=== PATIENT | male | born 1965 | race Caucasian/White ===

== ENCOUNTER 2016-07-30 22:57 | Inpatient (IN) ==
[2016-07-30] MEDS ORDERED: PIPERACILLIN/TAZOBACTAM 2,250 MG in SODIUM CHLORIDE 0.9% 100 ML IV STA (23:38)
[2016-07-30] MEDS ORDERED: VANCOMYCIN INJ 1,000 MG in SODIUM CHLORIDE 0.9% 250 ML IV STA (23:38)
--- NOTE | 2016-07-30 23:54 | Emergency Department Note ---
Suri Bautista Emily, am scribing for, and in the presence of, Reggie Irving MD 23: 41. Aristides Bautista Charles R, MD, personally performed the services described in this documentation, ascribed by Katelyn Mccord in my presence, and it is both accurate and complete 354 . Arrival - Arrival Chief Complaint: Altered Mental Status Stated Complaint: altered mental status ED Nursing Triage Note: patient to ED as a tx from [facility] ED with c/o AMS. patient AAOx3 at this time but has unsteady gait and it takes patient a second to recall information when asked questions. patient was with fever 103.0 at [facility] that was tx. patient with abnormal labs at [facility] and sent for further evaluation. Mode of Arrival: Stretcher Limitations: Altered Mental Status Source: Patient Time Seen by Provider: 07/30/16 23:23 - History of Present Illness HPI Narrative: Pt is a 51 y/o male who was transferred to ED from [facility] ED for further evaluation AMS and fever of 103 that happened today. Pt had abnormal labs at [facility] (D-Dimer 9000) and sent for further evaluation. Pt had klondipin [employer]. Pt is sweating in ED, and c/o back pain. He also notes he smokes a pack every 3 days. Pt was seen at [facility] last week by Dr. Joshi and was altered then but had elevated BP. Onset (ago): day(s) Consistency: constant Severity: moderate Severity scale (1-10): 5 Quality: other (sweating) Allergies/Adverse Reactions: Allergies Allergy/AdvReac Type Severity Reaction Status Date / Time Sulfa (Sulfonamide AdvReac Unknown/Unable Verified 07/30/16 23:04 Antibiotics) to obtain Review of System - Review of System ROS unobtainable: due to mental status Medical,Surgical,& Family Hx - Medical History Cardio: History of: Hypertension Endocrine: History of: Dyslipidemia Musculoskeletal: History of: Degenerative Disk Disease, Herniated Disk - Social History Smoking Status: Unknown if ever smoked Frequency of Alcohol Use: Unknown Type of Drug Use: Unknown Exam Vital Signs: Vital Signs Temperature 98.0 F 07/30/16 22:57 Pulse Rate 105 H 07/30/16 22:57 Respiratory Rate 23 07/30/16 22:57 Blood Pressure 100/62 07/30/16 22:57 O2 Sat by Pulse Oximetry 92 L 07/30/16 22:57 - General General appearance: alert, in no apparent distress, other (appears toxic) - Head Head exam: Present: atraumatic, normocephalic - Eye Eye exam: Present: PERRL, EOMI - ENT ENT exam: Present: mucous membranes moist. Absent: mucous membranes dry - Neck Neck exam: Present: full ROM. Absent: tenderness - Chest Chest inspection: Present: symmetric chest wall rise. Absent: tenderness - Respiratory Respiratory exam: Present: rhonchi (bilateral). Absent: normal lung sounds bilaterally, respiratory distress - Cardiovascular Cardiovascular exam: Present: tachycardia, normal heart sounds - Abdominal Exam Abdominal exam: Present: soft. Absent: tenderness - Extremities Exam Extremities exam: Present: full ROM. Absent: tenderness, pedal edema - Neurological Exam Neurological exam: Present: alert, CN II-XII intact, other (confused; weak). Absent: oriented X3, motor sensory deficit - Psychiatric Psychiatric exam: Present: other (confused) - Skin Skin exam: Present: warm, intact, normal color, diaphoresis (clammy) Course - Consultations Consultation #1: Hospitalist will admit patient Time: 23:54 Results - Labs Labs: All results from previous facility reviewed Critical Care Time Critical Care Time: Yes Total Critical Care Time: 60 Disposition Clinical Impression: Altered mental status, Sepsis, Fever, Hypotension, Acute renal failure, Dehydration, Hyperglycemia due to type 2 diabetes mellitus, Hyponatremia, Confusion Case discussed with: patient Disposition: Still a Patient Condition: Critical Time of Disposition: 23:56
[2016-07-31] MEDS ORDERED: VANCOMYCIN 1,000 MG VIAL ONE (00:34)
[2016-07-31 00:40] LABS: Basophils % 0.4 % (0.0-0.8); Eosinophils % 0.1 % (0.00-10.9); Hematocrit 36.2 VOL% (42.0-52.0); Hemoglobin 12.7 GM/DL (14.0-18.0); Immature Granulocytes % 0.9 %; Immature Granulocytes Absolute 0.06 #; Lymphocytes # 0.5 10*3/uL (1.4-4.0); Lymphocytes % 7.3 % (21.2-54.2); Mean Corpuscular HGB Conc 35.1 GM/DL (32-36); Mean Corpuscular Hemoglobin 32 PG (27-34); Monocytes # 0.6 10*3/uL (0.11-0.8); Monocytes % 9.5 % (1.7-12.7); Neutrophils # 5.5 10*3/uL (1.4-7.4); Neutrophils % 81.8 % (38.7-73.9); Red Blood Count 3.98 MC/CUMM (3.8-5.5); Red Cell Distribution Width 12.8 % (9.3-17.3); White Blood Count 6.7 T/CUMM (4-12)
[2016-07-31 00:58] LABS: Platelet Count 84 T/CUMM (130-400)
[2016-07-31 01:02] LABS: Albumin 2.5 G/DL (3.4-5.0); Bilirubin,Total 0.7 MG/DL (0.2-1.0); CKMB % 0.9 %; Calcium 6.5 MG/DL (8.5-10.1); Magnesium 0.8 MG/DL (1.8-2.4); Osmolality,Calculated 294.8 MOS/KG (273-304); Potassium 3.2 MMOL/L (3.5-5.1); Total Protein 6.1 G/DL (6.4-8.3); Troponin I Only 0.06 NG/ML (0.00-0.045)
--- NOTE | 2016-07-31 02:48 | Hospitalist History & Physical ---
Assessment and Plan (1) Acute renal failure Status: Acute Current Visit: Yes (2) Altered mental status Status: Acute Current Visit: Yes (3) Confusion Status: Acute Current Visit: Yes (4) Fever Status: Acute Current Visit: Yes (5) Hyperglycemia due to type 2 diabetes mellitus Status: Acute Current Visit: Yes (6) Hypotension Status: Acute Current Visit: Yes (7) Sepsis Status: Acute Assessment and plan: We will admit the patient to ICU. He needs observation with broad coverage antibiotics. Source of sepsis is not known. Blood cultures need to be drawn. Patient complaining about severe back pain. He has chronic pain. We will repeat a d-dimer if it is elevated he he needs a VQ scan. I will consult nephrology to see what they think about his kidney function. We will continue with IV fluids. He can have some Toradol for pain. He needs his potassium repleted. He has a mild bump in troponins we need to trend those out. He has a high C-reactive protein. ESR is elevated. I am going to image his back for as a source for possible sepsis to be complete. He is on broad coverage antibiotics. Current Visit: Yes History of Present Illness Chief complaint: Fever, hypotension, chronic back pain History of present illness: Mr. Ball is a 51 year old male with past medical history significant for chronic back pain arthritis diabetes diabetic retinopathy and elevation of liver enzymes Presents to our hospital as a transfer from outside facility. According to the story the patient gives he fell and hurt his back after taking the Klonopin. He been running a fever of 103 today. He says he was having symptoms of bronchitis. Was at the outside facility he had a drop in blood pressure. We were under the impression that he was going septic and he required a 4 L bolus. This might be a reaction to some morphine that they gave him at the outside facility. I know he has been on lisinopril hydrochlorothiazide for years. He has elevated creatinine and he is unsure whether this is new or old. Apparently he had elevated blood pressure when he was seen last week at [place]. I was consulted to admit the patient. Allergies Allergy/AdvReac Type Severity Reaction Status Date / Time Sulfa (Sulfonamide AdvReac Unknown/Unable Verified 07/30/16 23:04 Antibiotics) to obtain Medical,Surgical,& Family Hx - Medical History Cardio: History of: Hypertension Endocrine: History of: Dyslipidemia Musculoskeletal: History of: Degenerative Disk Disease, Herniated Disk - Surgical History Orthopedic Surgeries: Surgical HX of;: Orthopedic Surgery - Family History Family History: Reports;: Family Hypertension - Social History Smoking Status: Current every day smoker Frequency of Alcohol Use: Unknown Type of Drug Use: Unknown 12 point system: reviewed and no additional remarkable complaints except as stated Exam - Constitutional Vitals: Period Temp Pulse Resp BP Sys/Mcconnell Pulse Ox Last 24 Hr 98 F-98.0 F 105-105 20-23 100-100/62-62 92 - General General appearance: alert, in no apparent distress, other (appears toxic) mildly confused overweight emotional - Head Head exam: Present: atraumatic, normocephalic - Eye Eye exam: Present: PERRL, EOMI - ENT ENT exam: Present: mucous membranes moist. Absent: mucous membranes dry - Neck Neck exam: Present: full ROM. Absent: tenderness - Chest Chest inspection: Present: symmetric chest wall rise. Absent: tenderness - Respiratory Respiratory exam: Present: rhonchi (bilateral). Absent: normal lung sounds bilaterally, respiratory distress - Cardiovascular Cardiovascular exam: Present: tachycardia, normal heart sounds - Abdominal Exam Abdominal exam: Present: soft. Absent: tenderness - Extremities Exam Extremities exam: Present: full ROM. Absent: tenderness, pedal edema - Neurological Exam Neurological exam: Present: alert, CN II-XII intact, other (confused; weak). Absent: oriented X3, motor sensory deficit - Psychiatric Psychiatric exam: Present: other (confused) - Skin Skin exam: Present: warm, intact, normal color, diaphoresis (clammy) Results - Labs CBC & BMP: 07/30/16 00:34 07/30/16 00:34
[2016-07-31] MEDS ORDERED: GLUCAGON 1 MG VIAL IM PRN (02:54)
[2016-07-31] MEDS ORDERED: ONDANSETRON 4 MG/2 ML VIAL IV PRN (02:54)
[2016-07-31 03:02] LABS: Band Neutrophils 3 % (0-10); Lymphocytes 12 % (20-55); Metamyelocytes 1 %; Platelet Estimate Decreased; Segmented Neutrophils 79 % (50-85); Total Cells Counted 100
[2016-07-31] MEDS ORDERED: KETOROLAC 15 MG/1 ML VIAL IV PRN (03:03)
[2016-07-31] MEDS ORDERED: MAGNESIUM SULF RIDER 2 GM in PREMIX 1 EACH IV PRN (03:31)
[2016-07-31] MEDS ORDERED: MAGNESIUM SULF RIDER 4 GM in PREMIX 1 EACH IV PRN (03:31)
[2016-07-31] MEDS ORDERED: POTASSIUM CHLORIDE 20 MEQ TABLET PO ONE (03:47)
[2016-07-31] MEDS: SODIUM CHLORIDE 0.9% 1,000 ML IV SCH ×3 (04:45→21:23)
[2016-07-31] MEDS ORDERED: MAGNESIUM SULF RIDER 100 ML IV ONE (04:48)
[2016-07-31] MEDS: ENOXAPARIN 30 MG/0.3 ML SYRINGE SUBCUT SCH (04:51)
--- NOTE | 2016-07-31 07:13 | CT Report ---
CT head/brain wo con INDICATION: Altered mental status/confusion The total DLP is 1134 mGy*cm. COMPARISON: None available Technique: Serial axial tomographic images of the brain were obtained without the use of intravenous contrast. Dose reduction: This CT exam was performed using one or more of the following dose reduction techniques: Automated exposure control, automated adjustment of the mA and/or KV according to patient size, or use of iterative reconstruction technique. Findings: The cortical sulcal pattern is generally symmetric and within normal limits in appearance bilaterally. There is no evidence of vascular territory infarct or acute intracranial hemorrhage. The gong-white matter differentiation is generally maintained. There is no hydrocephalus. The basilar cisterns are patent. The visualized paranasal sinuses, mastoid air cells and middle ear cavities are predominantly clear. The included orbits and their contents appear within normal limits. The visualized osseous structures and overlying soft tissues of the skull and face demonstrate no acute abnormality. IMPRESSION: No acute intracranial abnormality. PROCEDURE INTERPRETED AT [facility] DEPARTMENT OF RADIOLOGY Final Report Signed by: Albino Hammond
[2016-07-31 08:39] LABS: Lactic Acid 1.1 MMOL/L (0.4-2.0)
[2016-07-31 08:40] LABS: Albumin 2.5 G/DL (3.4-5.0); Bilirubin,Total 1.1 MG/DL (0.2-1.0); Calcium 6.9 MG/DL (8.5-10.1); Osmolality,Calculated 296.8 MOS/KG (273-304); Potassium 4.1 MMOL/L (3.5-5.1); Total Protein 5.9 G/DL (6.4-8.3)
[2016-07-31 08:41] LABS: CKMB % 1.6 %; Troponin I Only 0.043 NG/ML (0.00-0.045)
[2016-07-31 08:44] LABS: Basophils % 0.4 % (0.0-0.8); Eosinophils % 0.2 % (0.00-10.9); Hematocrit 33.4 VOL% (42.0-52.0); Hemoglobin 11.9 GM/DL (14.0-18.0); Immature Granulocytes % 1.5 %; Immature Granulocytes Absolute 0.07 #; Lymphocytes # 0.3 10*3/uL (1.4-4.0); Lymphocytes % 6.8 % (21.2-54.2); Mean Corpuscular HGB Conc 35.6 GM/DL (32-36); Mean Corpuscular Hemoglobin 32 PG (27-34); Mean Corpuscular Volume 89.3 FL (87-102); Mean Platelet Volume 12.3 FL (9.6-12.0); Monocytes # 0.6 10*3/uL (0.11-0.8); Monocytes % 12.1 % (1.7-12.7); Neutrophils # 3.7 10*3/uL (1.4-7.4); Platelet Count 86 T/CUMM (130-400); Red Blood Count 3.74 MC/CUMM (3.8-5.5); Red Cell Distribution Width 13.3 % (9.3-17.3); White Blood Count 4.7 T/CUMM (4-12)
--- NOTE | 2016-07-31 08:52 | XRay Report ---
Portable chest Date: 07/31/2016 Clinical history: Shortness of breath Comparison: 07/30/2016 Technique: Portable AP sitting chest Findings: The heart is minimally enlarged with progressive parenchymal findings at the lung bases. Stable mediastinum with degenerative changes. Impression: Minimal cardiomegaly with progressive atelectasis/infiltration/edema at the lung bases. PROCEDURE INTERPRETED AT [facility] DEPARTMENT OF RADIOLOGY Final Report Signed by: Dr. Haydee Manjarrez
[2016-07-31] MEDS: PANTOPRAZOLE 40 MG TABLET PO SCH (08:56)
[2016-07-31] MEDS: INSULIN REGULAR 100 UNIT/ML SUBCUT SCH ×4 (08:56→21:23)
[2016-07-31] MEDS: PIPERACILLIN/TAZOBACTAM 3,375 MG in SODIUM CHLORIDE 0.9% 100 ML IV SCH ×2 (08:57→16:20)
[2016-07-31 09:04] LABS: Band Neutrophils 6 % (0-10); Eosinophils 1 % (0-10); Hypochromasia 1+; Lymphocytes 7 % (20-55); Metamyelocytes 1 %; Microcytosis 1+; Platelet Estimate Decreased; Segmented Neutrophils 71 % (50-85); Total Cells Counted 100
[2016-07-31] MEDS ORDERED: HYDROmorphone 2 MG/1 ML VIAL ONE (09:07)
[2016-07-31] MEDS: HYDROmorphone 2 MG/1 ML VIAL IV PRN ×3 (09:10→17:21)
--- NOTE | 2016-07-31 09:17 | CT Report ---
CT lumbar spine wo con Indication: Back pain, septic Comparison: None. Technique: Routine CT of the lumbar spine was performed without the administration of intravenous contrast. Axial images as well as coronal and sagittal MPR images of the lumbar spine was submitted for interpretation. The total DLP is 1651 mGy*cm. Dose reduction: This CT exam was performed using one or more of the following dose reduction techniques: Automated exposure control, automated adjustment of the mA and/or KV according to patient size, or use of iterative reconstruction technique. Findings: Lumbar vertebral bodies demonstrate normal alignment. Vertebral body height is well maintained throughout the lumbar spine. Intervertebral disc spaces demonstrate no evidence of advanced degeneration. There is no evidence of significant central stenosis. The prevertebral soft tissues as well as posterior paraspinous musculature and imaged intra-abdominal contents demonstrate no evidence of acute pathology. Very mild L4-5 and L5-S1 facet arthropathy is noted. Small anterior osteophytes are noted at multiple levels. There is minimal vacuum disc phenomena within the L5-S1 disc with mild narrowing. Bilateral L5 pars defects are noted. There is grade 1 anterolisthesis of L5 relative to S1. Impression: 1. No evidence of acute pathology affecting the lumbar spine. 2. Mild multilevel degenerative changes as detailed above. 07/31/2016 9:12 AM PROCEDURE INTERPRETED AT [facility] DEPARTMENT OF RADIOLOGY Final Report Signed by: Albino Hammond
--- NOTE | 2016-07-31 09:29 | CT Report ---
Exam:CT thoracic spine wo con Indication: Back pain and septic patient The total DLP is 1263 mGy*cm. Comparison: None available Technique: Multiple axial tomographic images were obtained of the thoracic spine without the use of IV contrast. Coronal and sagittal reformations were provided. Dose reduction: This CT exam was performed using one or more of the following dose reduction techniques: Automated exposure control, automated adjustment of the mA and/or KV according to patient size, or use of iterative reconstruction technique. Findings: Study somewhat limited given CT technique and lack of intravenous contrast. No obvious paraspinal soft tissue abnormalities or areas suggestive of focal inflammatory changes are identified on the axial images. Multilevel mild degenerative changes including anterior osteophyte formation and mild facet arthropathy is noted throughout the thoracic spine. Vertebral body heights and alignment are maintained. Intervertebral disc spaces appear relatively maintained. There is no acute fracture or dislocation. No suspicious osseous lesions are identified. No significant spinal canal or neuroforaminal narrowing. The visualized surrounding soft tissues have a normal appearance. IMPRESSION: No CT evidence of acute abnormality to the osseous thoracic spine. PROCEDURE INTERPRETED AT [facility] DEPARTMENT OF RADIOLOGY Final Report Signed by: Albino Hammond
--- NOTE | 2016-07-31 09:36 | Ultrasound Report ---
Exam: US renal Bilateral Date: 07/31/2016 4:00 AM Comparison: None Indication: Elevated creatinine Technique:[Multiple transabdominal real-time scans were obtained of the kidneys. Ultrasound images were captured and stored.] Findings: Right kidney measures 117 x 63 x 61 mm. Left kidney measures 100 x 67 x 62 mm. No hydronephrosis or mass. Impression: The kidneys are symmetric in size with no hydronephrosis or definite mass. PROCEDURE INTERPRETED AT [facility] DEPARTMENT OF RADIOLOGY Final Report Signed by: Dr. Haydee Manjarrez
--- NOTE | 2016-07-31 09:51 | CT Report ---
CT cervical spine wo con Indication: neck pain with sepsis Comparison: None. Technique: CT of the cervical spine was performed without administration of intravenous contrast. In addition to axial source images obtained from the skull base through the upper chest, coronal and sagittal MPR series were submitted for interpretation. The total DLP is 723.5 mGy*cm. Dose reduction: This CT exam was performed using one or more of the following dose reduction techniques: Automated exposure control, automated adjustment of the mA and/or KV according to patient size, or use of iterative reconstruction technique. Findings: Lack of intravenous contrast limits evaluation. The base of the skull demonstrates no evidence of significant pathology. Alignment of the cervical spine is within normal limits. Cervical vertebral body heights are well maintained throughout the cervical spine. Intervertebral disc spaces are well maintained throughout the cervical spine. There is no acute fracture or subluxation within the cervical spine. No significant osseous spinal stenosis is suggested. Prevertebral soft tissues demonstrate no significant abnormalities. The thyroid gland demonstrates no evidence of acute pathology. Imaged portion of the upper chest demonstrates no evidence of significant pathology. Impression: 1. No evidence of acute cervical spine pathology. 2. Multilevel mild degenerative changes as detailed above. 07/31/2016 9:29 AM PROCEDURE INTERPRETED AT [facility] DEPARTMENT OF RADIOLOGY Final Report Signed by: Albino Hammond
--- NOTE | 2016-07-31 11:01 | Nuclear Medicine Report ---
Exam: Lung scan ventilation/perfusion Date: 07/31/2016 Comparison: Chest x-ray 07/31/2016 Reason: Shortness of breath Technique: 40 mCi of technetium 99m DTPA aerosolized was inhaled with injection of 5 mCi of technetium 99m MAA . 6 view Ventilation and perfusion images of both lungs were acquired. Findings: Slightly diminished ventilation at the lung bases. No unmatched defects are identified. Impression: Low probability lung scan. PROCEDURE INTERPRETED AT [facility] DEPARTMENT OF RADIOLOGY Final Report Signed by: Dr. Haydee Manjarrez
--- NOTE | 2016-07-31 12:02 | Nephrology Consult Note ---
History of Present Illness Chief complaint: ARF History of present illness: Mr. Ball is a 51 year old male seen at [facility] for back pain. He became hypotensive there was given IV fluid. He was thought to be septic and was transferred here. He was febrile. He was noted to have renal failure. He states that he has been told his renal function was abnormal in the past but does not know his baseline. He recently moved here and has no local records. No history of nephrolithiasis. No dysuria or hematuria. Home Medications Medication Instructions Recorded Confirmed Type Unable To Obtain [Unable to Obtain] 07/31/16 07/31/16 History Allergies Allergy/AdvReac Type Severity Reaction Status Date / Time Sulfa (Sulfonamide AdvReac Unknown/Unable Verified 07/30/16 23:04 Antibiotics) to obtain Medical,Surgical,& Family Hx - Medical History Cardio: History of: Hypertension Endocrine: History of: Diabetes Mellitus (IDDM), Dyslipidemia Renal: History of: Renal Problems Musculoskeletal: History of: Degenerative Disk Disease, Herniated Disk - Surgical History Orthopedic Surgeries: Surgical HX of;: Orthopedic Surgery - Family History Family History: Reports;: Family Hypertension - Social History Smoking Status: Current every day smoker Frequency of Alcohol Use: Frequently Type of Drug Use: Unknown Review of Systems 12 point system: reviewed and no additional remarkable complaints except as stated Exam - Vital Signs Vital signs: Period Temp Pulse Resp BP Sys/Mcconnell Pulse Ox Last 24 Hr 97.1 F-98.2 F 96-113 14-27 90-126/60-83 91-99 Exam: Gen.: Alert and oriented x3. ENT: Pupils equal round reactive to light. EOMs intact. Mucous membranes moist. Neck: Supple. No JVD or bruit. Cardiovascular: Regular rate and rhythm. No murmur rub or gallop Lungs: Clear Abdomen: Soft. Nontender. Positive bowel sounds. No organomegaly Extremities: No edema Results - Labs CBC & BMP: 07/31/16 08:00 07/31/16 08:00 Assessment and Plan (1) Acute renal failure Status: Acute Assessment and plan: 51-year-old man admitted with: * Acute renal failure. He has an unknown degree of chronic renal insufficiency. Renal function worsened with hypotension. It has begun to improve with better blood pressure. He did take NSAIDs prior to admission and received Toradol in the ER. I agree with discontinuing these. He was also on an HUGH inhibitor which is being held. Renal ultrasound shows no anatomic abnormalities * Hypotension. Rule out sepsis. He is also clinically volume depleted. Continue empiric antibiotics * Diabetes mellitus * Chronic back pain * Altered mental status. He appears to be back to his baseline. This was likely due to hypotension and pain medications Current Visit: Yes (2) Altered mental status Status: Acute Current Visit: Yes (3) Fever Status: Acute Current Visit: Yes (4) Hyperglycemia due to type 2 diabetes mellitus Status: Acute Current Visit: Yes (5) Hypotension Status: Acute Current Visit: Yes
[2016-07-31 12:38] LABS: CKMB % 1.7 %
[2016-07-31 12:48] LABS: Troponin I Only 0.05 NG/ML (0.00-0.045)
[2016-08-01] MEDS: PIPERACILLIN/TAZOBACTAM 3,375 MG in SODIUM CHLORIDE 0.9% 100 ML IV SCH ×4 (00:14→23:54)
[2016-08-01] MEDS: LORazepam 2 MG/1 ML VIAL IV PRN (00:46)
[2016-08-01] MEDS: HYDROmorphone 2 MG/1 ML VIAL IV PRN ×3 (03:05→20:54)
[2016-08-01] MEDS: SODIUM CHLORIDE 0.9% 1,000 ML IV SCH ×3 (05:35→20:16)
--- NOTE | 2016-08-01 07:53 | Hospitalist Progress Note ---
Assessment and Plan - Time spent with patient Time spent with patient: Less than 30 minutes (1) Altered mental status Status: Acute Assessment and plan: He appears to be back at baseline mental status. We will continue to follow and monitor. Current Visit: Yes (2) Sepsis Status: Acute Assessment and plan: Cultures have been negative thus far there is no source of infection enough yet to identify. We will continue IV fluids and broad-spectrum antibiotics while awaiting further cultures. Current Visit: Yes (3) Thrombocytopenia Status: Acute Assessment and plan: He does have thrombocytopenia however this is stable and there is no evidence of bleeding at this time. Current Visit: Yes (4) Diabetes mellitus Status: Acute Assessment and plan: Patient has history of diabetes mellitus. Blood sugars are not very well controlled. Will continue Accu-Chek sliding scale and his routine medical regimen and attempt optimize while here. Current Visit: Yes Qualifiers: Diabetes mellitus type: type 2 (5) Acute renal failure Status: Acute Assessment and plan: Laboratory studies are pending for this morning. Nephrology is seen in assisting. Will continue hydration and avoid nephrotoxic insults. Current Visit: Yes Hospitalist: Subjective Interval history: 51-year-old male who was admitted with possible sepsis after being transferred from an outlying hospital. Cultures remain negative thus for. Nephrology is seen for his renal failure which is of unknown duration. Today he continues to complain of some mid back pain. He states he is tolerating his diet and has no nausea, vomiting, diarrhea, constipation, chest pain, shortness of breath. Nurses state that he has pulled his IV out on multiple occasions and is constantly trying to get out of his bed. Exam - Constitutional Vitals: Period Temp Pulse Resp BP Sys/Mcconnell Pulse Ox Last 24 Hr 97.7 F-100.9 F 86-123 13-22 102-155/61-88 91-99 General appearance: no acute distress - Head Head exam: Present: normocephalic, atraumatic - Eye Eye exam: Present: EOMI Pupils: Present: NANY - ENT ENT exam: Present: normal oropharynx - Neck Neck exam: Present: normal inspection - Respiratory Respiratory exam: Present: clear to auscultation bilaterally. Absent: rales, rhonchi, wheezes - Cardiovascular Cardiovascular exam: Present: regular rate and rhythm, tachycardia - GI/Abdominal GI/Abdominal exam: Present: normal bowel sounds, soft. Absent: mass, tenderness , rebound - Extremities Exam Extremities exam: Absent: calf tenderness, edema - Back Exam Back exam: Present: normal inspection - Neurological Exam Neurological exam: Present: alert, oriented X3, CN II-XII intact. Absent: motor sensory deficit - Psychiatric Psychiatric exam: Present: normal affect, normal mood. Absent: agitated, anxious - Skin Skin exam: Present: warm, dry. Absent: rash Results - Labs CBC & BMP: 07/31/16 08:00 07/31/16 08:00 Lab Results: I have reviewed the past 24 hour labs - Diagnostic Findings Procedure: Chest x-ray: report reviewed by me, CT: report reviewed by me (CT head, CT cervical thoracic and lumbar spine reviewed), X-ray: report reviewed by me (VQ scan reveals low probability)
[2016-08-01 08:40] LABS: Basophils % 0.3 % (0.0-0.8); Hematocrit 34.6 VOL% (42.0-52.0); Hemoglobin 11.8 GM/DL (14.0-18.0); Immature Granulocytes % 6.5 %; Immature Granulocytes Absolute 0.38 #; Lymphocytes # 0.5 10*3/uL (1.4-4.0); Lymphocytes % 8.2 % (21.2-54.2); Mean Corpuscular HGB Conc 34.1 GM/DL (32-36); Mean Corpuscular Hemoglobin 31 PG (27-34); Mean Corpuscular Volume 91.5 FL (87-102); Mean Platelet Volume 12.9 FL (9.6-12.0); Monocytes % 16.7 % (1.7-12.7); Neutrophils % 68.3 % (38.7-73.9); Platelet Count 81 T/CUMM (130-400); Red Blood Count 3.78 MC/CUMM (3.8-5.5); Red Cell Distribution Width 13.7 % (9.3-17.3); White Blood Count 5.9 T/CUMM (4-12)
[2016-08-01 09:15] LABS: Osmolality,Calculated 308.7 MOS/KG (273-304); Potassium 4.6 MMOL/L (3.5-5.1)
[2016-08-01] MEDS: ENOXAPARIN 30 MG/0.3 ML SYRINGE SUBCUT SCH (09:26)
[2016-08-01] MEDS: CLORAZEPATE 3.75 MG TABLET PO SCH ×2 (09:27→14:34)
[2016-08-01] MEDS: INSULIN REGULAR 100 UNIT/ML SUBCUT SCH ×4 (09:27→20:44)
[2016-08-01] MEDS: INSULIN ASPART PROTAMINE/ASPART 70/30 100 UNIT/ML SUBCUT SCH ×2 (09:27→16:43)
[2016-08-01] MEDS: PANTOPRAZOLE 40 MG TABLET PO SCH (09:28)
[2016-08-01] MEDS: THIAMINE 200 MG/2 ML VIAL IV SCH (11:18)
[2016-08-01 13:14] LABS: Band Neutrophils 1 % (0-10); Hypochromasia 1+; Lymphocytes 8 % (20-55); Platelet Estimate Decreased; Segmented Neutrophils 72 % (50-85); Total Cells Counted 100
--- NOTE | 2016-08-01 16:37 | Nephrology Progress Note ---
Nephrology - PN: Subj Interval history: Patient complains of back and flank pain. He states he fell going to the bathroom. He is requesting more liberal pain medicines. Review of systems pulmonary he states he is having trouble getting his breath due to the position in the bed. GI he denies nausea or vomiting Physical exam general the patient chronically ill-appearing, he has trace pretibial edema Assessment/plan 1. Acute renal failure-patient's creatinine is improving we will continue his present therapy 2. Anemia-patient's hematocrit around 36% 3. MRSA bacteremia-patient continues on broad-spectrum antibiotics, I am going to give him a dose of vancomycin and ask pharmacy to follow dosing 4. Diabetes mellitus we will continue his present hypoglycemic regimen Exam (PN)-Nephrology - Vital Signs Vital signs: Period Temp Pulse Resp BP Sys/Mcconnell Pulse Ox Last 24 Hr 97.5 F-100.9 F 86-116 15-22 125-155/61-88 92-96 - Lab 08/01/16 08:13 08/01/16 08:13 Most recent lab results Calcium 7.0 MG/DL (8.5-10.1) L 08/01/16 08:13 Magnesium 0.8 MG/DL (1.8-2.4) L 07/30/16 00:34
[2016-08-01] MEDS: CLORAZEPATE 7.5 MG TABLET PO SCH ×2 (18:08→23:54)
[2016-08-01] MEDS: VANCOMYCIN INJ 1,750 MG in SODIUM CHLORIDE 0.9% 500 ML IV SCH (19:01)
[2016-08-02] MEDS: HYDROmorphone 2 MG/1 ML VIAL IV PRN (02:43)
[2016-08-02 06:09] LABS: Basophils % 0.5 % (0.0-0.8); Eosinophils % 0.3 % (0.00-10.9); Hematocrit 33.3 VOL% (42.0-52.0); Hemoglobin 11.7 GM/DL (14.0-18.0); Immature Granulocytes Absolute 0.16 #; Lymphocytes # 0.8 10*3/uL (1.4-4.0); Lymphocytes % 10.4 % (21.2-54.2); Mean Corpuscular HGB Conc 35.1 GM/DL (32-36); Mean Corpuscular Hemoglobin 32 PG (27-34); Mean Corpuscular Volume 90.5 FL (87-102); Mean Platelet Volume 13.4 FL (9.6-12.0); Monocytes # 1.4 10*3/uL (0.11-0.8); Monocytes % 17.1 % (1.7-12.7); Neutrophils # 5.6 10*3/uL (1.4-7.4); Neutrophils % 69.7 % (38.7-73.9); Platelet Count 111 T/CUMM (130-400); Red Blood Count 3.68 MC/CUMM (3.8-5.5); Red Cell Distribution Width 14.2 % (9.3-17.3)
[2016-08-02 06:36] LABS: Calcium 7.7 MG/DL (8.5-10.1); Osmolality,Calculated 300.4 MOS/KG (273-304); Potassium 4.1 MMOL/L (3.5-5.1)
[2016-08-02] MEDS: SODIUM CHLORIDE 0.9% 1,000 ML IV SCH ×2 (06:53→14:45)
[2016-08-02 07:03] LABS: Band Neutrophils 8 % (0-10); Eosinophils 1 % (0-10); Hypochromasia Slight; Lymphocytes 11 % (20-55); Platelet Estimate Decreased; Segmented Neutrophils 67 % (50-85); Total Cells Counted 100
[2016-08-02] MEDS: PANTOPRAZOLE 40 MG TABLET PO SCH (08:30)
[2016-08-02] MEDS: CLORAZEPATE 7.5 MG TABLET PO SCH (08:30)
[2016-08-02] MEDS: LORazepam 2 MG/1 ML VIAL IV PRN ×3 (08:30→20:51)
[2016-08-02] MEDS: THIAMINE 200 MG/2 ML VIAL IV SCH (08:30)
[2016-08-02] MEDS: PIPERACILLIN/TAZOBACTAM 3,375 MG in SODIUM CHLORIDE 0.9% 100 ML IV SCH ×2 (09:22→16:00)
--- NOTE | 2016-08-02 09:42 | Nephrology Progress Note ---
Nephrology - PN: Subj Interval history: Patient complains of a dry mouth. Review of systems pulmonary complains of some shortness of breath, GI he denies nausea or vomiting Physical exam general the patient moderately ill-appearing sitting up at the bedside swaying a little bit [id number], heart is regular rate and rhythm, he has trace pretibial edema, lungs are clear to auscultation anteriorly, abdomen is soft with positive bowel sounds, skin shows mottling of his lower extremities and some in his hands and forearms Assessment/plan 1. Acute renal failure-patient's creatinine is improved at 2.7 mg/dL today we will continue his IV fluids 2. Altered mental status-this patient is having some problems with his mentation he seems to be slowed today and some of his responses do not make any sense. 3. Thrombocytopenia-this patient's platelet count was around 80,000 it has increased around 110,000 a day I am going to check an LDH level, also going to ask hematology to see him, I worry some about a TTP or hemolytic uremic syndrome although most likely this is sepsis related to his MRSA bacteremia 4. MRSA bacteremia continue IV antibiotics I spoke to Dr. Coats, hematology route contractor this weekend about the patient and he is going to take a look at him in consultation. Exam (PN)-Nephrology - Vital Signs Vital signs: Period Temp Pulse Resp BP Sys/Mcconnell Pulse Ox Last 24 Hr 98.4 F-100.6 F 97-112 20-22 125-154/61-75 91-94 - Lab 08/02/16 04:45 08/02/16 04:45 Most recent lab results Calcium 7.7 MG/DL (8.5-10.1) L 08/02/16 04:45 Magnesium 0.8 MG/DL (1.8-2.4) L 07/30/16 00:34
[2016-08-02] MEDS: INSULIN REGULAR 100 UNIT/ML SUBCUT SCH ×4 (10:26→22:12)
[2016-08-02] MEDS: INSULIN ASPART PROTAMINE/ASPART 70/30 100 UNIT/ML SUBCUT SCH ×2 (10:26→18:06)
[2016-08-02] MEDS: ENOXAPARIN 40 MG/0.4 ML SYRINGE SUBCUT SCH (10:27)
--- NOTE | 2016-08-02 10:49 | Hospitalist Progress Note ---
Assessment and Plan - Time spent with patient Time spent with patient: Less than 30 minutes (1) Altered mental status Status: Acute Assessment and plan: He appears to be back at baseline mental status. We will continue to follow and monitor. Current Visit: Yes (2) Sepsis Status: Acute Assessment and plan: Cultures have been negative thus far there is no source of infection enough yet to identify. We will continue IV fluids and broad-spectrum antibiotics while awaiting further cultures. 08/02/16: Patient does have blood cultures returned positive for MRSA for which he is being treated. Continue IV antibiotics and continue to identify the source of this bacteremia. Current Visit: Yes Qualifiers: Sepsis type: methicillin resistant Staphylococcus aureus Qualified Code(s) : A41.02 - Sepsis due to Methicillin resistant Staphylococcus aureus (3) Thrombocytopenia Status: Acute Assessment and plan: He does have thrombocytopenia however this is stable and there is no evidence of bleeding at this time. 08/02/16: Discussed with Dr. Cameron who has consulted hematology to assist with this. There is no evidence of bleeding at this time. His platelet count has improved 110,000 today and this may likely be result of treating his underlying sepsis. Current Visit: Yes (4) Diabetes mellitus Status: Acute Assessment and plan: Patient has history of diabetes mellitus. Blood sugars are not very well controlled. Will continue Accu-Chek sliding scale and his routine medical regimen and attempt optimize while here. 08/02/16: Blood sugars continue to be elevated but improved. We will continue to optimize his medical regimen while here. Current Visit: Yes Qualifiers: Diabetes mellitus type: type 2 (5) Acute renal failure Status: Acute Assessment and plan: Laboratory studies are pending for this morning. Nephrology is seen in assisting. Will continue hydration and avoid nephrotoxic insults. 08/02/16: Renal function slightly improved today. Appreciate Dr. Cameron's assistance. Current Visit: Yes Hospitalist: Subjective Interval history: Mr. Ball is sitting up on the side of the bed receiving a bath this morning. He denies any chest discomfort, shortness of breath, nausea, vomiting, diarrhea, constipation to me this morning. He did have blood cultures returned positive for MRSA for which he is being treated. Have discussed with Dr. Cameron and he will be consulted hematology for further evaluation of his thrombocytopenia. Exam - Constitutional Vitals: Period Temp Pulse Resp BP Sys/Mcconnell Pulse Ox Last 24 Hr 98 F-100.6 F 97-118 20-26 123-154/61-85 91-94 General appearance: no acute distress - Head Head exam: Present: normocephalic, atraumatic - Eye Eye exam: Present: EOMI Pupils: Present: NANY - ENT ENT exam: Present: normal exam - Neck Neck exam: Present: normal inspection - Respiratory Respiratory exam: Present: clear to auscultation bilaterally. Absent: rales, rhonchi, wheezes - Cardiovascular Cardiovascular exam: Present: regular rate and rhythm, tachycardia. Absent: systolic murmur - GI/Abdominal GI/Abdominal exam: Present: normal bowel sounds, soft. Absent: distended, mass , tenderness, rebound - Extremities Exam Extremities exam: Present: normal inspection. Absent: calf tenderness, edema - Back Exam Back exam: Present: normal inspection - Neurological Exam Neurological exam: Present: alert, oriented X3, CN II-XII intact. Absent: motor sensory deficit - Psychiatric Psychiatric exam: Present: normal affect, normal mood. Absent: agitated, anxious - Skin Skin exam: Present: warm, dry, erythema Results - Labs CBC & BMP: 08/02/16 04:45 08/02/16 04:45 Lab Results: I have reviewed the past 24 hour labs Labs: Blood cultures positive for MRSA
[2016-08-02] MEDS ORDERED: ZIPRASIDONE 20 MG/1 ML VIAL IM ONE (11:07)
[2016-08-02] MEDS: chlordiazePOXIDE 25 MG CAPSULE PO SCH ×3 (12:21→20:51)
--- NOTE | 2016-08-02 14:10 | Oncology Consult Note ---
History of Present Illness History of present illness: Mr. Ball is a 51 year old male who was admitted with altered mental status. In the process of evaluating the patient he was found to have 2 blood cultures that were positive for gram-positive cocci on July 31. He has remained confused and is having difficulty ambulating. In my opinion, the patient is not a good historian. Lab work on admission included a white cell count of 5900 with a hemoglobin of 11.8 and a platelet count of 81,000, all done on August 01. Today his white cell count is 8000 with a hemoglobin of 11.7 and his platelet count is up to 111 ,000. He has an elevated mean platelet volume of 13.4. His serum creatinine on July 30 was 4.2. It has gradually dropped to 2.7 as of today. He had a normal lactic acid level of 1.1 on July 31. I do not see an LDH level. His ALT on admission was normal at 47 with an AST that was only slightly high at 43 and he had a total bilirubin of 0.7. A C-reactive protein level was high at 21.0. Past medical history: Allergies: Sulfa Positive for renal failure, dyslipidemia, hypertension and diabetes mellitus. - Surgical History Orthopedic Surgeries: Surgical HX of;: Orthopedic Surgery - Family History Family History: Reports;: Family Hypertension - Social History Smoking Status: Current every day smoker Frequency of Alcohol Use: Frequently Type of Drug Use: Unknown Review of Systems I do not consider his review of systems reliable. He is not completely coherent. Physical examination: General: The patient appears acutely ill. He appears to have difficulty with his balance and also he is not answering my questions in a completely coherent fashion. Eyes: Normal lids and conjunctivae. ENT: His oral mucosa and pharynx are normal. His trachea is midline and he has no neck masses. Lungs: Normal breath sounds with symmetrical unlabored chest motion with respiration. Cardiovascular: His heart rhythm is regular without murmur, gallop or rub. There is no jugular venous distention, clubbing or cyanosis. Abdomen: No masses or tenderness or ascites. Musculoskeletal: No focal muscle atrophy or bone or joint deformity. Skin: Normal examination including normal nailbeds without splinter hemorrhages Neurologic: His balance is unsteady. I did not ask him to walk because he is clearly having trouble keeping his balance while seated. I detect no focal neurologic deficit however. I have ordered [id number] testing to be done. Whether the lab actually does it or not is a different thing. I will check for it again tomorrow. I do not think this patient has TTP. I note that he has had no toxicology checked. I expect that his platelet count will continue to improve but I will at least see him tomorrow to make sure he stable. Thank you for consulting me. I have no further recommendations. Home Medications Medication Instructions Recorded Confirmed Type Insulin Aspart Prot/Asp 70/30 40 unit SUBCUT BID 07/31/16 07/31/16 History [NovoLOG Mix 70/30] Insulin Aspart [NovoLOG] See Protocol SUBCUT ACHS 07/31/16 07/31/16 History Lisinopril/Hydrochlorothiazide 1 each PO DAILY 07/31/16 07/31/16 History [Lisinopril-Hctz 20-25 mg Tab] Allergies Allergy/AdvReac Type Severity Reaction Status Date / Time Sulfa (Sulfonamide AdvReac Unknown/Unable Verified 07/30/16 23:04 Antibiotics) to obtain Medical,Surgical,& Family Hx - Medical History Cardio: History of: Hypertension Endocrine: History of: Diabetes Mellitus (IDDM), Dyslipidemia Renal: History of: Renal Problems Musculoskeletal: History of: Degenerative Disk Disease, Herniated Disk - Surgical History Orthopedic Surgeries: Surgical HX of;: Orthopedic Surgery - Family History Family History: Reports;: Family Hypertension - Social History Smoking Status: Current every day smoker Frequency of Alcohol Use: Frequently Type of Drug Use: Unknown Exam - Constitutional Vitals: Period Temp Pulse Resp BP Sys/Mcconnell Pulse Ox Last 24 Hr 98 F-100.6 F 102-118 20-26 123-154/66-85 91-94 Results - Labs CBC & BMP: 08/02/16 04:45 08/02/16 04:45
[2016-08-02] MEDS: VANCOMYCIN INJ 1,750 MG in SODIUM CHLORIDE 0.9% 500 ML IV SCH (18:33)
[2016-08-02] MEDS: ALBUTEROL 2.5 MG/3 ML NEB RESP TX PRN (20:34)
--- NOTE | 2016-08-02 23:11 | XRay Report ---
History: Chest congestion Date: 08/02/2016 Study: Chest x-ray AP portable Comparison exam: July 31, 2016 There is continued cardiomegaly. The mediastinal contours are unchanged. The pulmonary vasculature is slightly prominent. Shallow inspiration. There is some hazy edema or atelectasis in the lung bases. There is no gross pleural effusion. Osseous structures are unchanged. Impression: Cardiomegaly and suspected CHF PROCEDURE INTERPRETED AT [facility] DEPARTMENT OF RADIOLOGY Final Report Signed by: Dr. Jamila Fraser
[2016-08-03] MEDS: PIPERACILLIN/TAZOBACTAM 3,375 MG in SODIUM CHLORIDE 0.9% 100 ML IV SCH ×3 (01:05→18:13)
[2016-08-03] MEDS: LORazepam 2 MG/1 ML VIAL IV PRN (01:10)
[2016-08-03] MEDS: ALBUTEROL 2.5 MG/3 ML NEB RESP TX PRN (03:25)
[2016-08-03] MEDS ORDERED: FUROSEMIDE 40 MG/4 ML VIAL IV ONE (04:10)
[2016-08-03] MEDS ORDERED: MORPHINE 2 MG/1 ML SYRINGE IV ONE (04:10)
[2016-08-03] MEDS: ALBUTEROL/IPRATROPIUM 3 ML NEB RESP TX SCH ×5 (05:33→19:56)
[2016-08-03 06:37] LABS: Basophils # 0.1 10*3/uL (0.0-0.2); Basophils % 0.5 % (0.0-0.8); Eosinophils # 0.1 10*3/uL (0.0-0.87); Eosinophils % 0.5 % (0.00-10.9); Hematocrit 34.2 VOL% (42.0-52.0); Hemoglobin 11.9 GM/DL (14.0-18.0); Immature Granulocytes % 1.6 %; Immature Granulocytes Absolute 0.21 #; Lymphocytes # 1.1 10*3/uL (1.4-4.0); Lymphocytes % 8.8 % (21.2-54.2); Mean Corpuscular HGB Conc 34.8 GM/DL (32-36); Mean Corpuscular Hemoglobin 32 PG (27-34); Mean Corpuscular Volume 90.5 FL (87-102); Mean Platelet Volume 12.2 FL (9.6-12.0); Monocytes # 1.7 10*3/uL (0.11-0.8); Neutrophils # 9.6 10*3/uL (1.4-7.4); Neutrophils % 75.6 % (38.7-73.9); Platelet Count 160 T/CUMM (130-400); Red Blood Count 3.78 MC/CUMM (3.8-5.5); Red Cell Distribution Width 14.5 % (9.3-17.3); White Blood Count 12.7 T/CUMM (4-12)
[2016-08-03 06:58] LABS: Hypochromasia 1+
[2016-08-03 06:59] LABS: Ovalocytes Slight; Platelet Estimate Normal
[2016-08-03 07:16] LABS: Albumin 2.1 G/DL (3.4-5.0); Bilirubin,Total 1.5 MG/DL (0.2-1.0); Calcium 8.2 MG/DL (8.5-10.1); Potassium 3.6 MMOL/L (3.5-5.1); Total Protein 6.2 G/DL (6.4-8.3)
--- NOTE | 2016-08-03 07:35 | XRay Report ---
Exam: XR lumbar spine complete Date: 08/03/2016 6:38 AM Comparison: CT lumbar spine 07/31/2016 Indication: Back pain after fall Technique:[AP, lateral, cone-down lateral, and bilateral oblique lumbar spine] Findings: 7 mm anterolisthesis of L5 in relationship to S1 with chronic pars defects at L5. No acute fracture identified. Sclerosis with osteophytes. Diffuse arterial calcifications. Gaseous distention of the bowel. Impression: Grade 1 spondylolisthesis at L5-S1 with chronic bilateral L5 pars defects. No acute fracture with stable degenerative changes and diffuse arterial calcifications. Gaseous distention of the bowel which could be related to possible ileus, etc. PROCEDURE INTERPRETED AT [facility] DEPARTMENT OF RADIOLOGY Final Report Signed by: Dr. Haydee Manjarrez
--- NOTE | 2016-08-03 07:52 | Oncology Progress Note ---
Oncology Subjective PN Interval history: Lab work today continues to improve. I will ordered toxicologies although this would frankly be late. I would consider checking them on this patient's admission. Lab work today includes a white cell count of 12,700 with a hemoglobin of 11.9 and a platelet count of 160,000. The serum creatinine is down to 2.4 today. I will sign off. Reconsult as needed. Thank you. Exam - Constitutional Vitals: Period Temp Pulse Resp BP Sys/Mcconnell Pulse Ox Last 24 Hr 97.8 F-101.3 F 98-118 18-32 123-155/70-85 92-96 Results - Labs CBC & BMP: 08/03/16 06:00 08/03/16 06:00
[2016-08-03] MEDS: SODIUM CHLORIDE 0.9% 1,000 ML IV SCH (08:03)
[2016-08-03] MEDS: INSULIN REGULAR 100 UNIT/ML SUBCUT SCH ×4 (09:42→22:52)
[2016-08-03] MEDS: INSULIN ASPART PROTAMINE/ASPART 70/30 100 UNIT/ML SUBCUT SCH ×2 (09:43→18:11)
[2016-08-03] MEDS: chlordiazePOXIDE 25 MG CAPSULE PO SCH ×4 (09:44→23:18)
[2016-08-03] MEDS: PANTOPRAZOLE 40 MG TABLET PO SCH (09:45)
[2016-08-03] MEDS: ENOXAPARIN 40 MG/0.4 ML SYRINGE SUBCUT SCH (09:50)
[2016-08-03] MEDS ORDERED: SODIUM CHLORIDE 0.45% 1,000 ML IV SCH (11:00)
--- NOTE | 2016-08-03 11:13 | Physician Query Form ---
CLICK EDIT DOCUMENT TO SELECT QUERY ANSWER --> OK --> SIGN Marilou Lawrence RN Clinical Train Control Technician W) [phone] (f) [phone] [email or web address] PROVIDERS: Make your selection(s) from the choices in EACH section by typing an "x" and enter comments in the comment section. Please use your independent medical judgment in providing your response. This request does not imply that any particular answer is desired or expected. CLINICAL INDICATORS: (Providers should not edit this section) Pt. admitted with sepsis. Based on documentation of "acute AMS. Nurses state that he has pulled his IV out on multiple occasions and is constantly trying to get out of his bed". CT of brain done to evaluate AMS/confusion. ACUITY: (x ) Acute ( ) Acute on Chronic ( ) Chronic ( ) Clinically unable to determine NATURE: ( x) Delirium due to general medical condition ( ) Dementia ( ) Encephalopathy ( ) Transient level of awareness ( ) Other, please specify: ( ) Clinically unable to determine Please indicate the underlying cause of the altered mental status (CHECK ALL THAT APPLY): ( ) Baseline dementia ( ) Alzheimer's disease ( ) Parkinson's disease ( ) Lewy body dementia ( ) Acute stroke ( ) Late effect of stroke ( ) Reactive (from emotional stress, psychological trauma) (x ) Due to narcotics/other drugs ( ) Post procedural delirium ( ) Transient ischemic attack ( ) Generalized cerebral edema ( ) Normal pressure hydrocephalus ( ) Psychiatric illness ( ) Other, please specify: ( ) Clinically unable to determine Please indicate if there is an infection, sepsis, dehydration or specific organ failure that is causing the dementia. Be specific with clarifying the relationship between that process and the mental status change. COMMENTS: Use of terms such as suspected, likely, or probable (associated with a specific diagnosis that is being evaluated, monitored, or treated as if it exists) are acceptable and can be restated in the discharge summary if not ruled out. MTDD
[2016-08-03] MEDS: THIAMINE 200 MG/2 ML VIAL IV SCH (11:31)
--- NOTE | 2016-08-03 12:25 | CT Report ---
Referring physician: Zoya Ramos MD Exam: CT brain without contrast Date: 08/03/2016 Comparison: 07/30/2016 Reason: Alteration of consciousness Technique: Axial images of the head were obtained without the use of contrast. Total DLP was 1053.4 mGy*cm. Findings: No hydrocephalus or midline shift is present. There is no evidence of an acute infarction, recent intracranial hemorrhage or abnormal mass effect. Persistent minimal cerebral atrophy. The osseous structures appear intact. The mastoid air cells and visualized paranasal sinuses are clear. Impression: No acute intracranial abnormality is identified. Minimal cerebral atrophy. The CT exam was performed using one or more of the following dose reduction techniques: Automated exposure control and adjustment of the mA and/or kV according to patient size. PROCEDURE INTERPRETED AT [facility] DEPARTMENT OF RADIOLOGY Final Report Signed by: Dr. Haydee Manjarrez
--- NOTE | 2016-08-03 12:41 | ECHO Report ---
Carmen Ball Exam Date: 08/03/2016 11:32 Referring Physician: Technologist: Age: 51 Ht (in): Wt (lb): Gender: M Exam Location: [facility] Echo Indications: BP: / HR: Rhythm: Sinus Technical Quality: limited IMPRESSIONS Technically very limited study Overall ejection fraction appears to be 60% with no regional wall motion abnormality to be assessed due to poor endocardial resolution. There appears to be septal wall bounce. Diastolic parameters are most consistent with grade 1 diastolic dysfunction Mild concentric left ventricular hypertrophy MEASUREMENTS (Male / Female) Normal Values 2D ECHO LV Diastolic Diameter PLAX 5.1 cm 4.2 - 5.9 / 3.9 - 5.3 cm LV Systolic Diameter PLAX 4.2 cm LV Fractional Shortening PLAX 17.7 % IVS Diastolic Thickness 1.6 cm 0.6 - 1.0 / 0.6 - 0.9 cm LVPW Diastolic Thickness 1.1 cm 0.6 - 1.0 / 0.6 - 0.9 cm Aortic Root Diameter 3.1 cm LA Systolic Diameter LX 3.3 cm 3.0 - 4.0 / 2.7 - 3.8 cm DOPPLER TR Peak Velocity 172.0 cm/s TR Peak Gradient 11.8 mmHg FINDINGS Left Ventricle The left ventricular cavity size appears to be normal there is mild concentric left ventricular hypertrophy. The diastolic parameters appear to be most consistent with grade 1 diastolic dysfunction impaired relaxation overall ejection fraction 60%. There is limited endocardial resolution limiting regional wall motion assessment. Parasternal long axis views are best visualized for LV systolic function. There is septal bounce Right Ventricle Right ventricular cavity size structure and function are normal Right Atrium Normal Left Atrium Normal size Mitral Valve Mitral valve is normal there is no demonstrable stenosis or regurgitation Aortic Valve Aortic valve appears to be trileaflet no stenosis or regurgitation Tricuspid Valve Tricuspid valve is normal Pulmonic Valve Not well seen Pericardium Pericardium is normal Aorta The limited visualization of the thoracic aorta is unremarkable Sandra David (Electronically Signed) Final Date: 03 August 2016 12:40
--- NOTE | 2016-08-03 13:26 | Nephrology Progress Note ---
Nephrology - PN: Subj Interval history: He is mildly confused. He denies shortness of breath or pain. Exam (PN)-Nephrology - Vital Signs Vital signs: Period Temp Pulse Resp BP Sys/Mcconnell Pulse Ox Last 24 Hr 97.8 F-101.3 F 98-113 18-32 126-155/70-79 91-97 Exam: Gen.: Mildly confused ENT: Pupils equal round reactive to light. EOMs intact. Mucous membranes moist. Neck: Supple. No JVD or bruit. Cardiovascular: Regular rate and rhythm. No murmur rub or gallop Lungs: Clear Abdomen: Soft. Nontender. Positive bowel sounds. No organomegaly Extremities: No edema - Lab 08/03/16 06:00 08/03/16 06:00 Most recent lab results Calcium 8.2 MG/DL (8.5-10.1) L 08/03/16 06:00 Magnesium 0.8 MG/DL (1.8-2.4) L 07/30/16 00:34 Assessment and Plan (1) Acute renal failure Status: Acute Assessment and plan: 51-year-old man admitted with: * Acute renal failure. Renal function continues to improve * Hypotension. Rule out sepsis. He is also clinically volume depleted. Continue empiric antibiotics * Diabetes mellitus * Chronic back pain * Altered mental status. He is mildly confused today. Morphine has been discontinued Current Visit: Yes (2) Altered mental status Status: Acute Current Visit: Yes (3) Fever Status: Acute Current Visit: Yes (4) Hyperglycemia due to type 2 diabetes mellitus Status: Acute Current Visit: Yes (5) Hypotension Status: Acute Current Visit: Yes
--- NOTE | 2016-08-03 13:52 | Hospitalist Progress Note ---
Assessment and Plan (1) Altered mental status Status: Acute Assessment and plan: Patient became more confused last night. He has a history ETOH abuse.He fell and CT head showed no acute changes, Lumbar spine showed no acute fracture. Ammonia level was a little up today, will give lactulose and repeat levels in am. Continue with folic acid, thiamine and multivitamins. continue with PPIs Current Visit: Yes (2) MRSA bacteremia Status: Acute Assessment and plan: continue with IV vancomycin. Echo showed mild concentric left ventricular hypertrophy, grade 1 diastolic dysfunction with impaired relaxation overall EF of 60%.No evidence infective endocarditis Current Visit: Yes (3) Hyperglycemia due to type 2 diabetes mellitus Status: Acute Assessment and plan: continue with SSC and accucheks, check HbA1c level Current Visit: Yes (4) Acute renal failure Status: Acute Assessment and plan: continue with IVF,continue to avoid nephrotoxics Current Visit: Yes (5) Thrombocytopenia Status: Acute Current Visit: Yes Hospitalist: Subjective Interval history: Patient was really confused last night and he fell.CT head showed no acute changes.This am, he was awake and still confused Exam - Constitutional Vitals: Period Temp Pulse Resp BP Sys/Mcconnell Pulse Ox Last 24 Hr 97.8 F-101.3 F 98-113 18-32 126-155/70-79 91-97 General appearance: no acute distress, other (wrist restraints in place) - Head Head exam: Present: normal inspection - Respiratory Respiratory exam: Present: clear to auscultation bilaterally - Cardiovascular Cardiovascular exam: Present: regular rate and rhythm - GI/Abdominal GI/Abdominal exam: Present: normal bowel sounds - Extremities Exam Extremities exam: Present: normal inspection Results - Labs CBC & BMP: 08/03/16 06:00 08/03/16 06:00 Lab Results: I have reviewed the past 24 hour labs
[2016-08-03] MEDS ORDERED: LACTULOSE 20 GM/30 ML UDCUP PO PRN (13:55)
[2016-08-03] MEDS: THIAMINE INJ 100 MG, FOLIC ACID INJ 1 MG, MULTIVITAMIN INJ 10 ML in SODIUM CHLORIDE 0.4... IV SCH (16:11)
[2016-08-03] MEDS: VANCOMYCIN INJ 1,750 MG in SODIUM CHLORIDE 0.9% 500 ML IV SCH (22:50)
[2016-08-03] MEDS: ZIPRASIDONE 20 MG/1 ML VIAL IM PRN (23:25)
[2016-08-04] MEDS: ALBUTEROL/IPRATROPIUM 3 ML NEB RESP TX SCH ×4 (00:14→20:15)
[2016-08-04] MEDS: ACETAMINOPHEN 325 MG TABLET PO PRN ×2 (02:18→12:48)
[2016-08-04] MEDS: PIPERACILLIN/TAZOBACTAM 3,375 MG in SODIUM CHLORIDE 0.9% 100 ML IV SCH ×3 (02:20→16:32)
[2016-08-04] MEDS: LORazepam 2 MG/1 ML VIAL IV PRN (03:45)
[2016-08-04 04:07] LABS: Basophils % 0.3 % (0.0-0.8); Eosinophils # 0.2 10*3/uL (0.0-0.87); Eosinophils % 1.4 % (0.00-10.9); Hematocrit 30.7 VOL% (42.0-52.0); Hemoglobin 10.5 GM/DL (14.0-18.0); Immature Granulocytes % 3.7 %; Immature Granulocytes Absolute 0.52 #; Lymphocytes # 1.2 10*3/uL (1.4-4.0); Lymphocytes % 8.5 % (21.2-54.2); Mean Corpuscular HGB Conc 34.2 GM/DL (32-36); Mean Corpuscular Hemoglobin 31 PG (27-34); Mean Corpuscular Volume 90.6 FL (87-102); Mean Platelet Volume 11.4 FL (9.6-12.0); Monocytes # 1.5 10*3/uL (0.11-0.8); Monocytes % 10.5 % (1.7-12.7); Neutrophils # 10.6 10*3/uL (1.4-7.4); Neutrophils % 75.6 % (38.7-73.9); Platelet Count 195 T/CUMM (130-400); Red Blood Count 3.39 MC/CUMM (3.8-5.5); Red Cell Distribution Width 14.2 % (9.3-17.3); White Blood Count 14.1 T/CUMM (4-12)
[2016-08-04 04:45] LABS: Calcium 8.2 MG/DL (8.5-10.1); Osmolality,Calculated 304.7 MOS/KG (273-304); Potassium 3.4 MMOL/L (3.5-5.1)
[2016-08-04 04:56] LABS: Hypochromasia 1+; Microcytosis Slight; Ovalocytes Slight; Platelet Estimate Normal
--- NOTE | 2016-08-04 08:40 | Oncology Progress Note ---
Oncology Subjective PN Interval history: I am not seeing this patient today. I am documenting that I ordered toxicology screens on the patient and yet they have not been done, or at least they are not available. Exam - Constitutional Vitals: Period Temp Pulse Resp BP Sys/Mcconnell Pulse Ox Last 24 Hr 98.8 F-101.8 F 95-106 18-32 130-187/70-94 90-97 Results - Labs CBC & BMP: 08/04/16 03:48 08/04/16 03:48
[2016-08-04] MEDS: SODIUM CHLORIDE 0.45% 1,000 ML IV SCH (09:30)
[2016-08-04] MEDS: INSULIN REGULAR 100 UNIT/ML SUBCUT SCH ×4 (09:30→22:00)
[2016-08-04] MEDS: INSULIN ASPART PROTAMINE/ASPART 70/30 100 UNIT/ML SUBCUT SCH ×2 (09:30→16:32)
[2016-08-04] MEDS: PANTOPRAZOLE 40 MG TABLET PO SCH (09:31)
[2016-08-04] MEDS: chlordiazePOXIDE 25 MG CAPSULE PO SCH ×4 (09:31→22:00)
[2016-08-04] MEDS: ENOXAPARIN 40 MG/0.4 ML SYRINGE SUBCUT SCH (09:32)
[2016-08-04] MEDS: ZIPRASIDONE 20 MG/1 ML VIAL IM PRN (09:35)
--- NOTE | 2016-08-04 10:14 | Hospitalist Progress Note ---
Assessment and Plan (1) Altered mental status Status: Acute Assessment and plan: Patient became more confused last night. He has a history ETOH abuse.He fell and CT head showed no acute changes, Lumbar spine showed no acute fracture. Continue with folic acid, thiamine and multivitamins. continue with PPIs recheck ammonia level Current Visit: Yes (2) MRSA bacteremia Status: Acute Assessment and plan: continue with IV vancomycin. Echo showed mild concentric left ventricular hypertrophy, grade 1 diastolic dysfunction with impaired relaxation overall EF of 60%.No evidence infective endocarditis. Patient spiked a temp earlier on this am, will repeat blood cultures and redose the vanc Current Visit: Yes (3) Hyperglycemia due to type 2 diabetes mellitus Status: Acute Assessment and plan: Blood sugar not properly controlled, will add Lantus 10units qhs, follow response,continue with SSC and accucheks, HbA1c level-9.1 Current Visit: Yes (4) Acute renal failure Status: Acute Assessment and plan: This is improving. Continue with IVF,continue to avoid nephrotoxics Current Visit: Yes (5) Thrombocytopenia Status: Acute Assessment and plan: counts are improving, cbc in am. Current Visit: Yes Hospitalist: Subjective Interval history: Patient is still confused and restrained. He spiked a temp of 101.8 earlier on, his vanc has been redosed and a repeat blood culture is pending Exam - Constitutional Vitals: Period Temp Pulse Resp BP Sys/Mcconnell Pulse Ox Last 24 Hr 99.0 F-101.8 F 95-106 18-32 130-187/70-94 90-96 General appearance: no acute distress, other (confused and restrained) - Respiratory Respiratory exam: Present: clear to auscultation bilaterally - Cardiovascular Cardiovascular exam: Present: regular rate and rhythm - GI/Abdominal GI/Abdominal exam: Present: normal bowel sounds - Extremities Exam Extremities exam: Present: normal inspection Results - Labs CBC & BMP: 08/04/16 03:48 08/04/16 03:48 Lab Results: I have reviewed the past 24 hour labs
[2016-08-04] MEDS: CARVEDILOL 12.5 MG TABLET PO SCH ×2 (13:20→22:00)
[2016-08-04 15:46] LABS: INR 1.1; PT Patient Result 11.4 SECS
--- NOTE | 2016-08-04 16:24 | Nephrology Progress Note ---
Nephrology - PN: Subj Interval history: He is awake but confused. He denies shortness of breath. Exam (PN)-Nephrology - Vital Signs Vital signs: Period Temp Pulse Resp BP Sys/Mcconnell Pulse Ox Last 24 Hr 99.0 F-101.8 F 95-114 18-32 142-190/75-94 91-96 Exam: Gen.: Confused Cardiovascular: Regular rate and rhythm. No murmur rub or gallop Lungs: Clear Extremities: No edema - Lab 08/04/16 03:48 08/04/16 03:48 Most recent lab results Calcium 8.2 MG/DL (8.5-10.1) L 08/04/16 03:48 Magnesium 0.8 MG/DL (1.8-2.4) L 07/30/16 00:34 Assessment and Plan (1) Acute renal failure Status: Acute Assessment and plan: 51-year-old man admitted with: * Acute renal failure. Renal function continues to improve * Hypotension. Improved * Sepsis. Continue antibiotics * Confusion. Consider LP * Diabetes mellitus * Chronic back pain Current Visit: Yes (2) Altered mental status Status: Acute Current Visit: Yes (3) Fever Status: Acute Current Visit: Yes (4) Hyperglycemia due to type 2 diabetes mellitus Status: Acute Current Visit: Yes (5) Hypotension Status: Acute Current Visit: Yes
[2016-08-04] MEDS: THIAMINE INJ 100 MG, FOLIC ACID INJ 1 MG, MULTIVITAMIN INJ 10 ML in SODIUM CHLORIDE 0.4... IV SCH (16:31)
[2016-08-04] MEDS: VANCOMYCIN INJ 1,750 MG in SODIUM CHLORIDE 0.9% 500 ML IV SCH (22:00)
[2016-08-04] MEDS: INSULIN GLARGINE 100 UNIT/ML SUBCUT SCH (22:00)
[2016-08-05] MEDS: ALBUTEROL/IPRATROPIUM 3 ML NEB RESP TX SCH ×4 (00:08→20:48)
[2016-08-05] MEDS: ACETAMINOPHEN 325 MG TABLET PO PRN (00:51)
[2016-08-05] MEDS: PIPERACILLIN/TAZOBACTAM 3,375 MG in SODIUM CHLORIDE 0.9% 100 ML IV SCH ×2 (00:51→09:10)
[2016-08-05] MEDS: LORazepam 2 MG/1 ML VIAL IV PRN ×3 (02:29→12:11)
[2016-08-05 06:00] LABS: Basophils # 0.1 10*3/uL (0.0-0.2); Basophils % 0.3 % (0.0-0.8); Eosinophils # 0.4 10*3/uL (0.0-0.87); Eosinophils % 1.8 % (0.00-10.9); Hematocrit 31.9 VOL% (42.0-52.0); Hemoglobin 10.9 GM/DL (14.0-18.0); Immature Granulocytes % 4.6 %; Immature Granulocytes Absolute 0.87 #; Lymphocytes # 1.6 10*3/uL (1.4-4.0); Lymphocytes % 8.6 % (21.2-54.2); Mean Corpuscular HGB Conc 34.2 GM/DL (32-36); Mean Corpuscular Hemoglobin 32 PG (27-34); Mean Corpuscular Volume 92.7 FL (87-102); Mean Platelet Volume 11.2 FL (9.6-12.0); Monocytes # 1.3 10*3/uL (0.11-0.8); Monocytes % 6.8 % (1.7-12.7); Neutrophils # 14.7 10*3/uL (1.4-7.4); Neutrophils % 77.9 % (38.7-73.9); Platelet Count 249 T/CUMM (130-400); Red Blood Count 3.44 MC/CUMM (3.8-5.5); Red Cell Distribution Width 14.6 % (9.3-17.3); White Blood Count 18.9 T/CUMM (4-12)
[2016-08-05 06:21] LABS: Eosinophils 1 % (0-10); Lymphocytes 6 % (20-55); Segmented Neutrophils 84 % (50-85); Total Cells Counted 100
[2016-08-05 06:22] LABS: Hypochromasia 1+; Microcytosis Slight; Platelet Estimate Adequate
[2016-08-05 06:38] LABS: Osmolality,Calculated 303.1 MOS/KG (273-304); Potassium 3.6 MMOL/L (3.5-5.1)
[2016-08-05] MEDS: chlordiazePOXIDE 25 MG CAPSULE PO SCH ×4 (09:09→20:57)
[2016-08-05] MEDS: INSULIN REGULAR 100 UNIT/ML SUBCUT SCH ×4 (09:09→20:56)
[2016-08-05] MEDS: PANTOPRAZOLE 40 MG TABLET PO SCH (09:10)
[2016-08-05] MEDS: INSULIN ASPART PROTAMINE/ASPART 70/30 100 UNIT/ML SUBCUT SCH ×2 (09:10→17:27)
[2016-08-05] MEDS: CARVEDILOL 12.5 MG TABLET PO SCH (09:10)
--- NOTE | 2016-08-05 09:24 | Hospitalist Progress Note ---
Assessment and Plan (1) Altered mental status Status: Acute Assessment and plan: Patient is still confused and spiking temp despite on IV vanc and Zosyn. CT head showed no acute changes, Lumbar spine showed no acute fracture. Ammonia level has improved. He has a history of ETOH abuse. Plan MRI Brain Awaiting Family to sign consent for an LP Switch antibiotics to Rocephin, ampicillin, acyclovir and continue with Vanc- Meninigitis protocol Await Neurology's input. Continue with folic acid, thiamine and multivitamins, PPIs, Geodon recheck ammonia level Current Visit: Yes (2) MRSA bacteremia Status: Acute Assessment and plan: Echo showed mild concentric left ventricular hypertrophy, grade 1 diastolic dysfunction with impaired relaxation overall EF of 60%.No evidence infective endocarditis. Patient is still spiking temp.Continue with IV vancomycin amongst other antibiotics Current Visit: Yes (3) Hyperglycemia due to type 2 diabetes mellitus Status: Acute Assessment and plan: Blood sugar now better controlled with addition of Lantus 10units qhs to SSC, HbA1c level-9.1. Continue current regime. Current Visit: Yes (4) Acute renal failure Status: Acute Assessment and plan: This is improving. Continue with IVF,continue to avoid nephrotoxics. Nephrology is following. Current Visit: Yes (5) Thrombocytopenia Status: Acute Assessment and plan: mch improved, cbc in am. Current Visit: Yes (6) Fever Status: Acute Assessment and plan: persistent with AMS despite IV vanc and Zosyn. Patient has MRSA bacteremia, last UC was negative. Echo showed a mild concentric left ventricular hypertrophy , grade 1 diastolic dysfunction with impaired relaxation overall EF of 60%.No evidence infective endocarditis We are awaiting family consent for an LP, however we have switched antibiotics to Ampicillin, Rocephin, Acyclovir and to continue with vanc -Meningits protocol. -Follow repeat cultures -Await Neuro's input -MR Brain Current Visit: Yes (7) HTN (hypertension) Status: Acute Assessment and plan: not properly controlled, increase Coreg to 25mg bid, follow response. Current Visit: Yes Hospitalist: Subjective Interval history: Patient seen this am, he is still spiking temp, WBC increasing despite on IV vanc and Zosyn. He is also still confused and agitated. Nursing staff is awaiting consent from family to get an LP, urine has also been sent for toxicology. Exam - Constitutional Vitals: Period Temp Pulse Resp BP Sys/Mcconnell Pulse Ox Last 24 Hr 98.5 F-101.8 F 79-114 18-40 156-190/80-92 91-98 General appearance: no acute distress, other (confused and agitated) - Head Head exam: Present: normal inspection - Respiratory Respiratory exam: Present: clear to auscultation bilaterally - Cardiovascular Cardiovascular exam: Present: regular rate and rhythm - GI/Abdominal GI/Abdominal exam: Present: normal bowel sounds - Extremities Exam Extremities exam: Present: normal inspection - Neurological Exam Neurological exam: Present: other (confused) - Psychiatric Psychiatric exam: Present: agitated Results - Labs CBC & BMP: 08/05/16 05:24 08/05/16 05:24 Lab Results: I have reviewed the past 24 hour labs
[2016-08-05] MEDS: SODIUM CHLORIDE 0.45% 1,000 ML IV SCH (10:07)
--- NOTE | 2016-08-05 10:31 | XRay Report ---
XR chest 1V Indication: MRI clearance. Comparison: Chest x-ray 08/02/2016. Technique: Portable AP chest was performed. Findings: The appearance of the chest has changed little since comparison study. This been no interval placement of metallic objects within the chest. The lung parenchyma continues to demonstrate a limited inspiration with haziness in the right lung which has minimally increased since comparison study is nonspecific possibly reflecting atelectasis or dependent pleural fluid. Left lung is clear. Impression: 1. No interval deposition of metal has occurred since August 02, 2016. 2. Haziness in the right chest is nonspecific and may reflect atelectasis or dependent pleural fluid. 08/05/2016 10:27 AM PROCEDURE INTERPRETED AT [facility] DEPARTMENT OF RADIOLOGY Final Report Signed by: Dr. Noel Dickerson
--- NOTE | 2016-08-05 10:33 | XRay Report ---
XR abdomen 1V Indication: MRI clearance. Comparison: None. Technique: Supine AP image of the abdomen was obtained. Findings: Lung bases are clear. There is no evidence of organomegaly. Bowel gas pattern is unremarkable. Renal contours are bilaterally symmetric. Bones and soft tissues demonstrate no significant abnormalities. Impression: 1. No active process is demonstrated within the abdomen or pelvis. 08/05/2016 10:28 AM PROCEDURE INTERPRETED AT [facility] DEPARTMENT OF RADIOLOGY Final Report Signed by: Dr. Noel Dickerson
--- NOTE | 2016-08-05 10:33 | XRay Report ---
Exam: XR skull <4V AP/LAT Date: 08/05/2016 9:47 AM Comparison: None Indication: MRI clearance Technique:[AP and lateral skull] Findings: No metallic foreign body is identified in the orbits or skull. The skull is normal in size, shape and configuration. The sella turcica is normal appearance with no skull fractures or other osseous pathology. Impression: Unremarkable skull series. No metallic foreign body is identified. PROCEDURE INTERPRETED AT [facility] DEPARTMENT OF RADIOLOGY Final Report Signed by: Dr. Haydee Manjarrez
--- NOTE | 2016-08-05 12:47 | Magnetic Resonance Report ---
MR head/brain wo con Indication: Altered mental status. History of concurrent fever. Comparison: CT head 08/03/2016. Technique: Using 1.5 Mary magnet, multisequence multiplanar MR imaging of the brain was performed without the administration of intravenous contrast. Findings: There is no evidence of restricted diffusion. There is no evidence of acute intracranial hemorrhage, mass, or infarction. Ventricular system demonstrates no evidence of acute pathology. White matter of the cerebral hemispheres demonstrates no significant abnormality. The basal cisterns appear patent. The arterial flow voids appear intact. The posterior fossa as well as cerebellum demonstrate no evidence of acute pathology. The orbits and globes demonstrate no evidence of acute pathology. The paranasal sinuses and mastoid air cells demonstrate no evidence of significant mucoperiosteal thickening. The calvarium as well as the soft tissues overlying the calvarium demonstrate no evidence of acute pathology. No unexpected areas of enhancement are demonstrated within the brain, meninges, or orbits. Impression: 1. There is no evidence of acute intracranial pathology. 08/05/2016 12:43 PM PROCEDURE INTERPRETED AT [facility] DEPARTMENT OF RADIOLOGY Final Report Signed by: Dr. Noel Dickerson
[2016-08-05] MEDS: cefTRIAXone 2,000 MG in SODIUM CHLORIDE 0.9% 100 ML IV SCH (13:00)
[2016-08-05] MEDS: AMPICILLIN INJ 2,000 MG in SODIUM CHLORIDE 0.9% 100 ML IV SCH ×3 (13:30→21:16)
[2016-08-05] MEDS: SODIUM CHLORIDE 0.9% IV SCH (13:53)
[2016-08-05] MEDS: ACYCLOVIR IV SCH (13:53)
[2016-08-05] MEDS: VANCOMYCIN INJ 1,750 MG in SODIUM CHLORIDE 0.9% 500 ML IV SCH (14:00)
[2016-08-05] MEDS: ZIPRASIDONE 20 MG/1 ML VIAL IM PRN (14:08)
--- NOTE | 2016-08-05 16:47 | Post Interventional Procedure ---
Pre-op diagnosis: mental status changes, confusion Post-op diagnosis: same Procedure: lumbar puncture Contrast: none Flouroscopy: 0.7 min Radiologist: Albino Hammond Anesthesia: local Specimens: other (11 mL CSF, clear colorless) Estimated blood loss: none Complications: none Condition: stable Description/Findings: opening pressure 25 cm H2O Assessment and Plan - Time spent with patient Time spent with patient: Less than 30 minutes
--- NOTE | 2016-08-05 17:05 | Interventional Radiology Rpt ---
Procedure: IR lumbar puncture diagnostic Clinical history: 51-year-old male with confusion/altered mental status. Procedure: Informed consent was obtained prior to procedure. Formal timeout was performed. Maximum sterile barrier technique was employed. The patient was placed prone on the fluoroscopy table. The low back was prepped and draped in a sterile fashion. A midline lumbar puncture was then performed at the L2-L3 interspace using a 20-gauge spinal needle. Fluoroscopic guidance was used and a captured image documents the needle position. An opening pressure of 25 cm water was obtained. Subsequently, 11 milliliters of clear, colorless CSF was withdrawn and sent to laboratory. The spinal needle was removed and a bandage placed the puncture site. Fluoroscopy time: 0.7 minutes. Consultations: None. Impression: Technically successful diagnostic lumbar puncture as described. PROCEDURE INTERPRETED AT [facility] DEPARTMENT OF RADIOLOGY Final Report Signed by: Albino Hammond
[2016-08-05 17:16] LABS: Eosinophils,CSF 1 %; Lymphocytes,CSF 27 %; Monocytes,CSF 5 %; Neutrophils,CSF 65 %
[2016-08-05 17:17] LABS: Appearance,CSF Clear
[2016-08-05 17:19] LABS: Red Blood Cell,CSF 367 C/CUMM; White Blood Cell,CSF 39 C/CUMM
[2016-08-05] MEDS: CARVEDILOL 25 MG TABLET PO SCH ×2 (17:28→19:56)
--- NOTE | 2016-08-05 17:37 | Neurology Consult Note ---
History of Present Illness History of present illness: Patient is unable to provide any history. History basically obtained from the chart. Mr. Ball is a 51 year old male seen at [facility] for back pain. He became hypotensive there was given IV fluid. He was thought to be septic and was transferred here. He was febrile. He was noted to have renal failure. He recently moved here and has no local records. MRI of the brain reveals no acute abnormalities. Blood cultures reveals MRSA. A spinal tap reveals WBC count of 39 with 65% neutrophils, glucose 54, total protein 40, RBC less than 1. Gram stain negative, meningitis antigen panel is negative Home Medications Medication Instructions Recorded Confirmed Type Insulin Aspart Prot/Asp 70/30 40 unit SUBCUT BID 07/31/16 07/31/16 History [NovoLOG Mix 70/30] Insulin Aspart [NovoLOG] See Protocol SUBCUT ACHS 07/31/16 07/31/16 History Lisinopril/Hydrochlorothiazide 1 each PO DAILY 07/31/16 07/31/16 History [Lisinopril-Hctz 20-25 mg Tab] Allergies Allergy/AdvReac Type Severity Reaction Status Date / Time Sulfa (Sulfonamide AdvReac Unknown/Unable Verified 07/30/16 23:04 Antibiotics) to obtain ROS unobtainable: due to mental status Medical,Surgical,& Family Hx - Medical History Cardio: History of: Hypertension Endocrine: History of: Diabetes Mellitus (IDDM), Dyslipidemia Renal: History of: Renal Problems Musculoskeletal: History of: Degenerative Disk Disease, Herniated Disk - Surgical History Orthopedic Surgeries: Surgical HX of;: Orthopedic Surgery - Family History Family History: Reports;: Family Hypertension - Social History Smoking Status: Current every day smoker Frequency of Alcohol Use: Frequently Type of Drug Use: Unknown Exam - Constitutional Vitals: Period Temp Pulse Resp BP Sys/Mcconnell Pulse Ox Last 24 Hr 96.7 F-101.8 F 77-98 20-40 147-181/71-92 90-99 Exam: GENERAL: Patient is in no acute distress. NECK: Neck is supple. There is no JVD. No carotid bruits present. No thyroid masses. CVS: First and second heart sounds are normal. There is no S3 present. Regular rate and rhythm. RESPIRATORY: Lungs are clear to auscultation without any rales or rhonchi. ABDOMEN: Soft and non-tender. Bowel sounds are present. There is no hepatosplenomegaly. EXT: There is no palpable edema. Peripheral pulses are present. Skin: No rashes Central Nervous system: General: Sedated Speech: None Comprehension: None Facial expressions: Normal Cranial Nerves: Pupils are equally reactive to light. Doll's head I moves are positive. No facial asymmetry is seen. Motor: Bulk and Tone is normal. Strength cannot be assessed Sensory: Cannot be assessed Reflexes: 1+ and symmetrical Cerebellar function: Cannot be assessed Toes: Equivocal Gait: Cannot be assessed Results - Labs CBC & BMP: 08/05/16 05:24 08/05/16 05:24 Assessment and Plan (1) Altered mental status Status: Acute Assessment and plan: This is likely due to sepsis. He does have high WBC count in the CSF but meningitis antigen panel and Gram stain is negative,and meningeal involvement cannot be excluded. Continue current antibiotic coverage. We will watch him closely. Current Visit: Yes
--- NOTE | 2016-08-05 17:42 | Nephrology Progress Note ---
Nephrology - PN: Subj Interval history: He is easily arousable but remains confused. He denies shortness of breath Exam (PN)-Nephrology - Vital Signs Vital signs: Period Temp Pulse Resp BP Sys/Mcconnell Pulse Ox Last 24 Hr 96.7 F-101.8 F 77-98 20-40 147-181/71-92 90-99 Exam: Gen.: Mildly confused Cardiovascular: Regular rate and rhythm. No murmur rub or gallop Lungs: Clear Extremities: No edema - Lab 08/05/16 05:24 08/05/16 05:24 Most recent lab results Calcium 8.0 MG/DL (8.5-10.1) L 08/05/16 05:24 Magnesium 0.8 MG/DL (1.8-2.4) L 07/30/16 00:34 Assessment and Plan (1) Acute renal failure Status: Acute Assessment and plan: 51-year-old man admitted with: * Acute renal failure. Renal function continues to improve * Hypotension. Improved * Sepsis. Continue antibiotics * Confusion. LP shows 36 WBCs. Neurology consult noted * Diabetes mellitus * Chronic back pain Current Visit: Yes (2) Altered mental status Status: Acute Current Visit: Yes (3) Fever Status: Acute Current Visit: Yes (4) Hyperglycemia due to type 2 diabetes mellitus Status: Acute Current Visit: Yes (5) Hypotension Status: Acute Current Visit: Yes
[2016-08-05] MEDS: THIAMINE INJ 100 MG, FOLIC ACID INJ 1 MG, MULTIVITAMIN INJ 10 ML in SODIUM CHLORIDE 0.4... IV SCH (20:13)
[2016-08-05] MEDS: INSULIN GLARGINE 100 UNIT/ML SUBCUT SCH (20:56)
[2016-08-06] MEDS: ALBUTEROL/IPRATROPIUM 3 ML NEB RESP TX SCH ×4 (00:16→19:34)
[2016-08-06] MEDS: cefTRIAXone 2,000 MG in SODIUM CHLORIDE 0.9% 100 ML IV SCH ×2 (01:23→14:28)
[2016-08-06] MEDS: ACYCLOVIR IV SCH (02:09)
[2016-08-06] MEDS: SODIUM CHLORIDE 0.9% IV SCH (02:09)
[2016-08-06] MEDS: AMPICILLIN INJ 2,000 MG in SODIUM CHLORIDE 0.9% 100 ML IV SCH ×5 (02:33→23:51)
[2016-08-06 03:58] LABS: Basophils # 0.1 10*3/uL (0.0-0.2); Basophils % 0.3 % (0.0-0.8); Eosinophils # 0.3 10*3/uL (0.0-0.87); Eosinophils % 1.6 % (0.00-10.9); Hematocrit 32.7 VOL% (42.0-52.0); Hemoglobin 11.1 GM/DL (14.0-18.0); Immature Granulocytes % 3.5 %; Immature Granulocytes Absolute 0.61 #; Lymphocytes # 1.4 10*3/uL (1.4-4.0); Lymphocytes % 8.1 % (21.2-54.2); Mean Corpuscular HGB Conc 33.9 GM/DL (32-36); Mean Corpuscular Hemoglobin 31 PG (27-34); Mean Corpuscular Volume 92.1 FL (87-102); Mean Platelet Volume 11.1 FL (9.6-12.0); Monocytes # 0.8 10*3/uL (0.11-0.8); Monocytes % 4.8 % (1.7-12.7); Neutrophils # 14.4 10*3/uL (1.4-7.4); Neutrophils % 81.7 % (38.7-73.9); Platelet Count 270 T/CUMM (130-400); Red Blood Count 3.55 MC/CUMM (3.8-5.5); Red Cell Distribution Width 14.8 % (9.3-17.3); White Blood Count 17.6 T/CUMM (4-12)
[2016-08-06 04:36] LABS: Albumin 1.6 G/DL (3.4-5.0); Bilirubin,Total 0.8 MG/DL (0.2-1.0); Osmolality,Calculated 309.3 MOS/KG (273-304)
[2016-08-06 05:03] LABS: Band Neutrophils 3 % (0-10); Lymphocytes 10 % (20-55); Metamyelocytes 4 %; Total Cells Counted 100
[2016-08-06 05:04] LABS: Eosinophils 1 % (0-10); Hypochromasia 1+; Myelocytes 2 %; Platelet Estimate Normal; Segmented Neutrophils 74 % (50-85)
[2016-08-06] MEDS: VANCOMYCIN INJ 1,750 MG in SODIUM CHLORIDE 0.9% 500 ML IV SCH (06:34)
[2016-08-06] MEDS: CARVEDILOL 25 MG TABLET PO SCH ×2 (08:54→17:42)
[2016-08-06] MEDS: chlordiazePOXIDE 25 MG CAPSULE PO SCH ×4 (08:55→22:13)
[2016-08-06] MEDS: PANTOPRAZOLE 40 MG TABLET PO SCH (08:55)
[2016-08-06] MEDS: INSULIN REGULAR 100 UNIT/ML SUBCUT SCH ×4 (08:56→22:14)
[2016-08-06] MEDS: INSULIN ASPART PROTAMINE/ASPART 70/30 100 UNIT/ML SUBCUT SCH ×2 (08:56→17:43)
[2016-08-06] MEDS: LORazepam 2 MG/1 ML VIAL IV PRN (08:58)
--- NOTE | 2016-08-06 09:06 | Hospitalist Progress Note ---
Assessment and Plan (1) Altered mental status Status: Acute Assessment and plan: Patient is still confused, was moved to the unit yesterday for closer monitoring of possible worsening sepsis. He has not spiked a temp in the last 24hrs since the changes of antibitotics were made. MRI of the brain reveals no acute abnormalities. Blood cultures reveals MRSA. A spinal tap reveals WBC count of 39 with 65% neutrophils, glucose 54, total protein 40, RBC less than 1. Gram stain negative, meningitis antigen panel is negative 08/05/2016 Patient is still confused and spiking temp despite on IV vanc and Zosyn. CT head showed no acute changes, Lumbar spine showed no acute fracture. Ammonia level has improved. He has a history of ETOH abuse. Plan Continue IV Rocephin, ampicillin, acyclovir and Vanc- Meninigitis protocol Appreciates Neurology's input. Continue with folic acid, thiamine and multivitamins, PPIs, Benzos, Geodon recheck ammonia level continue with Lactulose Fungal studies MR of the entire spine to r/o a paraspinal abscess Current Visit: Yes (2) Hyperglycemia due to type 2 diabetes mellitus Status: Acute Assessment and plan: Blood sugar is fairly decent, continue Lantus 10units qhs and SSC, HbA1c level- 9.1. Continue to monitor. Current Visit: Yes (3) Acute renal failure Status: Acute Assessment and plan: Creatinine level worsened today. Continue with IVF,continue to avoid nephrotoxics. Nephrology is following. Current Visit: Yes (4) Thrombocytopenia Status: Acute Assessment and plan: mch improved, cbc in am. Current Visit: Yes (5) Fever Status: Acute Assessment and plan: Improved in the last 24hrs that the antibiotics were changed.Repeat cultures still growing gram positive cocci. ? source Echo showed a mild concentric left ventricular hypertrophy, grade 1 diastolic dysfunction with impaired relaxation overall EF of 60%.No evidence infective endocarditis -Follow treatment stated above Current Visit: Yes (6) HTN (hypertension) Status: Acute Assessment and plan: not properly controlled, add Norvasc 5mg daily, follow response. Current Visit: Yes (7) MRSA (methicillin resistant Staphylococcus aureus) septicemia Status: Acute Assessment and plan: He has not spiked temp in the last 24hrs since antibiotics have been switched to meningitis protocol. He still remains confused but WBC is slowly improving. Repeat blood culture still growing gram positive cocci, ? source Echo showed mild concentric left ventricular hypertrophy, grade 1 diastolic dysfunction with impaired relaxation overall EF of 60%.No evidence infective endocarditis. MRI of the brain reveals no acute abnormalities. Blood cultures reveals MRSA. A spinal tap reveals WBC count of 39 with 65% neutrophils, glucose 54, total protein 40, RBC less than 1. Gram stain negative, meningitis antigen panel is negative Plan MR of the entire spine to r/o paraspinal abscess, patient has a history of chronic back pain with possible epidural injections CT abd/pelvis to r/o abscess Fungal studies consider a VASYL though when spoken to the Cardiology, he was not really convinced on seeing any vegetations on TTE. Continue current antibiotic regime Current Visit: Yes Hospitalist: Subjective Interval history: Patient looked more septic after Neurological evaluation yesterday on the floor and he was transferred to the unit for closer monitoring. His MRI brain was unremarkable.He has not spiked a temp in the last 24hrs but repeat cultures still growing gram positive cocci . This am, he was still confused, talking out of his head. A spinal tap reveals WBC count of 39 with 65% neutrophils, glucose 54, total protein 40, RBC less than 1. Gram stain negative, meningitis antigen panel is negative Exam - Constitutional Vitals: Period Temp Pulse Resp BP Sys/Mcconnell Pulse Ox Last 24 Hr 97.5 F-99.2 F 73-98 22-37 147-179/70-95 89-99 General appearance: no acute distress, other (confused) - Head Head exam: Present: normal inspection - Respiratory Respiratory exam: Present: other (transmitted sounds and possible wheezes) - Cardiovascular Cardiovascular exam: Present: regular rate and rhythm - GI/Abdominal GI/Abdominal exam: Present: normal bowel sounds - Extremities Exam Extremities exam: Present: normal inspection - Neurological Exam Neurological exam: Present: alert, other (confused) Results - Labs CBC & BMP: 08/06/16 03:37 08/06/16 03:37 Lab Results: I have reviewed the past 24 hour labs
[2016-08-06] MEDS: SODIUM CHLORIDE 0.45% 1,000 ML IV SCH (11:16)
[2016-08-06] MEDS: amLODIPine 5 MG TABLET PO SCH (11:34)
--- NOTE | 2016-08-06 12:42 | CT Report ---
Exam: CT cervical spine without contrast Date: August 06, 2016 Comparison: CT cervical spine July 31, 2016 Reason: Evaluate for spinal abscess, MRSA sepsis Technique: Axial images of the cervical spine were obtained without the use of contrast. Sagittal and coronal reformatted images were also acquired. Total DLP is 722.6 mGy*cm. Findings: The cervical vertebral bodies are normal in height, and sagittal alignment is within normal limits. There is mild disc space narrowing at C2-C3. No acute fracture or osseous destructive process is identified at the cervical spine. The degenerative change is similar to the previous study of July 31, 2016. Evaluation for an epidural abscess is limited on CT. No obvious epidural abscess is identified, but further evaluation could be performed with MRI if there are no contraindications. The thyroid is mildly enlarged. There is partially visualized right pleural fluid. No abnormal prevertebral soft tissue swelling is seen. Impression: 1. There is a history of MRSA sepsis and rule out/evaluate for epidural abscess. No obvious epidural abscess is identified, but evaluation for an epidural abscess is limited on CT. Further evaluation could be performed with MRI if there are no contraindications. 2. Please see the CT chest performed on the same day for further details. PROCEDURE INTERPRETED AT [facility] DEPARTMENT OF RADIOLOGY Final Report Signed by: Dr. Clarence Patrick
--- NOTE | 2016-08-06 12:59 | CT Report ---
Exam: CT thoracic spine without contrast Date: August 06, 2016 Reason: Evaluate for spinal abscess, history of sepsis Comparison: CT thoracic spine without contrast July 31, 2016 Technique: Axial images of the thoracic spine were obtained without the use of contrast. Sagittal and coronal reformatted images were also acquired. Total DLP was 1191.7 mGy*cm. Findings: The thoracic vertebral bodies are normal in height, and sagittal alignment is within normal limits. There is multilevel anterior and lateral marginal spurring and multilevel minimal disc space narrowing. No spinal canal stenosis is seen at any thoracic level. The degenerative change appears stable compared to July 31, 2016. No acute fracture or osseous destructive process is identified. There is a history of sepsis and evaluate/rule out epidural abscess. Evaluation for an epidural abscess is limited on CT and could be better evaluated with MRI. However, no obvious epidural abscess is seen. There are bilateral pleural effusions. The pleural effusion on the right appears loculated. Please see the CT chest performed on the same day for further details. Impression: 1. Mild degenerative change at the thoracic spine, similar to before. 2. No obvious epidural abscess is identified, but evaluation for an epidural abscess is limited on CT. MRI would provide a better evaluation 3. There is bilateral pleural fluid, mainly on the right. The right pleural fluid appears to be partially loculated. Please see the CT chest study performed on the same day for further details. PROCEDURE INTERPRETED AT [facility] DEPARTMENT OF RADIOLOGY Final Report Signed by: Dr. Clarence Patrick
--- NOTE | 2016-08-06 13:08 | CT Report ---
Exam: CT lumbar spine without contrast Date: August 06, 2016 Comparison: CT lumbar spine without contrast July 31, 2016 Reason: Sepsis, evaluate for spinal abscess Technique: Axial images of the lumbar spine were obtained without the use of contrast. Sagittal reformatted images were also acquired. Total DLP is 2021.8 mGy*cm. Findings: The lumbar vertebral bodies are normal in height. There is mild endplate degenerative change, mild disc space narrowing and mild vacuum disc phenomenon at L5-S1. Grade 1 anterolisthesis is also seen at L5-S1 (0.4-0.5 cm). Anterior and lateral marginal spurring are noted at several levels. No acute fracture or osseous disease or process is identified. There are bilateral pars interarticularis defects at L5, but this has a chronic appearance. Mild degenerative change is seen at both SI joints. The degenerative change at the lumbar spine appears stable compared to July 31, 2016. The degenerative change is most prominent at L5-S1 where there is moderate to severe bilateral neuroforaminal narrowing. No significant spinal canal stenosis is seen at the lumbar spine There is scattered calcified plaque at the arteries. Right pleural fluid is partially visualized. Impression: 1. There is a history of sepsis and evaluate/rule out abscess. No abscess formation is seen within the paraspinal soft tissues, but evaluation for an epidural abscess is limited. No obvious epidural abscess is identified, but MRI would provide a better evaluation. 2. Degenerative change at the lumbar spine as above, most prominent at L5-S1. This is similar to the previous study. 3. Partially visualized right pleural fluid. PROCEDURE INTERPRETED AT [facility] DEPARTMENT OF RADIOLOGY Final Report Signed by: Dr. Clarence Patrick
--- NOTE | 2016-08-06 13:26 | Magnetic Resonance Report ---
Exam: MR lumbar spine wo con Date: 08/06/2016 9:12 AM Comparison: CT lumbar spine 08/06/2016 Indication: MRSA with back pain Technique:[Multiple acquisitions were obtained including sagittal T1, T2, STIR, and axial T2 scans. The patient was uncooperative and would not complete the exam. No postcontrast scans were obtained.] Findings: Unfortunately the scans are degraded by motion artifact. 5 mm anterolisthesis of L5 in relationship to S1 with chronic appearing bilateral L5 pars defects. No acute fracture is identified. Small vertebral hemangioma/focal fatty marrow. The conus has a normal appearance and terminates at the level of L2. Evidence of disc degeneration. The disc spaces are as follows: L1-L2: No disc protrusion, spinal stenosis, or foraminal stenosis. Degenerative changes in the facet joints. L2-L3: No disc protrusion, spinal stenosis, or foraminal stenosis. Degenerative changes in the facet joints. L3-L4: No disc protrusion or spinal stenosis with minimal bilateral foraminal stenosis. Degenerative changes in the facet joints. L4-L5: Diffuse osteophyte/disc complex which compresses the thecal sac and extends posterolaterally bilaterally. No spinal stenosis with minimal bilateral foraminal stenosis. Degenerative changes in the facet joints. L5-S1: Diffuse osteophyte/disc complex which contacts the thecal sac and extends posterolaterally bilaterally. No spinal stenosis with minimal to moderate bilateral foraminal stenosis. Degenerative changes in the facet joints. No obvious abscess identified. Impression: Incomplete study in uncooperative patient. No postcontrast scans obtained. Grade 1 spondylolisthesis at L5-S1 with chronic bilateral L5 pars defects. No acute fracture or obvious abscess. Multilevel DDD as above noted. PROCEDURE INTERPRETED AT [facility] DEPARTMENT OF RADIOLOGY Final Report Signed by: Dr. Haydee Manjarrez
--- NOTE | 2016-08-06 13:28 | CT Report ---
Referring physician: Zoya Ramos MD EXAM: CT chest, abdomen and pelvis without contrast DATE: August 06, 2016 COMPARISON: CT thoracic spine August 06, 2016, CT lumbar spine August 06, 2016 REASON: Generalized abdominal pain, sepsis, evaluate for abscess TECHNIQUE: Axial images of the chest, abdomen and pelvis were obtained without the use of contrast. Sagittal and coronal reformatted images were provided. Total DLP was 1636.4 mGy*cm. CT CHEST FINDINGS: Vascular/heart: The thoracic aorta is normal in size. There is mild scattered calcified plaque of the thoracic aorta and its branches, including the coronary arteries. The heart appears normal in size, and no significant pericardial effusion is seen. The pulmonary arteries are unremarkable as visualized. Lymph nodes: No suspicious mediastinal, axillary or left hilar adenopathy is identified. Evaluation for right hilar adenopathy is limited by adjacent pulmonary opacities. Other mediastinum: Otherwise unremarkable. Chest wall: Unremarkable. Lungs: There is mild left pleural fluid and moderate right pleural fluid. The right pleural fluid is partially loculated. There are also scattered opacities within both lower lobes, the lingula, the right middle lobe and right upper lobe. These opacities are most prominent within the right lower lobe and are concerning for atelectasis and pneumonia. An underlying neoplastic process cannot be excluded, and follow-up is recommended to confirm resolution. Note is made of slight narrowing of the right mainstem bronchus and bronchi within the right lower lobe. No pneumothorax is identified. Bones: No acute osseous process is identified. IMPRESSION: 1. There is mild left pleural fluid and moderate right pleural fluid. The right pleural fluid is partially loculated. This pleural fluid has developed since the prior CT of July 31, 2016. 2. Scattered opacities are seen within both lungs, mainly on the right. This is concerning for atelectasis and pneumonia. An underlying neoplastic process cannot be excluded, and follow-up is recommended to confirm resolution. Of note, the opacities appear to have increased/developed since July 31, 2016, but comparison is limited by the field of view on the prior study. ABDOMEN AND PELVIS FINDINGS: ABDOMEN: Liver: Unremarkable. Gallbladder and bile ducts: The gallbladder is unremarkable. No biliary duct dilatation is present. Pancreas: The pancreas is partially fatty replaced but otherwise unremarkable. Spleen: The spleen is mildly enlarged, measuring 14.7 cm in AP dimension. Adrenals: Unremarkable. Kidneys and ureters: No hydronephrosis is present, and no renal or ureteral calculi are seen. PELVIS: Bladder: A Varghese catheter is in place, and the bladder is decompressed. Reproductive: Unremarkable as visualized. ABDOMEN AND PELVIS: Bowel: There is scattered fluid within the colon, which could be related to a diarrheal illness. However, there is no evidence of bowel obstruction. Appendix: The appendix is unremarkable. Vasculature: The abdominal aorta is normal in size. There is moderate scattered calcified plaque at the abdominal aorta and its branches. Peritoneum/retroperitoneum: No free air or ascites is seen. Lymph nodes: There are few nonspecific upper normal size lymph nodes within the upper abdomen. Abdominal/pelvic wall: There is mild anasarca. Minimal subcutaneous air is also seen at the left lower abdominal wall and is likely related to a recent injection. Bones: There is degenerative change at the lumbar spine with grade 1 anterolisthesis at L5-S1 and bilateral pars interarticularis defects at L5. No acute osseous process is seen. IMPRESSION: 1. There is scattered fluid within the colon, which could be related to a diarrheal illness. However, there is no evidence of bowel obstruction. 2. Mild splenomegaly. 3. Mild anasarca. The CT exam was performed using one or more of the following dose reduction techniques: Automated exposure control and adjustment of the mA and/or kV according to patient size. PROCEDURE INTERPRETED AT [facility] DEPARTMENT OF RADIOLOGY Final Report Signed by: Dr. Clarence Patrick
[2016-08-06] MEDS: DESITIN 4OZ/NYSTATIN 15 GRAM MIXTURE PASTE TOP SCH ×2 (14:27→22:14)
--- NOTE | 2016-08-06 15:03 | Nephrology Progress Note ---
Nephrology - PN: Subj Interval history: He remains confused. He was moved to the ICU yesterday for closer observation. He has been afebrile overnight Exam (PN)-Nephrology - Vital Signs Vital signs: Period Temp Pulse Resp BP Sys/Mcconnell Pulse Ox Last 24 Hr 97 F-99.2 F 71-81 19-37 135-179/66-95 89-99 Exam: Gen.: Confused but easily arousable. ENT: Pupils equal round reactive to light. Neck: Supple. No JVD or bruit. Cardiovascular: Regular rate and rhythm. No murmur rub or gallop Lungs: Clear Abdomen: Soft. Nontender. Positive bowel sounds. No organomegaly Extremities: No edema - Lab 08/06/16 03:37 08/06/16 03:37 Most recent lab results Calcium 8.0 MG/DL (8.5-10.1) L 08/06/16 03:37 Magnesium 0.8 MG/DL (1.8-2.4) L 07/30/16 00:34 Assessment and Plan (1) Acute renal failure Status: Acute Assessment and plan: 51-year-old man admitted with: * Acute renal failure. Creatinine is slightly higher than yesterday. Acyclovir dose has been appropriately decreased. Vancomycin level noted. Level should be repeated before re-dosing * Hypotension. Resolved * Sepsis. Continue antibiotics * Confusion. LP shows 36 WBCs. Antibiotics adjusted. Neurology consult noted * Diabetes mellitus * Chronic back pain Current Visit: Yes (2) Altered mental status Status: Acute Current Visit: Yes (3) Fever Status: Acute Current Visit: Yes (4) Hyperglycemia due to type 2 diabetes mellitus Status: Acute Current Visit: Yes (5) Hypotension Status: Acute Current Visit: Yes
[2016-08-06] MEDS: THIAMINE INJ 100 MG, FOLIC ACID INJ 1 MG, MULTIVITAMIN INJ 10 ML in SODIUM CHLORIDE 0.4... IV SCH (22:13)
[2016-08-06] MEDS: LACTULOSE 20 GM/30 ML UDCUP PO SCH (22:13)
[2016-08-06] MEDS: INSULIN GLARGINE 100 UNIT/ML SUBCUT SCH (22:14)
[2016-08-07] MEDS: cefTRIAXone 2,000 MG in SODIUM CHLORIDE 0.9% 100 ML IV SCH ×2 (00:50→13:25)
[2016-08-07] MEDS: ZIPRASIDONE 20 MG/1 ML VIAL IM PRN (02:05)
[2016-08-07] MEDS: ALBUTEROL/IPRATROPIUM 3 ML NEB RESP TX SCH ×4 (02:07→20:14)
[2016-08-07] MEDS: ACYCLOVIR IV SCH (03:04)
[2016-08-07] MEDS: SODIUM CHLORIDE 0.9% IV SCH (03:04)
[2016-08-07] MEDS: LORazepam 2 MG/1 ML VIAL IV PRN ×3 (03:39→20:24)
[2016-08-07] MEDS: AMPICILLIN INJ 2,000 MG in SODIUM CHLORIDE 0.9% 100 ML IV SCH ×3 (05:51→20:27)
[2016-08-07] MEDS: INSULIN REGULAR 100 UNIT/ML SUBCUT SCH ×3 (07:49→17:01)
[2016-08-07 09:05] LABS: Troponin I Only < 0.015 NG/ML (0.00-0.045)
[2016-08-07] MEDS ORDERED: SODIUM CHLORIDE 0.45% 250 ML IV ONE (09:14)
--- NOTE | 2016-08-07 09:29 | Hospitalist Progress Note ---
Assessment and Plan (1) Altered mental status Status: Acute Assessment and plan: Aetiology of this is still unclear. Patient is still confused and gets agitated and combative every now and then. He stopped spiking temp but his blood is still growing MRSA despite on Vancomycin.He has a history of ETOH abuse. Plan MRI of the brain reveals no acute abnormalities. Blood cultures reveals MRSA. A spinal tap reveals WBC count of 39 with 65% neutrophils, glucose 54, total protein 40, RBC less than 1. Gram stain negative, meningitis antigen panel is negative Echo report noted Toxicology: sent out, result is pending CT head showed no acute changes, Lumbar spine showed no acute fracture MRI Lumbar: No acute fracture or obvious abscess. Ammonia level- 34 Plan Continue IV Rocephin, ampicillin, acyclovir and Vanc- Meninigitis protocol Appreciates Neurology's input. Continue with folic acid, thiamine and multivitamins, PPIs, Benzos, Geodon recheck ammonia level continue with Lactulose Follow Fungal studies VASYL to re-evaluate for I.E Current Visit: Yes (2) Hyperglycemia due to type 2 diabetes mellitus Status: Acute Assessment and plan: Blood sugar is fairly decent, continue Lantus 10units qhs and SSC, HbA1c level- 9.1. Continue to monitor. Current Visit: Yes (3) Acute renal failure Status: Acute Assessment and plan: Renal status not improving, will bolus with IVF, continue to avoid nephrotoxics. Continue with IVF,continue to avoid nephrotoxics. Nephrology is following. Current Visit: Yes (4) Thrombocytopenia Status: Acute Assessment and plan: much improved, cbc in am. Current Visit: Yes (5) Fever Status: Acute Assessment and plan: patient is no longer spiking but cultures still growing MRSA Echo showed a mild concentric left ventricular hypertrophy, grade 1 diastolic dysfunction with impaired relaxation overall EF of 60%.No evidence infective endocarditis -Follow treatment stated above Current Visit: Yes (6) HTN (hypertension) Status: Acute Assessment and plan: controlled Current Visit: Yes (7) MRSA (methicillin resistant Staphylococcus aureus) septicemia Status: Acute Assessment and plan: He has not spiked temp since antibiotics have been switched to meningitis protocol. He still remains confused but WBC is slowly improving. Repeat blood culture still MRSA ? source CT chest showed mild left pleural effusion, moderate right pleural fluid, right fluid is partially loculated. Scattered opacities in both lungs concerning for atelectasis, pneumonia to r/o neoplastic process Echo showed mild concentric left ventricular hypertrophy, grade 1 diastolic dysfunction with impaired relaxation overall EF of 60%.No evidence infective endocarditis. MRI of the brain reveals no acute abnormalities. Blood cultures reveals MRSA. A spinal tap reveals WBC count of 39 with 65% neutrophils, glucose 54, total protein 40, RBC less than 1. Gram stain negative, meningitis antigen panel is negative CT head showed no acute changes, Lumbar spine showed no acute fracture MRI Lumbar: No acute fracture or obvious abscess. Plan IR consult for pleural fluid drainage and analysis- cytology inclusive Add Doxycycline to current antibiotic regime Cardiology to do a VASYL to further evaluate the concern for a possible I.E Pulmonology consult for possible bronch, futher evaluation. continue contact precautions Working with counseling case manager for possible transfer to a tertiary hospital with ID coverage Current Visit: Yes Hospitalist: Subjective Interval history: Patient seen this am. He was aggressive and combative and he was given some drugs to calm him down.When I saw him, he was sleeping and restrained.His urinary output has dropped and his creatinine is creeping up. CT chest showed a partially loculated right pleural effusion, blood cultures still growing MRSA. Exam - Constitutional Vitals: Period Temp Pulse Resp BP Sys/Mcconnell Pulse Ox Last 24 Hr 97.2 F-97.7 F 64-80 16-34 106-170/59-88 90-98 General appearance: no acute distress, other (intubated and sedated) - Head Head exam: Present: normal inspection - Respiratory Respiratory exam: Present: clear to auscultation bilaterally - Cardiovascular Cardiovascular exam: Present: regular rate and rhythm - GI/Abdominal GI/Abdominal exam: Present: normal bowel sounds - Extremities Exam Extremities exam: Present: normal inspection, other (wrist restraints) - Neurological Exam Neurological exam: Present: other (sleeping) Results - Labs CBC & BMP: 08/06/16 03:37 08/06/16 03:37 Lab Results: I have reviewed the past 24 hour labs
--- NOTE | 2016-08-07 10:11 | Ultrasound Report ---
Exam: Bilateral lower extremity venous Doppler ultrasound Comparison: None Clinical history: Shortness of breath, hypoxia Technique: Duplex scan of the lower extremity veins using B-mode/grayscale scaled imaging and Doppler spectral analysis and color flow. Findings: Major venous structures of the lower extremities demonstrate a normal course and caliber. Normal color-flow study and spectral analysis. There is normal compression and augmentation of bilateral common femoral, superficial femoral and popliteal veins. The proximal bilateral greater saphenous veins appear to be patent. Impression: No evidence to suggest deep venous thrombosis within either lower extremity. Ultrasound images were captured and stored. PROCEDURE INTERPRETED AT [facility] DEPARTMENT OF RADIOLOGY Final Report Signed by: Dr. Haydee Manjarrez
[2016-08-07] MEDS: CARVEDILOL 25 MG TABLET PO SCH ×2 (10:22→17:00)
[2016-08-07] MEDS: INSULIN ASPART PROTAMINE/ASPART 70/30 100 UNIT/ML SUBCUT SCH ×2 (10:22→17:01)
[2016-08-07] MEDS: chlordiazePOXIDE 25 MG CAPSULE PO SCH ×4 (10:23→20:27)
[2016-08-07] MEDS: LACTULOSE 20 GM/30 ML UDCUP PO SCH ×2 (10:23→20:26)
[2016-08-07] MEDS: amLODIPine 5 MG TABLET PO SCH (10:23)
[2016-08-07] MEDS: PANTOPRAZOLE 40 MG TABLET PO SCH (10:23)
[2016-08-07 10:53] LABS: Troponin I Only < 0.015 NG/ML (0.00-0.045)
[2016-08-07] MEDS ORDERED: ETOMIDATE 20 MG/10 ML VIAL IV ONE (11:25)
[2016-08-07] MEDS ORDERED: SUCCINYLCHOLINE 200 MG/10 ML VIAL ONE (11:25)
[2016-08-07] MEDS ORDERED: NALOXONE 0.4 MG/ML VIAL ONE (11:25)
[2016-08-07] MEDS ORDERED: FLUMAZENIL 0.5 MG/5 ML VIAL IV ONE (11:28)
[2016-08-07] MEDS ORDERED: NALOXONE 0.4 MG/ML VIAL IV ONE ×2 (11:29→11:33)
[2016-08-07] MEDS ORDERED: FLUMAZENIL 1 MG/10 ML VIAL IV ONE (11:30)
[2016-08-07] MEDS ORDERED: HEPARIN/NACL 0.9% 2 UNITS/ML 500 ML IV ONE (11:34)
--- NOTE | 2016-08-07 11:41 | Anesthesia ---
Anesthesia Procedures - Intubation Time out performed intubation: No (emergency) Sedative: Etomidate (20 mg) Paralytic: Succinylcholine Mg given paralytic: 160 Laryngoscope: Nataliia (mac 4) ET Tube Size: 8 ET Tube Uncuffed: No (cuffed) Tube Secured Depth (cm): 24 Tube Secured Location: lips Tube Placement Confirmation: equal breath sounds bilaterally, no breath sounds over epigastrium, confirmation detector color change Patient tolerated procedure intubation: well, no complications Intubation Complications: none, hypotension (Dr. Gonzalez at bedside inserting art line for BP management) Additional Commets: with Tena TOWNSEND
[2016-08-07] MEDS ORDERED: NOREPINEPHRINE 4 MG/4 ML VIAL IV ONE (12:05)
--- NOTE | 2016-08-07 12:11 | Event Note ---
I came by to evaluate the patient for transesophageal echocardiogram. He is not in clinical condition to be a candidate for this at this time he is unresponsive his saturations are in the 70s saturation currently 75 with a blood pressure 84/40 and a heart rate of 60. We will talk to the primary provider. I do think he likely needs to be intubated him seeing him now for the first time and do not know the patient well enough to know exactly why his altered mental status is there but he certainly could be from his hypotension. We will hold on VASYL at this time I suspect he is going to require mechanical ventilation. We will considering performing after he is mechanically ventilated. I have asked respiratory therapy to anticipate mechanical ventilation and mechanical ventilator and bagged the patient. We gave the patient Narcan with no results and repeated one bowel of Romazicon with no results. He has minimal respiratory effort his sats were in the 70s. After bagging the patient his saturations came up into the 90s. Anesthesia was called and came and I was present when they intubated the patient. His pressure remains in the 60s and 70s by manual cuff there is only one single IV line in his right hand I recommended that we proceed with emergent arterial line access and central venous access given his decompensation. I was initially concerned that this may be oversedation due to the benzodiazepines and other medications that he had received face of his renal failure however he failed to respond to any interventions. I recommended art line and central venous access. He will likely need pressors and other medications. The primary team has been paged.
[2016-08-07 12:24] LABS: ABG HCO3 15.7 MMOL/L (20-26); ABG TCO2 18.6 MMOL/L (23-27)
[2016-08-07 12:25] LABS: ABG PH 7.099 (7.35-7.45)
--- NOTE | 2016-08-07 12:43 | Event Note ---
Without the advance and luxury of signed informed consent in a critical situation attempt access right radial artery with a pressure in the 60s was unsuccessful. His site was aborted and needle causing modified Seldinger technique access was obtained in the right femoral artery and a wire was placed into the artery. Over this wire was placed an arterial line which was sewn in place. Pressure was 4-5 mmHg systolic greater than the cuff pressure. At this time attention was turned to venous access due to inadequacy of peripheral access utilizing the same right femoral area only because of the emergency modified Seldinger technique was utilized to obtain access to the femoral vein 035 J-wire was advanced into the central venous system and a triple-lumen catheter was placed over the wire ports were aspirated and flushed. There was good venous return in all 3 ports the line was sewn in place with 2 interrupted 0 silk sutures. There is no apparent complication. Assessment: 1. Hypotension status post successful central arterial pressure assessment via the right femoral artery 2. Inadequate venous access in this critically ill patient status post successful triple lumen placement in the right femoral vein Sterile technique was utilized with both these accesses and there was no apparent complication. The sites were dressed.
--- NOTE | 2016-08-07 12:46 | Cardiology Consult Note ---
Assessment and Plan - Time spent with patient Time spent with patient: Greater than 30 minutes (Spent approximately 1 hour at the bedside with the above procedures examination discussing with other clinicians.) (1) Respiratory failure Status: Acute Current Visit: Yes (2) Septic shock Status: Acute Current Visit: Yes (3) Altered mental status Status: Acute Assessment and plan: I think this is multifactorial the patient has had altered mental status since being here he received Geodon and Ativan today for his combative nature earlier in the morning. He did not respond to Romazicon. He also apparently has an abnormal LP. Current Visit: Yes (4) Sepsis Status: Acute Current Visit: Yes Qualifiers: Sepsis type: methicillin resistant Staphylococcus aureus Qualified Code(s) : A41.02 - Sepsis due to Methicillin resistant Staphylococcus aureus (5) Acute renal failure Status: Acute Current Visit: Yes (6) Diabetes mellitus Status: Chronic Current Visit: Yes Qualifiers: Diabetes mellitus type: type 2 History of Present Illness - Data of Consult Patient: new to practice Consult date: 08/07/16 Requesting Physician: Zoya Ramos - Consult Narrative Reason for consult: VASYL History of present illness: Mr. Ball is a 51 year old male who is admitted with altered mental status and fever. He is found to have persistent MRSA bacteremia there is not respond to antibiotics had a transthoracic echo approximately 3 days ago which I interpreted there is no significant valvular abnormality. I been consulted for VASYL. He has what appears to be a loculated pleural effusion is going to be intervened upon later today by interventional radiology also has white cells in the spinal tap. A primary source of his bacteremia and sepsis are apparently unclear I have been asked to perform a VASYL. I came to evaluate discussed with the patient and found him in extremist. His sats are in the 70s his blood pressure was in the 70s over 40s. He was completely unresponsive and he was having shallow respirations. He is 100% nonrebreather. I asked the nurse to get respiratory, anesthesia and the patient 's primary attending at the bedside KASH. All were paged. Please see the previous event notes consuming measures. I discussed with Dr. Rashad esparza and I recommended stabilization before any possible VASYL. It appears as though there are other potential sources of his primary MRSA bacteremia and sepsis. CC: Zoya Ramos MD - Home Medications and Allergies Home Medications: Home Medications Medication Instructions Recorded Confirmed Type Insulin Aspart Prot/Asp 70/30 40 unit SUBCUT BID 07/31/16 07/31/16 History [NovoLOG Mix 70/30] Insulin Aspart [NovoLOG] See Protocol SUBCUT ACHS 07/31/16 07/31/16 History Lisinopril/Hydrochlorothiazide 1 each PO DAILY 07/31/16 07/31/16 History [Lisinopril-Hctz 20-25 mg Tab] Allergies/Adverse Reactions: Allergies Allergy/AdvReac Type Severity Reaction Status Date / Time Sulfa (Sulfonamide AdvReac Unknown/Unable Verified 07/30/16 23:04 Antibiotics) to obtain ROS unobtainable: due to endotracheal tube Medical,Surgical,& Family Hx - Medical History Cardio: History of: Hypertension Endocrine: History of: Diabetes Mellitus (IDDM), Dyslipidemia Renal: History of: Renal Problems Musculoskeletal: History of: Degenerative Disk Disease, Herniated Disk - Surgical History Orthopedic Surgeries: Surgical HX of;: Orthopedic Surgery - Family History Family History: Reports;: Family Hypertension - Social History Smoking Status: Current every day smoker Frequency of Alcohol Use: Frequently Type of Drug Use: Unknown Physical Examination Vital Signs Temp Pulse Resp BP Pulse Ox 98 F 105 H 23 100/62 92 L 07/30/16 22:57 07/30/16 22:57 07/30/16 22:57 07/30/16 22:57 07/30/16 22:57 General: Present: Other (Critically ill, morbidly obese) HEENT: Present: Normocephaly Neck: Present: Supple Neck Cardiac: Present: Reg Rate and Rhythm (Tones are very distant) Lungs: Present: Scattered Rhonchi (Upper airway with poor respiratory effort) Neuro: Present: Other (Unresponsive even to noxious stimuli) Abdomen: Present: Soft, Active Bowel Sounds (Obese) Extremities: Present: Edema Result/EKG - Labs CBC & BMP: 08/06/16 03:37 08/06/16 03:37 Labs: Laboratory Results - last 24 hr 08/04/16 08/06/16 08/06/16 15:35 16:38 22:04 ABG pH ABG pCO2 ABG pO2 ABG HCO3 ABG Total CO2 ABG O2 Saturation ABG Base Excess POC Glucose 179 H 137 H Total Creatine Kinase CK-MB (CK-2) Troponin I CSF Herpes I DNA (PCR) Negative CSF Herpes II DNA (PCR) Negative Random Vancomycin 08/07/16 08/07/16 08/07/16 04:02 04:02 07:05 ABG pH ABG pCO2 ABG pO2 ABG HCO3 ABG Total CO2 ABG O2 Saturation ABG Base Excess POC Glucose 196 H Total Creatine Kinase 65 D CK-MB (CK-2) 1.9 Troponin I < 0.015 CSF Herpes I DNA (PCR) CSF Herpes II DNA (PCR) Random Vancomycin 24.6 08/07/16 08/07/16 08/07/16 10:06 11:27 12:15 ABG pH 7.099 L* ABG pCO2 63.0 H ABG pO2 127.0 H ABG HCO3 15.7 L ABG Total CO2 18.6 L ABG O2 Saturation 97.0 ABG Base Excess -11.0 L POC Glucose 211 H Total Creatine Kinase 69 CK-MB (CK-2) 2.1 Troponin I < 0.015 CSF Herpes I DNA (PCR) CSF Herpes II DNA (PCR) Random Vancomycin
--- NOTE | 2016-08-07 12:52 | XRay Report ---
Portable chest Date: 08/04/2016 Clinical history: Endotracheal tube placement Comparison: 08/05/2016 Technique: Portable AP sitting chest Findings: The heart is minimally enlarged. Endotracheal tube in satisfactory position. Progressive extensive pleural and parenchymal pathology in the right hemithorax and at the left lung base. Stable mediastinum and osseous structures. Impression: Endotracheal tube in satisfactory position. Significant progressive pleural and parenchymal findings in the right hemithorax which may be related to a pneumonia but is difficult to include additional underlying pathology. Additional minimally progressive atelectasis/infiltration at the left lung base. Follow-up chest x-ray recommended. PROCEDURE INTERPRETED AT [facility] DEPARTMENT OF RADIOLOGY Final Report Signed by: Dr. Haydee Manjarrez
[2016-08-07] MEDS ORDERED: SODIUM BICARBONATE 50 MEQ/50 ML SYRINGE IV ONE ×2 (13:14→13:30)
[2016-08-07] MEDS: DESITIN 4OZ/NYSTATIN 15 GRAM MIXTURE PASTE TOP SCH ×2 (13:26→23:16)
[2016-08-07] MEDS: NOREPINEPHRINE 16 MG in SODIUM CHLORIDE 0.9% 234 ML IV SCH (13:26)
[2016-08-07] MEDS: SODIUM CHLORIDE 0.45% 1,000 ML IV SCH (13:30)
[2016-08-07] MEDS ORDERED: VANCOMYCIN INJ 1,750 MG in SODIUM CHLORIDE 0.9% 500 ML IV SCH (14:00)
[2016-08-07 14:18] LABS: ABG Base Excess -8.2 MMOL/L (-2.5-2.5); ABG HCO3 17.9 MMOL/L (20-26); ABG Oxygen Saturation 99.2 % (95-100); ABG PH 7.244 (7.35-7.45); ABG TCO2 17.4 MMOL/L (23-27)
[2016-08-07] MEDS: DOXYCYCLINE HYCLATE INJ 100 MG in SODIUM CHLORIDE 0.9% 100 ML IV SCH (15:20)
--- NOTE | 2016-08-07 15:27 | Nephrology Progress Note ---
Nephrology - PN: Subj Interval history: He developed more confusion and agitation. He developed hypotension and required intubation. Systolic pressure was as low as 70s. Exam (PN)-Nephrology - Vital Signs Vital signs: Period Temp Pulse Resp BP Sys/Mcconnell Pulse Ox Last 24 Hr 97.2 F-97.7 F 58-76 14-34 76-170/34-88 85-100 Exam: Gen.: Sedated on ventilator ENT: Pupils equal round reactive to light. Neck: Supple. No JVD or bruit. Cardiovascular: Regular rate and rhythm. No murmur rub or gallop Lungs: Clear Abdomen: Soft. Nontender. Positive bowel sounds. No organomegaly Extremities: Trace edema - Lab 08/06/16 03:37 08/06/16 03:37 Most recent lab results ABG pH 7.244 (7.35-7.45) L 08/07/16 14:10 ABG pCO2 44.0 MM HG (35-48) 08/07/16 14:10 ABG pO2 250.0 MM HG (80-95) H 08/07/16 14:10 ABG HCO3 17.9 MMOL/L (20-26) L 08/07/16 14:10 ABG O2 Saturation 99.2 % (95-100) 08/07/16 14:10 Calcium 8.0 MG/DL (8.5-10.1) L 08/06/16 03:37 Magnesium 0.8 MG/DL (1.8-2.4) L 07/30/16 00:34 Assessment and Plan (1) Acute renal failure Status: Acute Assessment and plan: 51-year-old man admitted with: * Acute renal failure. His renal function has worsened recently DT sepsis and hypotension. He is on several potentially nephrotoxic medications including acyclovir vancomycin and now gentamicin. His clearance is lower than his static creatinine indicates. Vancomycin dose decreased based on levels. I would prefer to avoid gentamicin if at all possible. If it is continued, levels should be followed closely * Hypotension. * Sepsis. Continue antibiotics * Confusion. LP shows 36 WBCs. Antibiotics adjusted. Neurology consult noted * Diabetes mellitus * Chronic back pain Current Visit: Yes (2) Altered mental status Status: Acute Current Visit: Yes (3) Fever Status: Acute Current Visit: Yes (4) Hyperglycemia due to type 2 diabetes mellitus Status: Acute Current Visit: Yes (5) Hypotension Status: Acute Current Visit: Yes
--- NOTE | 2016-08-07 15:34 | XRay Report ---
History: Sepsis. Pleural effusion. Status post right thoracentesis by this radiologist Date: 08/07/2016 Study: Portable chest x-ray post procedure Comparison exam: Chest x-ray AP portable 08/07/2016 There is no evidence of a pneumothorax following thoracentesis. There is residual pleural effusion on the right, though this has decreased since the earlier study following thoracentesis. There is bibasilar atelectasis. There is mild left pleural effusion. The endotracheal tube is well positioned. There is mild cardiomegaly. The mediastinal contour is stable. Osseous structures are unchanged. Impression: No pneumothorax. Reduced pleural effusion following thoracentesis PROCEDURE INTERPRETED AT [facility] DEPARTMENT OF RADIOLOGY Final Report Signed by: Dr. Jamila Fraser
--- NOTE | 2016-08-07 15:56 | Post Interventional Procedure ---
Pre-op diagnosis: right pleural effusion. sepsis Post-op diagnosis: same Procedure: ULTRASOUND-GUIDED THORACENTESIS Radiologist: Jamila Fraser Anesthesia: local Specimens: other (pleural fluid sent to lab) Estimated blood loss: none Complications: none Condition: stable Description/Findings: A formal timeout was performed. A right pleural effusion was identified with ultrasound. The dorsal right chest was prepped and draped in sterile fashion. Under sonographic guidance, a 6 Tamazight pigtail catheter was advanced into the effusion using trocar technique. A captured sonographic image documents needle position. The needle was removed. Through the catheter, we obtained a total of 600 cc of blood-tinged straw-colored, clear fluid. The catheter was removed. A bandage was placed at the puncture site. The patient tolerated the procedure well. Chest radiograph shows no pneumothorax. Assessment and Plan - Time spent with patient Time spent with patient: Less than 30 minutes Time spent discussing smoking cessation with patient: 3 to 10 minutes
--- NOTE | 2016-08-07 16:10 | Ultrasound Report ---
History: Right-sided pleural effusion Date: 08/07/2016 Study: Ultrasound-guided thoracentesis Comparison exam: Chest x-ray 08/07/2016 ULTRASOUND-GUIDED THORACENTESIS Description: A formal timeout was performed. A right pleural effusion was identified with ultrasound. The dorsal right chest was prepped and draped in sterile fashion. Under sonographic guidance, a 6 [place] pigtail catheter was advanced into the effusion using trocar technique by this radiologist. A captured sonographic image documents needle position. The needle was removed. Through the catheter, we obtained a total of 600 cc of blood-tinged straw-colored fluid. The catheter was removed. A bandage was placed at the puncture site. The patient tolerated the procedure well. Chest radiograph shows no evidence of pneumothorax. Impression: Ultrasound-guided thoracentesis. PROCEDURE INTERPRETED AT [facility] DEPARTMENT OF RADIOLOGY Final Report Signed by: Dr. Jamila Fraser
[2016-08-07] MEDS: GENTAMICIN INJ 200 MG in SODIUM CHLORIDE 0.9% 100 ML IV SCH (17:08)
[2016-08-07 17:12] LABS: RBC,Pleural Fluid 9997 T/CUMM
[2016-08-07 17:12] LABS: Troponin I Only < 0.015 NG/ML (0.00-0.045)
[2016-08-07 17:15] LABS: Lymphocytes,Pleural Fluid 10 %; Monocytes,Pleural Fluid 2 %; Neutrophils,Pleural Fluid 88 %
--- NOTE | 2016-08-07 17:36 | Pulmonology Consult Note ---
History of Present Illness Chief complaint: Mechanical ventilation. Staph aureus sepsis. History of present illness: Mr. Ball is a 51 year old white male who experienced respiratory failure this morning required intubation mechanical ventilation. I have been asked to see him in pulmonary consultation to treat his pulmonary status and to manage mechanical ventilation. This patient has an altered mental status and he is not able to give us any type of review of systems. Therefore based on my encounter his review of systems are negative. This patient was admitted to the hospital 07/31/2016 on transfer from another hospital. This patient was complaining of back pain. He is a chronic pain patient and he has history of IV drug abuse. He was hypokalemic. Sed rate was above 100 he had elevated C-reactive proteins. He was thought to be septic. Microbiology. He has several blood cultures positive for staph aureus. He also has staph aureus in his nares. The patient has gone downhill in spite of being on multiple antibiotics. Today he stopped breathing and he could not be coaxed to restart breathing. He had associated bradycardia but no cardiac arrest. He required intubation mechanical ventilation. Allergies sulfa Home medicines. See below Hospital medicines see below. Past history. Chronic pain. IV drug abuse. Hyperlipidemia. Hypertension. Previous orthopedic surgery. Family history. Positive for hypertension Social history. Patient is an everyday smoker. There is a past history of IV drug abuse. Chest x-ray. Bilateral pleural effusions greater on the right as compared to the left. Endotracheal tube is in good position ABGs 08/07/2016 at 1215 showed a pH of 7.099. PCO2 of 63. PO2 of 127. Bicarb of 15.7 ABGs 08/07/2016 at 1410 showed a pH of 7.244 PCO2 44. PO2 250. Bicarb 17.9 Lab. White blood cell count is 17,600 with a left shift. H&H 11.1/32.7. Platelets 270,000. Sodium 148. Potassium 4.0. Creatinine is 2.80. BUN is 49. Ammonia level is 34. C-reactive protein is 15.90. Sedimentation rate is above 100. Protein and albumin are low at 6.0 and 1.6 respectively globulins elevated 4.4 Cerebrospinal fluid obtained 08/05/2016 shows clear fluid 39 white blood cells and 367 red blood cells. There was 65 segs and 27 lymphocytes with 1 band. Glucose was decreased at 53. Protein was slightly up at 40. PH was 7.0. Pleural fluid obtained 08/07/2016. PH 7.00. White blood cell count 1546. Red blood cells 9997. 88% segs and 10% lymphocytes. Albumin is low at 1.1. LDL is elevated at 797. Glucose was 187 Doppler venograms of the lower extremity done 08/07/2016 were negative for deep venous thrombophlebitis Ventilation perfusion lung scan was low probability for pulmonary emboli Additional reports including CT of the thoracic and lumbar spine, CT of the chest/abdomen/pelvis/cervical spine have been reviewed. MRI of the brain is negative. Echocardiogram. Ejection fraction 60%. No vegetations. +1 diastolic Physical exam. Vital signs. See below Chest is clear. Heart no gallop Abdomen nondistended. I do not hear any bowel sounds. Penis. Purulent drainage. Lower extremities. No obvious deep venous thrombophlebitis. Neck. Symmetrical. No meningismus. Neurologic. Patient is sedated and cannot be examined adequately. Scrotum. Erythematous rash. The remainder the physical exam was noncontributory. Impression. 1. Staph aureus sepsis. Etiology undetermined. Note the patient has a history of IV drug use. Look for SBE 2. Acute respiratory arrest. Etiology undetermined. Probably multifactorial. 3. Altered mental status 4. Renal failure 5. Anemia 6. Probable pyelonephritis. 7. See past history Plan. 1. Mechanical ventilator weaning protocol 2. Physical therapy protocol while on mechanical ventilation 3. Deep venous thrombophlebitis prevention protocol 4. Proton pump inhibitor protocol 5. Urinalysis and urine culture. 6. Sputum for Gram stain culture and sensitivity 7. See orders. Home Medications Medication Instructions Recorded Confirmed Type Insulin Aspart Prot/Asp 70/30 40 unit SUBCUT BID 07/31/16 07/31/16 History [NovoLOG Mix 70/30] Insulin Aspart [NovoLOG] See Protocol SUBCUT ACHS 07/31/16 07/31/16 History Lisinopril/Hydrochlorothiazide 1 each PO DAILY 07/31/16 07/31/16 History [Lisinopril-Hctz 20-25 mg Tab] Allergies Allergy/AdvReac Type Severity Reaction Status Date / Time Sulfa (Sulfonamide AdvReac Unknown/Unable Verified 07/30/16 23:04 Antibiotics) to obtain Exam (Pulmonay) H&P - Constitutional Vitals: Period Temp Pulse Resp BP Sys/Mcconnell Pulse Ox Last 24 Hr 97.2 F-97.6 F 58-76 14-34 76-170/34-88 85-100 Medical,Surgical,& Family Hx - Medical History Cardio: History of: Hypertension Endocrine: History of: Diabetes Mellitus (IDDM), Dyslipidemia Renal: History of: Renal Problems Musculoskeletal: History of: Degenerative Disk Disease, Herniated Disk - Surgical History Orthopedic Surgeries: Surgical HX of;: Orthopedic Surgery - Family History Family History: Reports;: Family Hypertension - Social History Smoking Status: Current every day smoker Frequency of Alcohol Use: Frequently Type of Drug Use: Unknown Results - Labs CBC & BMP: 08/06/16 03:37 08/06/16 03:37
[2016-08-07 17:45] LABS: Calcium 7.4 MG/DL (8.5-10.1); Osmolality,Calculated 317.6 MOS/KG (273-304); Potassium 4.3 MMOL/L (3.5-5.1)
[2016-08-07 18:05] LABS: Basophils % 0.2 % (0.0-0.8); Eosinophils % 0.2 % (0.00-10.9); Hematocrit 28.7 VOL% (42.0-52.0); Hemoglobin 9.6 GM/DL (14.0-18.0); Immature Granulocytes % 1.4 %; Immature Granulocytes Absolute 0.23 #; Lymphocytes # 0.9 10*3/uL (1.4-4.0); Lymphocytes % 5.9 % (21.2-54.2); Mean Corpuscular HGB Conc 33.4 GM/DL (32-36); Mean Corpuscular Hemoglobin 31 PG (27-34); Mean Corpuscular Volume 93.5 FL (87-102); Mean Platelet Volume 10.9 FL (9.6-12.0); Monocytes # 0.6 10*3/uL (0.11-0.8); Monocytes % 3.6 % (1.7-12.7); Neutrophils # 14.3 10*3/uL (1.4-7.4); Neutrophils % 88.7 % (38.7-73.9); Platelet Count 231 T/CUMM (130-400); Red Blood Count 3.07 MC/CUMM (3.8-5.5); Red Cell Distribution Width 14.6 % (9.3-17.3); White Blood Count 16.1 T/CUMM (4-12)
[2016-08-07 18:50] LABS: Amorphous Crystals,Urine Occasional /HPF (Few); Apearance,Urine CLOUDY (Clear); Bilirubin,Urine Negative (Negative); Blood, Urine Moderate mg/dL (Negative); Glucose,Urine (UA) Negative (Negative); Ketones,Urine 5 mg/dL (Negative); Nitrite,Urine Negative (Negative); Protein,Urine 100 MG/DL; RBC,Urine 31 /HPF (0-4); Urine Color Amber (Yellow); Urine Specific Gravity 1.038 (1.001-1.035); Urine Urobilinogen < 2.0 EU/DL (0.2-1.0); WBC,Urine 31 /HPF (0-6)
[2016-08-07] MEDS: INSULIN GLARGINE 100 UNIT/ML SUBCUT SCH (20:28)
[2016-08-07] MEDS: THIAMINE INJ 100 MG, FOLIC ACID INJ 1 MG, MULTIVITAMIN INJ 10 ML in SODIUM CHLORIDE 0.4... IV SCH (23:10)
[2016-08-08] MEDS: INSULIN REGULAR 100 UNIT/ML SUBCUT SCH ×4 (00:03→18:09)
[2016-08-08] MEDS: LORazepam 2 MG/1 ML VIAL IV PRN (00:03)
[2016-08-08] MEDS: cefTRIAXone 2,000 MG in SODIUM CHLORIDE 0.9% 100 ML IV SCH ×2 (00:59→16:13)
[2016-08-08] MEDS: ALBUTEROL/IPRATROPIUM 3 ML NEB RESP TX SCH ×4 (01:11→19:11)
[2016-08-08] MEDS: AMPICILLIN INJ 2,000 MG in SODIUM CHLORIDE 0.9% 100 ML IV SCH ×4 (01:34→20:37)
[2016-08-08] MEDS: DOXYCYCLINE HYCLATE INJ 100 MG in SODIUM CHLORIDE 0.9% 100 ML IV SCH ×3 (02:10→19:04)
[2016-08-08] MEDS: SODIUM CHLORIDE 0.9% IV SCH (02:16)
[2016-08-08] MEDS: ACYCLOVIR IV SCH (02:16)
[2016-08-08] MEDS: SODIUM CHLORIDE 0.45% 1,000 ML IV SCH ×3 (02:50→21:45)
[2016-08-08 03:39] LABS: ABG Base Excess -10.1 MMOL/L (-2.5-2.5); ABG HCO3 16.4 MMOL/L (20-26); ABG Oxygen Saturation 99.7 % (95-100); ABG PCO2 27.6 MM HG (35-48); ABG PH 7.335 (7.35-7.45); ABG TCO2 13.7 MMOL/L (23-27)
[2016-08-08 03:43] LABS: Basophils % 0.2 % (0.0-0.8); Eosinophils # 0.1 10*3/uL (0.0-0.87); Eosinophils % 0.8 % (0.00-10.9); Hemoglobin 7.3 GM/DL (14.0-18.0); Immature Granulocytes % 1.5 %; Lymphocytes # 1.1 10*3/uL (1.4-4.0); Lymphocytes % 8.2 % (21.2-54.2); Mean Corpuscular HGB Conc 33.2 GM/DL (32-36); Mean Corpuscular Hemoglobin 31 PG (27-34); Mean Corpuscular Volume 94.4 FL (87-102); Mean Platelet Volume 11.5 FL (9.6-12.0); Monocytes # 0.6 10*3/uL (0.11-0.8); Monocytes % 4.4 % (1.7-12.7); Neutrophils # 11.2 10*3/uL (1.4-7.4); Neutrophils % 84.9 % (38.7-73.9); Platelet Count 243 T/CUMM (130-400); Red Blood Count 2.33 MC/CUMM (3.8-5.5); Red Cell Distribution Width 14.9 % (9.3-17.3); White Blood Count 13.1 T/CUMM (4-12)
[2016-08-08 04:08] LABS: Osmolality,Calculated 319.6 MOS/KG (273-304); Potassium 3.8 MMOL/L (3.5-5.1)
[2016-08-08 04:09] LABS: Albumin 1.4 G/DL (3.4-5.0); Osmolality,Calculated 322.3 MOS/KG (273-304); Phosphorous 8.8 MG/DL (2.5-4.9); Potassium 3.8 MMOL/L (3.5-5.1)
[2016-08-08] MEDS ORDERED: LORazepam 2 MG/1 ML VIAL IV PRN (04:45)
[2016-08-08] MEDS ORDERED: PROPOFOL 1,000 MG/100 ML BOTTLE IV ONE (06:02)
[2016-08-08] MEDS: PROPOFOL 1,000 MG/100 ML BOTTLE IV SCH ×3 (06:23→19:05)
--- NOTE | 2016-08-08 06:57 | Cardiology Progress Note ---
Assessment and Plan (1) Respiratory failure Status: Acute Current Visit: Yes Qualifiers: Chronicity: acute Respiratory failure complication: hypoxia and hypercapnia Qualified Code(s): J96.01 - Acute respiratory failure with hypoxia ; J96.02 - Acute respiratory failure with hypercapnia (2) Septic shock Status: Acute Current Visit: Yes (3) Altered mental status Status: Acute Assessment and plan: Nurses report this is better however he is sedated at this time. Current Visit: Yes (4) Sepsis Status: Acute Current Visit: Yes Qualifiers: Sepsis type: methicillin resistant Staphylococcus aureus Qualified Code(s) : A41.02 - Sepsis due to Methicillin resistant Staphylococcus aureus (5) Acute renal failure Status: Acute Current Visit: Yes (6) Diabetes mellitus Status: Chronic Current Visit: Yes Qualifiers: Diabetes mellitus type: type 2 Cardiology - PN: Subj Interval history: Mr. Ball hemodynamics have improved he is only on 1 g of Levophed per minute. We have been weaning that off. He was hypotensive when I arrived however this is new due to initiation of propofol for his agitation. He has been awake alert and following commands. His H&H have dropped but has no overt or obvious signs of bleeding. The patient remains in critical condition. Exam (Progress Note) - Constitutional Vitals: Period Temp Pulse Resp BP Sys/Mcconnell Pulse Ox Last 24 Hr 97.5 F-98.6 F 58-87 14-28 76-146/34-80 85-100 General appearance: morbidly obese - Head Head exam: Present: normal inspection - Respiratory Respiratory exam: Present: clear to auscultation bilaterally (On the ventilator) - Cardiovascular Cardiovascular exam: Present: tachycardia (Tones are distant no murmurs) - GI/Abdominal GI/Abdominal exam: Present: normal bowel sounds - Skin Skin exam: Present: other (Excoriations and some blister) Result/EKG - Labs CBC & BMP: 08/08/16 03:15 08/08/16 03:15 Labs: Laboratory Results - last 24 hr 08/04/16 08/07/16 08/07/16 15:35 04:02 07:05 WBC RBC Hgb Hct MCV MCH MCHC RDW Plt Count MPV Neut % (Auto) Lymph % (Auto) [place] % (Auto) Eos % (Auto) Baso % (Auto) Neut # (Auto) Lymph # (Auto) [place] # (Auto) Eos # (Auto) Baso # (Auto) Immature Gran % Nucleated RBC % Immature Gran # Nucleated RBCs # ESR Westergren ABG pH ABG pCO2 ABG pO2 ABG HCO3 ABG Total CO2 ABG O2 Saturation ABG Base Excess Sodium Potassium Chloride Carbon Dioxide Anion Gap BUN Creatinine GFR Calculation BUN/Creatinine Ratio Glucose POC Glucose 196 H Calculated Osmolality Calcium Phosphorus Magnesium Ammonia Total Creatine Kinase 65 D CK-MB (CK-2) 1.9 Troponin I < 0.015 C-Reactive Protein Albumin Urine Color Urine Appearance Urine pH Ur Specific [place] Urine Protein Urine Glucose (UA) Urine Ketones Urine Blood Urine Nitrate Urine Bilirubin Urine Urobilinogen Urine Leukocytes Urine RBC Urine WBC Amorphous Crystals Ur Culture Indicated? CSF Herpes I DNA (PCR) Negative CSF Herpes II DNA (PCR) Negative Pleural pH Pleural WBC Pleural RBC Pleural Tot Cell Ct Pleural Neutrophils Pleural Lymphocytes Pleural Monocytes Pleural Albumin Pleural LDH Pleural Glucose Treponema pallidum IgG 08/07/16 08/07/16 08/07/16 10:06 11:27 12:15 WBC RBC Hgb Hct MCV MCH MCHC RDW Plt Count MPV Neut % (Auto) Lymph % (Auto) [place] % (Auto) Eos % (Auto) Baso % (Auto) Neut # (Auto) Lymph # (Auto) [place] # (Auto) Eos # (Auto) Baso # (Auto) Immature Gran % Nucleated RBC % Immature Gran # Nucleated RBCs # ESR Westergren 110 H ABG pH ABG pCO2 ABG pO2 ABG HCO3 ABG Total CO2 ABG O2 Saturation ABG Base Excess Sodium Potassium Chloride Carbon Dioxide Anion Gap BUN Creatinine GFR Calculation BUN/Creatinine Ratio Glucose POC Glucose 211 H Calculated Osmolality Calcium Phosphorus Magnesium Ammonia Total Creatine Kinase 69 CK-MB (CK-2) 2.1 Troponin I < 0.015 C-Reactive Protein Albumin Urine Color Urine Appearance Urine pH Ur Specific [place] Urine Protein Urine Glucose (UA) Urine Ketones Urine Blood Urine Nitrate Urine Bilirubin Urine Urobilinogen Urine Leukocytes Urine RBC Urine WBC Amorphous Crystals Ur Culture Indicated? CSF Herpes I DNA (PCR) CSF Herpes II DNA (PCR) Pleural pH Pleural WBC Pleural RBC Pleural Tot Cell Ct Pleural Neutrophils Pleural Lymphocytes Pleural Monocytes Pleural Albumin Pleural LDH Pleural Glucose Treponema pallidum IgG 08/07/16 08/07/16 08/07/16 12:15 12:15 12:15 WBC RBC Hgb Hct MCV MCH MCHC RDW Plt Count MPV Neut % (Auto) Lymph % (Auto) [place] % (Auto) Eos % (Auto) Baso % (Auto) Neut # (Auto) Lymph # (Auto) [place] # (Auto) Eos # (Auto) Baso # (Auto) Immature Gran % Nucleated RBC % Immature Gran # Nucleated RBCs # ESR Westergren ABG pH 7.099 L* ABG pCO2 63.0 H ABG pO2 127.0 H ABG HCO3 15.7 L ABG Total CO2 18.6 L ABG O2 Saturation 97.0 ABG Base Excess -11.0 L Sodium Potassium Chloride Carbon Dioxide Anion Gap BUN Creatinine GFR Calculation BUN/Creatinine Ratio Glucose POC Glucose Calculated Osmolality Calcium Phosphorus Magnesium Ammonia Total Creatine Kinase CK-MB (CK-2) Troponin I C-Reactive Protein 15.90 H Albumin Urine Color Urine Appearance Urine pH Ur Specific [place] Urine Protein Urine Glucose (UA) Urine Ketones Urine Blood Urine Nitrate Urine Bilirubin Urine Urobilinogen Urine Leukocytes Urine RBC Urine WBC Amorphous Crystals Ur Culture Indicated? CSF Herpes I DNA (PCR) CSF Herpes II DNA (PCR) Pleural pH Pleural WBC Pleural RBC Pleural Tot Cell Ct Pleural Neutrophils Pleural Lymphocytes Pleural Monocytes Pleural Albumin Pleural LDH Pleural Glucose Treponema pallidum IgG Nonreactive 08/07/16 08/07/16 08/07/16 14:10 15:00 15:00 WBC RBC Hgb Hct MCV MCH MCHC RDW Plt Count MPV Neut % (Auto) Lymph % (Auto) [place] % (Auto) Eos % (Auto) Baso % (Auto) Neut # (Auto) Lymph # (Auto) [place] # (Auto) Eos # (Auto) Baso # (Auto) Immature Gran % Nucleated RBC % Immature Gran # Nucleated RBCs # ESR Westergren ABG pH 7.244 L ABG pCO2 44.0 ABG pO2 250.0 H ABG HCO3 17.9 L ABG Total CO2 17.4 L ABG O2 Saturation 99.2 ABG Base Excess -8.2 L Sodium Potassium Chloride Carbon Dioxide Anion Gap BUN Creatinine GFR Calculation BUN/Creatinine Ratio Glucose POC Glucose Calculated Osmolality Calcium Phosphorus Magnesium Ammonia Total Creatine Kinase CK-MB (CK-2) Troponin I C-Reactive Protein Albumin Urine Color Urine Appearance Urine pH Ur Specific [place] Urine Protein Urine Glucose (UA) Urine Ketones Urine Blood Urine Nitrate Urine Bilirubin Urine Urobilinogen Urine Leukocytes Urine RBC Urine WBC Amorphous Crystals Ur Culture Indicated? CSF Herpes I DNA (PCR) CSF Herpes II DNA (PCR) Pleural pH Pleural WBC 1546 Pleural RBC [address] 100 Pleural Neutrophils 88 Pleural Lymphocytes 10 Pleural Monocytes 2 Pleural Albumin 1.1 Pleural LDH Pleural Glucose Treponema pallidum IgG 08/07/16 08/07/16 08/07/16 15:00 15:00 15:00 WBC RBC Hgb Hct MCV MCH MCHC RDW Plt Count MPV Neut % (Auto) Lymph % (Auto) [place] % (Auto) Eos % (Auto) Baso % (Auto) Neut # (Auto) Lymph # (Auto) [place] # (Auto) Eos # (Auto) Baso # (Auto) Immature Gran % Nucleated RBC % Immature Gran # Nucleated RBCs # ESR Westergren ABG pH ABG pCO2 ABG pO2 ABG HCO3 ABG Total CO2 ABG O2 Saturation ABG Base Excess Sodium Potassium Chloride Carbon Dioxide Anion Gap BUN Creatinine GFR Calculation BUN/Creatinine Ratio Glucose POC Glucose Calculated Osmolality Calcium Phosphorus Magnesium Ammonia Total Creatine Kinase CK-MB (CK-2) Troponin I C-Reactive Protein Albumin Urine Color Urine Appearance Urine pH Ur Specific [place] Urine Protein Urine Glucose (UA) Urine Ketones Urine Blood Urine Nitrate Urine Bilirubin Urine Urobilinogen Urine Leukocytes Urine RBC Urine WBC Amorphous Crystals Ur Culture Indicated? CSF Herpes I DNA (PCR) CSF Herpes II DNA (PCR) Pleural pH 7.00 Pleural WBC Pleural RBC Pleural Tot Cell Ct Pleural Neutrophils Pleural Lymphocytes Pleural Monocytes Pleural Albumin Pleural LDH 797 Pleural Glucose 187 Treponema pallidum IgG 08/07/16 08/07/16 08/07/16 16:31 16:32 17:15 WBC RBC Hgb Hct MCV MCH MCHC RDW Plt Count MPV Neut % (Auto) Lymph % (Auto) [place] % (Auto) Eos % (Auto) Baso % (Auto) Neut # (Auto) Lymph # (Auto) [place] # (Auto) Eos # (Auto) Baso # (Auto) Immature Gran % Nucleated RBC % Immature Gran # Nucleated RBCs # ESR Westergren ABG pH ABG pCO2 ABG pO2 ABG HCO3 ABG Total CO2 ABG O2 Saturation ABG Base Excess Sodium 146 H Potassium 4.3 Chloride 112 H Carbon Dioxide 16 L Anion Gap 22.3 H BUN 75 H Creatinine 5.20 H GFR Calculation 17 BUN/Creatinine Ratio 14.00 Glucose 207 H POC Glucose Calculated Osmolality 317.6 H Calcium 7.4 L Phosphorus Magnesium 2.0 Ammonia 45 H Total Creatine Kinase 71 CK-MB (CK-2) 2.3 Troponin I < 0.015 C-Reactive Protein Albumin Urine Color Urine Appearance Urine pH Ur Specific [place] Urine Protein Urine Glucose (UA) Urine Ketones Urine Blood Urine Nitrate Urine Bilirubin Urine Urobilinogen Urine Leukocytes Urine RBC Urine WBC Amorphous Crystals Ur Culture Indicated? CSF Herpes I DNA (PCR) CSF Herpes II DNA (PCR) Pleural pH Pleural WBC Pleural RBC Pleural Tot Cell Ct Pleural Neutrophils Pleural Lymphocytes Pleural Monocytes Pleural Albumin Pleural LDH Pleural Glucose Treponema pallidum IgG 08/07/16 08/07/16 08/07/16 17:15 17:45 18:31 WBC 16.1 H RBC 3.07 L Hgb 9.6 L Hct 28.7 L MCV 93.5 MCH 31 MCHC 33.4 RDW 14.6 Plt Count 231 MPV 10.9 Neut % (Auto) 88.7 H Lymph % (Auto) 5.9 L [place] % (Auto) 3.6 Eos % (Auto) 0.2 Baso % (Auto) 0.2 Neut # (Auto) 14.3 H Lymph # (Auto) 0.9 L [place] # (Auto) 0.6 Eos # (Auto) 0.0 Baso # (Auto) 0.0 Immature Gran % 1.4 Nucleated RBC % 0.0 Immature Gran # 0.23 Nucleated RBCs # 0.00 ESR Westergren ABG pH ABG pCO2 ABG pO2 ABG HCO3 ABG Total CO2 ABG O2 Saturation ABG Base Excess Sodium Potassium Chloride Carbon Dioxide Anion Gap BUN Creatinine GFR Calculation BUN/Creatinine Ratio Glucose POC Glucose 119 H Calculated Osmolality Calcium Phosphorus Magnesium Ammonia Total Creatine Kinase CK-MB (CK-2) Troponin I C-Reactive Protein Albumin Urine Color [place] Urine Appearance Cloudy Urine pH 5.0 Ur Specific [place] 1.038 H Urine Protein 100 Urine Glucose (UA) Negative Urine Ketones 5 Urine Blood Moderate Urine Nitrate Negative Urine Bilirubin Negative Urine Urobilinogen < 2.0 H Urine Leukocytes Moderate H Urine RBC 31 Urine WBC 31 Amorphous Crystals Occasional Ur Culture Indicated? Results to follow CSF Herpes I DNA (PCR) CSF Herpes II DNA (PCR) Pleural pH Pleural WBC Pleural RBC Pleural Tot Cell Ct Pleural Neutrophils Pleural Lymphocytes Pleural Monocytes Pleural Albumin Pleural LDH Pleural Glucose Treponema pallidum IgG 08/07/16 08/08/16 08/08/16 23:55 03:15 03:15 WBC 13.1 H RBC 2.33 L D Hgb 7.3 L D Hct 22.0 L MCV 94.4 MCH 31 MCHC 33.2 RDW 14.9 Plt Count 243 MPV 11.5 Neut % (Auto) 84.9 H Lymph % (Auto) 8.2 L [place] % (Auto) 4.4 Eos % (Auto) 0.8 Baso % (Auto) 0.2 Neut # (Auto) 11.2 H Lymph # (Auto) 1.1 L [place] # (Auto) 0.6 Eos # (Auto) 0.1 Baso # (Auto) 0.0 Immature Gran % 1.5 Nucleated RBC % 0.0 Immature Gran # 0.20 Nucleated RBCs # 0.00 ESR W[place] ABG pH ABG pCO2 ABG pO2 ABG HCO3 ABG Total CO2 ABG O2 Saturation ABG Base Excess Sodium 148 H Potassium 3.8 Chloride 111 H Carbon Dioxide 16 L Anion Gap 24.8 H BUN 79 H Creatinine 5.90 H GFR Calculation 14 BUN/Creatinine Ratio 13.00 Glucose 189 H POC Glucose 221 H Calculated Osmolality 322.3 H Calcium 7.0 L Phosphorus 8.8 H Magnesium Ammonia Total Creatine Kinase CK-MB (CK-2) Troponin I C-Reactive Protein Albumin 1.4 L Urine Color Urine Appearance Urine pH Ur Specific [place] Urine Protein Urine Glucose (UA) Urine Ketones Urine Blood Urine Nitrate Urine Bilirubin Urine Urobilinogen Urine Leukocytes Urine RBC Urine WBC Amorphous Crystals Ur Culture Indicated? CSF Herpes I DNA (PCR) CSF Herpes II DNA (PCR) Pleural pH Pleural WBC Pleural RBC Pleural Tot Cell Ct Pleural Neutrophils Pleural Lymphocytes Pleural Monocytes Pleural Albumin Pleural LDH Pleural Glucose Treponema pallidum IgG 08/08/16 08/08/16 08/08/16 03:15 03:25 05:52 WBC RBC Hgb Hct MCV MCH MCHC RDW Plt Count MPV Neut % (Auto) Lymph % (Auto) [place] % (Auto) Eos % (Auto) Baso % (Auto) Neut # (Auto) Lymph # (Auto) [place] # (Auto) Eos # (Auto) Baso # (Auto) Immature Gran % Nucleated RBC % Immature Gran # Nucleated RBCs # ESR W[place] ABG pH 7.335 L ABG pCO2 27.6 L ABG pO2 365.0 H ABG HCO3 16.4 L ABG Total CO2 13.7 L ABG O2 Saturation 99.7 ABG Base Excess -10.1 L Sodium 146 H Potassium 3.8 Chloride 110 H Carbon Dioxide 17 L Anion Gap 22.8 H BUN 83 H Creatinine 6.00 H GFR Calculation 14 BUN/Creatinine Ratio 13.00 Glucose 186 H POC Glucose 194 H Calculated Osmolality 319.6 H Calcium 7.0 L Phosphorus Magnesium Ammonia Total Creatine Kinase CK-MB (CK-2) Troponin I C-Reactive Protein Albumin Urine Color Urine Appearance Urine pH Ur Specific [place] Urine Protein Urine Glucose (UA) Urine Ketones Urine Blood Urine Nitrate Urine Bilirubin Urine Urobilinogen Urine Leukocytes Urine RBC Urine WBC Amorphous Crystals Ur Culture Indicated? CSF Herpes I DNA (PCR) CSF Herpes II DNA (PCR) Pleural pH Pleural WBC Pleural RBC Pleural Tot Cell Ct Pleural Neutrophils Pleural Lymphocytes Pleural Monocytes Pleural Albumin Pleural LDH Pleural Glucose Treponema pallidum IgG
--- NOTE | 2016-08-08 08:04 | Pulmonology Progress Note ---
Pulmonary - PN: Subj Interval history: This is a 51-year-old white male whom I saw in pulmonary consultation on 2016. Earlier that day he had experienced respiratory failure that required intubation mechanical ventilation and I was asked to see him in pulmonary consultation to manage his mechanical ventilation and to treat pulmonary problems. My impressions were. 1. Staph aureus sepsis. Etiology undetermined. Note the patient has a history of IV drug use. Look for SBE 2. Acute respiratory arrest. Etiology undetermined. Probably multifactorial. 3. Altered mental status 4. Renal failure 5. Anemia 6. Probable pyelonephritis. 7. See past history 08/08/2016. Today's chest x-ray shows small bilateral pleural effusions. ABGs on mechanical ventilation showed pH 7.335, PCO2 28, PO2 365 and a bicarb of 16.4. I am going to decrease the patient's FiO2 but leave him and a hyper ventilation state to help with his metabolic acidosis. Creatinine is 6.0 with a BUN of 83. Sodium is 146. Potassium 3.8. H&H is dropped to 7.3/22.0 white blood cell count is 13,100 with 85 segs 8 lymphs and 4 monocytes. Platelets are 243,000. Multiple blood cultures have been positive for staph aureus and nares cultures were positive for MRSA. Physical exam. Vital signs. See below Chest. Loose large airway congestion Heart. Lateral PMI Abdomen. Rare bowel sounds Lower extremities. Nothing to suggest deep venous thrombophlebitis Neck. No masses and no meningismus. Neurologic is impossible. Patient is sedated. The remainder the physical exam is negative Plan. 1. Mechanical ventilator weaning protocol 2. Physical therapy protocol while on mechanical ventilation 3. Deep venous thrombophlebitis prevention protocol 4. Proton pump inhibitor protocol 5. Urinalysis and urine culture. 6. Sputum for Gram stain culture and sensitivity 7. See orders. Exam (Progress Note) - Constitutional Vitals: Period Temp Pulse Resp BP Sys/Mcconnell Pulse Ox Last 24 Hr 97.6 F-98.6 F 58-88 14-28 76-149/34-80 85-100 Results - Labs CBC & BMP: 08/08/16 03:15 08/08/16 03:15
[2016-08-08] MEDS: LACTULOSE 20 GM/30 ML UDCUP PO SCH ×2 (09:01→20:20)
[2016-08-08] MEDS: INSULIN ASPART PROTAMINE/ASPART 70/30 100 UNIT/ML SUBCUT SCH ×2 (09:11→18:08)
[2016-08-08] MEDS: amLODIPine 5 MG TABLET PO SCH (09:11)
[2016-08-08] MEDS: CARVEDILOL 25 MG TABLET PO SCH ×2 (09:11→18:08)
[2016-08-08] MEDS: chlordiazePOXIDE 25 MG CAPSULE PO SCH ×4 (09:11→20:20)
[2016-08-08] MEDS: DESITIN 4OZ/NYSTATIN 15 GRAM MIXTURE PASTE TOP SCH (09:12)
--- NOTE | 2016-08-08 09:31 | Nephrology Consult Note ---
History of Present Illness History of present illness: Mr. Ball is a 51 year old male. Please see nephrology progress note dated for today. Home Medications Medication Instructions Recorded Confirmed Type Insulin Aspart Prot/Asp 70/30 40 unit SUBCUT BID 07/31/16 07/31/16 History [NovoLOG Mix 70/30] Insulin Aspart [NovoLOG] See Protocol SUBCUT ACHS 07/31/16 07/31/16 History Lisinopril/Hydrochlorothiazide 1 each PO DAILY 07/31/16 07/31/16 History [Lisinopril-Hctz 20-25 mg Tab] Allergies Allergy/AdvReac Type Severity Reaction Status Date / Time Sulfa (Sulfonamide AdvReac Unknown/Unable Verified 07/30/16 23:04 Antibiotics) to obtain Medical,Surgical,& Family Hx - Medical History Cardio: History of: Hypertension Endocrine: History of: Diabetes Mellitus (IDDM), Dyslipidemia Renal: History of: Renal Problems Musculoskeletal: History of: Degenerative Disk Disease, Herniated Disk - Surgical History Orthopedic Surgeries: Surgical HX of;: Orthopedic Surgery - Family History Family History: Reports;: Family Hypertension - Social History Smoking Status: Current every day smoker Frequency of Alcohol Use: Frequently Type of Drug Use: Unknown Exam - Vital Signs Vital signs: Period Temp Pulse Resp BP Sys/Mcconnell Pulse Ox Last 24 Hr 97.6 F-98.6 F 58-88 14-28 76-149/34-80 85-100 Results - Labs CBC & BMP: 08/09/16 03:58 08/09/16 03:58
--- NOTE | 2016-08-08 09:34 | Nephrology Progress Note ---
Nephrology - PN: Subj Interval history: The patient was placed on the ventilator on yesterday due to respiratory distress. He is also had a thoracentesis done on yesterday and initial cultures have been negative. However patient is on small amount of pressor medications. His urine output has continued to decrease to approximately 5 cc in the last shift. Serum creatinine is up to 6.0. Moreover his hematocrit was noted 22 and his hemoglobin is 7.3. I have discussed the issues with patient's family his son named Gonzalez and at this time he is in agreement meant for doing dialysis support for Mr. Ball. Plan is to get a dialysis catheter in place we will give 2 units packed red blood cells and continue support for this patient. Exam (PN)-Nephrology - Vital Signs Vital signs: Period Temp Pulse Resp BP Sys/Mcconnell Pulse Ox Last 24 Hr 97.6 F-98.6 F 58-88 14-28 76-149/34-80 85-100 - General Appearance General appearance: intubated EENT: ATNC Neck: supple Respiratory: clear Cardiology: regular rate, regular rhythm Gastrointestinal: normoactive bowel sounds Musculoskeletal: no deformities - Lab 08/08/16 03:15 08/08/16 03:15 Most recent lab results ABG pH 7.335 (7.35-7.45) L 08/08/16 03:25 ABG pCO2 27.6 MM HG (35-48) L 08/08/16 03:25 ABG pO2 365.0 MM HG (80-95) H 08/08/16 03:25 ABG HCO3 16.4 MMOL/L (20-26) L 08/08/16 03:25 ABG O2 Saturation 99.7 % (95-100) 08/08/16 03:25 Calcium 7.0 MG/DL (8.5-10.1) L 08/08/16 03:15 Phosphorus 8.8 MG/DL (2.5-4.9) H 08/08/16 03:15 Magnesium 2.0 MG/DL (1.8-2.4) 08/07/16 16:31 Assessment and Plan (1) Anemia Status: Acute Assessment and plan: With typed for 2 units packed red blood cells. Will also give this blood on dialysis today. Current Visit: Yes (2) Acute renal failure Status: Acute Assessment and plan: Progressive renal failure. Metabolic acidosis noted. Hemodynamics requires levo fed at this time. At this time making preparations for dialysis support. Hepatitis panel ordered. Current Visit: Yes (3) Altered mental status Status: Acute Current Visit: Yes (4) HTN (hypertension) Status: Chronic Current Visit: Yes Qualifiers: Hypertension type: essential hypertension Qualified Code(s): I10 - Essential (primary) hypertension (5) Hyperglycemia due to type 2 diabetes mellitus Status: Chronic Current Visit: Yes (6) Respiratory failure Status: Acute Assessment and plan: Now ventilated. Well oxygenated. Current Visit: Yes Qualifiers: Chronicity: acute Respiratory failure complication: hypoxia and hypercapnia Qualified Code(s): J96.01 - Acute respiratory failure with hypoxia ; J96.02 - Acute respiratory failure with hypercapnia (7) Diabetes mellitus Status: Chronic Current Visit: Yes Qualifiers: Diabetes mellitus type: type 2
--- NOTE | 2016-08-08 10:15 | XRay Report ---
Portable chest. Indication: Ventilated patient. Comparison: August 07, 2016. The heart is borderline enlarged. An endotracheal tube and nasogastric tube are in satisfactory position. The pulmonary vasculature is normal. Worsening opacities over the lung bases, probably a combination of atelectasis and pleural effusion. No pneumothorax. Degenerative changes are again seen in the spinal column and shoulders. Impression: Interval worsening in the appearance of the lung bases, likely due to a combination of atelectasis and pleural effusion. PROCEDURE INTERPRETED AT [facility] DEPARTMENT OF RADIOLOGY Final Report Signed by: Dr. Elidia Rosen
--- NOTE | 2016-08-08 10:21 | General Surgery Consult Note ---
Assessment and Plan (1) Acute renal failure Status: Acute Assessment and plan: Plan: Placement of temporary hemodialysis catheter at bedside today. Current Visit: Yes History of Present Illness Chief complaint: consult for temporary hemodialysis catheter History of present illness: Mr. Ball is a 51 year old male with organ failure secondary to sepsis. He has positive blood cultures. I have been consult did to place a temporary hemodialysis catheter. He has a triple-lumen catheter in the right groin. He has a rash in the left groin. Home Medications Medication Instructions Recorded Confirmed Type Insulin Aspart Prot/Asp 70/30 40 unit SUBCUT BID 07/31/16 07/31/16 History [NovoLOG Mix 70/30] Insulin Aspart [NovoLOG] See Protocol SUBCUT ACHS 07/31/16 07/31/16 History Lisinopril/Hydrochlorothiazide 1 each PO DAILY 07/31/16 07/31/16 History [Lisinopril-Hctz 20-25 mg Tab] Allergies Allergy/AdvReac Type Severity Reaction Status Date / Time Sulfa (Sulfonamide AdvReac Unknown/Unable Verified 07/30/16 23:04 Antibiotics) to obtain Medical,Surgical,& Family Hx - Medical History Cardio: History of: Hypertension Endocrine: History of: Diabetes Mellitus (IDDM), Dyslipidemia Renal: History of: Renal Problems Musculoskeletal: History of: Degenerative Disk Disease, Herniated Disk - Surgical History Orthopedic Surgeries: Surgical HX of;: Orthopedic Surgery - Family History Family History: Reports;: Family Hypertension - Social History Smoking Status: Current every day smoker Frequency of Alcohol Use: Frequently Type of Drug Use: Unknown ROS unobtainable: due to endotracheal tube Exam - Constitutional Vitals: Period Temp Pulse Resp BP Sys/Mcconnell Pulse Ox Last 24 Hr 97.6 F-98.6 F 58-88 14-28 76-188/34-80 85-100 - Neck Neck exam: Present: other (bilateral neck clean with no rash) Results - Labs CBC & BMP: 08/08/16 03:15 08/08/16 03:15
[2016-08-08 11:15] LABS: Hepatitis A Ab IgM Quant 0.19 Index; Hepatitis A Ab IgM Result Negative (Negative); Hepatitis B Core IgM Quant 0.14 Index; Hepatitis B Core IgM Result Negative (Negative); Hepatitis B Surface Ag Quant < 0.10 Index; Hepatitis B Surface Ag Result Negative (Negative)
--- NOTE | 2016-08-08 11:33 | Hospitalist Progress Note ---
Assessment and Plan (1) Altered mental status Status: Acute Assessment and plan: Aetiology of this is still unclear. Patient is still confused and gets agitated and combative every now and then. He stopped spiking temp but his blood is still growing MRSA despite on Vancomycin.He has a history of ETOH abuse. MRI of the brain reveals no acute abnormalities. Blood cultures reveals MRSA. A spinal tap reveals WBC count of 39 with 65% neutrophils, glucose 54, total protein 40, RBC less than 1. Gram stain negative, meningitis antigen panel is negative Echo report noted Toxicology: sent out, result is pending CT head showed no acute changes, Lumbar spine showed no acute fracture MRI Lumbar: No acute fracture or obvious abscess. Ammonia level- 34 07/2516 Mental status worsened yesterday warranting intubation. He is currently stable on the vent. Plan Continue IV Rocephin, ampicillin, acyclovir and Vanc- Meninigitis protocol Continue with Gentamicin- for treatment of presumed IE Appreciates Neurology's input. Continue with Banana bag and vent support recheck ammonia level continue with Lactulose Follow Fungal studies For VASYL to re-evaluate for I.E once stable Current Visit: Yes (2) Hyperglycemia due to type 2 diabetes mellitus Status: Chronic Assessment and plan: Blood sugar is fairly decent, continue Lantus 10units qhs and SSC, HbA1c level- 9.1. Continue to monitor. Current Visit: Yes (3) Acute renal failure Status: Acute Assessment and plan: This has worsened. Lastest Cr level was 6.0. Nephrology is thinking of dialysing him Current Visit: Yes (4) Thrombocytopenia Status: Acute Assessment and plan: stable, cbc in am. Current Visit: Yes (5) HTN (hypertension) Status: Chronic Assessment and plan: controlled Current Visit: Yes Qualifiers: Hypertension type: essential hypertension Qualified Code(s): I10 - Essential (primary) hypertension (6) MRSA (methicillin resistant Staphylococcus aureus) septicemia Status: Acute Assessment and plan: He has not spiked temp since antibiotics have been switched to meningitis protocol. He still remains confused but WBC is slowly improving. Repeat blood culture still MRSA ? source-no known history of hardware in the body. CT chest showed mild left pleural effusion, moderate right pleural fluid, right fluid is partially loculated. Scattered opacities in both lungs concerning for atelectasis, pneumonia to r/o neoplastic process- Echo showed mild concentric left ventricular hypertrophy, grade 1 diastolic dysfunction with impaired relaxation overall EF of 60%.No evidence infective endocarditis. MRI of the brain reveals no acute abnormalities. Blood cultures reveals MRSA. A spinal tap reveals WBC count of 39 with 65% neutrophils, glucose 54, total protein 40, RBC less than 1. Gram stain negative, meningitis antigen panel is negative CT head showed no acute changes, Lumbar spine showed no acute fracture MRI Lumbar: No acute fracture or obvious abscess. 08/08/2016 Blood cultures x3- positve for MRSA pleural fluid-no growth so far- He had a thoracentesis yesterday and 600cc of fluid was drained genital fluid-no growth so far -Patient produced some greenish fluid from the genital yesterday. He also masturbated overnight but exam of the genital was un impressive except for a few erythematous maculopapular rash in the inner thigh. With the history of being a Drug user and BC x3-positive for MRSA, we will treat as infective endocarditis Plan See treatment plan as stated above I spoke with ID specialist at [facility], he feels we are doing everything right and he had nothing to add so he doesnt see any reasin to transfer.. Daily blood cultures Current Visit: Yes (7) Septic shock Status: Acute Assessment and plan: Patient is no longer spiking but culturesx3-grew MRSA. We will continue to treat as Infective endocarditis. Echo showed a mild concentric left ventricular hypertrophy, grade 1 diastolic dysfunction with impaired relaxation overall EF of 60%.No evidence infective endocarditis -Follow treatment stated above -VASYL when stable- Cardiology is following -daily BC -wean off Levophed Current Visit: Yes (8) Acute respiratory failure Status: Acute Assessment and plan: CT chest showed mild left pleural effusion, moderate right pleural fluid, right fluid is partially loculated. Scattered opacities in both lungs concerning for atelectasis, pneumonia to r/o neoplastic process- He had a thoracocentesis yesterday and about 600cc of blood tinged straw colored clear fluid was drained.the pleural fluid has not grown anything. Plan continue vent support, IV antibiotics, pulm's recommendations. Current Visit: Yes Hospitalist: Subjective Interval history: Patient became hypotensive, unresponsive while being evaluated for a VASYL yesterday. He was given some Narcan and Romazicon with no results.Her was subsequently intubated and started on Levophed. Family members were requesting for a transfer close to home in [facility] but unfortubnately his insurance wouldnt pay, I tried to transfer to [facility],, spoke with the Hospitalist and ID specialist and they were impressed by the current management and didnt think of anything to add that would warrant a transfer. Patient's creatinine is worse today and his urinary output has dropped.Nephrology has consulted surgery to put in a dialysis catheter for possible dialysis. I spoke with daughter (Radha) on the phone-[phone] updating her about her Dad's condition stating he was really sick. I was told that patient masturbated overnight, nursing staff cultured a greenish secretion which is currently not growing anything. An erythematous maculopapular rash was also notice around the inner thigh. He had a thoracocentesis yesterday and about 600cc of blood tinged straw colored clear fluid was drained.the pleural fluid has not grown anything. His Levophed is now at 2mcgs and he is stable on the vent. Exam - Constitutional Vitals: Period Temp Pulse Resp BP Sys/Mcconnell Pulse Ox Last 24 Hr 97.6 F-98.6 F 58-88 14-28 76-188/34-80 85-100 General appearance: no acute distress, other (intubated and sedated) - Respiratory Respiratory exam: Present: clear to auscultation bilaterally - Cardiovascular Cardiovascular exam: Present: regular rate and rhythm - GI/Abdominal GI/Abdominal exam: Present: normal bowel sounds - Extremities Exam Extremities exam: Present: normal inspection - Back Exam Back exam: Present: other (sedated and intubated) Results - Labs CBC & BMP: 08/08/16 03:15 08/08/16 03:15 Lab Results: I have reviewed the past 24 hour labs
--- NOTE | 2016-08-08 11:45 | Operative Note ---
Date of procedure: 08/08/16 Pre-op diagnosis: acute renal failure Post-op diagnosis: same Procedure: Procedure performed: Placement of right internal jugular non-tunneled hemodialysis catheter #2 ultrasound-guided venous access Procedure in detail: Under informed consent was obtained the patient was laid supine in the ICU. His right neck and chest were prepped and draped in usual sterile fashion. After procedural pause ultrasound was brought over through a sterile sleeve cover nausea on the right neck revealed a patent and compressible right internal jugular vein. The right internal jugular vein was then accessed using an 18-gauge Seldinger needle under ultrasound guidance on the first attempt. There was return of nonpulsatile dark red blood. Guidewire inserted and advanced without resistance. Ultrasound confirmed the guidewire to be coursing in the visualized portion of the right internal jugular vein. Small incision was made around the guidewire. Dilator was placed over the guidewire followed by a non-tunneled hemodialysis catheter using Seldinger technique. The guidewire was removed and the catheter was secured to the skin using 3-0 silk suture. Catheter withdrew and flushed easily of all ports. It was locked with saline. Dressings applied and the patient tolerated the procedure well. Anesthesia: local Surgeon / Physician: Chemo Rob Estimated blood loss: other (less than 10 mL) Specimens: none sent Condition: stable Disposition: no change Results - Labs CBC & BMP: 08/08/16 03:15 08/08/16 03:15 Discharge Plan - Discharge Medications No Action Insulin Aspart Prot/Asp 70/30 [NovoLOG Mix 70/30] 40 unit SUBCUT BID Insulin Aspart [NovoLOG] See Protocol SUBCUT ACHS Lisinopril/Hydrochlorothiazide [Lisinopril-Hctz 20-25 mg Tab] 1 each PO DAILY - Follow Up or Referral - Forms/Instructions
--- NOTE | 2016-08-08 12:14 | XRay Report ---
Portable chest. Indication: Line placement. Comparison: Exam from earlier today. A central line has been placed via the right IJ. Its distal tip is in the distal SVC. The heart is normal in size. There is bilateral basilar atelectasis and suspected small bilateral pleural effusions. The pulmonary vasculature is normal. Endotracheal tube and nasogastric tube remain in satisfactory position. Impression: Line placement as described above. No evidence of immediate complication. PROCEDURE INTERPRETED AT [facility] DEPARTMENT OF RADIOLOGY Final Report Signed by: Dr. Elidia Rosen
[2016-08-08] MEDS: NOREPINEPHRINE 16 MG in SODIUM CHLORIDE 0.9% 234 ML IV SCH (12:32)
[2016-08-08] MEDS: GENTAMICIN INJ 200 MG in SODIUM CHLORIDE 0.9% 100 ML IV SCH (15:33)
[2016-08-08] MEDS: INSULIN GLARGINE 100 UNIT/ML SUBCUT SCH (20:29)
[2016-08-08] MEDS: PANTOPRAZOLE 40 MG VIAL IV SCH (20:31)
[2016-08-09] MEDS: INSULIN REGULAR 100 UNIT/ML SUBCUT SCH ×4 (00:41→18:03)
[2016-08-09] MEDS: ALBUTEROL/IPRATROPIUM 3 ML NEB RESP TX SCH ×4 (00:48→19:18)
[2016-08-09] MEDS: THIAMINE INJ 100 MG, FOLIC ACID INJ 1 MG, MULTIVITAMIN INJ 10 ML in SODIUM CHLORIDE 0.4... IV SCH (00:49)
[2016-08-09] MEDS: DESITIN 4OZ/NYSTATIN 15 GRAM MIXTURE PASTE TOP SCH ×3 (00:50→20:45)
[2016-08-09] MEDS: PROPOFOL 1,000 MG/100 ML BOTTLE IV SCH ×5 (02:15→21:45)
[2016-08-09] MEDS: ACYCLOVIR IV SCH (03:10)
[2016-08-09] MEDS: SODIUM CHLORIDE 0.9% IV SCH (03:10)
[2016-08-09] MEDS: AMPICILLIN INJ 2,000 MG in SODIUM CHLORIDE 0.9% 100 ML IV SCH ×4 (03:26→20:39)
[2016-08-09 03:27] LABS: ABG Base Excess -8.7 MMOL/L (-2.5-2.5); ABG HCO3 17.5 MMOL/L (20-26); ABG PCO2 25.1 MM HG (35-48); ABG PH 7.386 (7.35-7.45); ABG TCO2 13.6 MMOL/L (23-27); Allen Test Positive; Pt O2 Delivery Device Ventilator
[2016-08-09] MEDS: DOXYCYCLINE HYCLATE INJ 100 MG in SODIUM CHLORIDE 0.9% 100 ML IV SCH ×2 (04:14→16:30)
[2016-08-09] MEDS: cefTRIAXone 2,000 MG in SODIUM CHLORIDE 0.9% 100 ML IV SCH ×2 (04:30→16:31)
[2016-08-09 04:56] LABS: Basophils % 0.3 % (0.0-0.8); Eosinophils # 0.1 10*3/uL (0.0-0.87); Eosinophils % 0.9 % (0.00-10.9); Hematocrit 27.1 VOL% (42.0-52.0); Hemoglobin 9.2 GM/DL (14.0-18.0); Immature Granulocytes % 0.9 %; Lymphocytes % 9.2 % (21.2-54.2); Mean Corpuscular HGB Conc 33.9 GM/DL (32-36); Mean Corpuscular Hemoglobin 31 PG (27-34); Mean Corpuscular Volume 90.9 FL (87-102); Mean Platelet Volume 11.3 FL (9.6-12.0); Monocytes # 0.5 10*3/uL (0.11-0.8); Monocytes % 4.4 % (1.7-12.7); Neutrophils # 8.9 10*3/uL (1.4-7.4); Neutrophils % 84.3 % (38.7-73.9); Platelet Count 222 T/CUMM (130-400); Red Blood Count 2.98 MC/CUMM (3.8-5.5); Red Cell Distribution Width 14.9 % (9.3-17.3); White Blood Count 10.6 T/CUMM (4-12)
[2016-08-09 05:23] LABS: Calcium 7.1 MG/DL (8.5-10.1); Potassium 3.5 MMOL/L (3.5-5.1)
--- NOTE | 2016-08-09 06:52 | Cardiology Progress Note ---
Assessment and Plan (1) Respiratory failure Status: Acute Current Visit: Yes Qualifiers: Chronicity: acute Respiratory failure complication: hypoxia and hypercapnia Qualified Code(s): J96.01 - Acute respiratory failure with hypoxia ; J96.02 - Acute respiratory failure with hypercapnia (2) Septic shock Status: Acute Current Visit: Yes (3) Altered mental status Status: Acute Current Visit: Yes (4) Sepsis Status: Acute Assessment and plan: MRSA positive things appear to be slowly improving. We will perform VASYL tomorrow. I will discuss with Dr. Barragan. Current Visit: Yes Qualifiers: Sepsis type: methicillin resistant Staphylococcus aureus Qualified Code(s) : A41.02 - Sepsis due to Methicillin resistant Staphylococcus aureus (5) Acute renal failure Status: Acute Current Visit: Yes (6) Diabetes mellitus Status: Chronic Current Visit: Yes Qualifiers: Diabetes mellitus type: type 2 Cardiology - PN: Subj Interval history: Since yesterday the patient is now off pressors. He is art line has become positional I will asked the nurses to discontinue this. He also needs to have his triple lumen that was placed emergently in the right femoral vein to be removed. There are clean access site. We can ask surgery or interventional radiology do this tomorrow. I think the patient should have his transesophageal echo in the morning. Will hold any tube feedings for this. Exam (Progress Note) - Constitutional Vitals: Period Temp Pulse Resp BP Sys/Mcconnell Pulse Ox Last 24 Hr 98.2 F-98.9 F 68-86 20-29 69-188/30-83 96-100 General appearance: morbidly obese - Head Head exam: Present: normal inspection - Respiratory Respiratory exam: Present: clear to auscultation bilaterally (On the ventilator) - Cardiovascular Cardiovascular exam: Present: regular rate and rhythm (Tones obscured and ambient noise in the ICU with his size) - GI/Abdominal GI/Abdominal exam: Present: normal bowel sounds - Neurological Exam Neurological exam: Present: other (Sedated) - Psychiatric Psychiatric exam: Present: other (Sedated) - Skin Skin exam: Present: vesicles Result/EKG - Labs CBC & BMP: 08/09/16 03:58 08/09/16 03:58 Labs: Laboratory Results - last 24 hr 08/04/16 08/08/16 08/08/16 15:35 09:31 09:31 WBC RBC Hgb Hct MCV MCH MCHC RDW Plt Count MPV Neut % (Auto) Lymph % (Auto) Placer % (Auto) Eos % (Auto) Baso % (Auto) Neut # (Auto) Lymph # (Auto) Placer # (Auto) Eos # (Auto) Baso # (Auto) Immature Gran % Nucleated RBC % Immature Gran # Nucleated RBCs # ABG pH ABG pCO2 ABG pO2 ABG HCO3 ABG Total CO2 ABG O2 Saturation ABG Base Excess FiO2 Sodium Potassium Chloride Carbon Dioxide Anion Gap BUN Creatinine GFR Calculation BUN/Creatinine Ratio Glucose POC Glucose Calculated Osmolality Lactic Acid 0.5 Calcium CSF Herpes I DNA (PCR) Negative CSF Herpes II DNA (PCR) Negative CSF Toxo. gondii Source Csf CSF T. gondii DNA (PCR) Negative Hepatitis A IgM Ab Negative Hep Bs Antigen Negative Hep B Core IgM Ab Negative Blood Type Antibody Screen Crossmatch 08/08/16 08/08/16 08/08/16 11:48 17:56 Unknown WBC RBC Hgb Hct MCV MCH MCHC RDW Plt Count MPV Neut % (Auto) Lymph % (Auto) Placer % (Auto) Eos % (Auto) Baso % (Auto) Neut # (Auto) Lymph # (Auto) Placer # (Auto) Eos # (Auto) Baso # (Auto) Immature Gran % Nucleated RBC % Immature Gran # Nucleated RBCs # ABG pH ABG pCO2 ABG pO2 ABG HCO3 ABG Total CO2 ABG O2 Saturation ABG Base Excess FiO2 Sodium Potassium Chloride Carbon Dioxide Anion Gap BUN Creatinine GFR Calculation BUN/Creatinine Ratio Glucose POC Glucose 247 H 229 H Calculated Osmolality Lactic Acid Calcium CSF Herpes I DNA (PCR) CSF Herpes II DNA (PCR) CSF Toxo. gondii Source CSF T. gondii DNA (PCR) Hepatitis A IgM Ab Hep Bs Antigen Hep B Core IgM Ab Blood Type O POSITIVE Antibody Screen Negative Crossmatch See Detail 08/08/16 08/09/16 08/09/16 Unknown 00:11 03:17 WBC RBC Hgb Hct MCV MCH MCHC RDW Plt Count MPV Neut % (Auto) Lymph % (Auto) Placer % (Auto) Eos % (Auto) Baso % (Auto) Neut # (Auto) Lymph # (Auto) Placer # (Auto) Eos # (Auto) Baso # (Auto) Immature Gran % Nucleated RBC % Immature Gran # Nucleated RBCs # ABG pH 7.386 ABG pCO2 25.1 L ABG pO2 157.0 H ABG HCO3 17.5 L ABG Total CO2 13.6 L ABG O2 Saturation 99.0 ABG Base Excess -8.7 L FiO2 50.00 Sodium Potassium Chloride Carbon Dioxide Anion Gap BUN Creatinine GFR Calculation BUN/Creatinine Ratio Glucose POC Glucose 213 H Calculated Osmolality Lactic Acid Calcium CSF Herpes I DNA (PCR) CSF Herpes II DNA (PCR) CSF Toxo. gondii Source CSF T. gondii DNA (PCR) Hepatitis A IgM Ab Hep Bs Antigen Hep B Core IgM Ab Blood Type O POSITIVE Antibody Screen Crossmatch 08/09/16 08/09/16 03:58 03:58 WBC 10.6 RBC 2.98 L D Hgb 9.2 L D Hct 27.1 L MCV 90.9 MCH 31 MCHC 33.9 RDW 14.9 Plt Count 222 MPV 11.3 Neut % (Auto) 84.3 H Lymph % (Auto) 9.2 L Placer % (Auto) 4.4 Eos % (Auto) 0.9 Baso % (Auto) 0.3 Neut # (Auto) 8.9 H Lymph # (Auto) 1.0 L Placer # (Auto) 0.5 Eos # (Auto) 0.1 Baso # (Auto) 0.0 Immature Gran % 0.9 Nucleated RBC % 0.0 Immature Gran # 0.10 Nucleated RBCs # 0.00 ABG pH ABG pCO2 ABG pO2 ABG HCO3 ABG Total CO2 ABG O2 Saturation ABG Base Excess FiO2 Sodium 143 Potassium 3.5 Chloride 109 H Carbon Dioxide 16 L Anion Gap 21.5 H BUN 72 H Creatinine 6.60 H GFR Calculation 13 BUN/Creatinine Ratio 10.00 Glucose 197 H POC Glucose Calculated Osmolality 310.0 H Lactic Acid Calcium 7.1 L CSF Herpes I DNA (PCR) CSF Herpes II DNA (PCR) CSF Toxo. gondii Source CSF T. gondii DNA (PCR) Hepatitis A IgM Ab Hep Bs Antigen Hep B Core IgM Ab Blood Type Antibody Screen Crossmatch
[2016-08-09] MEDS: INSULIN ASPART PROTAMINE/ASPART 70/30 100 UNIT/ML SUBCUT SCH ×2 (07:57→18:03)
[2016-08-09] MEDS: CARVEDILOL 25 MG TABLET PO SCH ×2 (07:58→16:31)
[2016-08-09] MEDS: chlordiazePOXIDE 25 MG CAPSULE PO SCH ×4 (08:10→20:44)
[2016-08-09] MEDS: amLODIPine 5 MG TABLET PO SCH (08:10)
[2016-08-09] MEDS: PANTOPRAZOLE 40 MG VIAL IV SCH (08:11)
[2016-08-09] MEDS: LACTULOSE 20 GM/30 ML UDCUP PO SCH ×2 (08:11→20:44)
--- NOTE | 2016-08-09 08:15 | Pulmonology Progress Note ---
Pulmonary - PN: Subj Interval history: This is a 51-year-old white male whom I saw in pulmonary consultation on 2016. Earlier that day he had experienced respiratory failure that required intubation mechanical ventilation and I was asked to see him in pulmonary consultation to manage his mechanical ventilation and to treat pulmonary problems. My impressions were. 1. Staph aureus sepsis. Etiology undetermined. Note the patient has a history of IV drug use. Look for SBE 2. Acute respiratory arrest. Etiology undetermined. Probably multifactorial. 3. Altered mental status 4. Renal failure 5. Anemia 6. Probable pyelonephritis. 7. See past history 08/08/2016. Today's chest x-ray shows small bilateral pleural effusions. ABGs on mechanical ventilation showed pH 7.335, PCO2 28, PO2 365 and a bicarb of 16.4. I am going to decrease the patient's FiO2 but leave him and a hyper ventilation state to help with his metabolic acidosis. Creatinine is 6.0 with a BUN of 83. Sodium is 146. Potassium 3.8. H&H is dropped to 7.3/22.0 white blood cell count is 13,100 with 85 segs 8 lymphs and 4 monocytes. Platelets are 243,000. Multiple blood cultures have been positive for staph aureus and nares cultures were positive for MRSA. 08/09/2016. Today's chest x-ray is stable. There are a few increased interstitial markings with mild associated atelectasis at both bases. On mechanical ventilation with an FiO2 of 50% pH is 7.386. PCO2 is 25.1. PO2 is 157 and bicarb is 17.5. Patient is on weaning protocol which will be accentuated today. Yesterday had dialysis catheters placed and he was on dialysis. Electrolytes are normal. Creatinine 6.6. BUN is 72. White blood cell count is dropped to 10,684% segs. H&H is 9.2/27.1. Platelets 222,000. Purulent drainage from the penis has not grown anything. Sputum shows showing no growth at 12 hours. RPR is nonreactive Physical exam. Vital signs. See below Chest. Loose large airway congestion Heart. Lateral PMI Abdomen. Rare bowel sounds Lower extremities. Nothing to suggest deep venous thrombophlebitis Neck. No masses and no meningismus. Neurologic is impossible. Patient is sedated. The remainder the physical exam is negative Plan. 1. Mechanical ventilator weaning protocol 2. Physical therapy protocol while on mechanical ventilation 3. Deep venous thrombophlebitis prevention protocol 4. Proton pump inhibitor protocol 5. Urinalysis and urine culture. 6. Sputum for Gram stain culture and sensitivity 7. See orders. #8. See my note 08/09/2016. Exam (Progress Note) - Constitutional Vitals: Period Temp Pulse Resp BP Sys/Mcconnell Pulse Ox Last 24 Hr 98.2 F-98.9 F 68-85 20-29 69-188/30-83 96-100 Results - Labs CBC & BMP: 08/09/16 03:58 08/09/16 03:58
--- NOTE | 2016-08-09 08:53 | Nephrology Progress Note ---
Nephrology - PN: Subj Interval history: The patient is underwent hemodialysis on yesterday tolerated the procedure. He is now on pressor medications urine output has been minimal. Serum creatinine noted to be 6.6 today. At this time continue to monitor patient will plan for hemodialysis on tomorrow. Exam (PN)-Nephrology - Vital Signs Vital signs: Period Temp Pulse Resp BP Sys/Mcconnell Pulse Ox Last 24 Hr 98.2 F-98.9 F 68-85 20-29 69-166/30-83 96-100 - General Appearance General appearance: intubated EENT: ATNC Neck: supple Respiratory: clear Cardiology: regular rate, regular rhythm Gastrointestinal: normoactive bowel sounds, no tenderness Musculoskeletal: no clubbing - Lab 08/09/16 03:58 08/09/16 03:58 Most recent lab results ABG pH 7.386 (7.35-7.45) 08/09/16 03:17 ABG pCO2 25.1 MM HG (35-48) L 08/09/16 03:17 ABG pO2 157.0 MM HG (80-95) H 08/09/16 03:17 ABG HCO3 17.5 MMOL/L (20-26) L 08/09/16 03:17 ABG O2 Saturation 99.0 % (95-100) 08/09/16 03:17 Calcium 7.1 MG/DL (8.5-10.1) L 08/09/16 03:58 Phosphorus 8.8 MG/DL (2.5-4.9) H 08/08/16 03:15 Magnesium 2.0 MG/DL (1.8-2.4) 08/07/16 16:31 Assessment and Plan (1) Anemia Status: Acute Assessment and plan: Now status post 2 units packed red blood cells. Current Visit: Yes (2) Acute renal failure Status: Acute Assessment and plan: Progressive renal failure. Plan for hemodialysis on tomorrow. Current Visit: Yes (3) Altered mental status Status: Acute Current Visit: Yes (4) HTN (hypertension) Status: Chronic Current Visit: Yes Qualifiers: Hypertension type: essential hypertension Qualified Code(s): I10 - Essential (primary) hypertension (5) Hyperglycemia due to type 2 diabetes mellitus Status: Chronic Current Visit: Yes (6) Respiratory failure Status: Acute Assessment and plan: Now ventilated. Well oxygenated. Current Visit: Yes Qualifiers: Chronicity: acute Respiratory failure complication: hypoxia and hypercapnia Qualified Code(s): J96.01 - Acute respiratory failure with hypoxia ; J96.02 - Acute respiratory failure with hypercapnia (7) Diabetes mellitus Status: Chronic Current Visit: Yes Qualifiers: Diabetes mellitus type: type 2
--- NOTE | 2016-08-09 09:15 | XRay Report ---
Single view of the chest. Indication: Ventilated patient. Respiratory failure. Comparison: August 08, 2016. The heart size is normal. There is improvement in aeration at the left lung base. There is infiltrate and atelectasis present at the right lung base. There is some improvement at the right base as well. Central venous catheter, endotracheal tube and nasogastric tube remain in satisfactory position. Impression: Interval improvement. PROCEDURE INTERPRETED AT [facility] DEPARTMENT OF RADIOLOGY Final Report Signed by: Dr. Elidia Rosen
[2016-08-09] MEDS: FLUCONAZOLE INJ 200 MG in PREMIX 1 EACH IV SCH (12:12)
[2016-08-09] MEDS: SODIUM CHLORIDE 0.45% 1,000 ML IV SCH (12:20)
[2016-08-09] MEDS: CLOTRIMAZOLE/BETAMETHASONE CREAM 15 GM TUBE TOP SCH ×2 (14:11→20:45)
--- NOTE | 2016-08-09 15:06 | Hospitalist Progress Note ---
Assessment and Plan (1) Altered mental status Status: Acute Assessment and plan: Aetiology of this is still unclear. Patient is still confused and gets agitated and combative every now and then. He stopped spiking temp but his blood is still growing MRSA despite on Vancomycin.He has a history of ETOH abuse. MRI of the brain reveals no acute abnormalities. Blood cultures reveals MRSA. A spinal tap reveals WBC count of 39 with 65% neutrophils, glucose 54, total protein 40, RBC less than 1. Gram stain negative, meningitis antigen panel is negative Echo report noted Toxicology: sent out, result is pending CT head showed no acute changes, Lumbar spine showed no acute fracture MRI Lumbar: No acute fracture or obvious abscess. Ammonia level- 34 08/08/2016 Mental status worsened yesterday warranting intubation. He is currently stable on the vent. 08/09/2016 Patient still intubated and sedated. Urine grew tamera Albicans,sputum grew yeast Plan Continue IV Rocephin, ampicillin, acyclovir and Vanc- Meninigitis protocol Continue with Gentamicin- for treatment of presumed IE Appreciates Neurology's input. Continue with Banana bag and vent support recheck ammonia level continue with Lactulose Follow Fungal studies For VASYL to re-evaluate for I.E in am Start IV diflucan Current Visit: Yes (2) Hyperglycemia due to type 2 diabetes mellitus Status: Chronic Assessment and plan: Blood sugar is fairly decent, continue Lantus 10units qhs and SSC, HbA1c level- 9.1. Continue to monitor. Current Visit: Yes (3) Acute renal failure Status: Acute Assessment and plan: Presence of blood and proteins in the urine is suggestive of an underlying glomerulonephritis as complication of the existing infection-infective endocarditis. Nephrology is following-consider immunology studies-complement levels, antiglomerular basement membrane antibodies, antineutrophil cytoplasmic antibodies,complement levels. We will order- Renal USS creatinine clearance urine osmolarity, specific gravity,total protein Nephrology to continue to follow.Continue with recommendations Patient had 2units of blood with dialysis yesterday, he is meant to be dialysed again tomorrow. Current Visit: Yes (4) Thrombocytopenia Status: Acute Assessment and plan: stable, cbc in am. Current Visit: Yes (5) HTN (hypertension) Status: Chronic Assessment and plan: controlled Current Visit: Yes Qualifiers: Hypertension type: essential hypertension Qualified Code(s): I10 - Essential (primary) hypertension (6) MRSA (methicillin resistant Staphylococcus aureus) septicemia Status: Acute Assessment and plan: He has not spiked temp since antibiotics have been switched to meningitis protocol. He still remains confused but WBC is slowly improving. Repeat blood culture still MRSA ? source-no known history of hardware in the body. CT chest showed mild left pleural effusion, moderate right pleural fluid, right fluid is partially loculated. Scattered opacities in both lungs concerning for atelectasis, pneumonia to r/o neoplastic process- Echo showed mild concentric left ventricular hypertrophy, grade 1 diastolic dysfunction with impaired relaxation overall EF of 60%.No evidence infective endocarditis. MRI of the brain reveals no acute abnormalities. Blood cultures reveals MRSA. A spinal tap reveals WBC count of 39 with 65% neutrophils, glucose 54, total protein 40, RBC less than 1. Gram stain negative, meningitis antigen panel is negative CT head showed no acute changes, Lumbar spine showed no acute fracture MRI Lumbar: No acute fracture or obvious abscess. 08/08/2016 Blood cultures x3- positve for MRSA pleural fluid-no growth so far- He had a thoracentesis yesterday and 600cc of fluid was drained genital fluid-no growth so far -Patient produced some greenish fluid from the genital yesterday. He also masturbated overnight but exam of the genital was un impressive except for a few erythematous maculopapular rash in the inner thigh. I spoke with ID specialist at [facility], he feels we are doing everything right and he had nothing to add so he doesnt see any reasin to transfer.. 08/09/2016:Blood cultures taken on 08/07-showed no growth Plan See treatment plan as stated above Daily blood cultures Current Visit: Yes (7) Septic shock Status: Acute Assessment and plan: 08/08/2016 Patient is no longer spiking but culturesx3-grew MRSA. We will continue to treat as Infective endocarditis. Echo showed a mild concentric left ventricular hypertrophy, grade 1 diastolic dysfunction with impaired relaxation overall EF of 60%.No evidence infective endocarditis 08/09/2016-Patient is stable, recent blood culture showed no growth. Levophed has been weaned off. Plan See treatment plan above. Current Visit: Yes (8) Acute respiratory failure Status: Acute Assessment and plan: 08/08/2016- CT chest showed mild left pleural effusion, moderate right pleural fluid, right fluid is partially loculated. Scattered opacities in both lungs concerning for atelectasis, pneumonia to r/o neoplastic process- He had a thoracocentesis yesterday and about 600cc of blood tinged straw colored clear fluid was drained.the pleural fluid has not grown anything. 08/09/2016- Patient is stable on the vent, sputum grew yeast Plan continue vent support, IV antibiotics, pulm's recommendations. -Start IV diflucan Current Visit: Yes (9) Infective endocarditis Status: Acute Assessment and plan: Per modified Manrique Criteria:Patient has met the following criteria:Major-Blood cultures positive for MRSA x3 Persistently positive blood cultures Minor Criteria Fever greater than 100.4 History of drug user Based on the Criteria above, patient will be treated as infective endocarditis.Patient has some petechiae on his left knee but I have not seen Janeway lesions, osler's nodes or marcano spots Plan -continue daily blood cultures-recent bottle was negative -For a VASYL in am -Follow rheumatoid factor -Continue with current antibiotic regime -ESR, C-reactive protein Current Visit: Yes (10) Yeast UTI Status: Acute Assessment and plan: continue with IV Diflucan Current Visit: Yes Hospitalist: Subjective Interval history: Patient seen on the vent. He had a session of dialysis yesterday. He is currently doing poorly on the tube-feeding so this has been held due high residuals. He was transfused with 2units of packed cells with dialysis yesterday.His sputum and yeast now growing Tamera albicans. A new rash has developed around his left knee which blanches. Exam - Constitutional Vitals: Period Temp Pulse Resp BP Sys/Mcconnell Pulse Ox Last 24 Hr 97.2 F-98.9 F 67-91 14-26 85-180/30-83 95-100 General appearance: no acute distress, other (intubated and sedated) - Head Head exam: Present: normal inspection - Respiratory Respiratory exam: Present: decreased breath sounds - Cardiovascular Cardiovascular exam: Present: regular rate and rhythm - GI/Abdominal GI/Abdominal exam: Present: normal bowel sounds - Extremities Exam Extremities exam: Present: edema, other (erythematous maculo-papular rash around the left knee which blanches) - Neurological Exam Neurological exam: Present: other (intubated) Results - Labs CBC & BMP: 08/09/16 03:58 08/09/16 03:58 Lab Results: I have reviewed the past 24 hour labs
--- NOTE | 2016-08-09 16:45 | Ultrasound Report ---
History is acute renal failure Right kidney is 12.5 cm in length Left kidney is 11.8 cm in length Cortical echogenicity is normal No hydronephrosis seen bilaterally Visualization mildly limited on the left secondary to body habitus Impression: No acute pathology seen PROCEDURE INTERPRETED AT [facility] DEPARTMENT OF RADIOLOGY Final Report Signed by: Dr. Stephania Rosen
[2016-08-09] MEDS: INSULIN GLARGINE 100 UNIT/ML SUBCUT SCH (20:41)
[2016-08-10] MEDS: DEXTROSE 50% 25 GM/50 ML VIAL IV PRN
[2016-08-10] MEDS: INSULIN REGULAR 100 UNIT/ML SUBCUT SCH ×4 (00:11→17:58)
[2016-08-10] MEDS: AMPICILLIN INJ 2,000 MG in SODIUM CHLORIDE 0.9% 100 ML IV SCH ×2 (01:45→08:44)
[2016-08-10] MEDS: ACYCLOVIR IV SCH (01:45)
[2016-08-10] MEDS: SODIUM CHLORIDE 0.9% IV SCH (01:45)
[2016-08-10] MEDS: ALBUTEROL/IPRATROPIUM 3 ML NEB RESP TX SCH ×4 (01:53→18:06)
[2016-08-10] MEDS: THIAMINE INJ 100 MG, FOLIC ACID INJ 1 MG, MULTIVITAMIN INJ 10 ML in SODIUM CHLORIDE 0.4... IV SCH (03:04)
[2016-08-10] MEDS: PROPOFOL 1,000 MG/100 ML BOTTLE IV SCH ×3 (03:10→20:00)
[2016-08-10 03:28] LABS: ABG Base Excess -8.9 MMOL/L (-2.5-2.5); ABG HCO3 14.2 MMOL/L (20-26); ABG Oxygen Saturation 97.9 % (95-100); ABG PCO2 22.9 MM HG (35-48); ABG TCO2 14.9 MMOL/L (23-27)
[2016-08-10] MEDS: cefTRIAXone 2,000 MG in SODIUM CHLORIDE 0.9% 100 ML IV SCH ×2 (03:40→16:12)
[2016-08-10 04:12] LABS: Magnesium 1.9 MG/DL (1.8-2.4); Osmolality,Calculated 304.8 MOS/KG (273-304); Phosphorous 8.8 MG/DL (2.5-4.9); Potassium 3.4 MMOL/L (3.5-5.1); Prealbumin 8.6 MG/DL (20-40)
[2016-08-10] MEDS: DOXYCYCLINE HYCLATE INJ 100 MG in SODIUM CHLORIDE 0.9% 100 ML IV SCH (04:16)
[2016-08-10] MEDS: SODIUM CHLORIDE 0.45% 1,000 ML IV SCH (04:16)
[2016-08-10 06:37] LABS: Hepatitis C Virus Ab Quant > 11.00 Index; Hepatitis C Virus Ab Result Positive (Negative)
--- NOTE | 2016-08-10 07:19 | XRay Report ---
XR chest 1V portable Indication: Intubated. Chest one view: Comparison yesterday. Endotracheal tube, NG tube, dialysis catheter, borderline cardiomegaly are unchanged. Worsening hazy obscuration of the lung bases and right upper lobe now present. Impression: Worsening bibasilar and right upper lobe atelectasis or infiltrate. PROCEDURE INTERPRETED AT [facility] DEPARTMENT OF RADIOLOGY Final Report Signed by: Clem Gates M.D.
[2016-08-10] MEDS: INSULIN ASPART PROTAMINE/ASPART 70/30 100 UNIT/ML SUBCUT SCH (08:03)
[2016-08-10] MEDS: CARVEDILOL 25 MG TABLET PO SCH ×2 (08:40→16:12)
[2016-08-10] MEDS: LACTULOSE 20 GM/30 ML UDCUP PO SCH ×2 (08:41→20:49)
[2016-08-10] MEDS: amLODIPine 5 MG TABLET PO SCH (08:44)
[2016-08-10] MEDS: CLOTRIMAZOLE/BETAMETHASONE CREAM 15 GM TUBE TOP SCH ×2 (08:44→16:01)
[2016-08-10] MEDS: PANTOPRAZOLE 40 MG VIAL IV SCH (08:44)
[2016-08-10] MEDS: DESITIN 4OZ/NYSTATIN 15 GRAM MIXTURE PASTE TOP SCH (08:45)
--- NOTE | 2016-08-10 08:58 | Hospitalist Progress Note ---
Assessment and Plan (1) Altered mental status Status: Acute Assessment and plan: Aetiology is most likely multifactorial-sepsis, ETOH withdrawal 08/07/2016 Patient is still confused and gets agitated and combative every now and then. He stopped spiking temp but his blood is still growing MRSA despite on Vancomycin.He has a history of ETOH abuse. MRI of the brain reveals no acute abnormalities. Blood cultures reveals MRSA. A spinal tap reveals WBC count of 39 with 65% neutrophils, glucose 54, total protein 40, RBC less than 1. Gram stain negative, meningitis antigen panel is negative Echo report noted Toxicology: sent out, result is pending CT head showed no acute changes, Lumbar spine showed no acute fracture MRI Lumbar: No acute fracture or obvious abscess. Ammonia level- 34 08/08/2016 Mental status worsened yesterday warranting intubation. He is currently stable on the vent. 08/09/2016 Patient still intubated and sedated. Urine grew shayna Albicans,sputum grew yeast 08/10/2016 Patient appears comfortable on the vent. Subsequent BC are coming back negative Plan Continue IV Rocephin, ampicillin, acyclovir and Vanc- Meninigitis protocol Continue with Gentamicin- for treatment of presumed IE Appreciates and follow Neurology's input. Continue with Banana bag and vent support recheck ammonia level continue with Lactulose Follow Fungal studies For VASYL today Continue IV diflucan Current Visit: Yes (2) Hyperglycemia due to type 2 diabetes mellitus Status: Chronic Assessment and plan: Patient's tube feeding has been held for about 2days due to high residuals, his blood sugar has been trending downwards so the Lantus and 70/30 were held. -resume tube feeding after VASYL today, continue with SSC, will decide if and when to restart the long acting insulin. [id number] Current Visit: Yes (3) Acute renal failure Status: Acute Assessment and plan: 08/09/2016 Presence of blood and proteins in the urine is suggestive of an underlying glomerulonephritis as complication of the existing infection-infective endocarditis.Patient is also on drugs that are compulsory but nephrotoxic. Patient had 2units of blood with dialysis yesterday, he is meant to be dialysed again tomorrow. Nephrology is following-consider immunology studies-complement levels, antiglomerular basement membrane antibodies, antineutrophil cytoplasmic antibodies,complement levels. 08/10/2016 Renal USS showed no acute pathology, no hydronephrosis. Hepatitis C antibody-positive Rheumatoid factor is <15 Plan Follow 24hr creatinine clearance, urine osmolarity, specific gravity,total protein For a repeat session of dialysis today Follow Nephrology's recommendations Current Visit: Yes (4) Thrombocytopenia Status: Acute Assessment and plan: stable, cbc in am. Current Visit: Yes (5) HTN (hypertension) Status: Chronic Assessment and plan: controlled on current regime Current Visit: Yes Qualifiers: Hypertension type: essential hypertension Qualified Code(s): I10 - Essential (primary) hypertension (6) MRSA (methicillin resistant Staphylococcus aureus) septicemia Status: Acute Assessment and plan: 08/06/2016 He has not spiked temp since antibiotics have been switched to meningitis protocol. He still remains confused but WBC is slowly improving. Repeat blood culture still MRSA ? source-no known history of hardware in the body. CT chest showed mild left pleural effusion, moderate right pleural fluid, right fluid is partially loculated. Scattered opacities in both lungs concerning for atelectasis, pneumonia to r/o neoplastic process- Echo showed mild concentric left ventricular hypertrophy, grade 1 diastolic dysfunction with impaired relaxation overall EF of 60%.No evidence infective endocarditis. MRI of the brain reveals no acute abnormalities. Blood cultures reveals MRSA. A spinal tap reveals WBC count of 39 with 65% neutrophils, glucose 54, total protein 40, RBC less than 1. Gram stain negative, meningitis antigen panel is negative CT head showed no acute changes, Lumbar spine showed no acute fracture MRI Lumbar: No acute fracture or obvious abscess. 08/08/2016 Blood cultures x3- positive for MRSA pleural fluid-no growth so far- He had a thoracentesis yesterday and 600cc of fluid was drained genital fluid-no growth so far -Patient produced some greenish fluid from the genital yesterday. He also masturbated overnight but exam of the genital was un impressive except for a few erythematous maculopapular rash in the inner thigh. I spoke with ID specialist at [facility] yesterday, he felt we were doing everything right and he had nothing else to add so he didnt see the need to transfer 08/09/2016:Blood cultures taken on 08/07-showed no growth 08/10/2016: patient appears to be slowly improving clinically. The last two blood cultures were negative. Plan See treatment plan as stated above Daily blood cultures Current Visit: Yes (7) Septic shock Status: Acute Assessment and plan: 08/08/2016 Patient is no longer spiking but culturesx3-grew MRSA. We will continue to treat as Infective endocarditis. Echo showed a mild concentric left ventricular hypertrophy, grade 1 diastolic dysfunction with impaired relaxation overall EF of 60%.No evidence infective endocarditis 08/09/2016-Patient is stable, recent blood culture showed no growth. Levophed has been weaned off. 08/10/2016: patient is stable Plan See treatment plan above. DC IVF Current Visit: Yes (8) Acute respiratory failure Status: Acute Assessment and plan: 08/08/2016- CT chest showed mild left pleural effusion, moderate right pleural fluid, right fluid is partially loculated. Scattered opacities in both lungs concerning for atelectasis, pneumonia to r/o neoplastic process- He had a thoracocentesis yesterday and about 600cc of blood tinged straw colored clear fluid was drained.the pleural fluid has not grown anything. 08/09/2016- Patient is stable on the vent, sputum grew yeast 08/10/2016-Patient is clinically stable on the vent.Pulm is following. Plan continue vent support, IV antibiotics, pulm's recommendations. -Continue IV diflucan Current Visit: Yes (9) Infective endocarditis Status: Acute Assessment and plan: 08/09/2016 Per modified Manrique Criteria:Patient has met the following criteria:Major-Blood cultures positive for MRSA x3 Persistently positive blood cultures Minor Criteria Fever greater than 100.4 History of drug user Based on the Criteria above, patient will be treated as infective endocarditis.Patient has some petechiae on his left knee but I have not seen Janeway lesions, osler's nodes or marcano spots 08/10/2016 last two blood cultures-negative Patient to have a VASYL today C-reactive protein improving from 15.9 to 13.2 Rheumatoid factor-<15 Hepatitis C Ab-positive ESR-118 Plan -continue daily blood cultures -Follow VASYL report -Continue with current antibiotic regime Current Visit: Yes (10) Yeast UTI Status: Acute Assessment and plan: continue with IV Diflucan Current Visit: Yes (11) Hepatitis C antibody test positive Status: Acute Assessment and plan: will get Liver enzymes and Liver USS to r/o cirrhosis, INR level Current Visit: Yes Hospitalist: Subjective Interval history: Patient is stable on the vent. He is scheduled for a VASYL today . He is also getting another session of dialysis this am.Clinically patient is slowly improving and the rash on his left knee is looking better Exam - Constitutional Vitals: Period Temp Pulse Resp BP Sys/Mcconnell Pulse Ox Last 24 Hr 97.2 F-98.2 F 62-81 14-66 102-149/36-70 96-99 General appearance: no acute distress, other (sedated and intubated) - Head Head exam: Present: normal inspection - Respiratory Respiratory exam: Present: rhonchi - Cardiovascular Cardiovascular exam: Present: regular rate and rhythm - GI/Abdominal GI/Abdominal exam: Present: normal bowel sounds - Extremities Exam Extremities exam: Present: normal inspection - Neurological Exam Neurological exam: Present: other (sedated, intubated) Results - Labs CBC & BMP: 08/10/16 09:24 08/10/16 09:23 Lab Results: I have reviewed the past 24 hour labs
[2016-08-10 09:50] LABS: Basophils % 0.4 % (0.0-0.8); Eosinophils # 0.2 10*3/uL (0.0-0.87); Eosinophils % 1.6 % (0.00-10.9); Hematocrit 26.5 VOL% (42.0-52.0); Hemoglobin 9.2 GM/DL (14.0-18.0); Immature Granulocytes % 1.5 %; Immature Granulocytes Absolute 0.15 #; Lymphocytes # 0.8 10*3/uL (1.4-4.0); Lymphocytes % 8.3 % (21.2-54.2); Mean Corpuscular HGB Conc 34.7 GM/DL (32-36); Mean Corpuscular Hemoglobin 31 PG (27-34); Mean Corpuscular Volume 88.9 FL (87-102); Mean Platelet Volume 11.4 FL (9.6-12.0); Monocytes # 0.5 10*3/uL (0.11-0.8); Monocytes % 5.2 % (1.7-12.7); Neutrophils # 8.5 10*3/uL (1.4-7.4); Platelet Count 228 T/CUMM (130-400); Red Blood Count 2.98 MC/CUMM (3.8-5.5); White Blood Count 10.2 T/CUMM (4-12)
[2016-08-10] MEDS ORDERED: THIAMINE 100 MG IV SCH (10:00)
[2016-08-10] MEDS ORDERED: MULTIVIT IV SCH (10:00)
[2016-08-10] MEDS ORDERED: FOLIC ACID IV SCH ×2 (10:00→10:30)
[2016-08-10] MEDS ORDERED: [UNRECOGNIZED DRUG - OTHER] IV SCH (10:00)
--- NOTE | 2016-08-10 10:04 | Cardiology Progress Note ---
Keagan Bautista Vanessa, RN, am scribing for, and in the presence of, Trisha Barragan MD 10:04. Assessment and Plan - Time spent with patient Time spent with patient: Greater than 30 minutes (1) Sepsis Status: Acute Assessment and plan: Blood cultures positive for MRSA. Planning for VASYL today per Dr. Sandra David. Current Visit: Yes Qualifiers: Sepsis type: methicillin resistant Staphylococcus aureus Qualified Code(s) : A41.02 - Sepsis due to Methicillin resistant Staphylococcus aureus (2) Acute respiratory failure Status: Acute Assessment and plan: CPAP trials as tolerated. Pulmonary is following and they are managing. Current Visit: Yes (3) Altered mental status Status: Acute Current Visit: Yes (4) Septic shock Status: Acute Current Visit: Yes (5) Diabetes mellitus Status: Chronic Assessment and plan: Defer primary management to hospital medicine. Current Visit: Yes Qualifiers: Diabetes mellitus type: type 2 (6) HTN (hypertension) Status: Chronic Assessment and plan: Well controlled at this time. No need to adjust medication regimen. Current Visit: Yes Qualifiers: Hypertension type: essential hypertension Qualified Code(s): I10 - Essential (primary) hypertension Cardiology - PN: Subj Interval history: Patient is intubated and sedated in ICU this morning. He appears comfortable. Afebrile overnight, vitals have been stable. He has not required vasopressor for BP support. Sinus rhythm with pulse rate in the 60s, no overt ectopy or arrhythmia seen. Labs reviewed. Potassium is 3.4, sodium is 144. Currently no IV protocol for potassium replacement in place. Creatinine continues to trend up, and today is 7.6 with a GFR of 11. Patient is being followed by nephrology, and he is planned for hemodialysis this morning. Chest x-ray this morning reveals worsening of bibasilar atelectasis. The patient was plan for VASYL by Dr. David. I spoke with the patient's daughter to obtain consent for the procedure to be done with me. I discussed the role, risks and benefits with the patient's daughter. She denied any history of esophageal disorder in the patient. He is already intubated. Exam (Progress Note) - Constitutional Vitals: Period Temp Pulse Resp BP Sys/Mcconnell Pulse Ox Last 24 Hr 97.2 F-98.2 F 62-91 14-33 102-180/36-72 95-99 Exam: General appearance: normal weight, no acute distress, intubated, not spontaneously arousable during the exam, does not respond to stimulation, pupils equal round and reactive to light. - Head Head exam: Present: normocephalic, atraumatic,. Absent: hematoma, laceration - Eye Eye exam: Absent: conjunctival injection, nystagmus, periorbital swelling, scleral icterus, laceration to eyelids Pupils: Present: TRI. Absent: constricted, dilated, fixed, irregular, unequal - ENT ENT exam: Present: normal exam, normal external ear exam - Neck Neck exam: Present: normal inspection. Absent: lymphadenopathy, meningismus, tenderness, thyromegaly - Respiratory Respiratory exam: Present: clear to auscultation bilaterally anteriorly, there is normal rise with ventilated breaths. Absent: accessory muscle use - Cardiovascular Cardiovascular exam: Present: regular rate and rhythm. Absent: carotid bruit, gallop, JVD, rubs - GI/Abdominal GI/Abdominal exam: Present: normal bowel sounds. Absent: distended, firm, guarding, hernia, mass, tenderness, rebound, soft - Extremities Exam Extremities exam: Present: normal inspection, normal capillary refill, B UE/hand /edema. Absent: calf tenderness - Back Exam Back exam: Unable to assess due to patient being on the ventilator - Neurological Exam Neurological exam: Unable to fully assess due to patient being on the ventilator. He does appear to move all 4 extremities. - Psychiatric Psychiatric exam: Unable to assess due to patient being on the ventilator. - Skin Skin exam: Present: normal color, warm, dry, intact. Absent: cyanosis, diaphoretic, rash, urticaria Result/EKG - Labs CBC & BMP: 08/09/16 03:58 08/10/16 03:00 Lab Results: I have reviewed the past 24 hour labs Labs: Laboratory Results - last 24 hr 08/08/16 08/09/16 08/09/16 09:31 04:00 05:43 ESR Westergren ABG pH ABG pCO2 ABG pO2 ABG HCO3 ABG Total CO2 ABG O2 Saturation ABG Base Excess Sodium Potassium Chloride Carbon Dioxide Anion Gap BUN Creatinine GFR Calculation BUN/Creatinine Ratio Glucose POC Glucose 196 H Calculated Osmolality Calcium Phosphorus Magnesium C-Reactive Protein Prealbumin Urine Osmolality Random Gentamicin Random Vancomycin Rheumatoid Factor < 15 Hepatitis A IgM Ab Negative Hep Bs Antigen Negative Hep B Core IgM Ab Negative Hepatitis C Antibody Positive A 08/09/16 08/09/16 08/09/16 11:45 12:39 12:39 ESR Westergren 120 H ABG pH ABG pCO2 ABG pO2 ABG HCO3 ABG Total CO2 ABG O2 Saturation ABG Base Excess Sodium Potassium Chloride Carbon Dioxide Anion Gap BUN Creatinine GFR Calculation BUN/Creatinine Ratio Glucose POC Glucose 132 H Calculated Osmolality Calcium Phosphorus Magnesium C-Reactive Protein 13.20 H Prealbumin Urine Osmolality Random Gentamicin Random Vancomycin Rheumatoid Factor Hepatitis A IgM Ab Hep Bs Antigen Hep B Core IgM Ab Hepatitis C Antibody 08/09/16 08/09/16 08/09/16 15:28 17:32 17:43 ESR Westergren 118 H ABG pH ABG pCO2 ABG pO2 ABG HCO3 ABG Total CO2 ABG O2 Saturation ABG Base Excess Sodium Potassium Chloride Carbon Dioxide Anion Gap BUN Creatinine GFR Calculation BUN/Creatinine Ratio Glucose POC Glucose 132 H Calculated Osmolality Calcium Phosphorus Magnesium C-Reactive Protein Prealbumin Urine Osmolality 317 Random Gentamicin Random Vancomycin Rheumatoid Factor Hepatitis A IgM Ab Hep Bs Antigen Hep B Core IgM Ab Hepatitis C Antibody 08/09/16 08/09/16 08/09/16 19:57 23:56 23:58 ESR Westergren ABG pH ABG pCO2 ABG pO2 ABG HCO3 ABG Total CO2 ABG O2 Saturation ABG Base Excess Sodium Potassium Chloride Carbon Dioxide Anion Gap BUN Creatinine GFR Calculation BUN/Creatinine Ratio Glucose POC Glucose 96 59 L 59 L Calculated Osmolality Calcium Phosphorus Magnesium C-Reactive Protein Prealbumin Urine Osmolality Random Gentamicin Random Vancomycin Rheumatoid Factor Hepatitis A IgM Ab Hep Bs Antigen Hep B Core IgM Ab Hepatitis C Antibody 08/10/16 08/10/16 08/10/16 01:13 03:00 03:00 ESR Westergren ABG pH ABG pCO2 ABG pO2 ABG HCO3 ABG Total CO2 ABG O2 Saturation ABG Base Excess Sodium 144 Potassium 3.4 L Chloride 111 H Carbon Dioxide 16 L Anion Gap 20.4 H BUN 69 H Creatinine 7.60 H GFR Calculation 11 BUN/Creatinine Ratio 9.00 Glucose 82 POC Glucose 98 Calculated Osmolality 304.8 H Calcium 7.0 L Phosphorus 8.8 H Magnesium 1.9 C-Reactive Protein Prealbumin 8.6 L Urine Osmolality Random Gentamicin Random Vancomycin 30.2 Rheumatoid Factor Hepatitis A IgM Ab Hep Bs Antigen Hep B Core IgM Ab Hepatitis C Antibody 08/10/16 08/10/16 08/10/16 03:00 03:20 05:49 ESR Westergren ABG pH 7.410 ABG pCO2 22.9 L ABG pO2 123.0 H ABG HCO3 14.2 L ABG Total CO2 14.9 L ABG O2 Saturation 97.9 ABG Base Excess -8.9 L Sodium Potassium Chloride Carbon Dioxide Anion Gap BUN Creatinine GFR Calculation BUN/Creatinine Ratio Glucose POC Glucose 86 Calculated Osmolality Calcium Phosphorus Magnesium C-Reactive Protein Prealbumin Urine Osmolality Random Gentamicin 3.2 Random Vancomycin Rheumatoid Factor Hepatitis A IgM Ab Hep Bs Antigen Hep B Core IgM Ab Hepatitis C Antibody - Diagnostic Findings Procedure: Chest x-ray: image reviewed by me, report reviewed by me - EKG EKG results: interpreted by me, no acute changes EKG shows: sinus rhythm (Pulse rate 60s) Yung Bautista Jennifer, MD, personally performed the services described in this documentation, ascribed by Malathi Boogie RN in my presence, and it is both accurate and complete .
[2016-08-10 10:15] LABS: Calcium 6.3 MG/DL (8.5-10.1); Magnesium 1.9 MG/DL (1.8-2.4); Potassium 3.8 MMOL/L (3.5-5.1)
[2016-08-10] MEDS ORDERED: THIAMINE IV SCH (10:30)
[2016-08-10] MEDS ORDERED: [UNRECOGNIZED DRUG - OTHER] IV SCH (10:30)
[2016-08-10] MEDS ORDERED: MULTIVITAMIN IV SCH (10:30)
--- NOTE | 2016-08-10 10:54 | Pulmonology Progress Note ---
Pulmonary - PN: Subj Interval history: This is a 51-year-old white male whom I saw in pulmonary consultation on 2016. Earlier that day he had experienced respiratory failure that required intubation mechanical ventilation and I was asked to see him in pulmonary consultation to manage his mechanical ventilation and to treat pulmonary problems. My impressions were. 1. Staph aureus sepsis. Etiology undetermined. Note the patient has a history of IV drug use. Look for SBE 2. Acute respiratory arrest. Etiology undetermined. Probably multifactorial. 3. Altered mental status 4. Renal failure 5. Anemia 6. Probable pyelonephritis. 7. See past history 08/08/2016. Today's chest x-ray shows small bilateral pleural effusions. ABGs on mechanical ventilation showed pH 7.335, PCO2 28, PO2 365 and a bicarb of 16.4. I am going to decrease the patient's FiO2 but leave him and a hyper ventilation state to help with his metabolic acidosis. Creatinine is 6.0 with a BUN of 83. Sodium is 146. Potassium 3.8. H&H is dropped to 7.3/22.0 white blood cell count is 13,100 with 85 segs 8 lymphs and 4 monocytes. Platelets are 243,000. Multiple blood cultures have been positive for staph aureus and nares cultures were positive for MRSA. 08/09/2016. Today's chest x-ray is stable. There are a few increased interstitial markings with mild associated atelectasis at both bases. On mechanical ventilation with an FiO2 of 50% pH is 7.386. PCO2 is 25.1. PO2 is 157 and bicarb is 17.5. Patient is on weaning protocol which will be accentuated today. Yesterday had dialysis catheters placed and he was on dialysis. Electrolytes are normal. Creatinine 6.6. BUN is 72. White blood cell count is dropped to 10,684% segs. H&H is 9.2/27.1. Platelets 222,000. Purulent drainage from the penis has not grown anything. Sputum shows showing no growth at 12 hours. RPR is nonreactive 08/10/2016. Today's chest x-ray shows a small amount of pleural effusions bilaterally. I do not see any definite infiltrates. Patient is not doing well on weaning trials. I have changed his CPAP to 5 a CPAP with a pressure support of 15. Today's ABGs on FiO2 50% mechanical ventilation shows a pH 7.41, PCO2 23 , PO2 of 123, bicarb 14.2. Creatinine remains elevated 7.80 with a BUN of 70. Sodium potassium and chloride are normal. Patient remains severely ill. Patient is on a lot of antibiotics. It is possible some of these could be consolidated. Physical exam. Vital signs. See below Chest. Loose large airway congestion Heart. Lateral PMI Abdomen. Rare bowel sounds Lower extremities. Nothing to suggest deep venous thrombophlebitis Neck. No masses and no meningismus. Neurologic is impossible. Patient is sedated. The remainder the physical exam is negative Plan. 1. Mechanical ventilator weaning protocol 2. Physical therapy protocol while on mechanical ventilation 3. Deep venous thrombophlebitis prevention protocol 4. Proton pump inhibitor protocol 5. Urinalysis and urine culture. 6. Sputum for Gram stain culture and sensitivity 7. See orders. #8. See my note 08/10/2016. Exam (Progress Note) - Constitutional Vitals: Period Temp Pulse Resp BP Sys/Mcconnell Pulse Ox Last 24 Hr 97.2 F-98.2 F 62-74 14-66 102-149/36-70 97-99 Results - Labs CBC & BMP: 08/10/16 09:24 08/10/16 09:23
[2016-08-10 11:16] LABS: INR 1.1; PT Patient Result 11.4 SECS
--- NOTE | 2016-08-10 11:45 | Nephrology Progress Note ---
Nephrology - PN: Subj Interval history: He was dialyzed on 08/08/2016 and is being dialyzed for the second time now. I ordered a gentamicin trough level to be drawn before his second dose. This order was canceled by nurse. He received 200 mg gentamicin on 08/07 and again on 08/08/2016. A level drawn this morning was 3.2. Systolic blood pressure is 140 without pressors. Exam (PN)-Nephrology - Vital Signs Vital signs: Period Temp Pulse Resp BP Sys/Mcconnell Pulse Ox Last 24 Hr 97.2 F-98.2 F 62-74 14-66 102-149/36-70 97-99 Exam: Gen.: Sedated on ventilator ENT: Pupils equal round reactive to light. Neck: Supple. No JVD or bruit. Cardiovascular: Regular rate and rhythm. No murmur rub or gallop Lungs: Clear Abdomen: Soft. Nontender. Positive bowel sounds. No organomegaly Extremities: 1+ edema - Lab 08/10/16 09:24 08/10/16 09:23 Most recent lab results ABG pH 7.410 (7.35-7.45) 08/10/16 03:20 ABG pCO2 22.9 MM HG (35-48) L 08/10/16 03:20 ABG pO2 123.0 MM HG (80-95) H 08/10/16 03:20 ABG HCO3 14.2 MMOL/L (20-26) L 08/10/16 03:20 ABG O2 Saturation 97.9 % (95-100) 08/10/16 03:20 Calcium 6.3 MG/DL (8.5-10.1) L 08/10/16 09:23 Phosphorus 8.8 MG/DL (2.5-4.9) H 08/10/16 03:00 Magnesium 1.9 MG/DL (1.8-2.4) 08/10/16 09:23 Assessment and Plan (1) Acute renal failure Status: Acute Assessment and plan: 51-year-old man admitted with: * Acute renal failure. His clearance is lower than his static creatinine indicates. Vancomycin dose decreased based on levels. I would prefer to avoid gentamicin if at all possible. If it is continued, levels should be followed closely. Renal function has declined and he is now requiring dialysis. My recommendation is to discontinue gentamicin * Hypotension. * Sepsis. Continue antibiotics * Confusion. LP shows 36 WBCs. Antibiotics adjusted. Neurology consult noted * Diabetes mellitus * Chronic back pain Current Visit: Yes (2) Altered mental status Status: Acute Current Visit: Yes (3) Fever Status: Acute Current Visit: Yes (4) Hyperglycemia due to type 2 diabetes mellitus Status: Chronic Current Visit: Yes (5) Hypotension Status: Acute Current Visit: Yes
[2016-08-10 11:46] LABS: Albumin 1.4 G/DL (3.4-5.0); Bilirubin,Direct 0.2 MG/DL (0.0-0.20); Bilirubin,Indirect 0.4 MG/DL (0.0-1.0); Bilirubin,Total 0.6 MG/DL (0.2-1.0); Total Protein 6.3 G/DL (6.4-8.3)
[2016-08-10] MEDS: FLUCONAZOLE INJ 200 MG in PREMIX 1 EACH IV SCH (12:38)
[2016-08-10 12:45] LABS: West Nile Virus Ab, IgG, CSF Negative (Negative); West Nile Virus Ab, IgM, CSF Negative (Negative)
[2016-08-10] MEDS ORDERED: VANCOMYCIN INJ 1,000 MG in SODIUM CHLORIDE 0.9% 250 ML IV PRN (13:23)
--- NOTE | 2016-08-10 14:22 | Ultrasound Report ---
History is hepatitis C The liver is 16.7 cm in length Hepatic echotexture is normal Right pleural effusion suspected. Small amount of ascites present. Gallbladder is not distended. Patient was not n.p.o. Gallbladder wall thickness measuring up to 4 mm likely related to incomplete distention without obvious stones No biliary ductal dilatation seen Impression: 1. Right pleural effusion 2. Small amount of ascites 3. Gallbladder wall thickening most likely related to incomplete distention. PROCEDURE INTERPRETED AT [facility] DEPARTMENT OF RADIOLOGY Final Report Signed by: Dr. Stephania Rosen
--- NOTE | 2016-08-10 14:50 | Neurology Progress Note ---
Neurology - PN : Subjective Interval history: Interval history noted. Patient is down in ICU and intubated. He is on multiple antibiotics for MRSA sepsis. He is sedated. He gets very combative from time to time. Exam (Progress Note) - Constitutional Vitals: Period Temp Pulse Resp BP Sys/Mcconnell Pulse Ox Last 24 Hr 97.2 F-98.2 F 62-97 14-66 102-159/32-76 97-99 Exam: GENERAL: Patient is in no acute distress. NECK: Neck is supple. There is no JVD. No carotid bruits present. No thyroid masses. CVS: First and second heart sounds are normal. There is no S3 present. Regular rate and rhythm. RESPIRATORY: Lungs are clear to auscultation without any rales or rhonchi. ABDOMEN: Soft and non-tender. Bowel sounds are present. There is no hepatosplenomegaly. EXT: There is no palpable edema. Peripheral pulses are present. Skin: No rashes Central Nervous system: General: Sedated Speech: None Comprehension: None Facial expressions: Normal Cranial Nerves: Pupils are equally reactive to light. Doll's head I moves are positive. No facial asymmetry is seen. Motor: Bulk and Tone is normal. Strength cannot be assessed Sensory: Cannot be assessed Reflexes: 1+ and symmetrical Cerebellar function: Cannot be assessed Toes: Equivocal Gait: Cannot be assessed Results - Labs CBC & BMP: 08/10/16 09:24 08/10/16 09:23 Assessment and Plan (1) Altered mental status Status: Acute Assessment and plan: This is likely due to sepsis. Herpes PCR is negative in the CSF. We will stop acyclovir. Continue other antibiotic coverage. Current Visit: Yes
--- NOTE | 2016-08-10 15:43 | Event Note ---
The patient underwent transesophageal echocardiogram. Informed consent was obtained from the patient's daughter. This procedure commenced uneventfully. No paola-procedural complications noted. No valvular vegetations were observed. The patient did have some focal sclerosis on the aortic valve but no clear mobile density were associated regurgitation. The pulmonic valve is suboptimally visualized. Please see the operative report for full details.
[2016-08-10 17:31] LABS: Collection Time,Urine 24 HOURS; Total Volume,Urine 100 ML (400-2000)
[2016-08-10 17:42] LABS: Creatinine 24 Hr Urine Result 0.22 G/24HR (0.95-2.49); Creatinine Clearance Urine 1.39 ML/MIN (70-135); Total Protein 24 Hr Ur Result 587 MG/24HR (0-149.1)
--- NOTE | 2016-08-10 18:53 | ECHO Report ---
Carmen Ball Exam Date: 08/10/2016 08:41 Referring Physician: Technologist: Jessica Bledsoe RDCS Age: 51 Ht (in): 73 Wt (lb): 283 Gender: M Exam Location: [facility] Echo Pre-op Dx: MRSA, Bacteremia, Septic shock, Sepsis, Acute kidney failure, unspecified, Evaluate for infective endocarditis Post-op Dx: BP: 170 / 67 HR: 77 Rhythm: Sinus Technical Quality: Specimens Taken None Devices Implanted None Medications The patient was already sedated with propofol, on mechanical ventilation. Complications None. Estimated Blood Loss None Proc. Components The patient was already intubated, sedated on propofol. The transesophageal probe was lubricated and passed through the oropharynx into the esophagus and placed in the retrocardiac position where images were acquired. IMPRESSIONS No clear evidence of valvular vegetations. Mild mitral regurgitation. Aortic sclerosis without stenosis. Grade 2 atherosclerotic vascular disease of the descending aorta. MEASUREMENTS (Male / Female) Normal Values FINDINGS Left Ventricle Grossly normal chamber size and function. No thrombus or mass identified. Right Ventricle Grossly normal chamber size and function. No thrombus or mass identified. Right Atrium No thrombus or mass identified. Left Atrium No thrombus or mass identified. LA Appendage No thrombus identified. IA Septum Appears to be intact. No evidence of intra-atrial shunting by color Doppler or agitated saline contrast interrogation. Mitral Valve Structurally normal with mild regurgitation. No stenosis. No vegetation. Aortic Valve Tricuspid. There is mild focal sclerosis without any significant stenosis. No significant regurgitation or vegetation. Tricuspid Valve Structurally normal without regurgitation, stenosis or vegetation. Pulmonic Valve Not well visualized. No clear flow disruption by Doppler interrogation. No obvious thrombus identified. Pericardium No significant effusion. Aorta Grade 2 atherosclerotic vascular disease of the descending aorta is noted. Trisha Barragan MD (Electronically Signed) Final Date: 10 August 2016 18:52
[2016-08-11] MEDS: INSULIN REGULAR 100 UNIT/ML SUBCUT SCH ×4 (00:28→18:04)
[2016-08-11] MEDS: DESITIN 4OZ/NYSTATIN 15 GRAM MIXTURE PASTE TOP SCH ×2 (00:28→08:05)
[2016-08-11] MEDS: CLOTRIMAZOLE/BETAMETHASONE CREAM 15 GM TUBE TOP SCH ×3 (00:28→15:27)
[2016-08-11] MEDS: ALBUTEROL/IPRATROPIUM 3 ML NEB RESP TX SCH ×4 (00:54→19:08)
[2016-08-11] MEDS ORDERED: ACYCLOVIR INJ 500 MG in SODIUM CHLORIDE 0.9% 100 ML IV SCH (02:00)
[2016-08-11 03:05] LABS: Basophils % 0.2 % (0.0-0.8); Eosinophils # 0.1 10*3/uL (0.0-0.87); Eosinophils % 1.3 % (0.00-10.9); Hematocrit 27.8 VOL% (42.0-52.0); Hemoglobin 9.3 GM/DL (14.0-18.0); Immature Granulocytes % 1.4 %; Immature Granulocytes Absolute 0.14 #; Lymphocytes # 0.7 10*3/uL (1.4-4.0); Mean Corpuscular HGB Conc 33.5 GM/DL (32-36); Mean Corpuscular Hemoglobin 31 PG (27-34); Mean Corpuscular Volume 91.7 FL (87-102); Mean Platelet Volume 10.9 FL (9.6-12.0); Monocytes # 0.6 10*3/uL (0.11-0.8); Monocytes % 6.2 % (1.7-12.7); Neutrophils # 8.5 10*3/uL (1.4-7.4); Neutrophils % 83.9 % (38.7-73.9); Platelet Count 232 T/CUMM (130-400); Red Blood Count 3.03 MC/CUMM (3.8-5.5); Red Cell Distribution Width 14.8 % (9.3-17.3); White Blood Count 10.1 T/CUMM (4-12)
[2016-08-11] MEDS: cefTRIAXone 2,000 MG in SODIUM CHLORIDE 0.9% 100 ML IV SCH ×2 (03:12→15:58)
[2016-08-11 03:13] LABS: ABG Base Excess -8.6 MMOL/L (-2.5-2.5); ABG HCO3 17.5 MMOL/L (20-26); ABG Oxygen Saturation 98.4 % (95-100); ABG PH 7.379 (7.35-7.45); ABG TCO2 14.1 MMOL/L (23-27); Allen Test Positive; Pt O2 Delivery Device Ventilator
[2016-08-11 03:33] LABS: Albumin 1.4 G/DL (3.4-5.0); Bilirubin,Direct 0.1 MG/DL (0.0-0.20); Bilirubin,Indirect 0.3 MG/DL (0.0-1.0); Bilirubin,Total 0.4 MG/DL (0.2-1.0); Total Protein 6.4 G/DL (6.4-8.3)
[2016-08-11 04:10] LABS: Calcium 7.3 MG/DL (8.5-10.1); Osmolality,Calculated 297.5 MOS/KG (273-304); Potassium 3.8 MMOL/L (3.5-5.1)
[2016-08-11] MEDS: PROPOFOL 1,000 MG/100 ML BOTTLE IV SCH ×4 (06:13→19:49)
--- NOTE | 2016-08-11 07:24 | XRay Report ---
XR chest 1V portable Indication: Intubated. Chest one view: Comparison yesterday. Endotracheal tube, NG tube, temporary dialysis catheter, cardiomegaly appear unchanged. Although the upper lungs are better aerated, increasing obscuration of the lung bases noted on the right where as on the left, hazy obscuration stable. Impression: Slight improved aeration of the upper lobes with worsening right basilar infiltrate or atelectasis. PROCEDURE INTERPRETED AT [facility] DEPARTMENT OF RADIOLOGY Final Report Signed by: Clem Gates M.D.
--- NOTE | 2016-08-11 07:58 | Pulmonology Progress Note ---
Pulmonary - PN: Subj Interval history: This is a 51-year-old white male whom I saw in pulmonary consultation on 2016. Earlier that day he had experienced respiratory failure that required intubation mechanical ventilation and I was asked to see him in pulmonary consultation to manage his mechanical ventilation and to treat pulmonary problems. My impressions were. 1. Staph aureus sepsis. Etiology undetermined. Note the patient has a history of IV drug use. Look for SBE 2. Acute respiratory arrest. Etiology undetermined. Probably multifactorial. 3. Altered mental status 4. Renal failure 5. Anemia 6. Probable pyelonephritis. 7. See past history 08/08/2016. Today's chest x-ray shows small bilateral pleural effusions. ABGs on mechanical ventilation showed pH 7.335, PCO2 28, PO2 365 and a bicarb of 16.4. I am going to decrease the patient's FiO2 but leave him and a hyper ventilation state to help with his metabolic acidosis. Creatinine is 6.0 with a BUN of 83. Sodium is 146. Potassium 3.8. H&H is dropped to 7.3/22.0 white blood cell count is 13,100 with 85 segs 8 lymphs and 4 monocytes. Platelets are 243,000. Multiple blood cultures have been positive for staph aureus and nares cultures were positive for MRSA. 08/09/2016. Today's chest x-ray is stable. There are a few increased interstitial markings with mild associated atelectasis at both bases. On mechanical ventilation with an FiO2 of 50% pH is 7.386. PCO2 is 25.1. PO2 is 157 and bicarb is 17.5. Patient is on weaning protocol which will be accentuated today. Yesterday had dialysis catheters placed and he was on dialysis. Electrolytes are normal. Creatinine 6.6. BUN is 72. White blood cell count is dropped to 10,684% segs. H&H is 9.2/27.1. Platelets 222,000. Purulent drainage from the penis has not grown anything. Sputum shows showing no growth at 12 hours. RPR is nonreactive 08/10/2016. Today's chest x-ray shows a small amount of pleural effusions bilaterally. I do not see any definite infiltrates. Patient is not doing well on weaning trials. I have changed his CPAP to 5 a CPAP with a pressure support of 15. Today's ABGs on FiO2 50% mechanical ventilation shows a pH 7.41, PCO2 23 , PO2 of 123, bicarb 14.2. Creatinine remains elevated 7.80 with a BUN of 70. Sodium potassium and chloride are normal. Patient remains severely ill. Patient is on a lot of antibiotics. It is possible some of these could be consolidated. 08/11/2016. Chest x-ray is stable today patient is only a short time on CPAP yesterday and was noted to try to go longer. He had ultrasonics to and he was on dialysis. Ultrasound of the liver showed a right pleural effusion and small amount of ascites. There was gallbladder wall thickening most likely related to incomplete distention. ABGs are stable. There are no new positive cultures. This patient is only minimal right arousable Physical exam. Vital signs. See below Chest. Loose large airway congestion Heart. Lateral PMI Abdomen. Rare bowel sounds Lower extremities. Nothing to suggest deep venous thrombophlebitis Neck. No masses and no meningismus. Neurologic is impossible. Patient is sedated. The remainder the physical exam is negative Plan. 1. Mechanical ventilator weaning protocol 2. Physical therapy protocol while on mechanical ventilation 3. Deep venous thrombophlebitis prevention protocol 4. Proton pump inhibitor protocol 5. Urinalysis and urine culture. 6. Sputum for Gram stain culture and sensitivity 7. See orders. #8. See my note 08/11/2016. Exam (Progress Note) - Constitutional Vitals: Period Temp Pulse Resp BP Sys/Mcconnell Pulse Ox Last 24 Hr 97.2 F-98.8 F 63-97 14-72 130-172/32-76 93-99 Results - Labs CBC & BMP: 08/11/16 02:27 08/11/16 02:27
[2016-08-11] MEDS: CARVEDILOL 25 MG TABLET PO SCH ×2 (08:00→16:04)
[2016-08-11] MEDS: LACTULOSE 20 GM/30 ML UDCUP PO SCH (08:00)
[2016-08-11] MEDS: amLODIPine 5 MG TABLET PO SCH (08:00)
[2016-08-11] MEDS: PANTOPRAZOLE 40 MG VIAL IV SCH (08:04)
--- NOTE | 2016-08-11 09:37 | Hospitalist Progress Note ---
Assessment and Plan (1) Altered mental status Status: Acute Assessment and plan: Aetiology is most likely multifactorial-sepsis, ETOH withdrawal 08/07/2016 Patient is still confused and gets agitated and combative every now and then. He stopped spiking temp but his blood is still growing MRSA despite on Vancomycin.He has a history of ETOH abuse. MRI of the brain reveals no acute abnormalities. Blood cultures reveals MRSA. A spinal tap reveals WBC count of 39 with 65% neutrophils, glucose 54, total protein 40, RBC less than 1. Gram stain negative, meningitis antigen panel is negative Echo report noted Toxicology: sent out, result is pending CT head showed no acute changes, Lumbar spine showed no acute fracture MRI Lumbar: No acute fracture or obvious abscess. Ammonia level- 34 08/08/2016 Mental status worsened yesterday warranting intubation. He is currently stable on the vent. 08/09/2016 Patient still intubated and sedated. Urine grew shayna Albicans,sputum grew yeast 08/10/2016 Patient appears comfortable on the vent. Subsequent BC are coming back negative 08/11/2016 Patient is stable on the vent, his eyes were opened but not to commands. Recent blood cultures- negative Herpes PCR is negative in the CSF. VASYL showed no clear evidence of valvular vegetation. It showed mitral regurgitation, aortic sclerosis without stenosis, ASCVD of descending aorta. Plan De-escalate the antibiotics- ampicillin, acyclovir,doxycycline, gentamicin have been dcd. Ok to dc banana bag, lactulose Continue vent support, follow Neuro's recommendations. Follow Fungal studies Continue other management. Current Visit: Yes (2) Hyperglycemia due to type 2 diabetes mellitus Status: Chronic Assessment and plan: 08/10/2016 Patient's tube feeding has been held for about 2days due to high residuals, his blood sugar has been trending downwards so the Lantus and 70/30 were held. -resume tube feeding after VASYL today, continue with SSC, will decide if and when to restart the long acting insulin. [id number] 08/11/2016 Patient is back on tube feeding. Blood sugar is rising again. We will resume lantus qhs at a low dose and titrate up. continue SSC and accuchecks. Current Visit: Yes (3) Acute renal failure Status: Acute Assessment and plan: 08/09/2016 Presence of blood and proteins in the urine is suggestive of an underlying glomerulonephritis as complication of the existing infection-infective endocarditis.Patient is also on drugs that are compulsory but nephrotoxic. Patient had 2units of blood with dialysis yesterday, he is meant to be dialysed again tomorrow. Nephrology is following-consider immunology studies-complement levels, antiglomerular basement membrane antibodies, antineutrophil cytoplasmic antibodies,complement levels. 08/10/2016 Renal USS showed no acute pathology, no hydronephrosis. Hepatitis C antibody-positive Rheumatoid factor is <15 08/11/2016 Patient was dialysed yesterday again. BUN/CR levels are slowly improving. Nephrotoxic agents-gentamycin, acyclovir have been dcd. Urine Labs-noted Plan Continue to follow Nephrology's recommendations BMP in am Current Visit: Yes (4) Thrombocytopenia Status: Acute Assessment and plan: stable, cbc in am. Current Visit: Yes (5) HTN (hypertension) Status: Chronic Assessment and plan: will increase Norvasc to 10mg daily, follow response. Current Visit: Yes Qualifiers: Hypertension type: essential hypertension Qualified Code(s): I10 - Essential (primary) hypertension (6) MRSA (methicillin resistant Staphylococcus aureus) septicemia Status: Acute Assessment and plan: 08/06/2016 He has not spiked temp since antibiotics have been switched to meningitis protocol. He still remains confused but WBC is slowly improving. Repeat blood culture still MRSA ? source-no known history of hardware in the body. CT chest showed mild left pleural effusion, moderate right pleural fluid, right fluid is partially loculated. Scattered opacities in both lungs concerning for atelectasis, pneumonia to r/o neoplastic process- Echo showed mild concentric left ventricular hypertrophy, grade 1 diastolic dysfunction with impaired relaxation overall EF of 60%.No evidence infective endocarditis. MRI of the brain reveals no acute abnormalities. Blood cultures reveals MRSA. A spinal tap reveals WBC count of 39 with 65% neutrophils, glucose 54, total protein 40, RBC less than 1. Gram stain negative, meningitis antigen panel is negative CT head showed no acute changes, Lumbar spine showed no acute fracture MRI Lumbar: No acute fracture or obvious abscess. 08/08/2016 Blood cultures x3- positive for MRSA pleural fluid-no growth so far- He had a thoracentesis yesterday and 600cc of fluid was drained genital fluid-no growth so far -Patient produced some greenish fluid from the genital yesterday. He also masturbated overnight but exam of the genital was un impressive except for a few erythematous maculopapular rash in the inner thigh. I spoke with ID specialist at [facility] yesterday, he felt we were doing everything right and he had nothing else to add so he didnt see the need to transfer 08/09/2016:Blood cultures taken on 08/07-showed no growth 08/10/2016: patient appears to be slowly improving clinically. The last two blood cultures were negative. 08/11/2016:many recent blood cultures have showed no growth.VASYL showed no vegetations Plan See treatment plan as stated above Current Visit: Yes (7) Septic shock Status: Acute Assessment and plan: 08/08/2016 Patient is no longer spiking but culturesx3-grew MRSA. We will continue to treat as Infective endocarditis. Echo showed a mild concentric left ventricular hypertrophy, grade 1 diastolic dysfunction with impaired relaxation overall EF of 60%.No evidence infective endocarditis 08/09/2016-Patient is stable, recent blood culture showed no growth. Levophed has been weaned off. 08/10/2016: patient is stable 08/11/2016:Patient is slowly improving clinically Plan See treatment plan above. Current Visit: Yes (8) Acute respiratory failure Status: Acute Assessment and plan: 08/08/2016- CT chest showed mild left pleural effusion, moderate right pleural fluid, right fluid is partially loculated. Scattered opacities in both lungs concerning for atelectasis, pneumonia to r/o neoplastic process- He had a thoracocentesis yesterday and about 600cc of blood tinged straw colored clear fluid was drained.the pleural fluid has not grown anything. 08/09/2016- Patient is stable on the vent, sputum grew yeast 08/10/2016-Patient is clinically stable on the vent.Pulm is following. 08/11/2016-Patient did poorly on CPAP trial yesterday, Pulm is following Plan continue vent support, IV antibiotics, pulm's recommendations. -Continue IV diflucan Current Visit: Yes (9) Infective endocarditis Status: Acute Assessment and plan: 08/09/2016 Per modified Manrique Criteria:Patient has met the following criteria:Major-Blood cultures positive for MRSA x3 Persistently positive blood cultures Minor Criteria Fever greater than 100.4 History of drug user Based on the Criteria above, patient will be treated as infective endocarditis.Patient has some petechiae on his left knee but I have not seen Janeway lesions, osler's nodes or marcano spots 08/10/2016 last two blood cultures-negative Patient to have a VASYL today C-reactive protein improving from 15.9 to 13.2 Rheumatoid factor-<15 Hepatitis C Ab-positive ESR-118 08/11/2016 VASYL showed no vegetations.Repeated blood cultures have been negative. Plan Will still as IE but I agree to dc gentamycin-no organism related to this is growing,and it is nephrotoxic. Continue other antibiotic regime Ok to dc daily BC Current Visit: Yes (10) Yeast UTI Status: Acute Assessment and plan: continue with IV Diflucan Current Visit: Yes (11) Hepatitis C antibody test positive Status: Acute Assessment and plan: Liver USS- right pleural effusion,small ascites, gall bladder thickening most likely related to incomplete distention. Liver enzymes are unremarkable. Patient will need more workup as outpatient. Current Visit: Yes Hospitalist: Subjective Interval history: Patient was seen on the vent,he opened his eyes but not to commands. His heart rate went up during CPAP trials yesterday and this was discontinued. He had a VASYL yesterday which revealed no clear evidence of valvular vegetation. It showed mitral regurgitation, aortic sclerosis without stenosis, ASCVD of descending aorta. Exam - Constitutional Vitals: Period Temp Pulse Resp BP Sys/Mcconnell Pulse Ox Last 24 Hr 97.8 F-98.8 F 63-97 14-72 130-172/32-76 93-99 General appearance: no acute distress, other (intubated and sedated) - Respiratory Respiratory exam: Present: clear to auscultation bilaterally - Cardiovascular Cardiovascular exam: Present: regular rate and rhythm - GI/Abdominal GI/Abdominal exam: Present: normal bowel sounds - Extremities Exam Extremities exam: Present: edema (in his UE) Results - Labs CBC & BMP: 08/11/16 02:27 08/11/16 02:27 Lab Results: I have reviewed the past 24 hour labs
[2016-08-11] MEDS ORDERED: HEPARIN 10,000 UNIT/10 ML VIAL IV SCH (10:00)
--- NOTE | 2016-08-11 10:56 | Cardiology Progress Note ---
Keagan Bautista Vanessa RN, am scribing for, and in the presence of, Trisha Barragan MD 10:56. Assessment and Plan - Time spent with patient Time spent with patient: Greater than 30 minutes (1) Sepsis Status: Acute Assessment and plan: Status post VASYL 08/10/69 to rule out etiology for bacteremia. No clear evidence of valvular vegetation. Suspect a separate sequestered source. We'll sign off. Please call back with any dynamic cardiac issues. Current Visit: Yes Qualifiers: Qualified Code(s): A41.02 - Sepsis due to Methicillin resistant Staphylococcus aureus (2) Acute respiratory failure Status: Acute Assessment and plan: CPAP trials as tolerated. Pulmonary is following and they are managing. Current Visit: Yes (3) HTN (hypertension) Status: Chronic Assessment and plan: Blood pressure has trended up since yesterday evening, and suboptimally controlled today. SBP 135-175 mmHg. Adjust medication regimen. Current Visit: Yes Qualifiers: Qualified Code(s): I10 - Essential (primary) hypertension (4) Altered mental status Status: Acute Current Visit: Yes (5) Septic shock Status: Acute Current Visit: Yes (6) Diabetes mellitus Status: Chronic Assessment and plan: Defer primary management to hospital medicine. Current Visit: Yes Cardiology - PN: Subj Interval history: Patient remains intubated and with light sedation and use in the ICU this morning. No acute findings in patient's hemodynamics overnight. He has remained in a sinus rhythm without PVCs or ectopy, with pulse rate in the 80s. Blood pressure has trended up since yesterday evening and systolic BP is ranging 140-175 mmHg. Status post transesophageal echocardiogram yesterday to rule out etiology of bacteremia. There was no significant valvular vegetation seen. Liver ultrasound 08/10/16 for known history of hepatitis C revealed no biliary duct dilation or obstruction, small amount of ascites. Labs reviewed. H&H is stable at 9.3 and 27.8. Potassium is 3.8, and magnesium is 2.0. Creatinine with slight improvement and is 6.8 with a GFR of 12. He is being followed by nephrology, and he started hemodialysis on 08/08/16 with second dialysis yesterday 08/10/16. Mental status is still compromised. Exam (Progress Note) - Constitutional Vitals: Period Temp Pulse Resp BP Sys/Mcconnell Pulse Ox Last 24 Hr 97.2 F-98.8 F 63-97 14-72 130-172/32-76 93-99 Exam: General appearance: normal weight, no acute distress, intubated, spontaneously opens eyes, pupils equal round and reactive to light. - Head Head exam: Present: normocephalic, atraumatic,. Absent: hematoma, laceration - Eye Eye exam: Absent: conjunctival injection, nystagmus, periorbital swelling, scleral icterus, laceration to eyelids Pupils: Present: TRI. Absent: constricted, dilated, fixed, irregular, unequal - ENT ENT exam: Present: normal exam, normal external ear exam - Neck Neck exam: Present: normal inspection. Absent: lymphadenopathy, meningismus, tenderness, thyromegaly - Respiratory Respiratory exam: Present: clear to auscultation bilaterally anteriorly, there is normal rise with ventilated breaths. Absent: accessory muscle use - Cardiovascular Cardiovascular exam: Present: regular rate and rhythm. Absent: carotid bruit, gallop, JVD, rubs - GI/Abdominal GI/Abdominal exam: Present: normal bowel sounds. Absent: distended, firm, guarding, hernia, mass, tenderness, rebound, soft - Extremities Exam Extremities exam: Present: normal inspection, normal capillary refill, B UE/hand /edema 2-3+. Absent: calf tenderness - Back Exam Back exam: Unable to assess due to patient being on the ventilator - Neurological Exam Neurological exam: Unable to fully assess due to patient being on the ventilator. He does appear to move all 4 extremities. - Psychiatric Psychiatric exam: Unable to assess due to patient being on the ventilator. - Skin Skin exam: Present: normal color, warm, dry, intact. Absent: cyanosis, diaphoretic, rash, urticaria Result/EKG - Labs CBC & BMP: 08/11/16 02:27 08/11/16 02:27 Lab Results: I have reviewed the past 24 hour labs Labs: Laboratory Results - last 24 hr 08/04/16 08/08/16 08/10/16 15:35 Unknown 09:23 WBC RBC Hgb Hct MCV MCH MCHC RDW Plt Count MPV Neut % (Auto) Lymph % (Auto) [place] % (Auto) Eos % (Auto) Baso % (Auto) Neut # (Auto) Lymph # (Auto) [place] # (Auto) Eos # (Auto) Baso # (Auto) Immature Gran % Nucleated RBC % Immature Gran # Nucleated RBCs # INR PT Patient/Control Mix ABG pH ABG pCO2 ABG pO2 ABG HCO3 ABG Total CO2 ABG O2 Saturation ABG Base Excess FiO2 Sodium 143 Potassium 3.8 Chloride 109 H Carbon Dioxide 15 L Anion Gap 22.8 H BUN 70 H Creatinine 7.80 H GFR Calculation 10 BUN/Creatinine Ratio 8.00 Glucose 81 POC Glucose Calculated Osmolality 304.0 Calcium 6.3 L Magnesium 1.9 Total Bilirubin Direct Bilirubin Indirect Bilirubin AST ALT Alkaline Phosphatase Ammonia Total Protein Albumin Urine Collection Time Urine Total Volume Ur Creatinine Timed Patient Height Patient Weight Creatinine Clearance Ur Total Protein 24 Hr CSF Herpes I DNA (PCR) Negative CSF Herpes II DNA (PCR) Negative CSF Toxo. gondii Source Csf CSF T. gondii DNA (PCR) Negative CSF West Nile IgG Ab Negative CSF West [place] IgM Ab Negative CSF [place] Interp See comments Blood Type O POSITIVE Antibody Screen Negative Crossmatch See Detail 08/10/16 08/10/16 08/10/16 09:23 09:24 11:04 WBC 10.2 RBC 2.98 L Hgb 9.2 L Hct 26.5 L MCV 88.9 MCH 31 MCHC 34.7 RDW 15.0 Plt Count 228 MPV 11.4 Neut % (Auto) 83.0 H Lymph % (Auto) 8.3 L [place] % (Auto) 5.2 Eos % (Auto) 1.6 Baso % (Auto) 0.4 Neut # (Auto) 8.5 H Lymph # (Auto) 0.8 L [place] # (Auto) 0.5 Eos # (Auto) 0.2 Baso # (Auto) 0.0 Immature Gran % 1.5 Nucleated RBC % 0.0 Immature Gran # 0.15 Nucleated RBCs # 0.00 INR PT Patient/Control Mix ABG pH ABG pCO2 ABG pO2 ABG HCO3 ABG Total CO2 ABG O2 Saturation ABG Base Excess FiO2 Sodium Potassium Chloride Carbon Dioxide Anion Gap BUN Creatinine GFR Calculation BUN/Creatinine Ratio Glucose POC Glucose Calculated Osmolality Calcium Magnesium Total Bilirubin 0.60 Direct Bilirubin 0.2 Indirect Bilirubin 0.4 AST 24 ALT 14 L Alkaline Phosphatase 58 Ammonia 27 Total Protein 6.3 L Albumin 1.4 L Urine Collection Time Urine Total Volume Ur Creatinine Timed Patient Height Patient Weight Creatinine Clearance Ur Total Protein 24 Hr CSF Herpes I DNA (PCR) CSF Herpes II DNA (PCR) CSF Toxo. gondii Source CSF T. gondii DNA (PCR) CSF West [place] IgG Ab CSF [place] IgM Ab CSF [place] Interp Blood Type Antibody Screen Crossmatch 08/10/16 08/10/16 08/10/16 11:04 12:07 16:40 WBC RBC Hgb Hct MCV MCH MCHC RDW Plt Count MPV Neut % (Auto) Lymph % (Auto) [place] % (Auto) Eos % (Auto) Baso % (Auto) Neut # (Auto) Lymph # (Auto) [place] # (Auto) Eos # (Auto) Baso # (Auto) Immature Gran % Nucleated RBC % Immature Gran # Nucleated RBCs # INR 1.1 PT Patient/Control Mix 11.4 ABG pH ABG pCO2 ABG pO2 ABG HCO3 ABG Total CO2 ABG O2 Saturation ABG Base Excess FiO2 Sodium Potassium Chloride Carbon Dioxide Anion Gap BUN Creatinine GFR Calculation BUN/Creatinine Ratio Glucose POC Glucose 84 Calculated Osmolality Calcium Magnesium Total Bilirubin Direct Bilirubin Indirect Bilirubin AST ALT Alkaline Phosphatase Ammonia Total Protein Albumin Urine Collection Time 24 Urine Total Volume 100 L Ur Creatinine Timed 0.22 L Patient Height 73 Patient Weight 288 Creatinine Clearance 1.39 L Ur Total Protein 24 Hr CSF Herpes I DNA (PCR) CSF Herpes II DNA (PCR) CSF Toxo. gondii Source CSF T. gondii DNA (PCR) CSF West Nile IgG Ab CSF West [place] IgM Ab CSF [place] Interp Blood Type Antibody Screen Crossmatch 08/10/16 08/10/16 08/10/16 16:40 17:45 23:20 WBC RBC Hgb Hct MCV MCH MCHC RDW Plt Count MPV Neut % (Auto) Lymph % (Auto) [place] % (Auto) Eos % (Auto) Baso % (Auto) Neut # (Auto) Lymph # (Auto) [place] # (Auto) Eos # (Auto) Baso # (Auto) Immature Gran % Nucleated RBC % Immature Gran # Nucleated RBCs # INR PT Patient/Control Mix ABG pH ABG pCO2 ABG pO2 ABG HCO3 ABG Total CO2 ABG O2 Saturation ABG Base Excess FiO2 Sodium Potassium Chloride Carbon Dioxide Anion Gap BUN Creatinine GFR Calculation BUN/Creatinine Ratio Glucose POC Glucose 128 H 121 H Calculated Osmolality Calcium Magnesium Total Bilirubin Direct Bilirubin Indirect Bilirubin AST ALT Alkaline Phosphatase Ammonia Total Protein Albumin Urine Collection Time 24 Urine Total Volume 100 L Ur Creatinine Timed Patient Height Patient Weight Creatinine Clearance Ur Total Protein 24 Hr 587 H CSF Herpes I DNA (PCR) CSF Herpes II DNA (PCR) CSF Toxo. gondii Source CSF T. gondii DNA (PCR) CSF West Nile IgG Ab CSF West [place] IgM Ab CSF [place] Interp Blood Type Antibody Screen Crossmatch 08/11/16 08/11/16 08/11/16 02:27 02:27 02:27 WBC 10.1 RBC 3.03 L Hgb 9.3 L Hct 27.8 L MCV 91.7 MCH 31 MCHC 33.5 RDW 14.8 Plt Count 232 MPV 10.9 Neut % (Auto) 83.9 H Lymph % (Auto) 7.0 L [place] % (Auto) 6.2 Eos % (Auto) 1.3 Baso % (Auto) 0.2 Neut # (Auto) 8.5 H Lymph # (Auto) 0.7 L [place] # (Auto) 0.6 Eos # (Auto) 0.1 Baso # (Auto) 0.0 Immature Gran % 1.4 Nucleated RBC % 0.0 Immature Gran # 0.14 Nucleated RBCs # 0.00 INR PT Patient/Control Mix ABG pH ABG pCO2 ABG pO2 ABG HCO3 ABG Total CO2 ABG O2 Saturation ABG Base Excess FiO2 Sodium 139 Potassium 3.8 Chloride 104 Carbon Dioxide 17 L Anion Gap 21.8 H BUN 53 H D Creatinine 6.80 H GFR Calculation 12 BUN/Creatinine Ratio 7.00 Glucose 225 H POC Glucose Calculated Osmolality 297.5 Calcium 7.3 L Magnesium 2.0 Total Bilirubin 0.40 Direct Bilirubin 0.1 Indirect Bilirubin 0.3 AST 24 ALT 14 L Alkaline Phosphatase 72 Ammonia Total Protein 6.4 Albumin 1.4 L Urine Collection Time Urine Total Volume Ur Creatinine Timed Patient Height Patient Weight Creatinine Clearance Ur Total Protein 24 Hr CSF Herpes I DNA (PCR) CSF Herpes II DNA (PCR) CSF Toxo. gondii Source CSF T. gondii DNA (PCR) CSF West [place] IgG Ab CSF West [place] IgM Ab CSF [place] Interp Blood Type Antibody Screen Crossmatch 08/11/16 08/11/16 02:50 05:57 WBC RBC Hgb Hct MCV MCH MCHC RDW Plt Count MPV Neut % (Auto) Lymph % (Auto) [place] % (Auto) Eos % (Auto) Baso % (Auto) Neut # (Auto) Lymph # (Auto) [place] # (Auto) Eos # (Auto) Baso # (Auto) Immature Gran % Nucleated RBC % Immature Gran # Nucleated RBCs # INR PT Patient/Control Mix ABG pH 7.379 ABG pCO2 26.0 L ABG pO2 131.0 H ABG HCO3 17.5 L ABG Total CO2 14.1 L ABG O2 Saturation 98.4 ABG Base Excess -8.6 L FiO2 50.00 Sodium Potassium Chloride Carbon Dioxide Anion Gap BUN Creatinine GFR Calculation BUN/Creatinine Ratio Glucose POC Glucose 275 H Calculated Osmolality Calcium Magnesium Total Bilirubin Direct Bilirubin Indirect Bilirubin AST ALT Alkaline Phosphatase Ammonia Total Protein Albumin Urine Collection Time Urine Total Volume Ur Creatinine Timed Patient Height Patient Weight Creatinine Clearance Ur Total Protein 24 Hr CSF Herpes I DNA (PCR) CSF Herpes II DNA (PCR) CSF Toxo. gondii Source CSF T. gondii DNA (PCR) CSF West [place] IgG Ab CSF West [place] IgM Ab CSF [place] Interp Blood Type Antibody Screen Crossmatch - Diagnostic Findings Procedure: Chest x-ray: image reviewed by me, report reviewed by me (08/11/16: Slightly improved aeration of bilateral upper lobes with worsening of right basilar infiltrate.) - EKG EKG results: interpreted by me, no acute changes EKG shows: sinus rhythm (Pulse rate 80s; no ectopy or dysrhythmia.) I, Trisha Barragan MD, personally performed the services described in this documentation, ascribed by Malathi Boogie RN in my presence, and it is both accurate and complete 056 .
[2016-08-11] MEDS: FLUCONAZOLE INJ 200 MG in PREMIX 1 EACH IV SCH (11:13)
--- NOTE | 2016-08-11 11:46 | Pathology Report from [facility] ---
ACCESSION # : [id number] PATIENT NAME : Carmen Ball ORDERING DR : SATINDER MONTGOMERY MD CLINICAL HX: Right Pleural Effusion, Sepsis POST-OP DX: Same SPECIMEN INFO: Fluid,Pleural,Right - 600 ml's jaymie, cloudy. CLASS: I CLASS COMMENTS: Blood, acute inflammation, benign mesothelial cells.CELL BLOCK: Same CLASS LEGEND: CLASS 0 Material inadequate for diagnosis because of (see comment) CLASS I Absence of atypical or abnormal cells CLASS II Atypical Cytology but no evidence of malignancy CLASS III Cytology suggestive of but not conclusive for malignancy CLASS IV Cytology strongly suggestive of malignancy CLASS V Cytology conclusive for malignancy SERVICE DATE: 08/10/2016 REPORT DATE: 08/11/2016 PATHOLOGIST: Eitan Santamaria M.D. [facility]IMINALLY INSANEClarissa
--- NOTE | 2016-08-11 14:11 | Nephrology Progress Note ---
Nephrology - PN: Subj Interval history: He is seen during dialysis. He remains on the ventilator. Blood pressure is stable. Exam (PN)-Nephrology - Vital Signs Vital signs: Period Temp Pulse Resp BP Sys/Mcconnell Pulse Ox Last 24 Hr 97.8 F-98.9 F 69-87 12-72 121-179/32-84 93-100 Exam: General: Sedated on ventilator Cardiovascular: Regular rate and rhythm Lungs: Clear Abdomen: Nontender positive bowel sounds Extremities: 1+ edema - Lab 08/11/16 02:27 08/11/16 02:27 Most recent lab results ABG pH 7.379 (7.35-7.45) 08/11/16 02:50 ABG pCO2 26.0 MM HG (35-48) L 08/11/16 02:50 ABG pO2 131.0 MM HG (80-95) H 08/11/16 02:50 ABG HCO3 17.5 MMOL/L (20-26) L 08/11/16 02:50 ABG O2 Saturation 98.4 % (95-100) 08/11/16 02:50 Calcium 7.3 MG/DL (8.5-10.1) L 08/11/16 02:27 Phosphorus 8.8 MG/DL (2.5-4.9) H 08/10/16 03:00 Magnesium 2.0 MG/DL (1.8-2.4) 08/11/16 02:27 Ur Total Protein 24 Hr 587 MG/24HR (0-149.1) H 08/10/16 16:40 Assessment and Plan (1) Acute renal failure Status: Acute Assessment and plan: 51-year-old man admitted with: * Acute renal failure. He is stable during dialysis. Potentially nephrotoxic medications have been discontinued. * Hypotension. Resolved * Sepsis. Continue antibiotics * Confusion. LP shows 36 WBCs. Antibiotics adjusted. Neurology consult noted * Diabetes mellitus * Chronic back pain Current Visit: Yes (2) Altered mental status Status: Acute Current Visit: Yes (3) Fever Status: Acute Current Visit: Yes (4) Hyperglycemia due to type 2 diabetes mellitus Status: Chronic Current Visit: Yes (5) Hypotension Status: Acute Current Visit: Yes
[2016-08-11] MEDS: INSULIN GLARGINE 100 UNIT/ML SUBCUT SCH (20:54)
[2016-08-11] MEDS ORDERED: VANCOMYCIN INJ 1,000 MG in SODIUM CHLORIDE 0.9% 250 ML IV ONE (21:00)
[2016-08-12] MEDS: CLOTRIMAZOLE/BETAMETHASONE CREAM 15 GM TUBE TOP SCH ×4 (00:29→21:27)
[2016-08-12] MEDS: DESITIN 4OZ/NYSTATIN 15 GRAM MIXTURE PASTE TOP SCH ×3 (00:30→21:27)
[2016-08-12] MEDS: INSULIN REGULAR 100 UNIT/ML SUBCUT SCH ×5 (00:33→18:13)
[2016-08-12] MEDS: ALBUTEROL/IPRATROPIUM 3 ML NEB RESP TX SCH ×4 (01:35→19:33)
[2016-08-12] MEDS: PROPOFOL 1,000 MG/100 ML BOTTLE IV SCH ×3 (01:36→14:05)
[2016-08-12 02:46] LABS: Calcium 7.4 MG/DL (8.5-10.1); Osmolality,Calculated 300.5 MOS/KG (273-304); Potassium 4.2 MMOL/L (3.5-5.1)
[2016-08-12 03:37] LABS: ABG Base Excess -4.2 MMOL/L (-2.5-2.5); ABG HCO3 18.1 MMOL/L (20-26); ABG Oxygen Saturation 97.6 % (95-100); ABG PCO2 24.7 MM HG (35-48); ABG PH 7.483 (7.35-7.45); ABG PO2 107.5 MM HG (80-95); ABG TCO2 18.9 MMOL/L (23-27); Allen Test Positive; Pt O2 Delivery Device Ventilator
[2016-08-12 04:12] LABS: Basophils % 0.2 % (0.0-0.8); Eosinophils # 0.1 10*3/uL (0.0-0.87); Eosinophils % 0.9 % (0.00-10.9); Hematocrit 26.6 VOL% (42.0-52.0); Immature Granulocytes % 1.6 %; Immature Granulocytes Absolute 0.14 #; Lymphocytes # 0.8 10*3/uL (1.4-4.0); Lymphocytes % 9.2 % (21.2-54.2); Mean Corpuscular HGB Conc 33.8 GM/DL (32-36); Mean Corpuscular Hemoglobin 31 PG (27-34); Mean Platelet Volume 11.9 FL (9.6-12.0); Monocytes # 0.6 10*3/uL (0.11-0.8); Monocytes % 7.1 % (1.7-12.7); Neutrophils # 7.2 10*3/uL (1.4-7.4); Platelet Count 241 T/CUMM (130-400); Red Blood Count 2.89 MC/CUMM (3.8-5.5); Red Cell Distribution Width 14.4 % (9.3-17.3); White Blood Count 8.8 T/CUMM (4-12)
[2016-08-12] MEDS: cefTRIAXone 2,000 MG in SODIUM CHLORIDE 0.9% 100 ML IV SCH ×2 (05:05→16:02)
--- NOTE | 2016-08-12 07:10 | XRay Report ---
XR chest 1V portable Indication: Intubated. Chest one view: Comparison yesterday. Endotracheal tube, NG tube, cardiomegaly and hazy obscuration of the lung bases is again noted. No new infiltrates are identified although lung volumes have decreased somewhat. Right IJ central line has been removed. Impression: Given variation in technique, worsening pulmonary hypoinflation. Removal of central line. PROCEDURE INTERPRETED AT [facility] DEPARTMENT OF RADIOLOGY Final Report Signed by: Clem Gates M.D.
[2016-08-12] MEDS: amLODIPine 5 MG TABLET PO SCH (08:39)
[2016-08-12] MEDS: PANTOPRAZOLE 40 MG VIAL IV SCH (08:40)
[2016-08-12] MEDS: CARVEDILOL 25 MG TABLET PO SCH ×2 (08:40→21:27)
--- NOTE | 2016-08-12 08:44 | Hospitalist Progress Note ---
Assessment and Plan (1) Altered mental status Status: Acute Assessment and plan: Aetiology is most likely multifactorial-sepsis, ETOH withdrawal 08/07/2016 Patient is still confused and gets agitated and combative every now and then. He stopped spiking temp but his blood is still growing MRSA despite on Vancomycin.He has a history of ETOH abuse. MRI of the brain reveals no acute abnormalities. Blood cultures reveals MRSA. A spinal tap reveals WBC count of 39 with 65% neutrophils, glucose 54, total protein 40, RBC less than 1. Gram stain negative, meningitis antigen panel is negative Echo report noted Toxicology: sent out, result is pending CT head showed no acute changes, Lumbar spine showed no acute fracture MRI Lumbar: No acute fracture or obvious abscess. Ammonia level- 34 08/08/2016 Mental status worsened yesterday warranting intubation. He is currently stable on the vent. 08/09/2016 Patient still intubated and sedated. Urine grew shayna Albicans,sputum grew yeast 08/10/2016 Patient appears comfortable on the vent. Subsequent BC are coming back negative 08/11/2016 Patient is stable on the vent, his eyes were opened but not to commands. Recent blood cultures- negative Herpes PCR is negative in the CSF. VASYL showed no clear evidence of valvular vegetation. It showed mitral regurgitation, aortic sclerosis without stenosis, ASCVD of descending aorta. 08/12/2016 patient is stable on the vent. He had a session of dialysis yesterday. Ampicillin, acyclovir,doxycycline, gentamicin have been dcd. Plan Continue current antibiotic regime Continue vent support, follow Neuro's recommendations. Follow Fungal studies Continue other management. Current Visit: Yes (2) Hyperglycemia due to type 2 diabetes mellitus Status: Chronic Assessment and plan: 08/10/2016 Patient's tube feeding has been held for about 2days due to high residuals, his blood sugar has been trending downwards so the Lantus and 70/30 were held. -resume tube feeding after VASYL today, continue with SSC, will decide if and when to restart the long acting insulin. [id number] 08/11/2016 Patient is back on tube feeding. Blood sugar is rising again. We will resume lantus qhs at a low dose and titrate up. continue SSC and accuchecks. 08/12/2016 Blood sugar is poorly controlled. We will start 70/30 20uits qam and continue with Lantus. We will follow response. Current Visit: Yes (3) Acute renal failure Status: Acute Assessment and plan: 08/09/2016 Presence of blood and proteins in the urine is suggestive of an underlying glomerulonephritis as complication of the existing infection-infective endocarditis.Patient is also on drugs that are compulsory but nephrotoxic. Patient had 2units of blood with dialysis yesterday, he is meant to be dialysed again tomorrow. Nephrology is following-consider immunology studies-complement levels, antiglomerular basement membrane antibodies, antineutrophil cytoplasmic antibodies,complement levels. 08/10/2016 Renal USS showed no acute pathology, no hydronephrosis. Hepatitis C antibody-positive Rheumatoid factor is <15 08/11/2016 Patient was dialysed yesterday again. BUN/CR levels are slowly improving. Nephrotoxic agents-gentamycin, acyclovir have been dcd. Urine Labs-noted 08/11/2016 Patient had a session of hemo dialysis yesterday. Plan Continue to follow Nephrology's recommendations BMP in am Current Visit: Yes (4) Thrombocytopenia Status: Acute Assessment and plan: stable, cbc in am. Current Visit: Yes (5) HTN (hypertension) Status: Chronic Assessment and plan: controlled,continue current regime. Current Visit: Yes Qualifiers: Hypertension type: essential hypertension Qualified Code(s): I10 - Essential (primary) hypertension (6) MRSA (methicillin resistant Staphylococcus aureus) septicemia Status: Acute Assessment and plan: 08/06/2016 He has not spiked temp since antibiotics have been switched to meningitis protocol. He still remains confused but WBC is slowly improving. Repeat blood culture still MRSA ? source-no known history of hardware in the body. CT chest showed mild left pleural effusion, moderate right pleural fluid, right fluid is partially loculated. Scattered opacities in both lungs concerning for atelectasis, pneumonia to r/o neoplastic process- Echo showed mild concentric left ventricular hypertrophy, grade 1 diastolic dysfunction with impaired relaxation overall EF of 60%.No evidence infective endocarditis. MRI of the brain reveals no acute abnormalities. Blood cultures reveals MRSA. A spinal tap reveals WBC count of 39 with 65% neutrophils, glucose 54, total protein 40, RBC less than 1. Gram stain negative, meningitis antigen panel is negative CT head showed no acute changes, Lumbar spine showed no acute fracture MRI Lumbar: No acute fracture or obvious abscess. 08/08/2016 Blood cultures x3- positive for MRSA pleural fluid-no growth so far- He had a thoracentesis yesterday and 600cc of fluid was drained genital fluid-no growth so far -Patient produced some greenish fluid from the genital yesterday. He also masturbated overnight but exam of the genital was un impressive except for a few erythematous maculopapular rash in the inner thigh. I spoke with ID specialist at [facility] yesterday, he felt we were doing everything right and he had nothing else to add so he didnt see the need to transfer 08/09/2016:Blood cultures taken on 08/07-showed no growth 08/10/2016: patient appears to be slowly improving clinically. The last two blood cultures were negative. 08/11/2016:many recent blood cultures have showed no growth.VASYL showed no vegetations 08/12/2016-No new changes Plan See treatment plan as stated above Current Visit: Yes (7) Septic shock Status: Acute Assessment and plan: 08/08/2016 Patient is no longer spiking but culturesx3-grew MRSA. We will continue to treat as Infective endocarditis. Echo showed a mild concentric left ventricular hypertrophy, grade 1 diastolic dysfunction with impaired relaxation overall EF of 60%.No evidence infective endocarditis 08/09/2016-Patient is stable, recent blood culture showed no growth. Levophed has been weaned off. 08/10/2016: patient is stable 08/11/2016:Patient is slowly improving clinically 08/12/2016; patient is stable Plan See treatment plan above. Current Visit: Yes (8) Acute respiratory failure Status: Acute Assessment and plan: 08/08/2016- CT chest showed mild left pleural effusion, moderate right pleural fluid, right fluid is partially loculated. Scattered opacities in both lungs concerning for atelectasis, pneumonia to r/o neoplastic process- He had a thoracocentesis yesterday and about 600cc of blood tinged straw colored clear fluid was drained.the pleural fluid has not grown anything. 08/09/2016- Patient is stable on the vent, sputum grew yeast 08/10/2016-Patient is clinically stable on the vent.Pulm is following. 08/11/2016-Patient did poorly on CPAP trial yesterday, Pulm is following 08/12/2016-Defer to Pulmonology Plan continue vent support, IV antibiotics, pulm's recommendations. -Continue IV diflucan Current Visit: Yes (9) Infective endocarditis Status: Acute Assessment and plan: 08/09/2016 Per modified Manrique Criteria:Patient has met the following criteria:Major-Blood cultures positive for MRSA x3 Persistently positive blood cultures Minor Criteria Fever greater than 100.4 History of drug user Based on the Criteria above, patient will be treated as infective endocarditis.Patient has some petechiae on his left knee but I have not seen Janeway lesions, osler's nodes or marcano spots 08/10/2016 last two blood cultures-negative Patient to have a VASYL today C-reactive protein improving from 15.9 to 13.2 Rheumatoid factor-<15 Hepatitis C Ab-positive ESR-118 08/11/2016 VASYL showed no vegetations.Repeated blood cultures have been negative. Plan continue with current antibiotic regime.I agree to dc gentamycin-no organism related to this is growing,and it is nephrotoxic. Current Visit: Yes (10) Yeast UTI Status: Acute Assessment and plan: continue with IV Diflucan -will repeat UC Current Visit: Yes (11) Hepatitis C antibody test positive Status: Acute Assessment and plan: Liver USS- right pleural effusion,small ascites, gall bladder thickening most likely related to incomplete distention. Liver enzymes are unremarkable. Patient will need more workup as outpatient. Current Visit: Yes Hospitalist: Subjective Interval history: Patient is stable on the vent. He had a session of dialysis yesterday. Exam - Constitutional Vitals: Period Temp Pulse Resp BP Sys/Mcconnell Pulse Ox Last 24 Hr 98.4 F-99.1 F 75-89 12-55 81-179/49-84 94-100 General appearance: no acute distress, other (intubated and sedated) - Respiratory Respiratory exam: Present: clear to auscultation bilaterally - Cardiovascular Cardiovascular exam: Present: regular rate and rhythm - GI/Abdominal GI/Abdominal exam: Present: normal bowel sounds - Extremities Exam Extremities exam: Present: edema (UE) Results - Labs CBC & BMP: 08/12/16 02:40 08/12/16 02:24 Lab Results: I have reviewed the past 24 hour labs
--- NOTE | 2016-08-12 10:20 | Event Note ---
In hospital diagnostic and therapeutic fiberoptic bronchoscopy. Bilateral lavages from the right upper lung, right middle lung, right lower lung, left upper lung and left lower lung were sent for cytology, Gram stain, bacterial cultures, fungal stains and culture, AFB stains and culture. This is a 60-year-old white male with staph aureus sepsis respiratory failure and renal failure. He is on mechanical ventilation. His cough is ineffective. He has retained secretions and has developed bibasilar atelectasis. For these reasons he is evaluated with fiberoptic bronchoscopy. This condition and worsen over the last 18-24 hours. We were not able to contact his daughter. We were able to contact her phone but there was no answer. Endotracheal tube is in good position. There were thick tenacious secretions occluding the end of the endotracheal tube and just beyond. These occluded scope and required withdrawing cleaning of the suction channel several occasions. The distal trachea was erythematous and edematous the nathalie was sharp. The right mainstem bronchus was eroded and friable and full of thick tenacious secretions. These extended into the right upper lung right middle lung and right lower lung. All of these segments were lavaged to clear. The most prominent endobronchial obstruction secondary to retained secretions were all of the subsegments of the right lower lung. Endobronchially there were erosions and friability and endobronchial edema producing partial obstruction. I did not see any endobronchial lesions that appear to be cancer. The left mainstem bronchus is occluded with thick tenacious secretions. These extended into the left upper lung, especially the lingula which was totally occluded with secretions. These areas were lavaged until clear. The left lower lung segments were partially occluded with thick tenacious discolored secretions. These were removed with lavage and suctioning. There are underlying areas of erosive friable slightly stenotic bronchitis in the left upper lung and left lower lung. I did not see any endobronchial lesions that appear to be cancer. The collection apparatus contain many bronchial plugs and many elongated yellow bronchial casts Patient tolerated procedure well. The findings and rationale were discussed with the patient's daughter by her nurse Lesvia after the procedure was done. Impression. 1. Retained secretions. 2. Ineffective cough 3. Respiratory failure requiring intubation mechanical ventilation. 4. Erosive friable bronchitis involving mainstem bronchi in all 5 lobes of the lung. Because of this is undetermined. Infection is involved in this man may very well have had aspiration in the past. I did not see any food content. Plan. 1. Follow-up chest x-ray 2. Check bronchoscopy spelled
--- NOTE | 2016-08-12 10:25 | Pulmonology Progress Note ---
Pulmonary - PN: Subj Interval history: This is a 51-year-old white male whom I saw in pulmonary consultation on 2016. Earlier that day he had experienced respiratory failure that required intubation mechanical ventilation and I was asked to see him in pulmonary consultation to manage his mechanical ventilation and to treat pulmonary problems. My impressions were. 1. Staph aureus sepsis. Etiology undetermined. Note the patient has a history of IV drug use. Look for SBE 2. Acute respiratory arrest. Etiology undetermined. Probably multifactorial. 3. Altered mental status 4. Renal failure 5. Anemia 6. Probable pyelonephritis. 7. See past history 08/08/2016. Today's chest x-ray shows small bilateral pleural effusions. ABGs on mechanical ventilation showed pH 7.335, PCO2 28, PO2 365 and a bicarb of 16.4. I am going to decrease the patient's FiO2 but leave him and a hyper ventilation state to help with his metabolic acidosis. Creatinine is 6.0 with a BUN of 83. Sodium is 146. Potassium 3.8. H&H is dropped to 7.3/22.0 white blood cell count is 13,100 with 85 segs 8 lymphs and 4 monocytes. Platelets are 243,000. Multiple blood cultures have been positive for staph aureus and nares cultures were positive for MRSA. 08/09/2016. Today's chest x-ray is stable. There are a few increased interstitial markings with mild associated atelectasis at both bases. On mechanical ventilation with an FiO2 of 50% pH is 7.386. PCO2 is 25.1. PO2 is 157 and bicarb is 17.5. Patient is on weaning protocol which will be accentuated today. Yesterday had dialysis catheters placed and he was on dialysis. Electrolytes are normal. Creatinine 6.6. BUN is 72. White blood cell count is dropped to 10,684% segs. H&H is 9.2/27.1. Platelets 222,000. Purulent drainage from the penis has not grown anything. Sputum shows showing no growth at 12 hours. RPR is nonreactive 08/10/2016. Today's chest x-ray shows a small amount of pleural effusions bilaterally. I do not see any definite infiltrates. Patient is not doing well on weaning trials. I have changed his CPAP to 5 a CPAP with a pressure support of 15. Today's ABGs on FiO2 50% mechanical ventilation shows a pH 7.41, PCO2 23 , PO2 of 123, bicarb 14.2. Creatinine remains elevated 7.80 with a BUN of 70. Sodium potassium and chloride are normal. Patient remains severely ill. Patient is on a lot of antibiotics. It is possible some of these could be consolidated. 08/11/2016. Chest x-ray is stable today patient is only a short time on CPAP yesterday and was noted to try to go longer. He had ultrasonics to and he was on dialysis. Ultrasound of the liver showed a right pleural effusion and small amount of ascites. There was gallbladder wall thickening most likely related to incomplete distention. ABGs are stable. There are no new positive cultures. This patient is only minimal right arousable 08/12/2016. This patient is not doing with his well with his weaning protocol. His chest x-ray today shows bibasilar atelectasis worse on the left as compared to the right. These are fairly new and progressive findings. Respiratory therapy is finding it hard to suction all of his secretions and these have become more thicker and more tenacious. It was elected to reevaluate this patient with fiberoptic bronchoscopy. See report. He had a tremendous amount of retained secretions and these were extremely tenacious and repeat completely occluded the suction channel of the scope. Hopefully after removal this will make his weaning process more efficacious. There are no new cultures. ABGs on mechanical ventilation FiO2 50% shows a pH of 7.48, PCO2 25, PO2 of 107 and a bicarb of 18. Electrolytes are normal. Creatinine is 5.90. Patient receives dialysis. CBC is stable. Physical exam. Vital signs. See below Chest. Loose large airway congestion Heart. Lateral PMI Abdomen. Rare bowel sounds Lower extremities. Nothing to suggest deep venous thrombophlebitis Neck. No masses and no meningismus. Neurologic.. Very difficult exam. Patient can be aroused. He moves all 4 extremities. Cranial nerves appear to be intact The remainder the physical exam is negative Plan. 1. Mechanical ventilator weaning protocol 2. Physical therapy protocol while on mechanical ventilation 3. Deep venous thrombophlebitis prevention protocol 4. Proton pump inhibitor protocol 5. Urinalysis and urine culture. 6. Sputum for Gram stain culture and sensitivity 7. See orders. #8. See my note 08/12/2016. Exam (Progress Note) - Constitutional Vitals: Period Temp Pulse Resp BP Sys/Mcconnell Pulse Ox Last 24 Hr 98.4 F-100.4 F 75-94 12-55 81-179/49-84 95-100 Results - Labs CBC & BMP: 08/12/16 02:40 08/12/16 02:24
[2016-08-12] MEDS: INSULIN ASPART PROTAMINE/ASPART 70/30 100 UNIT/ML SUBCUT SCH (10:51)
--- NOTE | 2016-08-12 11:47 | Nephrology Progress Note ---
Nephrology - PN: Subj Interval history: He remains on the ventilator. Blood pressure stable without pressors. Exam (PN)-Nephrology - Vital Signs Vital signs: Period Temp Pulse Resp BP Sys/Mcconnell Pulse Ox Last 24 Hr 98.4 F-100.4 F 75-94 15-55 81-177/49-84 95-100 Exam: Gen.: Sedated on the ventilator ENT: Pupils equal round reactive to light. EOMs intact. Mucous membranes moist. Neck: Supple. No JVD or bruit. Cardiovascular: Regular rate and rhythm. No murmur rub or gallop Lungs: Clear Abdomen: Soft. Nontender. Positive bowel sounds. No organomegaly Extremities: Trace edema - Lab 08/12/16 02:40 08/12/16 02:24 Most recent lab results ABG pH 7.483 (7.35-7.45) H 08/12/16 03:20 ABG pCO2 24.7 MM HG (35-48) L 08/12/16 03:20 ABG pO2 107.5 MM HG (80-95) H 08/12/16 03:20 ABG HCO3 18.1 MMOL/L (20-26) L 08/12/16 03:20 ABG O2 Saturation 97.6 % (95-100) 08/12/16 03:20 Calcium 7.4 MG/DL (8.5-10.1) L 08/12/16 02:24 Phosphorus 8.8 MG/DL (2.5-4.9) H 08/10/16 03:00 Magnesium 2.0 MG/DL (1.8-2.4) 08/11/16 02:27 Ur Total Protein 24 Hr 587 MG/24HR (0-149.1) H 08/10/16 16:40 Assessment and Plan (1) Acute renal failure Status: Acute Assessment and plan: 51-year-old man admitted with: * Acute renal failure. He was dialyzed yesterday. He remains very oliguric * Ventilatory failure. Bronchoscopy today * Sepsis. Continue antibiotics * Confusion. * Diabetes mellitus * Chronic back pain Current Visit: Yes (2) Altered mental status Status: Acute Current Visit: Yes (3) Fever Status: Acute Current Visit: Yes (4) Hyperglycemia due to type 2 diabetes mellitus Status: Chronic Current Visit: Yes (5) Hypotension Status: Acute Current Visit: Yes
[2016-08-12] MEDS: FLUCONAZOLE INJ 200 MG in PREMIX 1 EACH IV SCH (14:01)
[2016-08-12] MEDS: INSULIN GLARGINE 100 UNIT/ML SUBCUT SCH (21:27)
[2016-08-13] MEDS: PROPOFOL 1,000 MG/100 ML BOTTLE IV SCH ×4 (00:38→23:50)
[2016-08-13] MEDS: ALBUTEROL/IPRATROPIUM 3 ML NEB RESP TX SCH ×4 (00:50→19:23)
[2016-08-13] MEDS: INSULIN REGULAR 100 UNIT/ML SUBCUT SCH ×5 (01:08→23:59)
[2016-08-13 03:41] LABS: ABG Base Excess -4.8 MMOL/L (-2.5-2.5); ABG HCO3 20.5 MMOL/L (20-26); ABG Oxygen Saturation 97.5 % (95-100); ABG PCO2 27.5 MM HG (35-48); ABG PH 7.436 (7.35-7.45); ABG PO2 97.8 MM HG (80-95); Allen Test Positive; Pt O2 Delivery Device Ventilator
[2016-08-13] MEDS: cefTRIAXone 2,000 MG in SODIUM CHLORIDE 0.9% 100 ML IV SCH ×2 (04:23→16:12)
[2016-08-13 05:16] LABS: Basophils % 0.3 % (0.0-0.8); Eosinophils # 0.1 10*3/uL (0.0-0.87); Eosinophils % 1.3 % (0.00-10.9); Hematocrit 25.8 VOL% (42.0-52.0); Immature Granulocytes % 1.4 %; Immature Granulocytes Absolute 0.11 #; Lymphocytes # 0.8 10*3/uL (1.4-4.0); Lymphocytes % 10.1 % (21.2-54.2); Mean Corpuscular HGB Conc 34.9 GM/DL (32-36); Mean Corpuscular Hemoglobin 31 PG (27-34); Mean Corpuscular Volume 88.7 FL (87-102); Mean Platelet Volume 11.6 FL (9.6-12.0); Monocytes # 0.6 10*3/uL (0.11-0.8); Monocytes % 8.4 % (1.7-12.7); Neutrophils % 78.5 % (38.7-73.9); Platelet Count 243 T/CUMM (130-400); Red Blood Count 2.91 MC/CUMM (3.8-5.5); Red Cell Distribution Width 14.1 % (9.3-17.3); White Blood Count 7.6 T/CUMM (4-12)
[2016-08-13 05:45] LABS: Calcium 8.2 MG/DL (8.5-10.1); Magnesium 2.5 MG/DL (1.8-2.4); Osmolality,Calculated 302.8 MOS/KG (273-304); Potassium 4.3 MMOL/L (3.5-5.1)
--- NOTE | 2016-08-13 06:57 | XRay Report ---
XR chest 1V portable Indication: NG tube. Chest one view: Multiple images were acquired to visualize the NG tube which is shown to terminate in mid stomach. Impression: NG tube position mid stomach. PROCEDURE INTERPRETED AT [facility] DEPARTMENT OF RADIOLOGY Final Report Signed by: Clem Gates M.D.
--- NOTE | 2016-08-13 06:58 | XRay Report ---
XR chest 1V portable Indication: Intubated. Chest one view: Since yesterday, endotracheal tube, NG tube, central line, cardiomegaly are all unchanged. There is worsening hazy obscuration of the lung bases, especially on the right. Heart of this appears to be decreased pulmonary inflation. Impression: Worsening obscuration of the lung bases, likely combination of progressive atelectasis and pneumonia. PROCEDURE INTERPRETED AT [facility] DEPARTMENT OF RADIOLOGY Final Report Signed by: Clem Gates M.D.
--- NOTE | 2016-08-13 08:27 | Hospitalist Progress Note ---
Assessment and Plan (1) Altered mental status Status: Acute Assessment and plan: Aetiology is most likely multifactorial-sepsis, ETOH withdrawal 08/07/2016 Patient is still confused and gets agitated and combative every now and then. He stopped spiking temp but his blood is still growing MRSA despite on Vancomycin.He has a history of ETOH abuse. MRI of the brain reveals no acute abnormalities. Blood cultures reveals MRSA. A spinal tap reveals WBC count of 39 with 65% neutrophils, glucose 54, total protein 40, RBC less than 1. Gram stain negative, meningitis antigen panel is negative Echo report noted Toxicology: sent out, result is pending CT head showed no acute changes, Lumbar spine showed no acute fracture MRI Lumbar: No acute fracture or obvious abscess. Ammonia level- 34 08/08/2016 Mental status worsened yesterday warranting intubation. He is currently stable on the vent. 08/09/2016 Patient still intubated and sedated. Urine grew shayna Albicans,sputum grew yeast 08/10/2016 Patient appears comfortable on the vent. Subsequent BC are coming back negative 08/11/2016 Patient is stable on the vent, his eyes were opened but not to commands. Recent blood cultures- negative Herpes PCR is negative in the CSF. VASYL showed no clear evidence of valvular vegetation. It showed mitral regurgitation, aortic sclerosis without stenosis, ASCVD of descending aorta. 08/12/2016 patient is stable on the vent. He had a session of dialysis yesterday. Ampicillin, acyclovir,doxycycline, gentamicin have been dcd. 08/13/2016 He spiked a temp of 100.4 yesterday.Blood fungal study was negative. Plan repeat blood culture Continue current antibiotic regime Continue vent support, follow Neuro's recommendations. Current Visit: Yes (2) Hyperglycemia due to type 2 diabetes mellitus Status: Chronic Assessment and plan: 08/10/2016 Patient's tube feeding has been held for about 2days due to high residuals, his blood sugar has been trending downwards so the Lantus and 70/30 were held. -resume tube feeding after VASYL today, continue with SSC, will decide if and when to restart the long acting insulin. [id number] 08/11/2016 Patient is back on tube feeding. Blood sugar is rising again. We will resume lantus qhs at a low dose and titrate up. continue SSC and accuchecks. 08/12/2016 Blood sugar is poorly controlled. We will start 70/30 20uits qam and continue with Lantus. We will follow response. 08/13/2016 Blood sugar is poorly controlled. Will increase 70/30 to 30units qam and increase Lantus to 20units qhs, follow response. Current Visit: Yes (3) Acute renal failure Status: Acute Assessment and plan: 08/09/2016 Presence of blood and proteins in the urine is suggestive of an underlying glomerulonephritis as complication of the existing infection-infective endocarditis.Patient is also on drugs that are compulsory but nephrotoxic. Patient had 2units of blood with dialysis yesterday, he is meant to be dialysed again tomorrow. Nephrology is following-consider immunology studies-complement levels, antiglomerular basement membrane antibodies, antineutrophil cytoplasmic antibodies,complement levels. 08/10/2016 Renal USS showed no acute pathology, no hydronephrosis. Hepatitis C antibody-positive Rheumatoid factor is <15 08/11/2016 Patient was dialysed yesterday again. BUN/CR levels are slowly improving. Nephrotoxic agents-gentamycin, acyclovir have been dcd. Urine Labs-noted 08/12/2016 Patient had a session of hemo dialysis yesterday. 08/13/2016 Nephrology is following. Plan Continue to follow Nephrology's recommendations BMP in am Current Visit: Yes (4) Thrombocytopenia Status: Acute Assessment and plan: stable, cbc in am. Current Visit: Yes (5) HTN (hypertension) Status: Chronic Assessment and plan: poorly controlled,add hydralazine 25mg bid, follow response Current Visit: Yes Qualifiers: Hypertension type: essential hypertension Qualified Code(s): I10 - Essential (primary) hypertension (6) MRSA (methicillin resistant Staphylococcus aureus) septicemia Status: Acute Assessment and plan: 08/06/2016 He has not spiked temp since antibiotics have been switched to meningitis protocol. He still remains confused but WBC is slowly improving. Repeat blood culture still MRSA ? source-no known history of hardware in the body. CT chest showed mild left pleural effusion, moderate right pleural fluid, right fluid is partially loculated. Scattered opacities in both lungs concerning for atelectasis, pneumonia to r/o neoplastic process- Echo showed mild concentric left ventricular hypertrophy, grade 1 diastolic dysfunction with impaired relaxation overall EF of 60%.No evidence infective endocarditis. MRI of the brain reveals no acute abnormalities. Blood cultures reveals MRSA. A spinal tap reveals WBC count of 39 with 65% neutrophils, glucose 54, total protein 40, RBC less than 1. Gram stain negative, meningitis antigen panel is negative CT head showed no acute changes, Lumbar spine showed no acute fracture MRI Lumbar: No acute fracture or obvious abscess. 08/08/2016 Blood cultures x3- positive for MRSA pleural fluid-no growth so far- He had a thoracentesis yesterday and 600cc of fluid was drained genital fluid-no growth so far -Patient produced some greenish fluid from the genital yesterday. He also masturbated overnight but exam of the genital was un impressive except for a few erythematous maculopapular rash in the inner thigh. I spoke with ID specialist at [facility] yesterday, he felt we were doing everything right and he had nothing else to add so he didnt see the need to transfer 08/09/2016:Blood cultures taken on 08/07-showed no growth 08/10/2016: patient appears to be slowly improving clinically. The last two blood cultures were negative. 08/11/2016:many recent blood cultures have showed no growth.VASYL showed no vegetations 08/12/2016-No new changes 08/13/2016-Patient spiked a temp of 100.4 yesterday Plan -repeat blood cultures See treatment plan as stated above Current Visit: Yes (7) Septic shock Status: Acute Assessment and plan: 08/08/2016 Patient is no longer spiking but culturesx3-grew MRSA. We will continue to treat as Infective endocarditis. Echo showed a mild concentric left ventricular hypertrophy, grade 1 diastolic dysfunction with impaired relaxation overall EF of 60%.No evidence infective endocarditis 08/09/2016-Patient is stable, recent blood culture showed no growth. Levophed has been weaned off. 08/10/2016: patient is stable 08/11/2016:Patient is slowly improving clinically 08/12/2016; patient is stable 08/13/2016-patient spiked a temp yesterday. Plan repeat blood cultures See treatment plan above. Current Visit: Yes (8) Acute respiratory failure Status: Acute Assessment and plan: 08/08/2016- CT chest showed mild left pleural effusion, moderate right pleural fluid, right fluid is partially loculated. Scattered opacities in both lungs concerning for atelectasis, pneumonia to r/o neoplastic process- He had a thoracocentesis yesterday and about 600cc of blood tinged straw colored clear fluid was drained.the pleural fluid has not grown anything. 08/09/2016- Patient is stable on the vent, sputum grew yeast 08/10/2016-Patient is clinically stable on the vent.Pulm is following. 08/11/2016-Patient did poorly on CPAP trial yesterday, Pulm is following 08/12/2016-Defer to Pulmonology Plan continue vent support, IV antibiotics, pulm's recommendations. -Continue IV diflucan Current Visit: Yes (9) Infective endocarditis Status: Acute Assessment and plan: 08/09/2016 Per modified Manrique Criteria:Patient has met the following criteria:Major-Blood cultures positive for MRSA x3 Persistently positive blood cultures Minor Criteria Fever greater than 100.4 History of drug user Based on the Criteria above, patient will be treated as infective endocarditis.Patient has some petechiae on his left knee but I have not seen Janeway lesions, osler's nodes or marcano spots 08/10/2016 last two blood cultures-negative Patient to have a VASYL today C-reactive protein improving from 15.9 to 13.2 Rheumatoid factor-<15 Hepatitis C Ab-positive ESR-118 08/11/2016 VASYL showed no vegetations.Repeated blood cultures have been negative. 08/13/2016 patient spiked a temp of 100.4 yesterday Plan Repeat blood cultures continue with current antibiotic regime.I agree to dc gentamycin-no organism related to this is growing,and it is nephrotoxic. Current Visit: Yes (10) Yeast UTI Status: Acute Assessment and plan: continue with IV Diflucan -follow repeat UC Current Visit: Yes (11) Hepatitis C antibody test positive Status: Acute Assessment and plan: Liver USS- right pleural effusion,small ascites, gall bladder thickening most likely related to incomplete distention. Liver enzymes are unremarkable. Patient will need more workup as outpatient. Current Visit: Yes Hospitalist: Subjective Interval history: Patient seen. He spiked a temp of 100.4 yesterday.He also had a bronchoscopy done yesterday. Exam - Constitutional Vitals: Period Temp Pulse Resp BP Sys/Mcconnell Pulse Ox Last 24 Hr 97.9 F-99.4 F 69-94 15-32 132-164/51-78 94-99 General appearance: no acute distress, other (intubated and sedated) - Head Head exam: Present: normal inspection - Respiratory Respiratory exam: Present: decreased breath sounds - Cardiovascular Cardiovascular exam: Present: regular rate and rhythm - GI/Abdominal GI/Abdominal exam: Present: normal bowel sounds - Extremities Exam Extremities exam: Present: normal inspection Results - Labs CBC & BMP: 08/13/16 04:10 08/13/16 04:10 Lab Results: I have reviewed the past 24 hour labs
[2016-08-13] MEDS: CARVEDILOL 25 MG TABLET PO SCH ×2 (09:48→20:10)
[2016-08-13] MEDS: INSULIN ASPART PROTAMINE/ASPART 70/30 100 UNIT/ML SUBCUT SCH ×2 (09:48→14:14)
[2016-08-13] MEDS: PANTOPRAZOLE 40 MG VIAL IV SCH (09:48)
[2016-08-13] MEDS: amLODIPine 5 MG TABLET PO SCH (09:48)
[2016-08-13] MEDS: CLOTRIMAZOLE/BETAMETHASONE CREAM 15 GM TUBE TOP SCH ×3 (09:48→20:10)
[2016-08-13] MEDS: hydrALAZINE 25 MG TABLET PO SCH ×2 (09:48→20:10)
[2016-08-13] MEDS: DESITIN 4OZ/NYSTATIN 15 GRAM MIXTURE PASTE TOP SCH ×2 (09:57→20:10)
[2016-08-13] MEDS ORDERED: VANCOMYCIN INJ 750 MG in SODIUM CHLORIDE 0.9% 250 ML IV PRN (10:23)
--- NOTE | 2016-08-13 11:13 | Nephrology Progress Note ---
Nephrology - PN: Subj Interval history: He remains on the ventilator. Blood pressure is stable without pressors. He remains very oliguric Exam (PN)-Nephrology - Vital Signs Vital signs: Period Temp Pulse Resp BP Sys/Mcconnell Pulse Ox Last 24 Hr 97.6 F-99.4 F 69-79 18-32 132-168/51-78 95-99 Exam: Gen.: Sedated on ventilator ENT: Pupils equal round reactive to light. Neck: Supple. No JVD or bruit. Cardiovascular: Regular rate and rhythm. No murmur rub or gallop Lungs: Clear Abdomen: Soft. Nontender. Positive bowel sounds. No organomegaly Extremities: 1+ edema - Lab 08/13/16 04:10 08/13/16 04:10 Most recent lab results ABG pH 7.436 (7.35-7.45) 08/13/16 03:00 ABG pCO2 27.5 MM HG (35-48) L 08/13/16 03:00 ABG pO2 97.8 MM HG (80-95) H 08/13/16 03:00 ABG HCO3 20.5 MMOL/L (20-26) 08/13/16 03:00 ABG O2 Saturation 97.5 % (95-100) 08/13/16 03:00 Calcium 8.2 MG/DL (8.5-10.1) L 08/13/16 04:10 Phosphorus 8.8 MG/DL (2.5-4.9) H 08/10/16 03:00 Magnesium 2.5 MG/DL (1.8-2.4) H 08/13/16 04:10 Ur Total Protein 24 Hr 587 MG/24HR (0-149.1) H 08/10/16 16:40 Assessment and Plan (1) Acute renal failure Status: Acute Assessment and plan: 51-year-old man admitted with: * Acute renal failure. Dialysis today * Ventilatory failure. * Sepsis. Continue antibiotics * Confusion. * Diabetes mellitus * Chronic back pain Current Visit: Yes (2) Altered mental status Status: Acute Current Visit: Yes (3) Fever Status: Acute Current Visit: Yes (4) Hyperglycemia due to type 2 diabetes mellitus Status: Chronic Current Visit: Yes (5) Hypotension Status: Acute Current Visit: Yes
--- NOTE | 2016-08-13 11:16 | Pathology Report from [facility] ---
ACCESSION # : [id number] PATIENT NAME : Carmen Ball ORDERING DR : KANWAL CALLEJAS MD CLINICAL HX: Pneumonia POST-OP DX: Same SPECIMEN INFO: Washing,Bronchial,PETE - 35 ml's bloody, mucoid. CLASS: II CLASS COMMENTS: Reactive respiratory cells, inflammationCELL BLOCK: Same CLASS LEGEND: CLASS 0 Material inadequate for diagnosis because of (see comment) CLASS I Absence of atypical or abnormal cells CLASS II Atypical Cytology but no evidence of malignancy CLASS III Cytology suggestive of but not conclusive for malignancy CLASS IV Cytology strongly suggestive of malignancy CLASS V Cytology conclusive for malignancy SERVICE DATE: 08/12/2016 REPORT DATE: 08/13/2016 PATHOLOGIST: Pattie Noel
--- NOTE | 2016-08-13 11:33 | Pulmonology Progress Note ---
Pulmonary - PN: Subj Interval history: Salvador Bustamante, ANP-BC, GNP-BC, acting as scribe for Dr. Ric Pearson This is a 51-year-old white male who we saw in initial pulmonary consultation on 08/07/2016. Earlier that day he had experienced respiratory failure that required intubation and mechanical ventilation. We were asked to see him in pulmonary consultation to manage his mechanical ventilation and to treat pulmonary problems. At the time of our initial consultation, our impressions were: 1. Staph aureus sepsis. Etiology undetermined. Note the patient has a history of IV drug use. Look for SBE 2. Acute respiratory arrest. Etiology undetermined. Probably multifactorial. 3. Altered mental status 4. Renal failure 5. Anemia 6. Probable pyelonephritis. 7. See past history 08/08/2016. Today's chest x-ray shows small bilateral pleural effusions. ABGs on mechanical ventilation showed pH 7.335, PCO2 28, PO2 365 and a bicarb of 16.4. I am going to decrease the patient's FiO2 but leave him and a hyper ventilation state to help with his metabolic acidosis. Creatinine is 6.0 with a BUN of 83. Sodium is 146. Potassium 3.8. H&H is dropped to 7.3/22.0 white blood cell count is 13,100 with 85 segs 8 lymphs and 4 monocytes. Platelets are 243,000. Multiple blood cultures have been positive for staph aureus and nares cultures were positive for MRSA. 08/09/2016. Today's chest x-ray is stable. There are a few increased interstitial markings with mild associated atelectasis at both bases. On mechanical ventilation with an FiO2 of 50% pH is 7.386. PCO2 is 25.1. PO2 is 157 and bicarb is 17.5. Patient is on weaning protocol which will be accentuated today. Yesterday had dialysis catheters placed and he was on dialysis. Electrolytes are normal. Creatinine 6.6. BUN is 72. White blood cell count is dropped to 10,684% segs. H&H is 9.2/27.1. Platelets 222,000. Purulent drainage from the penis has not grown anything. Sputum shows showing no growth at 12 hours. RPR is nonreactive 08/10/2016. Today's chest x-ray shows a small amount of pleural effusions bilaterally. I do not see any definite infiltrates. Patient is not doing well on weaning trials. I have changed his CPAP to 5 a CPAP with a pressure support of 15. Today's ABGs on FiO2 50% mechanical ventilation shows a pH 7.41, PCO2 23 , PO2 of 123, bicarb 14.2. Creatinine remains elevated 7.80 with a BUN of 70. Sodium potassium and chloride are normal. Patient remains severely ill. Patient is on a lot of antibiotics. It is possible some of these could be consolidated. 08/11/2016. Chest x-ray is stable today patient is only a short time on CPAP yesterday and was noted to try to go longer. He had ultrasonics to and he was on dialysis. Ultrasound of the liver showed a right pleural effusion and small amount of ascites. There was gallbladder wall thickening most likely related to incomplete distention. ABGs are stable. There are no new positive cultures. This patient is only minimal right arousable 08/12/2016. This patient is not doing with his well with his weaning protocol. His chest x-ray today shows bibasilar atelectasis worse on the left as compared to the right. These are fairly new and progressive findings. Respiratory therapy is finding it hard to suction all of his secretions and these have become more thicker and more tenacious. It was elected to reevaluate this patient with fiberoptic bronchoscopy. See report. He had a tremendous amount of retained secretions and these were extremely tenacious and repeat completely occluded the suction channel of the scope. Hopefully after removal this will make his weaning process more efficacious. There are no new cultures. ABGs on mechanical ventilation FiO2 50% shows a pH of 7.48, PCO2 25, PO2 of 107 and a bicarb of 18. Electrolytes are normal. Creatinine is 5.90. Patient receives dialysis. CBC is stable. 08/13/2016. The patient was seen today along with his nurse KARSON Lakhani. Patient has been doing poorly with his ventilator weaning. However, presently he is doing fairly well. We spoke with the patient's son regarding possible need for tracheostomy placement. The family is agreeable if it comes to this. For the time being, we have held off consulting ENT and will see how he progresses today with his vent weaning. Hopefully we can avoid this if possible. We have informed the nursing staff, however, that if he does not do well today, to go ahead and consult Dr. De La Cruz for an elective trach. Bronchoscopy was done yesterday. Cytology is class II. None of the lavages have been reported (Gram stain, bacterial cultures, fungal stains and cultures, and AFB stain and cultures). Medications have been reviewed. We made no changes today. Labs have been reviewed. White count is 7600 with 78.5% segs; H&H 9.0/25.8; platelet count 243,000; creatinine 7.90, BUN 59, sodium 137, potassium 4.3, magnesium 2.5; random vancomycin level is 26.9 ABGs this morning on mechanical ventilation and an FiO2 of 50% showed a pH of 7.436, PCO2 27.5, PO2 97.8, bicarb 20.5, and oxygen saturation 97.5%. Exam (Progress Note) - Constitutional Vitals: Period Temp Pulse Resp BP Sys/Mcconnell Pulse Ox Last 24 Hr 97.6 F-99.4 F 69-79 18-32 132-168/51-78 95-99 Exam: Chest with mild loose large airway congestion Heart with a lateral PMI Abdomen is obese, but nondistended; rare bowel sounds Extremities show nothing to suggest acute deep venous thrombophlebitis Psychiatric/neurologic unchanged Plan: Continue ventilator weaning per protocol. Daily chest x-ray and ABGs while on the ventilator. Consider consultation with Dr. De La Cruz for elective trach if the patient is not able to progress on his weaning trials today. See orders. Results - Labs CBC & BMP: 08/13/16 04:10 08/13/16 04:10
[2016-08-13] MEDS ORDERED: VANCOMYCIN INJ 750 MG in SODIUM CHLORIDE 0.9% 250 ML IV ONE ×2 (13:30→21:00)
[2016-08-13] MEDS: FLUCONAZOLE INJ 200 MG in PREMIX 1 EACH IV SCH (13:45)
[2016-08-13] MEDS ORDERED: INSULIN GLARGINE 100 UNIT/ML SUBCUT SCH (21:00)
[2016-08-14] MEDS: ALBUTEROL/IPRATROPIUM 3 ML NEB RESP TX SCH ×4 (00:23→19:55)
[2016-08-14 03:30] LABS: ABG Base Excess -3.6 MMOL/L (-2.5-2.5); ABG HCO3 18.8 MMOL/L (20-26); ABG Oxygen Saturation 98.1 % (95-100); ABG PCO2 25.3 MM HG (35-48); ABG PH 7.488 (7.35-7.45); ABG PO2 120.8 MM HG (80-95); ABG TCO2 19.5 MMOL/L (23-27); Allen Test Positive; Pt O2 Delivery Device Ventilator
[2016-08-14] MEDS: cefTRIAXone 2,000 MG in SODIUM CHLORIDE 0.9% 100 ML IV SCH ×2 (04:23→15:54)
[2016-08-14 05:21] LABS: Basophils % 0.5 % (0.0-0.8); Eosinophils # 0.1 10*3/uL (0.0-0.87); Eosinophils % 1.2 % (0.00-10.9); Hematocrit 25.7 VOL% (42.0-52.0); Hemoglobin 8.6 GM/DL (14.0-18.0); Immature Granulocytes % 1.4 %; Immature Granulocytes Absolute 0.11 #; Lymphocytes # 0.9 10*3/uL (1.4-4.0); Lymphocytes % 11.1 % (21.2-54.2); Mean Corpuscular HGB Conc 33.5 GM/DL (32-36); Mean Corpuscular Hemoglobin 31 PG (27-34); Mean Corpuscular Volume 91.8 FL (87-102); Mean Platelet Volume 11.6 FL (9.6-12.0); Monocytes # 0.8 10*3/uL (0.11-0.8); Monocytes % 9.6 % (1.7-12.7); Neutrophils # 6.2 10*3/uL (1.4-7.4); Neutrophils % 76.2 % (38.7-73.9); Platelet Count 238 T/CUMM (130-400); White Blood Count 8.1 T/CUMM (4-12)
[2016-08-14 06:08] LABS: Magnesium 2.6 MG/DL (1.8-2.4); Phosphorous 8.1 MG/DL (2.5-4.9); Prealbumin 11.2 MG/DL (20-40)
[2016-08-14] MEDS: INSULIN REGULAR 100 UNIT/ML SUBCUT SCH ×3 (06:23→18:41)
[2016-08-14 06:59] LABS: Calcium 8.2 MG/DL (8.5-10.1); Osmolality,Calculated 291.2 MOS/KG (273-304); Potassium 4.5 MMOL/L (3.5-5.1)
--- NOTE | 2016-08-14 07:15 | XRay Report ---
XR chest 1V portable Indication: Intubated. Chest one view: Since yesterday, there appears to be an NG tube now present extending barely in the left upper quadrant. Consider advancing slightly. Endotracheal tube, borderline cardiomegaly and hazy obscuration of both lung bases is stable. No new infiltrates seen. Impression: NG tube appears to barely enter the upper portion of the stomach. Consider advancing slightly. Otherwise no change. PROCEDURE INTERPRETED AT [facility] Final Report Signed by: Clem Gates M.D.
--- NOTE | 2016-08-14 08:59 | Consultation ---
Assessment and Plan - Time spent with patient Time spent with patient: Less than 30 minutes (1) Ventilator dependence Status: Acute Assessment and plan: I recommend tracheostomy placement. We will obtain consent and he is currently n.p.o. so we will place him on the schedule for later today. Thank you very much for this consult I will intermittently follow this patient throughout his stay. Current Visit: Yes (2) Respiratory failure, chronic Status: Acute Current Visit: Yes History of Present Illness - Data of Consult Patient: new to practice Consult date: 08/14/16 Requesting Physician: Ric Pearson - Consult Narrative Reason for consult: Ventilator dependent respiratory failure History of present illness: Mr. Ball is a 51 year old male with multiple medical comorbidities who is tried and failed weaning trials from the ventilator he is in need of tracheostomy placement for continued rehab. ENT is consulted to evaluate and treat CC: Zoya Ramos MD - Home Medications and Allergies Home Medications: Home Medications Medication Instructions Recorded Confirmed Type Insulin Aspart Prot/Asp 70/30 40 unit SUBCUT BID 07/31/16 07/31/16 History [NovoLOG Mix 70/30] Insulin Aspart [NovoLOG] See Protocol SUBCUT ACHS 07/31/16 07/31/16 History Lisinopril/Hydrochlorothiazide 1 each PO DAILY 07/31/16 07/31/16 History [Lisinopril-Hctz 20-25 mg Tab] Allergies/Adverse Reactions: Allergies Allergy/AdvReac Type Severity Reaction Status Date / Time Sulfa (Sulfonamide AdvReac Unknown/Unable Verified 07/30/16 23:04 Antibiotics) to obtain ROS unobtainable: due to endotracheal tube Medical,Surgical,& Family Hx - Medical History Cardio: History of: Hypertension Endocrine: History of: Diabetes Mellitus (IDDM), Dyslipidemia Renal: History of: Renal Problems Musculoskeletal: History of: Degenerative Disk Disease, Herniated Disk - Surgical History Orthopedic Surgeries: Surgical HX of;: Orthopedic Surgery - Family History Family History: Reports;: Family Hypertension - Social History Smoking Status: Current every day smoker Frequency of Alcohol Use: Frequently Type of Drug Use: Unknown Exam - Constitutional Vitals: Period Temp Pulse Resp BP Sys/Mcconnell Pulse Ox Last 24 Hr 97.4 F-99.5 F 65-84 18-48 116-171/59-93 93-100 General appearance: normal weight, other (Intubated and sedated) - Head Head exam: Present: normal inspection, normocephalic - ENT ENT exam: Present: normal exam, normal external ear exam, normal oropharynx, other (Overall and obscured exam secondary to endotracheal and nasogastric tube placement) - Neck Neck exam: Present: normal inspection - Respiratory Respiratory exam: Present: other (Currently intubated and on a ventilator) - Cardiovascular Cardiovascular exam: Present: regular rate and rhythm - GI/Abdominal GI/Abdominal exam: Present: soft (No gross organomegaly) - Extremities Exam Extremities exam: Present: normal inspection - Neurological Exam Neurological exam: Present: other (Intubated and sedated) - Psychiatric Psychiatric exam: Present: other (Intubated and sedated) - Skin Skin exam: Present: normal color, warm Results - Labs CBC & BMP: 08/14/16 04:15 08/14/16 04:15 Lab Results: I have reviewed the past 24 hour labs
[2016-08-14] MEDS: PANTOPRAZOLE 40 MG VIAL IV SCH (10:08)
[2016-08-14] MEDS: amLODIPine 5 MG TABLET PO SCH (10:08)
[2016-08-14] MEDS: CARVEDILOL 25 MG TABLET PO SCH ×2 (10:09→21:20)
[2016-08-14] MEDS: PROPOFOL 1,000 MG/100 ML BOTTLE IV SCH (10:09)
[2016-08-14] MEDS: hydrALAZINE 25 MG TABLET PO SCH ×2 (10:09→21:21)
[2016-08-14] MEDS: INSULIN ASPART PROTAMINE/ASPART 70/30 100 UNIT/ML SUBCUT SCH (10:09)
[2016-08-14] MEDS: DESITIN 4OZ/NYSTATIN 15 GRAM MIXTURE PASTE TOP SCH ×2 (10:10→21:21)
[2016-08-14] MEDS: CLOTRIMAZOLE/BETAMETHASONE CREAM 15 GM TUBE TOP SCH ×3 (10:10→21:21)
--- NOTE | 2016-08-14 10:21 | Hospitalist Progress Note ---
Assessment and Plan (1) Altered mental status Status: Acute Assessment and plan: Aetiology is most likely multifactorial-sepsis, ETOH withdrawal 08/07/2016 Patient is still confused and gets agitated and combative every now and then. He stopped spiking temp but his blood is still growing MRSA despite on Vancomycin.He has a history of ETOH abuse. MRI of the brain reveals no acute abnormalities. Blood cultures reveals MRSA. A spinal tap reveals WBC count of 39 with 65% neutrophils, glucose 54, total protein 40, RBC less than 1. Gram stain negative, meningitis antigen panel is negative Echo report noted Toxicology: sent out, result is pending CT head showed no acute changes, Lumbar spine showed no acute fracture MRI Lumbar: No acute fracture or obvious abscess. Ammonia level- 34 08/08/2016 Mental status worsened yesterday warranting intubation. He is currently stable on the vent. 08/09/2016 Patient still intubated and sedated. Urine grew shayna Albicans,sputum grew yeast 08/10/2016 Patient appears comfortable on the vent. Subsequent BC are coming back negative 08/11/2016 Patient is stable on the vent, his eyes were opened but not to commands. Recent blood cultures- negative Herpes PCR is negative in the CSF. VASYL showed no clear evidence of valvular vegetation. It showed mitral regurgitation, aortic sclerosis without stenosis, ASCVD of descending aorta. 08/12/2016 patient is stable on the vent. He had a session of dialysis yesterday. Ampicillin, acyclovir,doxycycline, gentamicin have been dcd. 08/13/2016 He spiked a temp of 100.4 yesterday.Blood fungal study was negative. 08/14/2016 His sedation has been turned off since 4am.His eyes are open but he doesn't obey commands. Repeat BC- negative, repeat UC-still growing yeast Plan CT head Continue current antibiotic regime Continue vent support, follow Neuro's recommendations. Current Visit: Yes (2) Hyperglycemia due to type 2 diabetes mellitus Status: Chronic Assessment and plan: 08/10/2016 Patient's tube feeding has been held for about 2days due to high residuals, his blood sugar has been trending downwards so the Lantus and 70/30 were held. -resume tube feeding after VASYL today, continue with SSC, will decide if and when to restart the long acting insulin. [id number] 08/11/2016 Patient is back on tube feeding. Blood sugar is rising again. We will resume lantus qhs at a low dose and titrate up. continue SSC and accuchecks. 08/12/2016 Blood sugar is poorly controlled. We will start 70/30 20uits qam and continue with Lantus. We will follow response. 08/13/2016 Blood sugar is poorly controlled. Will increase 70/30 to 30units qam and increase Lantus to 20units qhs, follow response. 08/14/2016 Blood sugar is still poorly controlled. Will increase 70/30 to 40units qam, increase Lantus to 30units qhs, follow response Current Visit: Yes (3) Acute renal failure Status: Acute Assessment and plan: 08/09/2016 Presence of blood and proteins in the urine is suggestive of an underlying glomerulonephritis as complication of the existing infection-infective endocarditis.Patient is also on drugs that are compulsory but nephrotoxic. Patient had 2units of blood with dialysis yesterday, he is meant to be dialysed again tomorrow. Nephrology is following-consider immunology studies-complement levels, antiglomerular basement membrane antibodies, antineutrophil cytoplasmic antibodies,complement levels. 08/10/2016 Renal USS showed no acute pathology, no hydronephrosis. Hepatitis C antibody-positive Rheumatoid factor is <15 08/11/2016 Patient was dialysed yesterday again. BUN/CR levels are slowly improving. Nephrotoxic agents-gentamycin, acyclovir have been dcd. Urine Labs-noted 08/12/2016 Patient had a session of hemo dialysis yesterday. 08/13/2016 Nephrology is following. 08/14/2016 Patient is still oliguric, he was dialysed yesterday, Nephrology is following. Plan Continue to follow Nephrology's recommendations BMP in am Current Visit: Yes (4) Thrombocytopenia Status: Acute Assessment and plan: stable, cbc in am. Current Visit: Yes (5) HTN (hypertension) Status: Chronic Assessment and plan: continue with current regime Current Visit: Yes Qualifiers: Hypertension type: essential hypertension Qualified Code(s): I10 - Essential (primary) hypertension (6) MRSA (methicillin resistant Staphylococcus aureus) septicemia Status: Acute Assessment and plan: 08/06/2016 He has not spiked temp since antibiotics have been switched to meningitis protocol. He still remains confused but WBC is slowly improving. Repeat blood culture still MRSA ? source-no known history of hardware in the body. CT chest showed mild left pleural effusion, moderate right pleural fluid, right fluid is partially loculated. Scattered opacities in both lungs concerning for atelectasis, pneumonia to r/o neoplastic process- Echo showed mild concentric left ventricular hypertrophy, grade 1 diastolic dysfunction with impaired relaxation overall EF of 60%.No evidence infective endocarditis. MRI of the brain reveals no acute abnormalities. Blood cultures reveals MRSA. A spinal tap reveals WBC count of 39 with 65% neutrophils, glucose 54, total protein 40, RBC less than 1. Gram stain negative, meningitis antigen panel is negative CT head showed no acute changes, Lumbar spine showed no acute fracture MRI Lumbar: No acute fracture or obvious abscess. 08/08/2016 Blood cultures x3- positive for MRSA pleural fluid-no growth so far- He had a thoracentesis yesterday and 600cc of fluid was drained genital fluid-no growth so far -Patient produced some greenish fluid from the genital yesterday. He also masturbated overnight but exam of the genital was un impressive except for a few erythematous maculopapular rash in the inner thigh. I spoke with ID specialist at [facility] yesterday, he felt we were doing everything right and he had nothing else to add so he didnt see the need to transfer 08/09/2016:Blood cultures taken on 08/07-showed no growth 08/10/2016: patient appears to be slowly improving clinically. The last two blood cultures were negative. 08/11/2016:many recent blood cultures have showed no growth.VASYL showed no vegetations 08/12/2016-No new changes 08/13/2016-Patient spiked a temp of 100.4 yesterday 08/14/2016: repeat blood culture is negative Plan - See treatment plan as stated above Current Visit: Yes (7) Septic shock Status: Acute Assessment and plan: 08/08/2016 Patient is no longer spiking but culturesx3-grew MRSA. We will continue to treat as Infective endocarditis. Echo showed a mild concentric left ventricular hypertrophy, grade 1 diastolic dysfunction with impaired relaxation overall EF of 60%.No evidence infective endocarditis 08/09/2016-Patient is stable, recent blood culture showed no growth. Levophed has been weaned off. 08/10/2016: patient is stable 08/11/2016:Patient is slowly improving clinically 08/12/2016; patient is stable 08/13/2016-patient spiked a temp yesterday. 08/14/2016-Repeat blood culture is negative. Patient has been afebrile for the last 24hrs. Plan See treatment plan above. Current Visit: Yes (8) Acute respiratory failure Status: Acute Assessment and plan: 08/08/2016- CT chest showed mild left pleural effusion, moderate right pleural fluid, right fluid is partially loculated. Scattered opacities in both lungs concerning for atelectasis, pneumonia to r/o neoplastic process- He had a thoracocentesis yesterday and about 600cc of blood tinged straw colored clear fluid was drained.the pleural fluid has not grown anything. 08/09/2016- Patient is stable on the vent, sputum grew yeast 08/10/2016-Patient is clinically stable on the vent.Pulm is following. 08/11/2016-Patient did poorly on CPAP trial yesterday, Pulm is following 08/12/2016-Defer to Pulmonology 07/27/2016: Patient has failed CPAP trials, Pulm wants him to have a trach. Plan For trach placement,continue vent support, IV antibiotics, pulm's recommendations. -Continue IV diflucan Current Visit: Yes (9) Infective endocarditis Status: Acute Assessment and plan: 08/09/2016 Per modified Manrique Criteria:Patient has met the following criteria:Major-Blood cultures positive for MRSA x3 Persistently positive blood cultures Minor Criteria Fever greater than 100.4 History of drug user Based on the Criteria above, patient will be treated as infective endocarditis.Patient has some petechiae on his left knee but I have not seen Janeway lesions, osler's nodes or marcano spots 08/10/2016 last two blood cultures-negative Patient to have a VASYL today C-reactive protein improving from 15.9 to 13.2 Rheumatoid factor-<15 Hepatitis C Ab-positive ESR-118 08/11/2016 VASYL showed no vegetations.Repeated blood cultures have been negative. 08/13/2016 patient spiked a temp of 100.4 yesterday 08/14/2016 Repeat blood cultures are negative Plan continue with current antibiotic regime.I agree to dc gentamycin-no organism related to this is growing,and it is nephrotoxic. Current Visit: Yes (10) Yeast UTI Status: Acute Assessment and plan: Repeat UC grew yeast Plan continue with IV Diflucan Current Visit: Yes (11) Hepatitis C antibody test positive Status: Acute Assessment and plan: Liver USS- right pleural effusion,small ascites, gall bladder thickening most likely related to incomplete distention. Liver enzymes are unremarkable. Patient will need more workup as outpatient. Current Visit: Yes Hospitalist: Subjective Interval history: Patient seen on the vent. He has swollen limbs, he has failed CPAP trials and Pulmonology is now saying he needs a trach. He is not really making urine, he was dialysed yesterday.His sedation has been turned off since 4am. He opens his eyes but doesn't obey commands. Exam - Constitutional Vitals: Period Temp Pulse Resp BP Sys/Mcconnell Pulse Ox Last 24 Hr 97.4 F-99.5 F 65-84 21-48 116-171/59-93 93-100 General appearance: no acute distress, other - Respiratory Respiratory exam: Present: clear to auscultation bilaterally - Cardiovascular Cardiovascular exam: Present: regular rate and rhythm - GI/Abdominal GI/Abdominal exam: Present: normal bowel sounds - Extremities Exam Extremities exam: Present: edema - Neurological Exam Neurological exam: Present: other Results - Labs CBC & BMP: 08/14/16 04:15 08/14/16 04:15 Lab Results: I have reviewed the past 24 hour labs
--- NOTE | 2016-08-14 10:30 | Pulmonology Progress Note ---
Pulmonary - PN: Subj Interval history: This is a 51-year-old white male whom I saw in pulmonary consultation on 2016. Earlier that day he had experienced respiratory failure that required intubation mechanical ventilation and I was asked to see him in pulmonary consultation to manage his mechanical ventilation and to treat pulmonary problems. My impressions were. 1. Staph aureus sepsis. Etiology undetermined. Note the patient has a history of IV drug use. Look for SBE 2. Acute respiratory arrest. Etiology undetermined. Probably multifactorial. 3. Altered mental status 4. Renal failure 5. Anemia 6. Probable pyelonephritis. 7. See past history 08/08/2016. Today's chest x-ray shows small bilateral pleural effusions. ABGs on mechanical ventilation showed pH 7.335, PCO2 28, PO2 365 and a bicarb of 16.4. I am going to decrease the patient's FiO2 but leave him and a hyper ventilation state to help with his metabolic acidosis. Creatinine is 6.0 with a BUN of 83. Sodium is 146. Potassium 3.8. H&H is dropped to 7.3/22.0 white blood cell count is 13,100 with 85 segs 8 lymphs and 4 monocytes. Platelets are 243,000. Multiple blood cultures have been positive for staph aureus and nares cultures were positive for MRSA. 08/09/2016. Today's chest x-ray is stable. There are a few increased interstitial markings with mild associated atelectasis at both bases. On mechanical ventilation with an FiO2 of 50% pH is 7.386. PCO2 is 25.1. PO2 is 157 and bicarb is 17.5. Patient is on weaning protocol which will be accentuated today. Yesterday had dialysis catheters placed and he was on dialysis. Electrolytes are normal. Creatinine 6.6. BUN is 72. White blood cell count is dropped to 10,684% segs. H&H is 9.2/27.1. Platelets 222,000. Purulent drainage from the penis has not grown anything. Sputum shows showing no growth at 12 hours. RPR is nonreactive 08/10/2016. Today's chest x-ray shows a small amount of pleural effusions bilaterally. I do not see any definite infiltrates. Patient is not doing well on weaning trials. I have changed his CPAP to 5 a CPAP with a pressure support of 15. Today's ABGs on FiO2 50% mechanical ventilation shows a pH 7.41, PCO2 23 , PO2 of 123, bicarb 14.2. Creatinine remains elevated 7.80 with a BUN of 70. Sodium potassium and chloride are normal. Patient remains severely ill. Patient is on a lot of antibiotics. It is possible some of these could be consolidated. 08/11/2016. Chest x-ray is stable today patient is only a short time on CPAP yesterday and was noted to try to go longer. He had ultrasonics to and he was on dialysis. Ultrasound of the liver showed a right pleural effusion and small amount of ascites. There was gallbladder wall thickening most likely related to incomplete distention. ABGs are stable. There are no new positive cultures. This patient is only minimal right arousable 08/12/2016. This patient is not doing with his well with his weaning protocol. His chest x-ray today shows bibasilar atelectasis worse on the left as compared to the right. These are fairly new and progressive findings. Respiratory therapy is finding it hard to suction all of his secretions and these have become more thicker and more tenacious. It was elected to reevaluate this patient with fiberoptic bronchoscopy. See report. He had a tremendous amount of retained secretions and these were extremely tenacious and repeat completely occluded the suction channel of the scope. Hopefully after removal this will make his weaning process more efficacious. There are no new cultures. ABGs on mechanical ventilation FiO2 50% shows a pH of 7.48, PCO2 25, PO2 of 107 and a bicarb of 18. Electrolytes are normal. Creatinine is 5.90. Patient receives dialysis. CBC is stable. 08/14/2016. On 08/13/2016 talked with this patient's son by phone and told him that he needed a trach. He wanted to talk to his sister and she was also agreeable and the call back the patient's nurse Lesiva and gave permission to proceed with trach. Dr. Valle all will place a trach later today. We have discussed the case. This patient has had staph sepsis. Etiology is undetermined. There is a past history of IV drug abuse. He has not done well with his weaning trials. Yesterday 2 or 3 occasions she was able to do CPAP for 1 hour which was a big improvement. He clearly has an altered mental status that has not resolved as expected. He is for CT of the chest later on today. Patient has renal failure and is on dialysis. His family is from [place] and he will eventually require long-term acute care. Location of that is yet to be determined. guest services director is on the case. Patient was evaluated with fiberoptic bronchoscopy on 08/12/2016. There are no positive cultures. He had a tremendous amount of retained sick secretions that were very tenacious and completely occluded the suction channel of the scope on multiple occasions. He may require repeat bronchoscopy in a few days. ABGs on mechanical ventilation FiO2 50% show a pH 7.49, PCO2 25, PO2 120, bicarb of 19. Electrolytes are normal. Creatinine 7.4. White count is 8176 segs 11 lymphs and 10 monos. H&H is stable at 8.6/25.7. After the patient's trach is placed today we will continue all protocols including weaning protocol physical therapy protocol deep venous thrombophlebitis protocol. Physical exam. Vital signs. See below Chest. Loose large airway congestion Heart. Lateral PMI Abdomen. Rare bowel sounds Lower extremities. Nothing to suggest deep venous thrombophlebitis Neck. No masses and no meningismus. Neurologic.. Very difficult exam. Patient can be aroused. He moves all 4 extremities. Cranial nerves appear to be intact The remainder the physical exam is negative Plan. 1. Mechanical ventilator weaning protocol 2. Physical therapy protocol while on mechanical ventilation 3. Deep venous thrombophlebitis prevention protocol 4. Proton pump inhibitor protocol 5. Urinalysis and urine culture. 6. Sputum for Gram stain culture and sensitivity 7. See orders. #8. See my note 08/12/2016. Exam (Progress Note) - Constitutional Vitals: Period Temp Pulse Resp BP Sys/Mcconnell Pulse Ox Last 24 Hr 97.4 F-99.5 F 65-84 21-48 116-171/59-93 93-100 Results - Labs CBC & BMP: 08/14/16 04:15 08/14/16 04:15
--- NOTE | 2016-08-14 10:49 | CT Report ---
CT head/brain wo con Indication: Altered mental status Comparison: CT brain dated August 03, 2016 Technique: Multiple axial tomographic images of the brain were obtained without the use of intravenous contrast. Findings: Midline structures are nondisplaced. There is no acute intracranial hemorrhage or evidence of hydrocephalus. Mild global volume loss present. Small fluid within the sphenoid sinus. Bilateral mastoid effusions, right greater than left. IMPRESSION: Small fluid within the sphenoid sinus. This could be related to nasogastric tube or acute sinusitis. Bilateral mastoid effusions, right greater than left. Clinically correlate for otomastoiditis. No acute intracranial abnormality demonstrated otherwise. PROCEDURE INTERPRETED AT [facility] DEPARTMENT OF RADIOLOGY Final Report Signed by: Dr Giorgi Pryor
[2016-08-14] MEDS ORDERED: INSULIN ASPART PROTAMINE/ASPART 70/30 100 UNIT/ML SUBCUT SCH (10:52)
--- NOTE | 2016-08-14 11:22 | Nephrology Progress Note ---
Nephrology - PN: Subj Interval history: He remains on the ventilator. He is poorly responsive. Blood pressure is stable Exam (PN)-Nephrology - Vital Signs Vital signs: Period Temp Pulse Resp BP Sys/Mcconnell Pulse Ox Last 24 Hr 97.4 F-99.5 F 65-97 21-48 116-171/64-93 93-100 Exam: Gen.: Sedated on ventilator ENT: Pupils equal round reactive to light. Neck: Supple. No JVD or bruit. Cardiovascular: Regular rate and rhythm. No murmur rub or gallop Lungs: Clear Abdomen: Soft. Nontender. Positive bowel sounds. No organomegaly Extremities: Trace edema - Lab 08/14/16 04:15 08/14/16 04:15 Most recent lab results ABG pH 7.488 (7.35-7.45) H 08/14/16 03:10 ABG pCO2 25.3 MM HG (35-48) L 08/14/16 03:10 ABG pO2 120.8 MM HG (80-95) H 08/14/16 03:10 ABG HCO3 18.8 MMOL/L (20-26) L 08/14/16 03:10 ABG O2 Saturation 98.1 % (95-100) 08/14/16 03:10 Calcium 8.2 MG/DL (8.5-10.1) L 08/14/16 04:15 Phosphorus 8.1 MG/DL (2.5-4.9) H 08/14/16 04:15 Magnesium 2.6 MG/DL (1.8-2.4) H 08/14/16 04:15 Ur Total Protein 24 Hr 587 MG/24HR (0-149.1) H 08/10/16 16:40 Assessment and Plan (1) Acute renal failure Status: Acute Assessment and plan: 51-year-old man admitted with: * Acute renal failure. Dialysis tomorrow * Ventilatory failure. Tracheostomy today * Sepsis. Continue antibiotics * Confusion. * Diabetes mellitus * Chronic back pain Current Visit: Yes (2) Altered mental status Status: Acute Current Visit: Yes (3) Fever Status: Acute Current Visit: Yes (4) Hyperglycemia due to type 2 diabetes mellitus Status: Chronic Current Visit: Yes (5) Hypotension Status: Acute Current Visit: Yes
[2016-08-14] MEDS: FLUCONAZOLE INJ 200 MG in PREMIX 1 EACH IV SCH (11:57)
[2016-08-14] MEDS ORDERED: LIDOCAINE 2%/EPI 20 ML VIAL ONE (12:47)
[2016-08-14] MEDS ORDERED: THROMBIN TOPICAL (RECOMBINANT) 5,000 UNIT VIAL TOP ONE (12:48)
[2016-08-14] MEDS ORDERED: MICROFIBRILLAR COLLAGEN POWDER 1 GM CAN TOP ONE (12:48)
[2016-08-14] MEDS ORDERED: ROCURONIUM 100 MG/10 ML VIAL IV ONE (13:05)
[2016-08-14] MEDS ORDERED: PHENYLEPHRINE 1 MG/10 ML SYRINGE IV ONE (13:05)
[2016-08-14] MEDS ORDERED: ePHEDrine 50 MG/ML AMP ONE (14:09)
[2016-08-14] MEDS ORDERED: SEVOFLURANE 1 UNIT/15 MINUTE INH ONE (14:09)
[2016-08-14] MEDS ORDERED: MIDAZOLAM 2 MG/2 ML VIAL ONE (14:09)
[2016-08-14] MEDS ORDERED: fentaNYL 100 MCG/2 ML VIAL ONE (14:09)
--- NOTE | 2016-08-14 14:49 | Anesthesia ---
Anesthesia Post OP - Post Ansesthetic Evaluation Patient seen in post op: Yes Resp: within normal limits (vent) CV: within normal limits Mental: within normal limits Temp: within normal limits [id number]: within normal limits Nausea and Vomiting: within normal limits Pain: within normal limits
[2016-08-14] MEDS ORDERED: INSULIN GLARGINE 100 UNIT/ML SUBCUT SCH (21:00)
[2016-08-15] MEDS: INSULIN REGULAR 100 UNIT/ML SUBCUT SCH ×4 (00:17→18:02)
[2016-08-15] MEDS: ALBUTEROL/IPRATROPIUM 3 ML NEB RESP TX SCH ×4 (00:38→19:08)
[2016-08-15 02:50] LABS: ABG Base Excess -5.8 MMOL/L (-2.5-2.5); ABG HCO3 19.6 MMOL/L (20-26); ABG Oxygen Saturation 96.6 % (95-100); ABG PCO2 28.6 MM HG (35-48); ABG PH 7.407 (7.35-7.45); ABG PO2 90.6 MM HG (80-95); ABG TCO2 16.6 MMOL/L (23-27); Allen Test Positive; Pt O2 Delivery Device Ventilator
[2016-08-15 03:40] LABS: Basophils % 0.3 % (0.0-0.8); Eosinophils # 0.1 10*3/uL (0.0-0.87); Eosinophils % 1.1 % (0.00-10.9); Hematocrit 25.9 VOL% (42.0-52.0); Hemoglobin 8.5 GM/DL (14.0-18.0); Immature Granulocytes % 0.9 %; Immature Granulocytes Absolute 0.08 #; Lymphocytes # 0.7 10*3/uL (1.4-4.0); Lymphocytes % 8.3 % (21.2-54.2); Mean Corpuscular HGB Conc 32.8 GM/DL (32-36); Mean Corpuscular Hemoglobin 31 PG (27-34); Mean Corpuscular Volume 94.2 FL (87-102); Mean Platelet Volume 11.2 FL (9.6-12.0); Monocytes # 0.8 10*3/uL (0.11-0.8); Monocytes % 9.4 % (1.7-12.7); Platelet Count 223 T/CUMM (130-400); Red Blood Count 2.75 MC/CUMM (3.8-5.5); Red Cell Distribution Width 14.4 % (9.3-17.3); White Blood Count 8.7 T/CUMM (4-12)
[2016-08-15 04:10] LABS: Calcium 8.3 MG/DL (8.5-10.1)
[2016-08-15] MEDS: cefTRIAXone 2,000 MG in SODIUM CHLORIDE 0.9% 100 ML IV SCH ×2 (05:12→15:13)
--- NOTE | 2016-08-15 07:03 | Pulmonology Progress Note ---
Pulmonary - PN: Subj Interval history: Patient is a 51-year-old white man that has been on the ventilator after having staph sepsis. He has developed renal failure and is on dialysis. Yesterday he had a tracheostomy tube placed without any problems. He is starting to do CPAP trials. At present he is reasonably stable on the ventilator. His chest x-ray still shows bibasilar infiltrates. Exam (Progress Note) - Constitutional Vitals: Period Temp Pulse Resp BP Sys/Mcconnell Pulse Ox Last 24 Hr 97.2 F-99.5 F 67-97 16-27 103-167/49-88 93-99 General appearance: over weight, other (Patient is sedated on the ventilator) - Head Head exam: Present: normal inspection - Eye Eye exam: Present: EOMI. Absent: scleral icterus Pupils: Present: NANY - ENT ENT exam: Present: normal exam, other (He does have a feeding tube in place.) - Neck Neck exam: Present: other (The patient has a tracheostomy tube in place). Absent: lymphadenopathy, thyromegaly - Respiratory Respiratory exam: Present: rhonchi, other (Patient has coarse breath sounds bilaterally with some rhonchi.) - Cardiovascular Cardiovascular exam: Present: regular rate and rhythm. Absent: gallop, systolic murmur - GI/Abdominal GI/Abdominal exam: Present: normal bowel sounds, soft. Absent: organomegaly, tenderness - Extremities Exam Extremities exam: Absent: calf tenderness, edema - Neurological Exam Neurological exam: Present: other (Patient does respond to move his extremities. ) - Skin Skin exam: Present: warm, dry Results - Labs CBC & BMP: 08/15/16 03:33 08/15/16 03:33 Labs: PO2 is 90 with a PCO2 28 and a pH of 7.4 - Diagnostic Findings Procedure: Chest x-ray: image reviewed by me, report reviewed by me (Still has bibasilar infiltrates.) Assessment and Plan (1) Acute renal failure Status: Acute Assessment and plan: Patient's creatinine is 9 and he has been getting dialysis. Current Visit: Yes (2) Septic shock Status: Acute Assessment and plan: The patient presented with septic shock and is stabilized now. Current Visit: Yes (3) Hepatitis C antibody test positive Status: Acute Assessment and plan: The patient has a history of positive hepatitis C antibody Current Visit: Yes (4) Ventilator dependence Status: Acute Assessment and plan: Patient has been on the ventilator now has a tracheostomy tube Current Visit: Yes (5) Respiratory failure, chronic Status: Acute Assessment and plan: Patient is starting to do CPAP trials and is fairly stable on the ventilator. Current Visit: Yes
--- NOTE | 2016-08-15 07:17 | XRay Report ---
Exam: XR chest 1V portable Date: 08/15/2016 4:00 AM Indication: Follow-up ventilator respiratory failure Comparison: 08/14/2016 Technical: AP portable Findings: Tracheostomy tube is present. Nasogastric traverses esophagus. A right IJ catheter is in the superior vena cava. Low volume effusions are present with mild cardiomegaly. External cardiac leads are present. The mediastinum is otherwise intact. Impression: 1. Stable appearance of life support tubing 2. Persistent low volume effusions and atelectatic change in both bases with associated cardiac enlargement. PROCEDURE INTERPRETED AT [facility] DEPARTMENT OF RADIOLOGY Final Report Signed by: Dr. Ric Crowley
--- NOTE | 2016-08-15 08:42 | Hospitalist Progress Note ---
Assessment and Plan (1) Altered mental status Status: Acute Assessment and plan: Aetiology is most likely mainly due to MRSA sepsis. Most recent CT showed no acute changes. Patient now opens eyes to command. Plan continue current care PT/OT consult 3 Current Visit: Yes (2) Hyperglycemia due to type 2 diabetes mellitus Status: Chronic Assessment and plan: Blood sugar is still somewhat high.Will increase 70/30 to 50units qam, Lantus to 40units qhs, follow response. Current Visit: Yes (3) Acute renal failure Status: Acute Assessment and plan: continue dialysis. Nephrology is following.Bmp in am Current Visit: Yes (4) Thrombocytopenia Status: Acute Assessment and plan: stable, cbc in am. Current Visit: Yes (5) HTN (hypertension) Status: Chronic Assessment and plan: continue with current regime Current Visit: Yes Qualifiers: Hypertension type: essential hypertension Qualified Code(s): I10 - Essential (primary) hypertension (6) MRSA (methicillin resistant Staphylococcus aureus) septicemia Status: Acute Assessment and plan: Most recent blood cultures have been negative. Patient had a fever of 100.3 this am -Will continue to treat as IE, continue current IV antibiototic regime -repeat blood cultures Current Visit: Yes (7) Septic shock Status: Acute Assessment and plan: Patient spiked a temp of 100.3 this am. See treatment plan above. Current Visit: Yes (8) Acute respiratory failure Status: Acute Assessment and plan: SC was positive for shayna albicans. He had a trach placed yesterday and he is now tolerating CPAP trials. Plan continue to follow Pulm's recommendations Continue with IV antibiotics and IV Diflucan Current Visit: Yes (9) Infective endocarditis Status: Acute Assessment and plan: 08/09/2016 Per modified Manrique Criteria:Patient has met the following criteria:Major-Blood cultures positive for MRSA x3 Persistently positive blood cultures Minor Criteria Fever greater than 100.4 History of drug user Based on the Criteria above, patient will be treated as infective endocarditis.Patient has some petechiae on his left knee but I have not seen Janeway lesions, osler's nodes or marcano spots 08/10/2016 last two blood cultures-negative Patient to have a VASYL today C-reactive protein improving from 15.9 to 13.2 Rheumatoid factor-<15 Hepatitis C Ab-positive ESR-118 08/11/2016 VASYL showed no vegetations.Repeated blood cultures have been negative. 08/13/2016 patient spiked a temp of 100.4 yesterday 08/14/2016 Repeat blood cultures are negative 08/15/2016 patient spiked a temp of 100.3 this am Plan repeat blood cultures continue with current antibiotic regime.I agree to dc gentamycin-no organism related to this is growing,and it is nephrotoxic. Current Visit: Yes (10) Yeast UTI Status: Acute Assessment and plan: Repeat UC grew yeast Plan continue with IV Diflucan Current Visit: Yes (11) Hepatitis C antibody test positive Status: Acute Assessment and plan: Liver USS- right pleural effusion,small ascites, gall bladder thickening most likely related to incomplete distention. Liver enzymes are unremarkable. Patient will need more workup as outpatient. Current Visit: Yes Hospitalist: Subjective Interval history: Patient was seen during dialysis this am. He had a trach placed yesterday and he is currently tolerating CPAP trials.He opens his eyes to command. CT head showed no acute changes. Exam - Constitutional Vitals: Period Temp Pulse Resp BP Sys/Mcconnell Pulse Ox Last 24 Hr 97.2 F-100.3 F 67-97 16-27 103-167/49-88 93-99 General appearance: no acute distress, other (trach in placed) - Respiratory Respiratory exam: Present: clear to auscultation bilaterally - Cardiovascular Cardiovascular exam: Present: regular rate and rhythm - GI/Abdominal GI/Abdominal exam: Present: normal bowel sounds - Extremities Exam Extremities exam: Present: other (reducing edema) - Neurological Exam Neurological exam: Present: other (opens eyes to command) Results - Labs CBC & BMP: 08/15/16 03:33 08/15/16 03:33 Lab Results: I have reviewed the past 24 hour labs
[2016-08-15] MEDS ORDERED: INSULIN GLARGINE 100 UNIT/ML SUBCUT SCH (08:48)
[2016-08-15] MEDS: PANTOPRAZOLE 40 MG VIAL IV SCH (09:18)
[2016-08-15] MEDS: DESITIN 4OZ/NYSTATIN 15 GRAM MIXTURE PASTE TOP SCH ×2 (09:20→21:40)
[2016-08-15] MEDS: CLOTRIMAZOLE/BETAMETHASONE CREAM 15 GM TUBE TOP SCH ×3 (09:20→21:40)
[2016-08-15] MEDS: PROPOFOL 1,000 MG/100 ML BOTTLE IV SCH (09:23)
--- NOTE | 2016-08-15 09:28 | Dialysis Note ---
Dialysis Note - Dialysis Note S: Pt seen on dialysis. No c/o. O: VSS & AF. A: Tolerating routine HD s complications. P: continue HD as prescribed.
[2016-08-15] MEDS: hydrALAZINE 25 MG TABLET PO SCH ×2 (11:25→21:35)
[2016-08-15] MEDS: amLODIPine 5 MG TABLET PO SCH (11:25)
[2016-08-15] MEDS: CARVEDILOL 25 MG TABLET PO SCH ×2 (11:26→21:34)
[2016-08-15] MEDS: FLUCONAZOLE INJ 200 MG in PREMIX 1 EACH IV SCH (11:26)
[2016-08-15 14:37] LABS: Myeloperoxidase Antibody < 0.2 U
[2016-08-15] MEDS ORDERED: VANCOMYCIN INJ 750 MG in SODIUM CHLORIDE 0.9% 250 ML IV ONE (18:30)
[2016-08-16] MEDS: INSULIN REGULAR 100 UNIT/ML SUBCUT SCH ×4 (00:15→18:49)
[2016-08-16] MEDS: ALBUTEROL/IPRATROPIUM 3 ML NEB RESP TX SCH ×4 (00:52→19:14)
[2016-08-16 03:14] LABS: ABG Base Excess -4.4 MMOL/L (-2.5-2.5); ABG HCO3 20.7 MMOL/L (20-26); ABG Oxygen Saturation 94.7 % (95-100); ABG PCO2 29.7 MM HG (35-48); ABG PH 7.418 (7.35-7.45); ABG PO2 78.2 MM HG (80-95); ABG TCO2 17.5 MMOL/L (23-27); Allen Test Positive; Pt O2 Delivery Device Ventilator
[2016-08-16 04:39] LABS: Hematocrit 24.8 VOL% (42.0-52.0); Red Blood Count 2.61 MC/CUMM (3.8-5.5); White Blood Count 8.9 T/CUMM (4-12)
[2016-08-16 04:40] LABS: Basophils % 0.2 % (0.0-0.8); Eosinophils # 0.2 10*3/uL (0.0-0.87); Eosinophils % 1.8 % (0.00-10.9); Immature Granulocytes % 0.8 %; Immature Granulocytes Absolute 0.07 #; Lymphocytes # 0.8 10*3/uL (1.4-4.0); Lymphocytes % 8.7 % (21.2-54.2); Mean Corpuscular HGB Conc 32.3 GM/DL (32-36); Mean Corpuscular Hemoglobin 31 PG (27-34); Mean Platelet Volume 11.1 FL (9.6-12.0); Monocytes # 0.7 10*3/uL (0.11-0.8); Monocytes % 7.8 % (1.7-12.7); Neutrophils # 7.2 10*3/uL (1.4-7.4); Neutrophils % 80.7 % (38.7-73.9); Platelet Count 190 T/CUMM (130-400); Red Cell Distribution Width 14.3 % (9.3-17.3)
[2016-08-16] MEDS: cefTRIAXone 2,000 MG in SODIUM CHLORIDE 0.9% 100 ML IV SCH ×2 (04:50→15:21)
[2016-08-16 05:07] LABS: Calcium 8.2 MG/DL (8.5-10.1); Osmolality,Calculated 295.1 MOS/KG (273-304); Potassium 4.5 MMOL/L (3.5-5.1)
[2016-08-16] MEDS: PROPOFOL 1,000 MG/100 ML BOTTLE IV SCH (06:10)
--- NOTE | 2016-08-16 06:37 | Pulmonology Progress Note ---
Pulmonary - PN: Subj Interval history: Patient is a 51-year-old white man that has been on the ventilator after having staph sepsis. He has developed renal failure and is on dialysis. He had a tracheostomy done a couple days ago. He is stable on the ventilator but does not want to do CPAP very well. He did have dialysis yesterday without any problems. His chest x-ray is improving a little. Exam (Progress Note) - Constitutional Vitals: Period Temp Pulse Resp BP Sys/Mcconnell Pulse Ox Last 24 Hr 97.0 F-100.3 F 73-83 14-44 114-158/53-76 93-100 Exam: General appearance: over weight, other (Patient is sedated on the ventilator, he looks quite comfortable on the ventilator) - Head Head exam: Present: normal inspection - Eye Eye exam: Present: EOMI. Absent: scleral icterus Pupils: Present: NANY - ENT ENT exam: Present: normal exam, other (He does have a feeding tube in place.) - Neck Neck exam: Present: other (The patient has a tracheostomy tube in place). Absent: lymphadenopathy, thyromegaly - Respiratory Respiratory exam: Present: His lungs have good breath sounds bilaterally with minimal rhonchi bilaterally. - Cardiovascular Cardiovascular exam: Present: regular rate and rhythm. Absent: gallop, systolic murmur - GI/Abdominal GI/Abdominal exam: Present: normal bowel sounds, soft. Absent: organomegaly, tenderness - Extremities Exam Extremities exam: Absent: calf tenderness, edema - Neurological Exam Neurological exam: Present: other (Patient does respond to move his extremities. ) - Skin Skin exam: Present: warm, dry Results - Labs CBC & BMP: 08/16/16 04:30 08/16/16 04:30 Labs: His PO2 78 with a PCO2 of 29 pH of 7.41 - Diagnostic Findings Procedure: Chest x-ray: image reviewed by me, report reviewed by me (Chest x- ray still shows mild bibasilar infiltrates.) Assessment and Plan (1) Acute renal failure Status: Acute Assessment and plan: Patient's creatinine is 8.4 and he did well with dialysis yesterday. Current Visit: Yes (2) Septic shock Status: Acute Assessment and plan: The patient presented with septic shock and is stabilized now. His blood pressure and heart rate have been stable. Current Visit: Yes (3) Hepatitis C antibody test positive Status: Acute Assessment and plan: The patient has a history of positive hepatitis C antibody Current Visit: Yes (4) Ventilator dependence Status: Acute Assessment and plan: Patient has been on the ventilator now has a tracheostomy tube. He is still not weaning that well but is stable at present. Current Visit: Yes (5) Respiratory failure, chronic Status: Acute Assessment and plan: Patient is starting to do short CPAP trials and is stable at present. Current Visit: Yes
--- NOTE | 2016-08-16 08:39 | XRay Report ---
Exam: XR chest 1V portable Date: 08/16/2016 4:00 AM Indication: Follow-up ventilator respiratory failure Comparison: None Technical: AP portable Findings: Cardiomegaly is present. Tracheostomy tube and nasogastric tube and right IJ catheter present. External cardiac leads are present. Low volume effusions and mild alveolar edema present and atelectasis. Impression: 1. Stable appearance of life support tubing 2. Persistent low volume effusions and atelectatic change, unchanged from prior study PROCEDURE INTERPRETED AT [facility] DEPARTMENT OF RADIOLOGY Final Report Signed by: Dr. Ric Crowley
[2016-08-16] MEDS: hydrALAZINE 25 MG TABLET PO SCH ×2 (09:08→22:07)
[2016-08-16] MEDS: amLODIPine 5 MG TABLET PO SCH (09:08)
[2016-08-16] MEDS: INSULIN ASPART PROTAMINE/ASPART 70/30 100 UNIT/ML SUBCUT SCH (09:08)
[2016-08-16] MEDS: CARVEDILOL 25 MG TABLET PO SCH ×2 (09:08→22:06)
[2016-08-16] MEDS: CLOTRIMAZOLE/BETAMETHASONE CREAM 15 GM TUBE TOP SCH ×3 (09:09→22:07)
[2016-08-16] MEDS: DESITIN 4OZ/NYSTATIN 15 GRAM MIXTURE PASTE TOP SCH ×2 (09:09→22:07)
[2016-08-16] MEDS: PANTOPRAZOLE 40 MG VIAL IV SCH (09:09)
[2016-08-16] MEDS: MORPHINE 2 MG/1 ML SYRINGE IV PRN ×2 (09:17→15:42)
--- NOTE | 2016-08-16 09:28 | Hospitalist Progress Note ---
Assessment and Plan (1) Altered mental status Status: Acute Assessment and plan: This is most likely due to MRSA sepsis. Most recent CT showed no acute changes. Patient now opens eyes to command. Plan continue current care PT/OT consult Current Visit: Yes (2) Hyperglycemia due to type 2 diabetes mellitus Status: Chronic Assessment and plan: Blood sugar is still somewhat high.Will increase Lantus to 50units qhs, follow response. Current Visit: Yes (3) Acute renal failure Status: Acute Assessment and plan: continue with dialysis. Nephrology is following.Bmp in am Current Visit: Yes (4) Thrombocytopenia Status: Acute Assessment and plan: stable, cbc in am. Current Visit: Yes (5) HTN (hypertension) Status: Chronic Assessment and plan: continue with current regime Current Visit: Yes Qualifiers: Hypertension type: essential hypertension Qualified Code(s): I10 - Essential (primary) hypertension (6) MRSA (methicillin resistant Staphylococcus aureus) septicemia Status: Acute Assessment and plan: Most recent blood cultures have been negative. Patient has not had any fever since the last spike. -Will continue to treat as IE, continue current IV antibiotic regime -follow repeat blood cultures Current Visit: Yes (7) Septic shock Status: Acute Assessment and plan: Patient has not had any fever since the last spike 24hrs ago. See treatment plan above. Current Visit: Yes (8) Acute respiratory failure Status: Acute Assessment and plan: SC was positive for shayna albicans. He had a tracheostomy done a couple days ago. He is stable on the ventilator but he is not really doing well on CPAP trials. Plan continue to follow Pulm's recommendations Continue with IV antibiotics and IV Diflucan Current Visit: Yes (9) Infective endocarditis Status: Acute Assessment and plan: 08/09/2016 Per modified Manrique Criteria:Patient has met the following criteria:Major-Blood cultures positive for MRSA x3 Persistently positive blood cultures Minor Criteria Fever greater than 100.4 History of drug user Based on the Criteria above, patient will be treated as infective endocarditis.Patient has some petechiae on his left knee but I have not seen Janeway lesions, osler's nodes or marcano spots 08/10/2016 last two blood cultures-negative Patient to have a VASYL today C-reactive protein improving from 15.9 to 13.2 Rheumatoid factor-<15 Hepatitis C Ab-positive ESR-118 08/11/2016 VASYL showed no vegetations.Repeated blood cultures have been negative. 08/13/2016 patient spiked a temp of 100.4 yesterday 08/14/2016 Repeat blood cultures are negative 08/15/2016 patient spiked a temp of 100.3 this am 08/16/2016 Patient has not had fever since his last spike 24hrs ago. Plan Follow repeat blood cultures continue with current antibiotic regime. Current Visit: Yes (10) Yeast UTI Status: Acute Assessment and plan: Repeat UC grew yeast Plan continue with IV Diflucan Current Visit: Yes (11) Hepatitis C antibody test positive Status: Acute Assessment and plan: Liver USS- right pleural effusion,small ascites, gall bladder thickening most likely related to incomplete distention. Liver enzymes are unremarkable. Patient will need more workup as outpatient. Current Visit: Yes Hospitalist: Subjective Interval history: Patient was resting well on the vent. Nurse reports patient experiences a lot of pain whenever they try to suction his trach. He had a session of dialysis yesterday. He opens his eyes to command.He has not spiked fever in the last 24hrs. Exam - Constitutional Vitals: Period Temp Pulse Resp BP Sys/Mcconnell Pulse Ox Last 24 Hr 97.0 F-99.6 F 73-82 14-44 114-158/53-76 93-100 General appearance: no acute distress, other (trach in place connected to vent) - Respiratory Respiratory exam: Present: clear to auscultation bilaterally - Cardiovascular Cardiovascular exam: Present: regular rate and rhythm - GI/Abdominal GI/Abdominal exam: Present: normal bowel sounds - Extremities Exam Extremities exam: Present: normal inspection - Neurological Exam Neurological exam: Present: other (opens his eyes to command) Results - Labs CBC & BMP: 08/16/16 04:30 08/16/16 04:30 Lab Results: I have reviewed the past 24 hour labs
[2016-08-16] MEDS: FLUCONAZOLE INJ 200 MG in PREMIX 1 EACH IV SCH (11:10)
[2016-08-16] MEDS: ACETAMINOPHEN 325 MG TABLET PO PRN (15:23)
[2016-08-16] MEDS: INSULIN GLARGINE 100 UNIT/ML SUBCUT SCH (22:07)
[2016-08-17] MEDS: INSULIN REGULAR 100 UNIT/ML SUBCUT SCH ×5 (00:48→23:50)
[2016-08-17] MEDS: ALBUTEROL/IPRATROPIUM 3 ML NEB RESP TX SCH ×4 (01:15→18:45)
[2016-08-17 03:19] LABS: ABG Base Excess -5.3 MMOL/L (-2.5-2.5); ABG HCO3 19.3 MMOL/L (20-26); ABG Oxygen Saturation 94.5 % (95-100); ABG PCO2 33.6 MM HG (35-48); ABG PH 7.376 (7.35-7.45); ABG PO2 82.5 MM HG (80-95); ABG TCO2 20.3 MMOL/L (23-27); Allen Test Positive; Pt O2 Delivery Device Ventilator
[2016-08-17] MEDS: MORPHINE 2 MG/1 ML SYRINGE IV PRN (03:55)
[2016-08-17 04:05] LABS: Basophils % 0.4 % (0.0-0.8); Eosinophils # 0.2 10*3/uL (0.0-0.87); Eosinophils % 2.4 % (0.00-10.9); Hematocrit 25.2 VOL% (42.0-52.0); Hemoglobin 8.1 GM/DL (14.0-18.0); Immature Granulocytes % 0.9 %; Immature Granulocytes Absolute 0.09 #; Lymphocytes % 10.1 % (21.2-54.2); Mean Corpuscular HGB Conc 32.1 GM/DL (32-36); Mean Corpuscular Hemoglobin 31 PG (27-34); Mean Corpuscular Volume 96.6 FL (87-102); Mean Platelet Volume 11.5 FL (9.6-12.0); Monocytes # 0.8 10*3/uL (0.11-0.8); Monocytes % 8.2 % (1.7-12.7); Neutrophils # 7.5 10*3/uL (1.4-7.4); Platelet Count 211 T/CUMM (130-400); Red Blood Count 2.61 MC/CUMM (3.8-5.5); Red Cell Distribution Width 14.3 % (9.3-17.3); White Blood Count 9.6 T/CUMM (4-12)
[2016-08-17 04:31] LABS: Calcium 8.6 MG/DL (8.5-10.1); Osmolality,Calculated 297.2 MOS/KG (273-304); Potassium 4.7 MMOL/L (3.5-5.1)
[2016-08-17 04:51] LABS: Magnesium 2.8 MG/DL (1.8-2.4); Prealbumin 15.6 MG/DL (20-40)
[2016-08-17 04:53] LABS: Phosphorous 10.5 MG/DL (2.5-4.9)
[2016-08-17] MEDS: cefTRIAXone 2,000 MG in SODIUM CHLORIDE 0.9% 100 ML IV SCH ×2 (05:21→16:34)
[2016-08-17] MEDS: PROPOFOL 1,000 MG/100 ML BOTTLE IV SCH (05:39)
--- NOTE | 2016-08-17 07:37 | XRay Report ---
Referring Physician: Salvador Bustamante Exam: XR chest 1V portable Date: August 17, 2016 at 2:59 AM Reason: Ventilation Comparison: Chest one view portable August 16, 2016 Findings: A right IJ catheter, tracheostomy catheter and feeding tube are again in place. The distal aspect of the feeding tube is poorly visualized. The cardiac silhouette is again enlarged. There are scattered perihilar and bibasilar opacities within both lungs. This likely represents atelectasis and pulmonary edema, but pneumonia is not excluded. No pneumothorax is identified, but mild bilateral pleural fluid is suspected. The osseous structures appear stable. Impression: Improved aeration of the right lung with possible decreased right pleural fluid. However, there is slight increased opacification at the left lower lung zone. PROCEDURE INTERPRETED AT [facility] DEPARTMENT OF RADIOLOGY Final Report Signed by: Dr. Clarence Patrick
[2016-08-17] MEDS: INSULIN ASPART PROTAMINE/ASPART 70/30 100 UNIT/ML SUBCUT SCH (07:57)
--- NOTE | 2016-08-17 08:44 | Hospitalist Progress Note ---
Assessment and Plan (1) Altered mental status Status: Acute Assessment and plan: This is most likely due to MRSA sepsis. Most recent CT showed no acute changes. Patient opens eyes to command. Plan continue current care PT/OT consult Current Visit: Yes (2) Hyperglycemia due to type 2 diabetes mellitus Status: Chronic Assessment and plan: Blood sugar is better controlled, continue with current regime. [id number] Current Visit: Yes (3) Acute renal failure Status: Acute Assessment and plan: continue with dialysis. Nephrology is following.Bmp in am Current Visit: Yes (4) Thrombocytopenia Status: Acute Assessment and plan: stable, cbc in am. Current Visit: Yes (5) HTN (hypertension) Status: Chronic Assessment and plan: continue with current regime Current Visit: Yes Qualifiers: Hypertension type: essential hypertension Qualified Code(s): I10 - Essential (primary) hypertension (6) MRSA (methicillin resistant Staphylococcus aureus) septicemia Status: Acute Assessment and plan: Most recent blood cultures have been negative. Patient spiked a temp of 101.0 yesterday -repeat blood, urine and sputum cultures -Will continue to treat as IE, continue current IV antibiotic regime Current Visit: Yes (7) Septic shock Status: Acute Assessment and plan: Patient spiked a temp of 101.0 yesterday. Repeat BC, UC,SC See treatment plan above. Current Visit: Yes (8) Acute respiratory failure Status: Acute Assessment and plan: SC was positive for shayna albicans. He had a tracheostomy done a couple of days ago. He is stable on the ventilator but still struggling with CPAP trials. Plan continue to follow Pulm's recommendations Continue with IV antibiotics and IV Diflucan Current Visit: Yes (9) Infective endocarditis Status: Acute Assessment and plan: 08/09/2016 Per modified Manrique Criteria:Patient has met the following criteria:Major-Blood cultures positive for MRSA x3 Persistently positive blood cultures Minor Criteria Fever greater than 100.4 History of drug user Based on the Criteria above, patient will be treated as infective endocarditis.Patient has some petechiae on his left knee but I have not seen Janeway lesions, osler's nodes or marcano spots 08/10/2016 last two blood cultures-negative Patient to have a VASYL today C-reactive protein improving from 15.9 to 13.2 Rheumatoid factor-<15 Hepatitis C Ab-positive ESR-118 08/11/2016 VASYL showed no vegetations.Repeated blood cultures have been negative. 08/13/2016 patient spiked a temp of 100.4 yesterday 08/14/2016 Repeat blood cultures are negative 08/15/2016 patient spiked a temp of 100.3 this am 08/16/2016 Patient has not had fever since his last spike 24hrs ago. 08/17/2016 Patient spiked a temp of 101.0 yesterday. Plan Repeat blood cultures, urine cultures and sputum cultures continue with current antibiotic regime. Current Visit: Yes (10) Yeast UTI Status: Acute Assessment and plan: Repeat UC grew yeast Plan continue with IV Diflucan Current Visit: Yes (11) Hepatitis C antibody test positive Status: Acute Assessment and plan: Liver USS- right pleural effusion,small ascites, gall bladder thickening most likely related to incomplete distention. Liver enzymes are unremarkable. Patient will need more workup as outpatient. Current Visit: Yes Hospitalist: Subjective Interval history: Patient seen on the vent today. He is still struggling with CPAP trials. He is still anuric but he obeys commands fairly. He spiked a temp of 101.0 yesterday. Exam - Constitutional Vitals: Period Temp Pulse Resp BP Sys/Mcconnell Pulse Ox Last 24 Hr 97.8 F-101.0 F 70-89 11-22 98-133/39-86 92-98 General appearance: no acute distress, other (trach connected to vent, opens his eyes to commands) - Respiratory Respiratory exam: Present: clear to auscultation bilaterally - Cardiovascular Cardiovascular exam: Present: regular rate and rhythm - GI/Abdominal GI/Abdominal exam: Present: normal bowel sounds - Extremities Exam Extremities exam: Present: other (minimal edema) Results - Labs CBC & BMP: 08/17/16 03:59 08/17/16 03:59 Lab Results: I have reviewed the past 24 hour labs
[2016-08-17] MEDS: amLODIPine 5 MG TABLET PO SCH (09:28)
[2016-08-17] MEDS: CARVEDILOL 25 MG TABLET PO SCH ×2 (09:28→22:01)
[2016-08-17] MEDS: hydrALAZINE 25 MG TABLET PO SCH ×2 (09:28→22:01)
[2016-08-17] MEDS: DESITIN 4OZ/NYSTATIN 15 GRAM MIXTURE PASTE TOP SCH ×2 (09:29→22:02)
[2016-08-17] MEDS: PANTOPRAZOLE 40 MG VIAL IV SCH (09:29)
[2016-08-17] MEDS: CLOTRIMAZOLE/BETAMETHASONE CREAM 15 GM TUBE TOP SCH ×3 (09:29→22:02)
--- NOTE | 2016-08-17 09:35 | Pulmonology Progress Note ---
Pulmonary - PN: Subj Interval history: This is a 51-year-old white male whom I saw in pulmonary consultation on 2016. Earlier that day he had experienced respiratory failure that required intubation mechanical ventilation and I was asked to see him in pulmonary consultation to manage his mechanical ventilation and to treat pulmonary problems. My impressions were. 1. Staph aureus sepsis. Etiology undetermined. Note the patient has a history of IV drug use. Look for SBE 2. Acute respiratory arrest. Etiology undetermined. Probably multifactorial. 3. Altered mental status 4. Renal failure 5. Anemia 6. Probable pyelonephritis. 7. See past history 08/08/2016. Today's chest x-ray shows small bilateral pleural effusions. ABGs on mechanical ventilation showed pH 7.335, PCO2 28, PO2 365 and a bicarb of 16.4. I am going to decrease the patient's FiO2 but leave him and a hyper ventilation state to help with his metabolic acidosis. Creatinine is 6.0 with a BUN of 83. Sodium is 146. Potassium 3.8. H&H is dropped to 7.3/22.0 white blood cell count is 13,100 with 85 segs 8 lymphs and 4 monocytes. Platelets are 243,000. Multiple blood cultures have been positive for staph aureus and nares cultures were positive for MRSA. 08/09/2016. Today's chest x-ray is stable. There are a few increased interstitial markings with mild associated atelectasis at both bases. On mechanical ventilation with an FiO2 of 50% pH is 7.386. PCO2 is 25.1. PO2 is 157 and bicarb is 17.5. Patient is on weaning protocol which will be accentuated today. Yesterday had dialysis catheters placed and he was on dialysis. Electrolytes are normal. Creatinine 6.6. BUN is 72. White blood cell count is dropped to 10,684% segs. H&H is 9.2/27.1. Platelets 222,000. Purulent drainage from the penis has not grown anything. Sputum shows showing no growth at 12 hours. RPR is nonreactive 08/10/2016. Today's chest x-ray shows a small amount of pleural effusions bilaterally. I do not see any definite infiltrates. Patient is not doing well on weaning trials. I have changed his CPAP to 5 a CPAP with a pressure support of 15. Today's ABGs on FiO2 50% mechanical ventilation shows a pH 7.41, PCO2 23 , PO2 of 123, bicarb 14.2. Creatinine remains elevated 7.80 with a BUN of 70. Sodium potassium and chloride are normal. Patient remains severely ill. Patient is on a lot of antibiotics. It is possible some of these could be consolidated. 08/11/2016. Chest x-ray is stable today patient is only a short time on CPAP yesterday and was noted to try to go longer. He had ultrasonics to and he was on dialysis. Ultrasound of the liver showed a right pleural effusion and small amount of ascites. There was gallbladder wall thickening most likely related to incomplete distention. ABGs are stable. There are no new positive cultures. This patient is only minimal right arousable 08/12/2016. This patient is not doing with his well with his weaning protocol. His chest x-ray today shows bibasilar atelectasis worse on the left as compared to the right. These are fairly new and progressive findings. Respiratory therapy is finding it hard to suction all of his secretions and these have become more thicker and more tenacious. It was elected to reevaluate this patient with fiberoptic bronchoscopy. See report. He had a tremendous amount of retained secretions and these were extremely tenacious and repeat completely occluded the suction channel of the scope. Hopefully after removal this will make his weaning process more efficacious. There are no new cultures. ABGs on mechanical ventilation FiO2 50% shows a pH of 7.48, PCO2 25, PO2 of 107 and a bicarb of 18. Electrolytes are normal. Creatinine is 5.90. Patient receives dialysis. CBC is stable. 08/14/2016. On 08/13/2016 talked with this patient's son by phone and told him that he needed a trach. He wanted to talk to his sister and she was also agreeable and the call back the patient's nurse Lesvia and gave permission to proceed with trach. Dr. Valle all will place a trach later today. We have discussed the case. This patient has had staph sepsis. Etiology is undetermined. There is a past history of IV drug abuse. He has not done well with his weaning trials. Yesterday 2 or 3 occasions she was able to do CPAP for 1 hour which was a big improvement. He clearly has an altered mental status that has not resolved as expected. He is for CT of the chest later on today. Patient has renal failure and is on dialysis. His family is from [place] and he will eventually require long-term acute care. Location of that is yet to be determined. check services clerk is on the case. Patient was evaluated with fiberoptic bronchoscopy on 08/12/2016. There are no positive cultures. He had a tremendous amount of retained sick secretions that were very tenacious and completely occluded the suction channel of the scope on multiple occasions. He may require repeat bronchoscopy in a few days. ABGs on mechanical ventilation FiO2 50% show a pH 7.49, PCO2 25, PO2 120, bicarb of 19. Electrolytes are normal. Creatinine 7.4. White count is 8176 segs 11 lymphs and 10 monos. H&H is stable at 8.6/25.7. After the patient's trach is placed today we will continue all protocols including weaning protocol physical therapy protocol deep venous thrombophlebitis protocol. 08/17/2016. This patient had a trach placed on 08/14/2016. He is not doing well with his weaning.Chest x-ray he has developed bibasilar atelectasis. I will evaluate this with fiberoptic bronchoscopy later today. ABGs on mechanical ventilation FiO2 50% shows a pH 7.37, PCO2 33.6, PO2 82.5 and a bicarb of 19.3. There are no new positive cultures. Sodium is 134. Potassium is 4.7. Creatinine is 9.8 with a BUN of 91. H&H stable 8.1/25.2. White count is 9678 segs 10 lymphs and 8 monocytes Physical exam. Vital signs. See below Chest. Loose large airway congestion Heart. Lateral PMI Abdomen. Rare bowel sounds Lower extremities. Nothing to suggest deep venous thrombophlebitis Neck. No masses and no meningismus. Neurologic.. Very difficult exam. Patient can be aroused. He moves all 4 extremities. Cranial nerves appear to be intact The remainder the physical exam is negative Plan. 1. Mechanical ventilator weaning protocol 2. Physical therapy protocol while on mechanical ventilation 3. Deep venous thrombophlebitis prevention protocol 4. Proton pump inhibitor protocol 5. Urinalysis and urine culture. 6. Sputum for Gram stain culture and sensitivity 7. See orders. #8. See my note 08/17/2006. Fiberoptic bronchoscopy Exam (Progress Note) - Constitutional Vitals: Period Temp Pulse Resp BP Sys/Mcconnell Pulse Ox Last 24 Hr 97.8 F-101.0 F 70-89 11-22 98-133/39-86 93-98 Results - Labs CBC & BMP: 08/17/16 03:59 08/17/16 03:59
--- NOTE | 2016-08-17 10:31 | Event Note ---
In hospital diagnostic and therapeutic fiberoptic bronchoscopy. Lavages from the right upper lung, right lower lung, left upper lung and left lower lung were sent for cytology, Gram stain, bacterial culture, AFB stains and culture, fungal stains and culture. 51-year-old white male who has had staph aureus sepsis. He had a trach placed on 08/14/2016. His chest x-ray shows left basilar atelectasis. His cough is been ineffective. He is been suctioned as well as possible he has retained secretions. All these reasons he is evaluated with fiberoptic bronchoscopy. The trach and trach site were normal. The distal trachea was normal. The nathalie was somewhat traumatized and eroded. Left mainstem bronchus was full of thick tenacious discolored sputum production extended into the left upper lung, especially the lingula and into the left lower lung. Segments in both left upper and left lower lung lobe with lavaged and specimens were sent for studies. Right mainstem bronchus contained a good bit of thick tenacious discolored sputum that extended into the right upper lung and right lower lung and spared the right middle lung. These areas were lavaged segment by segment until clear. Specimens were sent for studies noted above Patient tolerated procedure well there were no complications. Plan. 1. Follow-up chest x-ray 2. Check bronchoscopy specimens. 3. Continue nebulizers, periodic suctioning and weaning protocol
[2016-08-17] MEDS: FLUCONAZOLE INJ 200 MG in PREMIX 1 EACH IV SCH (12:06)
--- NOTE | 2016-08-17 15:55 | Neurology Progress Note ---
Neurology - PN : Subjective Interval history: Stable neurologically. He is status post tracheostomy placement. Open his eyes upon stimulation. Not following any commands Exam (Progress Note) - Constitutional Vitals: Period Temp Pulse Resp BP Sys/Mcconnell Pulse Ox Last 24 Hr 97.8 F-100.5 F 70-89 11-22 98-140/39-64 91-100 Exam: GENERAL: Patient is in no acute distress. NECK: Neck is supple. There is no JVD. No carotid bruits present. No thyroid masses. CVS: First and second heart sounds are normal. There is no S3 present. Regular rate and rhythm. RESPIRATORY: Lungs are clear to auscultation without any rales or rhonchi. ABDOMEN: Soft and non-tender. Bowel sounds are present. There is no hepatosplenomegaly. EXT: There is no palpable edema. Peripheral pulses are present. Skin: No rashes Central Nervous system: General: Alert but not following any commands Speech: None Comprehension: None Facial expressions: Normal Cranial Nerves: Pupils are equally reactive to light. Doll's head I moves are positive. No facial asymmetry is seen. Motor: Bulk and Tone is normal. Strength cannot be assessed Sensory: Cannot be assessed Reflexes: 1+ and symmetrical Cerebellar function: Cannot be assessed Toes: Equivocal Gait: Cannot be assessed Results - Labs CBC & BMP: 08/17/16 03:59 08/17/16 03:59 Assessment and Plan (1) Altered mental status Status: Acute Assessment and plan: This is likely due to sepsis. Herpes PCR is negative in the CSF. Continue supportive treatment No further neurological intervention needed. Sign off please call as needed Current Visit: Yes
--- NOTE | 2016-08-17 18:27 | Nephrology Progress Note ---
Nephrology - PN: Subj Interval history: He is awake but not following commands. He remains on the ventilator. Exam (PN)-Nephrology - Vital Signs Vital signs: Period Temp Pulse Resp BP Sys/Mcconnell Pulse Ox Last 24 Hr 97.8 F-99 F 70-79 11-26 98-140/39-71 91-100 Exam: Gen.: Alert ENT: Intubated Neck: Supple. No JVD or bruit. Cardiovascular: Regular rate and rhythm. No murmur rub or gallop Lungs: Clear Abdomen: Soft. Nontender. Positive bowel sounds. No organomegaly Extremities: Trace edema - Lab 08/17/16 03:59 08/17/16 03:59 Most recent lab results ABG pH 7.376 (7.35-7.45) 08/17/16 03:00 ABG pCO2 33.6 MM HG (35-48) L 08/17/16 03:00 ABG pO2 82.5 MM HG (80-95) 08/17/16 03:00 ABG HCO3 19.3 MMOL/L (20-26) L 08/17/16 03:00 ABG O2 Saturation 94.5 % (95-100) L 08/17/16 03:00 Calcium 8.6 MG/DL (8.5-10.1) 08/17/16 03:59 Phosphorus 10.5 MG/DL (2.5-4.9) H 08/17/16 03:59 Magnesium 2.8 MG/DL (1.8-2.4) H 08/17/16 03:59 Ur Total Protein 24 Hr 587 MG/24HR (0-149.1) H 08/10/16 16:40 Assessment and Plan (1) Acute renal failure Status: Acute Assessment and plan: 51-year-old man admitted with: * Acute renal failure. Dialysis tomorrow * Ventilatory failure. Bronchoscopy today * Sepsis. Continue antibiotics * Confusion. * Diabetes mellitus * Chronic back pain Current Visit: Yes (2) Altered mental status Status: Acute Current Visit: Yes (3) Fever Status: Acute Current Visit: Yes (4) Hyperglycemia due to type 2 diabetes mellitus Status: Chronic Current Visit: Yes (5) Hypotension Status: Acute Current Visit: Yes
[2016-08-17] MEDS: INSULIN GLARGINE 100 UNIT/ML SUBCUT SCH (22:01)
[2016-08-18] MEDS: ALBUTEROL/IPRATROPIUM 3 ML NEB RESP TX SCH ×4 (01:25→19:14)
[2016-08-18 03:41] LABS: ABG Base Excess -7.3 MMOL/L (-2.5-2.5); ABG HCO3 18.4 MMOL/L (20-26); ABG Oxygen Saturation 94.1 % (95-100); ABG PCO2 31.6 MM HG (35-48); ABG PH 7.349 (7.35-7.45); ABG PO2 80.2 MM HG (80-95); ABG TCO2 15.8 MMOL/L (23-27); Pt O2 Delivery Device Ventilator
[2016-08-18 04:34] LABS: Basophils % 0.2 % (0.0-0.8); Eosinophils # 0.3 10*3/uL (0.0-0.87); Eosinophils % 2.6 % (0.00-10.9); Hemoglobin 7.8 GM/DL (14.0-18.0); Immature Granulocytes % 1.1 %; Immature Granulocytes Absolute 0.11 #; Lymphocytes # 0.9 10*3/uL (1.4-4.0); Lymphocytes % 8.8 % (21.2-54.2); Mean Corpuscular HGB Conc 32.5 GM/DL (32-36); Mean Corpuscular Hemoglobin 31 PG (27-34); Mean Corpuscular Volume 94.5 FL (87-102); Mean Platelet Volume 11.2 FL (9.6-12.0); Monocytes # 0.9 10*3/uL (0.11-0.8); Monocytes % 9.2 % (1.7-12.7); Neutrophils # 7.8 10*3/uL (1.4-7.4); Neutrophils % 78.1 % (38.7-73.9); Platelet Count 216 T/CUMM (130-400); Red Blood Count 2.54 MC/CUMM (3.8-5.5); Red Cell Distribution Width 14.2 % (9.3-17.3); White Blood Count 9.9 T/CUMM (4-12)
[2016-08-18 05:00] LABS: Calcium 8.8 MG/DL (8.5-10.1); Potassium 4.9 MMOL/L (3.5-5.1)
[2016-08-18] MEDS: INSULIN REGULAR 100 UNIT/ML SUBCUT SCH ×4 (05:50→23:59)
[2016-08-18] MEDS: cefTRIAXone 2,000 MG in SODIUM CHLORIDE 0.9% 100 ML IV SCH ×2 (05:50→18:21)
[2016-08-18] MEDS: PROPOFOL 1,000 MG/100 ML BOTTLE IV SCH (06:09)
--- NOTE | 2016-08-18 07:25 | XRay Report ---
Referring Physician: Salvador Bustamante Exam: XR chest 1V portable Date: August 18, 2016 at 3:08 AM Reason: Ventilation, tracheostomy Comparison: Chest one view portable August 17, 2016 Findings: A tracheostomy catheter, right IJ catheter and feeding tube are again in place. The cardiac silhouette is again enlarged. There are scattered perihilar and bibasilar opacities. This likely represents atelectasis and pulmonary edema, but pneumonia is not excluded. No pneumothorax is identified, but there is mild bilateral pleural fluid. The osseous structures appear stable. Impression: There is slight improved aeration of the left lower lung zone with possible decreased left pleural fluid. PROCEDURE INTERPRETED AT [facility] DEPARTMENT OF RADIOLOGY Final Report Signed by: Dr. Clarence Patrick
[2016-08-18] MEDS: INSULIN ASPART PROTAMINE/ASPART 70/30 100 UNIT/ML SUBCUT SCH (08:02)
[2016-08-18] MEDS: CARVEDILOL 25 MG TABLET PO SCH ×2 (08:18→21:31)
[2016-08-18] MEDS: amLODIPine 5 MG TABLET PO SCH (08:18)
[2016-08-18] MEDS: hydrALAZINE 25 MG TABLET PO SCH ×2 (08:18→21:31)
[2016-08-18] MEDS: DESITIN 4OZ/NYSTATIN 15 GRAM MIXTURE PASTE TOP SCH ×2 (08:19→21:31)
[2016-08-18] MEDS: CLOTRIMAZOLE/BETAMETHASONE CREAM 15 GM TUBE TOP SCH ×3 (08:19→21:31)
[2016-08-18] MEDS: PANTOPRAZOLE 40 MG VIAL IV SCH (08:19)
--- NOTE | 2016-08-18 08:54 | Hospitalist Progress Note ---
Assessment and Plan (1) Altered mental status Status: Acute Assessment and plan: This is most likely due to MRSA sepsis. Most recent CT showed no acute changes.This is improving. He gets emotional and cry each time we try to communicate with him. Plan continue current care PT/OT consult Current Visit: Yes (2) Hyperglycemia due to type 2 diabetes mellitus Status: Chronic Assessment and plan: Blood sugar is better controlled, continue with current regime. [id number] Current Visit: Yes (3) Acute renal failure Status: Acute Assessment and plan: Patient will be having a session of dialysis today.. Nephrology is following.Bmp in am Current Visit: Yes (4) Thrombocytopenia Status: Acute Assessment and plan: Resolved Current Visit: Yes (5) HTN (hypertension) Status: Chronic Assessment and plan: continue with current regime Current Visit: Yes Qualifiers: Hypertension type: essential hypertension Qualified Code(s): I10 - Essential (primary) hypertension (6) MRSA (methicillin resistant Staphylococcus aureus) septicemia Status: Acute Assessment and plan: Most recent blood cultures and bronchial washing cultures are negative. Patient has remained afebrile in the last 24hrs Plan -Will continue to treat as IE, continue current IV antibiotic regime Current Visit: Yes (7) Septic shock Status: Acute Assessment and plan: Patient has remained afebrile in the last 24hrs. See treatment plan above. Current Visit: Yes (8) Acute respiratory failure Status: Acute Assessment and plan: . He had a tracheostomy done a couple of days ago. He is doing better with CPAP trials.His repeat bronhial washing cultures are negative Plan continue to follow Pulm's recommendations Continue with IV antibiotics Consider stopping IV Diflucan if repeat UC is negative Current Visit: Yes (9) Infective endocarditis Status: Acute Assessment and plan: 08/09/2016 Per modified Manrique Criteria:Patient has met the following criteria:Major-Blood cultures positive for MRSA x3 Persistently positive blood cultures Minor Criteria Fever greater than 100.4 History of drug user Based on the Criteria above, patient will be treated as infective endocarditis.Patient has some petechiae on his left knee but I have not seen Janeway lesions, osler's nodes or marcano spots 08/10/2016 last two blood cultures-negative Patient to have a VASYL today C-reactive protein improving from 15.9 to 13.2 Rheumatoid factor-<15 Hepatitis C Ab-positive ESR-118 08/11/2016 VASYL showed no vegetations.Repeated blood cultures have been negative. 08/13/2016 patient spiked a temp of 100.4 yesterday 08/14/2016 Repeat blood cultures are negative 08/15/2016 patient spiked a temp of 100.3 this am 08/16/2016 Patient has not had fever since his last spike 24hrs ago. 08/17/2016 Patient spiked a temp of 101.0 yesterday. 08/18/2016 Patient has remained afebrile in the last 24hrs. Repeat BC and bronchial washing cultures are negative Plan continue with current antibiotic regime. Current Visit: Yes (10) Yeast UTI Status: Acute Assessment and plan: We have repeated yet again a UC, follow report Plan continue with IV Diflucan Current Visit: Yes (11) Hepatitis C antibody test positive Status: Acute Assessment and plan: Liver USS- right pleural effusion,small ascites, gall bladder thickening most likely related to incomplete distention. Liver enzymes are unremarkable. Patient will need more workup as outpatient. Current Visit: Yes (12) Acute blood loss anemia Status: Acute Assessment and plan: consider transfusing with 2units with dialysis today. CBC in am Current Visit: Yes Hospitalist: Subjective Interval history: Patient seen. He was more alert, following commands. He tolerated CPAP trials for about 4hrs yesterday. He gets emotional and cries whenever we try to talk and encourage him.His H/H has dropped to 7.8/24.0. Exam - Constitutional Vitals: Period Temp Pulse Resp BP Sys/Mcconnell Pulse Ox Last 24 Hr 98.2 F-99 F 71-78 13-26 104-154/51-75 91-100 General appearance: no acute distress, other (trach connected to vent) - Respiratory Respiratory exam: Present: clear to auscultation bilaterally - Cardiovascular Cardiovascular exam: Present: regular rate and rhythm - GI/Abdominal GI/Abdominal exam: Present: normal bowel sounds - Extremities Exam Extremities exam: Present: edema - Neurological Exam Neurological exam: Present: alert Results - Labs CBC & BMP: 08/18/16 04:25 08/18/16 04:34 Lab Results: I have reviewed the past 24 hour labs
[2016-08-18] MEDS ORDERED: SODIUM CHLORIDE 0.9% 250 ML IV PRN (09:04)
--- NOTE | 2016-08-18 09:44 | Pulmonology Progress Note ---
Pulmonary - PN: Subj Interval history: This is a 51-year-old white male whom I saw in pulmonary consultation on 2016. Earlier that day he had experienced respiratory failure that required intubation mechanical ventilation and I was asked to see him in pulmonary consultation to manage his mechanical ventilation and to treat pulmonary problems. My impressions were. 1. Staph aureus sepsis. Etiology undetermined. Note the patient has a history of IV drug use. Look for SBE 2. Acute respiratory arrest. Etiology undetermined. Probably multifactorial. 3. Altered mental status 4. Renal failure 5. Anemia 6. Probable pyelonephritis. 7. See past history 08/08/2016. Today's chest x-ray shows small bilateral pleural effusions. ABGs on mechanical ventilation showed pH 7.335, PCO2 28, PO2 365 and a bicarb of 16.4. I am going to decrease the patient's FiO2 but leave him and a hyper ventilation state to help with his metabolic acidosis. Creatinine is 6.0 with a BUN of 83. Sodium is 146. Potassium 3.8. H&H is dropped to 7.3/22.0 white blood cell count is 13,100 with 85 segs 8 lymphs and 4 monocytes. Platelets are 243,000. Multiple blood cultures have been positive for staph aureus and nares cultures were positive for MRSA. 08/09/2016. Today's chest x-ray is stable. There are a few increased interstitial markings with mild associated atelectasis at both bases. On mechanical ventilation with an FiO2 of 50% pH is 7.386. PCO2 is 25.1. PO2 is 157 and bicarb is 17.5. Patient is on weaning protocol which will be accentuated today. Yesterday had dialysis catheters placed and he was on dialysis. Electrolytes are normal. Creatinine 6.6. BUN is 72. White blood cell count is dropped to 10,684% segs. H&H is 9.2/27.1. Platelets 222,000. Purulent drainage from the penis has not grown anything. Sputum shows showing no growth at 12 hours. RPR is nonreactive 08/10/2016. Today's chest x-ray shows a small amount of pleural effusions bilaterally. I do not see any definite infiltrates. Patient is not doing well on weaning trials. I have changed his CPAP to 5 a CPAP with a pressure support of 15. Today's ABGs on FiO2 50% mechanical ventilation shows a pH 7.41, PCO2 23 , PO2 of 123, bicarb 14.2. Creatinine remains elevated 7.80 with a BUN of 70. Sodium potassium and chloride are normal. Patient remains severely ill. Patient is on a lot of antibiotics. It is possible some of these could be consolidated. 08/11/2016. Chest x-ray is stable today patient is only a short time on CPAP yesterday and was noted to try to go longer. He had ultrasonics to and he was on dialysis. Ultrasound of the liver showed a right pleural effusion and small amount of ascites. There was gallbladder wall thickening most likely related to incomplete distention. ABGs are stable. There are no new positive cultures. This patient is only minimal right arousable 08/12/2016. This patient is not doing with his well with his weaning protocol. His chest x-ray today shows bibasilar atelectasis worse on the left as compared to the right. These are fairly new and progressive findings. Respiratory therapy is finding it hard to suction all of his secretions and these have become more thicker and more tenacious. It was elected to reevaluate this patient with fiberoptic bronchoscopy. See report. He had a tremendous amount of retained secretions and these were extremely tenacious and repeat completely occluded the suction channel of the scope. Hopefully after removal this will make his weaning process more efficacious. There are no new cultures. ABGs on mechanical ventilation FiO2 50% shows a pH of 7.48, PCO2 25, PO2 of 107 and a bicarb of 18. Electrolytes are normal. Creatinine is 5.90. Patient receives dialysis. CBC is stable. 08/14/2016. On 08/13/2016 talked with this patient's son by phone and told him that he needed a trach. He wanted to talk to his sister and she was also agreeable and the call back the patient's nurse Lesvia and gave permission to proceed with trach. Dr. Valle all will place a trach later today. We have discussed the case. This patient has had staph sepsis. Etiology is undetermined. There is a past history of IV drug abuse. He has not done well with his weaning trials. Yesterday 2 or 3 occasions she was able to do CPAP for 1 hour which was a big improvement. He clearly has an altered mental status that has not resolved as expected. He is for CT of the chest later on today. Patient has renal failure and is on dialysis. His family is from [place] and he will eventually require long-term acute care. Location of that is yet to be determined. [employer] is on the case. Patient was evaluated with fiberoptic bronchoscopy on 08/12/2016. There are no positive cultures. He had a tremendous amount of retained sick secretions that were very tenacious and completely occluded the suction channel of the scope on multiple occasions. He may require repeat bronchoscopy in a few days. ABGs on mechanical ventilation FiO2 50% show a pH 7.49, PCO2 25, PO2 120, bicarb of 19. Electrolytes are normal. Creatinine 7.4. White count is 8176 segs 11 lymphs and 10 monos. H&H is stable at 8.6/25.7. After the patient's trach is placed today we will continue all protocols including weaning protocol physical therapy protocol deep venous thrombophlebitis protocol. 08/17/2016. This patient had a trach placed on 08/14/2016. He is not doing well with his weaning.Chest x-ray he has developed bibasilar atelectasis. I will evaluate this with fiberoptic bronchoscopy later today. ABGs on mechanical ventilation FiO2 50% shows a pH 7.37, PCO2 33.6, PO2 82.5 and a bicarb of 19.3. There are no new positive cultures. Sodium is 134. Potassium is 4.7. Creatinine is 9.8 with a BUN of 91. H&H stable 8.1/25.2. White count is 9678 segs 10 lymphs and 8 monocytes 08/18/2016. This patient was able to do 4 hours of CPAP yesterday which represents a big improvement. He is now at the point where he follows commands. [employer] looking the possibility of long-term acute care near his home in [place]. His chest x-ray shows small bilateral pleural effusions but is otherwise normal. There are no new cultures. ABGs are stable. Electrolytes are normal. Creatinine is 11.2. As of gradual small decrease in H &H. Patient is stable and improved Physical exam. Vital signs. See below Chest. Loose large airway congestion Heart. Lateral PMI Abdomen. Rare bowel sounds Lower extremities. Nothing to suggest deep venous thrombophlebitis Neck. No masses and no meningismus. Neurologic.. Very difficult exam. Patient can be aroused. He moves all 4 extremities. Cranial nerves appear to be intact The remainder the physical exam is negative Plan. 1. Mechanical ventilator weaning protocol 2. Physical therapy protocol while on mechanical ventilation 3. Deep venous thrombophlebitis prevention protocol 4. Proton pump inhibitor protocol 5. Urinalysis and urine culture. 6. Sputum for Gram stain culture and sensitivity 7. See orders. #8. See my note 08/17/2006. Fiberoptic bronchoscopy Exam (Progress Note) - Constitutional Vitals: Period Temp Pulse Resp BP Sys/Mcconnell Pulse Ox Last 24 Hr 98.2 F-99 F 71-78 13-26 104-154/51-75 91-100 Results - Labs CBC & BMP: 08/18/16 04:25 08/18/16 04:34
--- NOTE | 2016-08-18 11:15 | Pathology Report from [facility] ---
ACCESSION # : [id number] PATIENT NAME : Carmen Ball ORDERING DR : KANWAL CALLEJAS MD CLINICAL HX: Aspiration, Respiratory Failure POST-OP DX: Same SPECIMEN INFO: Washing,Bronchial,PETE - 20 ml's bloody, cloudy with white particles. CLASS: III CLASS COMMENTS: Severe acute inflammation with atypical squamous metaplasia.CELL BLOCK: Same. CLASS LEGEND: CLASS 0 Material inadequate for diagnosis because of (see comment) CLASS I Absence of atypical or abnormal cells CLASS II Atypical Cytology but no evidence of malignancy CLASS III Cytology suggestive of but not conclusive for malignancy CLASS IV Cytology strongly suggestive of malignancy CLASS V Cytology conclusive for malignancy SERVICE DATE: 08/17/2016 REPORT DATE: 08/18/2016 PATHOLOGIST: Bryce Mclaughlin M.D. [facility]STCHESTERClarissa
[2016-08-18] MEDS: FLUCONAZOLE INJ 200 MG in PREMIX 1 EACH IV SCH (11:19)
[2016-08-18] MEDS: DEXTROSE 50% 25 GM/50 ML VIAL IV PRN ×3 (11:20→23:59)
[2016-08-18] MEDS ORDERED: VANCOMYCIN INJ 500 MG in SODIUM CHLORIDE 0.9% 100 ML IV PRN (12:45)
[2016-08-18] MEDS ORDERED: VANCOMYCIN INJ 500 MG in SODIUM CHLORIDE 0.9% 100 ML IV ONE (21:00)
[2016-08-18] MEDS: INSULIN GLARGINE 100 UNIT/ML SUBCUT SCH (21:31)
--- NOTE | 2016-08-18 21:44 | Nephrology Progress Note ---
Nephrology - PN: Subj Interval history: He remains on the ventilator. Blood pressure is stable. He is afebrile Exam (PN)-Nephrology - Vital Signs Vital signs: Period Temp Pulse Resp BP Sys/Mcconnell Pulse Ox Last 24 Hr 98.2 F-98.8 F 68-79 16-32 107-158/49-75 94-100 Exam: Gen.: Awake. Follows some commands ENT: Pupils equal round reactive to light. Intubated Neck: Supple. No JVD or bruit. Cardiovascular: Regular rate and rhythm. No murmur rub or gallop Lungs: Clear Abdomen: Soft. Nontender. Positive bowel sounds. No organomegaly Extremities: Trace edema - Lab 08/18/16 04:25 08/18/16 04:34 Most recent lab results ABG pH 7.349 (7.35-7.45) L 08/18/16 03:35 ABG pCO2 31.6 MM HG (35-48) L 08/18/16 03:35 ABG pO2 80.2 MM HG (80-95) 08/18/16 03:35 ABG HCO3 18.4 MMOL/L (20-26) L 08/18/16 03:35 ABG O2 Saturation 94.1 % (95-100) L 08/18/16 03:35 Calcium 8.8 MG/DL (8.5-10.1) 08/18/16 04:34 Phosphorus 10.5 MG/DL (2.5-4.9) H 08/17/16 03:59 Magnesium 2.8 MG/DL (1.8-2.4) H 08/17/16 03:59 Ur Total Protein 24 Hr 587 MG/24HR (0-149.1) H 08/10/16 16:40 Assessment and Plan (1) Acute renal failure Status: Acute Assessment and plan: 51-year-old man admitted with: * Acute renal failure. No improvement in renal function. Dialysis today * Ventilatory failure. Wean ventilator as tolerated * Sepsis. Continue antibiotics * Confusion. * Diabetes mellitus * Chronic back pain Current Visit: Yes (2) Altered mental status Status: Acute Current Visit: Yes (3) Fever Status: Acute Current Visit: Yes (4) Hyperglycemia due to type 2 diabetes mellitus Status: Chronic Current Visit: Yes (5) Hypotension Status: Acute Current Visit: Yes
[2016-08-19] MEDS: ALBUTEROL/IPRATROPIUM 3 ML NEB RESP TX SCH ×4 (00:57→18:08)
[2016-08-19 03:16] LABS: ABG Base Excess -2.3 MMOL/L (-2.5-2.5); ABG HCO3 22.4 MMOL/L (20-26); ABG Oxygen Saturation 97.7 % (95-100); ABG PCO2 28.3 MM HG (35-48); ABG PH 7.469 (7.35-7.45); ABG PO2 93.7 MM HG (80-95); ABG TCO2 18.9 MMOL/L (23-27); Pt O2 Delivery Device Ventilator
[2016-08-19] MEDS: cefTRIAXone 2,000 MG in SODIUM CHLORIDE 0.9% 100 ML IV SCH ×2 (05:02→16:29)
[2016-08-19 05:42] LABS: Basophils % 0.4 % (0.0-0.8); Eosinophils # 0.3 10*3/uL (0.0-0.87); Eosinophils % 2.6 % (0.00-10.9); Hemoglobin 9.1 GM/DL (14.0-18.0); Immature Granulocytes % 1.3 %; Immature Granulocytes Absolute 0.12 #; Lymphocytes # 0.9 10*3/uL (1.4-4.0); Lymphocytes % 9.6 % (21.2-54.2); Mean Corpuscular HGB Conc 32.5 GM/DL (32-36); Mean Corpuscular Hemoglobin 31 PG (27-34); Mean Corpuscular Volume 94.6 FL (87-102); Mean Platelet Volume 11.2 FL (9.6-12.0); Monocytes % 10.1 % (1.7-12.7); Neutrophils # 7.3 10*3/uL (1.4-7.4); Platelet Count 202 T/CUMM (130-400); Red Blood Count 2.96 MC/CUMM (3.8-5.5); Red Cell Distribution Width 14.5 % (9.3-17.3); White Blood Count 9.6 T/CUMM (4-12)
[2016-08-19 05:54] LABS: Calcium 8.5 MG/DL (8.5-10.1); Osmolality,Calculated 296.8 MOS/KG (273-304); Potassium 4.7 MMOL/L (3.5-5.1)
[2016-08-19] MEDS: INSULIN REGULAR 100 UNIT/ML SUBCUT SCH ×3 (06:09→18:55)
[2016-08-19] MEDS: PROPOFOL 1,000 MG/100 ML BOTTLE IV SCH ×2 (06:10→11:54)
[2016-08-19] MEDS: DEXTROSE 50% 25 GM/50 ML VIAL IV PRN ×2 (06:21→16:29)
--- NOTE | 2016-08-19 08:33 | XRay Report ---
XR chest 1V portable Indication: Ventilator, tracheostomy Comparison: Chest x-ray dated August 18, 2016 Technique: Single frontal view of the chest Findings: Tracheostomy tube appears grossly unchanged in positioning. Right-sided internal jugular approach central venous catheter appears grossly unchanged. Minimally improved left basilar atelectasis/consolidation. No significant change in right mid and lower lung atelectasis/consolidation and probable layering pleural fluid. Osseous and surrounding soft tissue structures appear grossly unchanged. IMPRESSION: As above. PROCEDURE INTERPRETED AT [facility] DEPARTMENT OF RADIOLOGY Final Report Signed by: Dr Giorgi Pryor
--- NOTE | 2016-08-19 08:48 | Hospitalist Progress Note ---
Assessment and Plan (1) Altered mental status Status: Acute Assessment and plan: This is most likely due to MRSA sepsis. Most recent CT showed no acute changes.This is improving. He gets emotional and cry each time we try to communicate with him. Plan continue current care PT/OT consult Current Visit: Yes (2) Hyperglycemia due to type 2 diabetes mellitus Status: Chronic Assessment and plan: had episodes of BS in the 60s. Will reduce lantus to 40units and 70/30 to 45units, follow reponse. [id number] Current Visit: Yes (3) Acute renal failure Status: Acute Assessment and plan: Continue with dialysis. Nephrology is following.Bmp in am Current Visit: Yes (4) Thrombocytopenia Status: Acute Assessment and plan: Resolved Current Visit: Yes (5) HTN (hypertension) Status: Chronic Assessment and plan: continue with current regime Current Visit: Yes Qualifiers: Hypertension type: essential hypertension Qualified Code(s): I10 - Essential (primary) hypertension (6) MRSA (methicillin resistant Staphylococcus aureus) septicemia Status: Acute Assessment and plan: Most recent blood cultures are negative. A recent bronchial washings grew yeast Plan -Will continue to treat as IE, continue current IV antibiotic regime and IV diflucan Current Visit: Yes (7) Septic shock Status: Acute Assessment and plan: Patient had a low grade fever of 99.8 this am See treatment plan above. Current Visit: Yes (8) Acute respiratory failure Status: Acute Assessment and plan: . He had a tracheostomy done a couple of days ago. He is doing better with CPAP trials.One bottle of repeat bronhial washing grew yeast. Plan continue to follow Pulm's recommendations Continue with IV antibiotics Current Visit: Yes (9) Infective endocarditis Status: Acute Assessment and plan: 08/09/2016 Per modified [facility] Criteria:Patient has met the following criteria:Major-Blood cultures positive for MRSA x3 Persistently positive blood cultures Minor Criteria Fever greater than 100.4 History of drug user Based on the Criteria above, patient will be treated as infective endocarditis.Patient has some petechiae on his left knee but I have not seen Janeway lesions, osler's nodes or marcano spots 08/10/2016 last two blood cultures-negative Patient to have a VASYL today C-reactive protein improving from 15.9 to 13.2 Rheumatoid factor-<15 Hepatitis C Ab-positive ESR-118 08/11/2016 VASYL showed no vegetations.Repeated blood cultures have been negative. 08/13/2016 patient spiked a temp of 100.4 yesterday 08/14/2016 Repeat blood cultures are negative 08/15/2016 patient spiked a temp of 100.3 this am 08/16/2016 Patient has not had fever since his last spike 24hrs ago. 08/17/2016 Patient spiked a temp of 101.0 yesterday. 08/18/2016 Patient has remained afebrile in the last 24hrs. Repeat BC and bronchial washing cultures are negative 08/19/2016 Patient had a low grade fever of 99.8 this am. One bottle of repeat bronchial washing cultures was positve for yeast Plan continue with current antibiotic regime and IV diflucan Current Visit: Yes (10) Yeast UTI Status: Acute Assessment and plan: We have repeated yet again a UC, follow report Plan continue with IV Diflucan Current Visit: Yes (11) Hepatitis C antibody test positive Status: Acute Assessment and plan: Liver USS- right pleural effusion,small ascites, gall bladder thickening most likely related to incomplete distention. Liver enzymes are unremarkable. Patient will need more workup as outpatient. Current Visit: Yes (12) Acute blood loss anemia Status: Acute Assessment and plan: s/p transfusion with 2units of packed cells yesterday with dialysis. CBC in am Current Visit: Yes Hospitalist: Subjective Interval history: Patient seen this am on the vent. He had a of secretions coming out of his tube and he was suctioned.He had two units of blood transfused yesterday with dialysis. Exam - Constitutional Vitals: Period Temp Pulse Resp BP Sys/Mcconnell Pulse Ox Last 24 Hr 97.5 F-98.4 F 68-83 16-32 107-158/49-73 94-100 General appearance: no acute distress, other (trach connected to the vent with a lot of secretion coming out of tube) - Respiratory Respiratory exam: Present: decreased breath sounds - Cardiovascular Cardiovascular exam: Present: regular rate and rhythm - GI/Abdominal GI/Abdominal exam: Present: normal bowel sounds - Extremities Exam Extremities exam: Present: edema - Neurological Exam Neurological exam: Present: alert Results - Labs CBC & BMP: 08/19/16 05:05 08/19/16 05:05 Lab Results: I have reviewed the past 24 hour labs
[2016-08-19] MEDS: PANTOPRAZOLE 40 MG VIAL IV SCH (09:11)
[2016-08-19] MEDS: MORPHINE 2 MG/1 ML SYRINGE IV PRN ×2 (09:12→20:45)
[2016-08-19] MEDS: amLODIPine 5 MG TABLET PO SCH (09:13)
[2016-08-19] MEDS: hydrALAZINE 25 MG TABLET PO SCH ×2 (09:13→20:46)
[2016-08-19] MEDS: CARVEDILOL 25 MG TABLET PO SCH ×2 (09:14→20:46)
[2016-08-19] MEDS: INSULIN ASPART PROTAMINE/ASPART 70/30 100 UNIT/ML SUBCUT SCH (09:14)
[2016-08-19] MEDS: CLOTRIMAZOLE/BETAMETHASONE CREAM 15 GM TUBE TOP SCH ×3 (09:14→20:47)
[2016-08-19] MEDS: DESITIN 4OZ/NYSTATIN 15 GRAM MIXTURE PASTE TOP SCH ×2 (09:15→20:47)
--- NOTE | 2016-08-19 10:46 | Pulmonology Progress Note ---
Pulmonary - PN: Subj Interval history: This is a 51-year-old white male whom I saw in pulmonary consultation on 2016. Earlier that day he had experienced respiratory failure that required intubation mechanical ventilation and I was asked to see him in pulmonary consultation to manage his mechanical ventilation and to treat pulmonary problems. My impressions were. 1. Staph aureus sepsis. Etiology undetermined. Note the patient has a history of IV drug use. Look for SBE 2. Acute respiratory arrest. Etiology undetermined. Probably multifactorial. 3. Altered mental status 4. Renal failure 5. Anemia 6. Probable pyelonephritis. 7. See past history 08/08/2016. Today's chest x-ray shows small bilateral pleural effusions. ABGs on mechanical ventilation showed pH 7.335, PCO2 28, PO2 365 and a bicarb of 16.4. I am going to decrease the patient's FiO2 but leave him and a hyper ventilation state to help with his metabolic acidosis. Creatinine is 6.0 with a BUN of 83. Sodium is 146. Potassium 3.8. H&H is dropped to 7.3/22.0 white blood cell count is 13,100 with 85 segs 8 lymphs and 4 monocytes. Platelets are 243,000. Multiple blood cultures have been positive for staph aureus and nares cultures were positive for MRSA. 08/09/2016. Today's chest x-ray is stable. There are a few increased interstitial markings with mild associated atelectasis at both bases. On mechanical ventilation with an FiO2 of 50% pH is 7.386. PCO2 is 25.1. PO2 is 157 and bicarb is 17.5. Patient is on weaning protocol which will be accentuated today. Yesterday had dialysis catheters placed and he was on dialysis. Electrolytes are normal. Creatinine 6.6. BUN is 72. White blood cell count is dropped to 10,684% segs. H&H is 9.2/27.1. Platelets 222,000. Purulent drainage from the penis has not grown anything. Sputum shows showing no growth at 12 hours. RPR is nonreactive 08/10/2016. Today's chest x-ray shows a small amount of pleural effusions bilaterally. I do not see any definite infiltrates. Patient is not doing well on weaning trials. I have changed his CPAP to 5 a CPAP with a pressure support of 15. Today's ABGs on FiO2 50% mechanical ventilation shows a pH 7.41, PCO2 23 , PO2 of 123, bicarb 14.2. Creatinine remains elevated 7.80 with a BUN of 70. Sodium potassium and chloride are normal. Patient remains severely ill. Patient is on a lot of antibiotics. It is possible some of these could be consolidated. 08/11/2016. Chest x-ray is stable today patient is only a short time on CPAP yesterday and was noted to try to go longer. He had ultrasonics to and he was on dialysis. Ultrasound of the liver showed a right pleural effusion and small amount of ascites. There was gallbladder wall thickening most likely related to incomplete distention. ABGs are stable. There are no new positive cultures. This patient is only minimal right arousable 08/12/2016. This patient is not doing with his well with his weaning protocol. His chest x-ray today shows bibasilar atelectasis worse on the left as compared to the right. These are fairly new and progressive findings. Respiratory therapy is finding it hard to suction all of his secretions and these have become more thicker and more tenacious. It was elected to reevaluate this patient with fiberoptic bronchoscopy. See report. He had a tremendous amount of retained secretions and these were extremely tenacious and repeat completely occluded the suction channel of the scope. Hopefully after removal this will make his weaning process more efficacious. There are no new cultures. ABGs on mechanical ventilation FiO2 50% shows a pH of 7.48, PCO2 25, PO2 of 107 and a bicarb of 18. Electrolytes are normal. Creatinine is 5.90. Patient receives dialysis. CBC is stable. 08/14/2016. On 08/13/2016 talked with this patient's son by phone and told him that he needed a trach. He wanted to talk to his sister and she was also agreeable and the call back the patient's nurse Lesvia and gave permission to proceed with trach. Dr. Valle all will place a trach later today. We have discussed the case. This patient has had staph sepsis. Etiology is undetermined. There is a past history of IV drug abuse. He has not done well with his weaning trials. Yesterday 2 or 3 occasions she was able to do CPAP for 1 hour which was a big improvement. He clearly has an altered mental status that has not resolved as expected. He is for CT of the chest later on today. Patient has renal failure and is on dialysis. His family is from [place] and he will eventually require long-term acute care. Location of that is yet to be determined. special services agent is on the case. Patient was evaluated with fiberoptic bronchoscopy on 08/12/2016. There are no positive cultures. He had a tremendous amount of retained sick secretions that were very tenacious and completely occluded the suction channel of the scope on multiple occasions. He may require repeat bronchoscopy in a few days. ABGs on mechanical ventilation FiO2 50% show a pH 7.49, PCO2 25, PO2 120, bicarb of 19. Electrolytes are normal. Creatinine 7.4. White count is 8176 segs 11 lymphs and 10 monos. H&H is stable at 8.6/25.7. After the patient's trach is placed today we will continue all protocols including weaning protocol physical therapy protocol deep venous thrombophlebitis protocol. 08/17/2016. This patient had a trach placed on 08/14/2016. He is not doing well with his weaning.Chest x-ray he has developed bibasilar atelectasis. I will evaluate this with fiberoptic bronchoscopy later today. ABGs on mechanical ventilation FiO2 50% shows a pH 7.37, PCO2 33.6, PO2 82.5 and a bicarb of 19.3. There are no new positive cultures. Sodium is 134. Potassium is 4.7. Creatinine is 9.8 with a BUN of 91. H&H stable 8.1/25.2. White count is 9678 segs 10 lymphs and 8 monocytes 08/18/2016. This patient was able to do 4 hours of CPAP yesterday which represents a big improvement. He is now at the point where he follows commands. special services agent looking the possibility of long-term acute care near his home in [place]. His chest x-ray shows small bilateral pleural effusions but is otherwise normal. There are no new cultures. ABGs are stable. Electrolytes are normal. Creatinine is 11.2. As of gradual small decrease in H &H. Patient is stable and improved 08/19/2016. This patient's on stage IV to weaning protocol. He went 8 hours on CPAP 08/18/2016 and we hope to advance to stage V today. Chest x-ray is top normal all fluid. We need to watch this. His BNP is mildly elevated. Most recent bronchoscopy specimens are negative. ABGs on mechanical ventilation FiO2 50% shows a pH of 7.47, PCO2 of 28, PO2 of 94, bicarbonate 20.4. Electrolytes are normal. Creatinine remains elevated at 9.0 with a BUN of 85. H&H is 9.1/28.0. White count is 9676 segs 10 lymphs and 10 monos. Platelets are 202,000. Natruretic peptide is elevated at 375. Physical exam. Vital signs. See below Chest. Loose large airway congestion Heart. Lateral PMI Abdomen. Rare bowel sounds Lower extremities. Nothing to suggest deep venous thrombophlebitis Neck. No masses and no meningismus. Neurologic.. Patient is awake. He can cooperate. Cranial nerves appear to be intact. Patient moves all 4 extremities The remainder the physical exam is negative Plan. 1. Mechanical ventilator weaning protocol 2. Physical therapy protocol while on mechanical ventilation 3. Deep venous thrombophlebitis prevention protocol 4. Proton pump inhibitor protocol 7. See orders. #8. See my note for 517. Watch for congestive heart failure. Continue daily lab, ABGs and chest Exam (Progress Note) - Constitutional Vitals: Period Temp Pulse Resp BP Sys/Mcconnell Pulse Ox Last 24 Hr 97.5 F-99.8 F 68-84 13-32 107-158/36-73 94-100 Results - Labs CBC & BMP: 08/19/16 05:05 08/19/16 05:05
[2016-08-19] MEDS ORDERED: INSULIN ASPART PROTAMINE/ASPART 70/30 100 UNIT/ML SUBCUT SCH (11:39)
[2016-08-19] MEDS ORDERED: INSULIN GLARGINE 100 UNIT/ML SUBCUT SCH (11:39)
[2016-08-19] MEDS: FLUCONAZOLE INJ 200 MG in PREMIX 1 EACH IV SCH (11:54)
--- NOTE | 2016-08-19 21:49 | Nephrology Progress Note ---
Nephrology - PN: Subj Interval history: He remains on the ventilator. He is awake and mildly agitated. He does follow simple commands. Exam (PN)-Nephrology - Vital Signs Vital signs: Period Temp Pulse Resp BP Sys/Mcconnell Pulse Ox Last 24 Hr 97.5 F-99.8 F 70-84 11-30 115-152/36-95 95-100 Exam: Gen.: Arouses to voice ENT: Tracheostomy present Neck: Supple. No JVD or bruit. Cardiovascular: Regular rate and rhythm. No murmur rub or gallop Lungs: Few rhonchi Abdomen: Soft. Nontender. Positive bowel sounds. No organomegaly Extremities: Trace edema - Lab 08/19/16 05:05 08/19/16 05:05 Most recent lab results ABG pH 7.469 (7.35-7.45) H 08/19/16 03:00 ABG pCO2 28.3 MM HG (35-48) L 08/19/16 03:00 ABG pO2 93.7 MM HG (80-95) 08/19/16 03:00 ABG HCO3 22.4 MMOL/L (20-26) 08/19/16 03:00 ABG O2 Saturation 97.7 % (95-100) 08/19/16 03:00 Calcium 8.5 MG/DL (8.5-10.1) 08/19/16 05:05 Phosphorus 10.5 MG/DL (2.5-4.9) H 08/17/16 03:59 Magnesium 2.8 MG/DL (1.8-2.4) H 08/17/16 03:59 Ur Total Protein 24 Hr 587 MG/24HR (0-149.1) H 08/10/16 16:40 Assessment and Plan (1) Acute renal failure Status: Acute Assessment and plan: 51-year-old man admitted with: * Acute renal failure. No improvement in renal function. He remains oliguric. Dialysis tomorrow * Ventilatory failure. Wean ventilator as tolerated * Sepsis. Continue antibiotics * Confusion. * Diabetes mellitus * Chronic back pain Current Visit: Yes (2) Altered mental status Status: Acute Current Visit: Yes (3) Fever Status: Acute Current Visit: Yes (4) Hyperglycemia due to type 2 diabetes mellitus Status: Chronic Current Visit: Yes (5) Hypotension Status: Acute Current Visit: Yes
[2016-08-20] MEDS: ALBUTEROL/IPRATROPIUM 3 ML NEB RESP TX SCH ×4 (00:49→19:47)
[2016-08-20] MEDS: INSULIN REGULAR 100 UNIT/ML SUBCUT SCH ×4 (00:51→18:11)
[2016-08-20] MEDS: PROPOFOL 1,000 MG/100 ML BOTTLE IV SCH ×3 (01:10→23:18)
[2016-08-20 03:29] LABS: ABG Base Excess -4.9 MMOL/L (-2.5-2.5); ABG HCO3 20.4 MMOL/L (20-26); ABG Oxygen Saturation 97.9 % (95-100); ABG PCO2 29.7 MM HG (35-48); ABG PH 7.411 (7.35-7.45); ABG TCO2 17.5 MMOL/L (23-27); Allen Test Positive; Pt O2 Delivery Device Ventilator
[2016-08-20 04:16] LABS: Basophils # 0.1 10*3/uL (0.0-0.2); Basophils % 0.5 % (0.0-0.8); Eosinophils # 0.3 10*3/uL (0.0-0.87); Eosinophils % 3.1 % (0.00-10.9); Hematocrit 26.2 VOL% (42.0-52.0); Hemoglobin 8.4 GM/DL (14.0-18.0); Immature Granulocytes % 1.3 %; Immature Granulocytes Absolute 0.12 #; Lymphocytes # 0.8 10*3/uL (1.4-4.0); Lymphocytes % 8.1 % (21.2-54.2); Mean Corpuscular HGB Conc 32.1 GM/DL (32-36); Mean Corpuscular Hemoglobin 31 PG (27-34); Mean Corpuscular Volume 95.6 FL (87-102); Mean Platelet Volume 10.9 FL (9.6-12.0); Monocytes # 0.8 10*3/uL (0.11-0.8); Monocytes % 8.2 % (1.7-12.7); Neutrophils # 7.5 10*3/uL (1.4-7.4); Neutrophils % 78.8 % (38.7-73.9); Platelet Count 188 T/CUMM (130-400); Red Blood Count 2.74 MC/CUMM (3.8-5.5); White Blood Count 9.5 T/CUMM (4-12)
[2016-08-20 04:48] LABS: Calcium 8.3 MG/DL (8.5-10.1); Osmolality,Calculated 300.8 MOS/KG (273-304); Potassium 4.9 MMOL/L (3.5-5.1)
[2016-08-20 05:10] LABS: Magnesium 2.6 MG/DL (1.8-2.4); Phosphorous 10.5 MG/DL (2.5-4.9); Prealbumin 17.4 MG/DL (20-40)
[2016-08-20] MEDS: DEXTROSE 50% 25 GM/50 ML VIAL IV PRN (05:41)
--- NOTE | 2016-08-20 07:27 | XRay Report ---
Referring Physician: Salvador Bustamante Exam: XR chest 1V portable Date: August 20, 2016 at 3:01 AM Reason: Ventilation, tracheostomy Comparison: Chest one view portable August 19, 2016 Findings: A tracheostomy catheter, right IJ catheter and feeding tube are again in place. The cardiac silhouette is again enlarged. There is diffuse hazy density within the right lung, mainly at the right lung base. There are also opacities at the left lung base. This could represent pulmonary edema and/or pneumonia with atelectasis. No pneumothorax is identified, but there is layering pleural fluid on the right and possible minimal left pleural fluid. The osseous structures appear stable. Impression: There has been no significant change. PROCEDURE INTERPRETED AT [facility] Final Report Signed by: Dr. Clarence Patrick
--- NOTE | 2016-08-20 09:12 | Hospitalist Progress Note ---
Assessment and Plan (1) Altered mental status Status: Acute Assessment and plan: This is most likely due to MRSA sepsis. Most recent CT showed no acute changes.This is improving. He gets emotional and cry each time we try to communicate with him. Plan continue current care PT/OT consult Current Visit: Yes (2) Hyperglycemia due to type 2 diabetes mellitus Status: Chronic Assessment and plan: Patient is still having episodes of hypoglycemia. His lantus was not given last night and blood sugar this am was in the 60s-140s.[id number]. Plan Hold lantus Correct hypoglycemia with D50 reduce 70/30 qam to 30units, follow response. Current Visit: Yes (3) Acute renal failure Status: Acute Assessment and plan: Continue with dialysis. Nephrology is following.Bmp in am Current Visit: Yes (4) Thrombocytopenia Status: Acute Assessment and plan: Resolved Current Visit: Yes (5) HTN (hypertension) Status: Chronic Assessment and plan: continue on current regime Current Visit: Yes Qualifiers: Hypertension type: essential hypertension Qualified Code(s): I10 - Essential (primary) hypertension (6) MRSA (methicillin resistant Staphylococcus aureus) septicemia Status: Acute Assessment and plan: Most recent blood cultures are negative. A recent bronchial washings grew yeast Plan -Will continue to treat as IE, continue current IV antibiotic regime and IV diflucan Current Visit: Yes (7) Septic shock Status: Acute Assessment and plan: Patient has been afebrile in the last 24hrs. See treatment plan above. Current Visit: Yes (8) Acute respiratory failure Status: Acute Assessment and plan: He had a tracheostomy done a couple of days ago. He is doing better with CPAP trials.One bottle of repeat bronchial washing grew yeast. Plan continue to follow Pulm's recommendations Continue with IV antibiotics awaiting LTAC placement Current Visit: Yes (9) Infective endocarditis Status: Acute Assessment and plan: 08/09/2016 Per modified [facility] Criteria:Patient has met the following criteria:Major-Blood cultures positive for MRSA x3 Persistently positive blood cultures Minor Criteria Fever greater than 100.4 History of drug user Based on the Criteria above, patient will be treated as infective endocarditis.Patient has some petechiae on his left knee but I have not seen Janeway lesions, osler's nodes or marcano spots 08/10/2016 last two blood cultures-negative Patient to have a VASYL today C-reactive protein improving from 15.9 to 13.2 Rheumatoid factor-<15 Hepatitis C Ab-positive ESR-118 08/11/2016 VASYL showed no vegetations.Repeated blood cultures have been negative. 08/13/2016 patient spiked a temp of 100.4 yesterday 08/14/2016 Repeat blood cultures are negative 08/15/2016 patient spiked a temp of 100.3 this am 08/16/2016 Patient has not had fever since his last spike 24hrs ago. 08/17/2016 Patient spiked a temp of 101.0 yesterday. 08/18/2016 Patient has remained afebrile in the last 24hrs. Repeat BC and bronchial washing cultures are negative 08/19/2016 Patient had a low grade fever of 99.8 this am. One bottle of repeat bronchial washing cultures was positive for yeast 08/19/2016 Patient has remained afebrile in the last 24hrs. Plan continue with current antibiotic regime and IV diflucan. We will treat for about 4-6wks Current Visit: Yes (10) Yeast UTI Status: Acute Assessment and plan: We have repeated yet again a UC, follow report Plan continue with IV Diflucan Current Visit: Yes (11) Hepatitis C antibody test positive Status: Acute Assessment and plan: Liver USS- right pleural effusion,small ascites, gall bladder thickening most likely related to incomplete distention. Liver enzymes are unremarkable. Patient will need more workup as outpatient. Current Visit: Yes (12) Acute blood loss anemia Status: Acute Assessment and plan: s/p transfusion of multiple units of blood. . CBC in am Current Visit: Yes Hospitalist: Subjective Interval history: Patient is stable on the vent. He had some secretions around his tube. He obeys commands and he is tearful when spoken to.field reimbursement manager is still working on the LTAC placement. Exam - Constitutional Vitals: Period Temp Pulse Resp BP Sys/Mcconnell Pulse Ox Last 24 Hr 97.2 F-99.3 F 63-82 11-30 105-144/49-95 95-99 General appearance: no acute distress, other (trach connected to the vent) - Head Head exam: Present: normal inspection - Respiratory Respiratory exam: Present: rales - Cardiovascular Cardiovascular exam: Present: regular rate and rhythm - GI/Abdominal GI/Abdominal exam: Present: normal bowel sounds - Extremities Exam Extremities exam: Present: other (miminal edema) Results - Labs CBC & BMP: 08/20/16 04:00 08/20/16 04:00 Lab Results: I have reviewed the past 24 hour labs
[2016-08-20] MEDS: PANTOPRAZOLE 40 MG VIAL IV SCH (09:26)
[2016-08-20] MEDS: amLODIPine 5 MG TABLET PO SCH (09:26)
[2016-08-20] MEDS: hydrALAZINE 25 MG TABLET PO SCH ×2 (09:26→20:08)
[2016-08-20] MEDS: CARVEDILOL 25 MG TABLET PO SCH ×2 (09:26→20:08)
[2016-08-20] MEDS: CLOTRIMAZOLE/BETAMETHASONE CREAM 15 GM TUBE TOP SCH ×3 (09:26→20:07)
[2016-08-20] MEDS: DESITIN 4OZ/NYSTATIN 15 GRAM MIXTURE PASTE TOP SCH ×2 (09:27→20:07)
--- NOTE | 2016-08-20 10:01 | Pulmonology Progress Note ---
Pulmonary - PN: Subj Interval history: This is a 51-year-old white male whom I saw in pulmonary consultation on 2016. Earlier that day he had experienced respiratory failure that required intubation mechanical ventilation and I was asked to see him in pulmonary consultation to manage his mechanical ventilation and to treat pulmonary problems. My impressions were. 1. Staph aureus sepsis. Etiology undetermined. Note the patient has a history of IV drug use. Look for SBE 2. Acute respiratory arrest. Etiology undetermined. Probably multifactorial. 3. Altered mental status 4. Renal failure 5. Anemia 6. Probable pyelonephritis. 7. See past history 08/08/2016. Today's chest x-ray shows small bilateral pleural effusions. ABGs on mechanical ventilation showed pH 7.335, PCO2 28, PO2 365 and a bicarb of 16.4. I am going to decrease the patient's FiO2 but leave him and a hyper ventilation state to help with his metabolic acidosis. Creatinine is 6.0 with a BUN of 83. Sodium is 146. Potassium 3.8. H&H is dropped to 7.3/22.0 white blood cell count is 13,100 with 85 segs 8 lymphs and 4 monocytes. Platelets are 243,000. Multiple blood cultures have been positive for staph aureus and nares cultures were positive for MRSA. 08/09/2016. Today's chest x-ray is stable. There are a few increased interstitial markings with mild associated atelectasis at both bases. On mechanical ventilation with an FiO2 of 50% pH is 7.386. PCO2 is 25.1. PO2 is 157 and bicarb is 17.5. Patient is on weaning protocol which will be accentuated today. Yesterday had dialysis catheters placed and he was on dialysis. Electrolytes are normal. Creatinine 6.6. BUN is 72. White blood cell count is dropped to 10,684% segs. H&H is 9.2/27.1. Platelets 222,000. Purulent drainage from the penis has not grown anything. Sputum shows showing no growth at 12 hours. RPR is nonreactive 08/10/2016. Today's chest x-ray shows a small amount of pleural effusions bilaterally. I do not see any definite infiltrates. Patient is not doing well on weaning trials. I have changed his CPAP to 5 a CPAP with a pressure support of 15. Today's ABGs on FiO2 50% mechanical ventilation shows a pH 7.41, PCO2 23 , PO2 of 123, bicarb 14.2. Creatinine remains elevated 7.80 with a BUN of 70. Sodium potassium and chloride are normal. Patient remains severely ill. Patient is on a lot of antibiotics. It is possible some of these could be consolidated. 08/11/2016. Chest x-ray is stable today patient is only a short time on CPAP yesterday and was noted to try to go longer. He had ultrasonics to and he was on dialysis. Ultrasound of the liver showed a right pleural effusion and small amount of ascites. There was gallbladder wall thickening most likely related to incomplete distention. ABGs are stable. There are no new positive cultures. This patient is only minimal right arousable 08/12/2016. This patient is not doing with his well with his weaning protocol. His chest x-ray today shows bibasilar atelectasis worse on the left as compared to the right. These are fairly new and progressive findings. Respiratory therapy is finding it hard to suction all of his secretions and these have become more thicker and more tenacious. It was elected to reevaluate this patient with fiberoptic bronchoscopy. See report. He had a tremendous amount of retained secretions and these were extremely tenacious and repeat completely occluded the suction channel of the scope. Hopefully after removal this will make his weaning process more efficacious. There are no new cultures. ABGs on mechanical ventilation FiO2 50% shows a pH of 7.48, PCO2 25, PO2 of 107 and a bicarb of 18. Electrolytes are normal. Creatinine is 5.90. Patient receives dialysis. CBC is stable. 08/14/2016. On 08/13/2016 talked with this patient's son by phone and told him that he needed a trach. He wanted to talk to his sister and she was also agreeable and the call back the patient's nurse Lesvia and gave permission to proceed with trach. Dr. Valle all will place a trach later today. We have discussed the case. This patient has had staph sepsis. Etiology is undetermined. There is a past history of IV drug abuse. He has not done well with his weaning trials. Yesterday 2 or 3 occasions she was able to do CPAP for 1 hour which was a big improvement. He clearly has an altered mental status that has not resolved as expected. He is for CT of the chest later on today. Patient has renal failure and is on dialysis. His family is from [place] and he will eventually require long-term acute care. Location of that is yet to be determined. management services technician is on the case. Patient was evaluated with fiberoptic bronchoscopy on 08/12/2016. There are no positive cultures. He had a tremendous amount of retained sick secretions that were very tenacious and completely occluded the suction channel of the scope on multiple occasions. He may require repeat bronchoscopy in a few days. ABGs on mechanical ventilation FiO2 50% show a pH 7.49, PCO2 25, PO2 120, bicarb of 19. Electrolytes are normal. Creatinine 7.4. White count is 8176 segs 11 lymphs and 10 monos. H&H is stable at 8.6/25.7. After the patient's trach is placed today we will continue all protocols including weaning protocol physical therapy protocol deep venous thrombophlebitis protocol. 08/17/2016. This patient had a trach placed on 08/14/2016. He is not doing well with his weaning.Chest x-ray he has developed bibasilar atelectasis. I will evaluate this with fiberoptic bronchoscopy later today. ABGs on mechanical ventilation FiO2 50% shows a pH 7.37, PCO2 33.6, PO2 82.5 and a bicarb of 19.3. There are no new positive cultures. Sodium is 134. Potassium is 4.7. Creatinine is 9.8 with a BUN of 91. H&H stable 8.1/25.2. White count is 9678 segs 10 lymphs and 8 monocytes 08/18/2016. This patient was able to do 4 hours of CPAP yesterday which represents a big improvement. He is now at the point where he follows commands. management services technician looking the possibility of long-term acute care near his home in [place]. His chest x-ray shows small bilateral pleural effusions but is otherwise normal. There are no new cultures. ABGs are stable. Electrolytes are normal. Creatinine is 11.2. As of gradual small decrease in H &H. Patient is stable and improved 08/19/2016. This patient's on stage IV to weaning protocol. He went 8 hours on CPAP 08/18/2016 and we hope to advance to stage V today. Chest x-ray is top normal all fluid. We need to watch this. His BNP is mildly elevated. Most recent bronchoscopy specimens are negative. ABGs on mechanical ventilation FiO2 50% shows a pH of 7.47, PCO2 of 28, PO2 of 94, bicarbonate 20.4. Electrolytes are normal. Creatinine remains elevated at 9.0 with a BUN of 85. H&H is 9.1/28.0. White count is 9676 segs 10 lymphs and 10 monos. Platelets are 202,000. Natruretic peptide is elevated at 375. 08/20/2016. Today's chest x-ray shows bilateral pleural effusions which are greater on the right as compared to the left. I think we are looking at pulmonary edema. Patient will have dialysis later on today and hopefully some fluid can be removed. Creatinine is 10.4. Electrolytes are normal. H&H is stable at 8.4/26.2. White count is 9500 with 79 segs 8 lymphs and 8 monos. Limits her 188,000. Patient is gradually becoming more alert. He is able to cooperate better. Physical exam. Vital signs. See below Chest. Loose large airway congestion Heart. Lateral PMI Abdomen. Rare bowel sounds Lower extremities. Nothing to suggest deep venous thrombophlebitis Neck. No masses and no meningismus. Neurologic.. Patient is awake. He can cooperate. Cranial nerves appear to be intact. Patient moves all 4 extremities The remainder the physical exam is negative Plan. 1. Mechanical ventilator weaning protocol 2. Physical therapy protocol while on mechanical ventilation 3. Deep venous thrombophlebitis prevention protocol 4. Proton pump inhibitor protocol 7. See orders. #8. See my note for 517. Watch for congestive heart failure. Continue daily lab, ABGs and chest 9. See my note for 09/19/2016. Bilateral pleural effusions. Most likely congestive heart failure. For dialysis today. Hopefully fluid can be removed. Exam (Progress Note) - Constitutional Vitals: Period Temp Pulse Resp BP Sys/Mcconnell Pulse Ox Last 24 Hr 97.2 F-99.3 F 63-82 11-30 105-144/49-95 95-99 Results - Labs CBC & BMP: 08/20/16 04:00 08/20/16 04:00
[2016-08-20] MEDS: MORPHINE 2 MG/1 ML SYRINGE IV PRN ×2 (10:52→20:07)
--- NOTE | 2016-08-20 12:26 | Nephrology Progress Note ---
Nephrology - PN: Subj Interval history: He remains on the ventilator via tracheostomy. Blood pressure is stable. Exam (PN)-Nephrology - Vital Signs Vital signs: Period Temp Pulse Resp BP Sys/Mcconnell Pulse Ox Last 24 Hr 97.2 F-98.1 F 63-78 11-30 105-144/49-95 95-99 Exam: Gen.: Awake but confused ENT: Tracheostomy Neck: Supple. No JVD or bruit. Cardiovascular: Regular rate and rhythm. No murmur rub or gallop Lungs: Clear Abdomen: Soft. Nontender. Positive bowel sounds. No organomegaly Extremities: 1+ edema - Lab 08/20/16 04:00 08/20/16 04:00 Most recent lab results ABG pH 7.411 (7.35-7.45) 08/20/16 03:10 ABG pCO2 29.7 MM HG (35-48) L 08/20/16 03:10 ABG pO2 103.0 MM HG (80-95) H 08/20/16 03:10 ABG HCO3 20.4 MMOL/L (20-26) 08/20/16 03:10 ABG O2 Saturation 97.9 % (95-100) 08/20/16 03:10 Calcium 8.3 MG/DL (8.5-10.1) L 08/20/16 04:00 Phosphorus 10.5 MG/DL (2.5-4.9) H 08/20/16 04:00 Magnesium 2.6 MG/DL (1.8-2.4) H 08/20/16 04:00 Ur Total Protein 24 Hr 587 MG/24HR (0-149.1) H 08/10/16 16:40 Assessment and Plan (1) Acute renal failure Status: Acute Assessment and plan: 51-year-old man admitted with: * Acute renal failure. No improvement in renal function. Dialysis today. Dr. Rob is changing his catheter today * Ventilatory failure. Wean ventilator as tolerated * Sepsis. Continue antibiotics * Confusion. * Diabetes mellitus * Chronic back pain Current Visit: Yes (2) Altered mental status Status: Acute Current Visit: Yes (3) Fever Status: Acute Current Visit: Yes (4) Hyperglycemia due to type 2 diabetes mellitus Status: Chronic Current Visit: Yes (5) Hypotension Status: Acute Current Visit: Yes
[2016-08-20] MEDS: FLUCONAZOLE INJ 200 MG in PREMIX 1 EACH IV SCH (12:41)
--- NOTE | 2016-08-20 12:48 | Operative Note ---
Date of procedure: 08/20/16 Pre-op diagnosis: renal failure, sepsis Post-op diagnosis: same Procedure: Procedure performed: Exchange of right non-tunneled hemodialysis catheter over a guidewire Procedure in detail: After obtaining consent the patient was laid supine in the ICU. The existing non-tunneled right IJ hemodialysis catheter was prepped and draped including the surrounding area. After procedural pause a guidewire was inserted through the distal lumen. The catheter was removed leaving the guidewire in place and a new 16 cm non-tunneled hemodialysis catheter was inserted over the guidewire and advanced without difficulty. The guidewire was removed and the catheter secured in place with 2-0 silk suture. Withdrew and flushed easily of dark red blood and was locked with saline. Sterile dressings applied and the patient tolerated the procedure well. Anesthesia: none Surgeon / Physician: Chemo Rob Estimated blood loss: other (less than 10 mL) Specimens: none sent Condition: stable Disposition: PACU Results - Labs CBC & BMP: 08/20/16 04:00 08/20/16 04:00 Discharge Plan - Discharge Medications No Action Insulin Aspart Prot/Asp 70/30 [NovoLOG Mix 70/30] 40 unit SUBCUT BID Insulin Aspart [NovoLOG] See Protocol SUBCUT ACHS Lisinopril/Hydrochlorothiazide [Lisinopril-Hctz 20-25 mg Tab] 1 each PO DAILY - Follow Up or Referral - Forms/Instructions
[2016-08-20] MEDS ORDERED: VANCOMYCIN INJ 500 MG in SODIUM CHLORIDE 0.9% 100 ML IV ONE (21:00)
[2016-08-21] MEDS: INSULIN REGULAR 100 UNIT/ML SUBCUT SCH ×5 (00:25→23:50)
[2016-08-21] MEDS: ALBUTEROL/IPRATROPIUM 3 ML NEB RESP TX SCH ×4 (01:01→19:27)
[2016-08-21] MEDS: MORPHINE 2 MG/1 ML SYRINGE IV PRN (02:51)
[2016-08-21 03:20] LABS: ABG HCO3 23.5 MMOL/L (20-26); ABG Oxygen Saturation 96.9 % (95-100); ABG PCO2 30.8 MM HG (35-48); ABG PH 7.464 (7.35-7.45); ABG PO2 85.5 MM HG (80-95); ABG TCO2 20.3 MMOL/L (23-27); Allen Test Positive; Pt O2 Delivery Device Ventilator
[2016-08-21 04:46] LABS: Calcium 8.3 MG/DL (8.5-10.1); Magnesium 2.4 MG/DL (1.8-2.4); Potassium 4.9 MMOL/L (3.5-5.1)
[2016-08-21 05:19] LABS: Basophils # 0.1 10*3/uL (0.0-0.2); Basophils % 0.8 % (0.0-0.8); Eosinophils # 0.3 10*3/uL (0.0-0.87); Eosinophils % 3.9 % (0.00-10.9); Hematocrit 26.2 VOL% (42.0-52.0); Hemoglobin 8.3 GM/DL (14.0-18.0); Immature Granulocytes % 1.1 %; Immature Granulocytes Absolute 0.09 #; Lymphocytes # 0.8 10*3/uL (1.4-4.0); Lymphocytes % 9.9 % (21.2-54.2); Mean Corpuscular HGB Conc 31.7 GM/DL (32-36); Mean Corpuscular Hemoglobin 31 PG (27-34); Mean Corpuscular Volume 96.7 FL (87-102); Mean Platelet Volume 11.2 FL (9.6-12.0); Monocytes # 0.7 10*3/uL (0.11-0.8); Monocytes % 8.7 % (1.7-12.7); Neutrophils % 75.6 % (38.7-73.9); Platelet Count 199 T/CUMM (130-400); Red Blood Count 2.71 MC/CUMM (3.8-5.5); Red Cell Distribution Width 13.9 % (9.3-17.3); White Blood Count 7.9 T/CUMM (4-12)
[2016-08-21] MEDS: PROPOFOL 1,000 MG/100 ML BOTTLE IV SCH ×3 (07:30→22:45)
--- NOTE | 2016-08-21 07:32 | XRay Report ---
Referring Physician: Salvador Bustamante Exam: XR chest 1V portable Date: August 21, 2016 at 3:07 AM Reason: Ventilation, tracheostomy Comparison: Chest one view portable August 20, 2016 Findings: A tracheostomy catheter, right IJ catheter and feeding tube are in place. The cardiac silhouette is again enlarged. There is hazy density within the right mid and lower lung zones and within the left lower lung zone. This is concerning for pulmonary edema, atelectasis and possibly pneumonia. No pneumothorax is identified, but there is mild to moderate right pleural fluid and likely minimal left pleural fluid. The osseous structures appear stable. Impression: There has been no significant change. PROCEDURE INTERPRETED AT [facility] DEPARTMENT OF RADIOLOGY Final Report Signed by: Dr. Clarence Patrick
[2016-08-21] MEDS: INSULIN ASPART PROTAMINE/ASPART 70/30 100 UNIT/ML SUBCUT SCH (09:33)
[2016-08-21] MEDS: PANTOPRAZOLE 40 MG VIAL IV SCH (09:34)
[2016-08-21] MEDS: CARVEDILOL 25 MG TABLET PO SCH ×2 (09:35→20:44)
[2016-08-21] MEDS: amLODIPine 5 MG TABLET PO SCH (09:35)
[2016-08-21] MEDS: hydrALAZINE 25 MG TABLET PO SCH ×2 (09:35→20:44)
[2016-08-21] MEDS: CLOTRIMAZOLE/BETAMETHASONE CREAM 15 GM TUBE TOP SCH ×3 (09:36→20:44)
[2016-08-21] MEDS: DESITIN 4OZ/NYSTATIN 15 GRAM MIXTURE PASTE TOP SCH ×2 (09:36→20:44)
[2016-08-21] MEDS: ZIPRASIDONE 20 MG/1 ML VIAL IM PRN ×2 (09:36→17:11)
--- NOTE | 2016-08-21 09:44 | Discharge Summary ---
Hospital Course - Hospital Course Hospital Course: Mr. Ball is a 51 year old male with past medical history significant for chronic back pain,arthritis, diabetes, diabetic retinopathy and elevation of liver enzymes who transferred from another facility for further evaluation of fever, confusion and was admitted to the unit for management of sepsis.He was started on IVF,broad spectrum antibiotics,blood cultures were drawn. His ESR and C reactive protein were elevated.He was noted to have ARF, nephrotoxics were held. Blood cultures came back to be positive for MRSA, he was treated with IV vancomycin. Echo showed mild concentric left ventricular hypertrophy, grade 1 diastolic dysfunction with impaired relaxation overall EF of 60%.No evidence infective endocarditis.CT head showed no acute changes, Lumbar spine showed no acute fracture. Ammonia level was up so he got some lactulose.His plateletes were low at 160, Hematology saw and they did not think that the patient has TTP.He was stable and was transferred to the floor. Patient remained confused and he was still spiking temp despite on IV vanc and Zosyn so he was switched to Ampicillin, Rocephin, Acyclovir and to continue with vanc -Meningits protocol.MRI of the brain reveals no acute abnormalities. Neurology saw in consultation. Blood cultures reveals MRSA. A spinal tap reveals WBC count of 39 with 65% neutrophils, glucose 54, total protein 40, RBC less than 1. Gram stain negative, meningitis antigen panel is negative.MRI Lumbar: No acute fracture or obvious abscess. Patient remained confused, got combative and continued to spike temp, blood cultures x3 were positive for MRSA. He was transferred to the unit. Gentamicin was added for presumed diagnosed of infective endocarditis.Patient had a history of being a drug user and an alcoholic. He also received some multivitamins. CT chest showed mild left pleural effusion, moderate right pleural fluid, right fluid is partially loculated. Scattered opacities in both lungs concerning for atelectasis, pneumonia to r/o neoplastic process. IR did a thoracentesis and 600cc of fluid was drained.Pleural fluid-no growth. Patient's overall conditioned worsened and he was subsequently intubated and started on pressors.His renal failure worsened and he became anuric and was started on hemodialysis. He had multiple blood transfusions.Patient produced some greenish fluid from the genitals and cultures came back negative.VASYL showed no clear evidence of valvular vegetation. It showed mitral regurgitation, aortic sclerosis without stenosis, ASCVD of descending aorta.Per modified Manrique Criteria:Patient has met the following criteria for infective endocarditis:Major-Blood cultures positive for MRSA x3 and Persistently positive blood cultures. Minor Criteria Fever greater than 100.4 and a History of drug user. Patient had some petechiae on his left knee but [place] lesions, osler's nodes or marcano spots were not seen.His urine grew yeast and IV diflucan was added.Because there were no organisms related to gentamicin and Herpes PCR was negative in the CSF, gentamicin and acyclovir were discontinued due to their high nephrotoxicity effect. Blood for fungal studies was negative.C- reactive protein improving from 15.9 to 13.2.Rheumatoid factor-<15.Hepatitis C Ab-positive.ESR-118.Liver USS- right pleural effusion,small ascites, gall bladder thickening most likely related to incomplete distention. Liver enzymes are unremarkable. Patient will need more workup as outpatient. Patient's overall condition slowly improved and his antibiotics were de- escalated. He was not doing well with CPAP trials so he eventually had a tracheostomy tube placed.His mental status improved.He gets emotional and cry each time we try to communicate with him. He is currently stable, his vitals are fine and he is ready to be transferred to LTAC for continuation of care. Time spent:2hrs - Time spent with patient Time with patient DS: Greater than 30 minutes (2hr) Diagnosis - Discharge Diagnosis (1) Altered mental status Status: Acute (2) Hyperglycemia due to type 2 diabetes mellitus Status: Chronic (3) Acute renal failure Status: Acute (4) Thrombocytopenia Status: Acute (5) HTN (hypertension) Status: Chronic (6) MRSA (methicillin resistant Staphylococcus aureus) septicemia Status: Acute (7) Septic shock Status: Acute (8) Acute respiratory failure Status: Acute (9) Infective endocarditis Status: Acute (10) Yeast UTI Status: Acute (11) Hepatitis C antibody test positive Status: Acute (12) Acute blood loss anemia Status: Acute Discharge Plan - Discharge Data Disposition: Disch/Xfer to [facility]ing Supervisor [facility] Condition at Discharge: Stable Discharge Diet: diabetic diet Activity: resume usual activities as tolerated - Discharge Medications New Clotrimazole/Betameth Cream [Lotrisone Cream] 1 applic TOP TID applic Heparin Inj 2,000 unit IV .FOR DIALYSIS vial Morphine Inj 2 mg IV Q4H PRN #0 syringe PRN Reason: Pain Severe (8-10) amLODIPine [Norvasc] 10 mg PO DAILY tablet Acetaminophen Tab [Tylenol Tab] 650 mg PO Q6H PRN #0 tablet PRN Reason: Fever, Headache, Mild Pain Albuterol Neb [Proventil Neb] 2.5 mg RESP TX RT Q1H PRN #0 PRN Reason: Shortness Of Breath/Wheezing Albuterol/Ipratropium Neb [Duoneb] 3 ml RESP TX RT Q6H Carvedilol [Coreg] 25 mg PO BID tablet Dextrose 50% [D50] 25 gm IV PRN PRN #0 vial PRN Reason: Hypoglycemia with IV access Fluconazole Inj [Diflucan Inj] 200 mg IV Q24H Glucagon 1 mg IM PRN PRN #0 vial PRN Reason: Hypoglycemia w/o IV access Insulin Aspart Prot/Asp 70/30 [NovoLOG Mix 70/30] 30 unit SUBCUT AC BREAKFAST unit Insulin Regular [HumuLIN R] See Protocol SUBCUT Q6HR unit Magnesium Sulf Moy [Magnesium Sulfate Inj] 4 gm IV .PER PROTOCOL PRN #0 PRN Reason: Per Protocol Magnesium Sulf Moy [Magnesium Sulfate Inj] 2 gm IV .PER PROTOCOL PRN #0 PRN Reason: Per Protocol Ondansetron Inj [Zofran Inj] 4 mg IV Q4H PRN #0 vial PRN Reason: Nausea Pantoprazole Inj [Protonix Inj] 40 mg IV DAILY vial Vancomycin Inj 500 mg IV PRN PRN #0 vial PRN Reason: PHARMACY MANAGING Ziprasidone Inj [Geodon Inj] 20 mg IM Q8H PRN #0 vial PRN Reason: Agitation hydrALAZINE TAB [Apresoline Tab] 25 mg PO BID tablet Discontinued Insulin Aspart Prot/Asp 70/30 [NovoLOG Mix 70/30] 40 unit SUBCUT BID Insulin Aspart [NovoLOG] See Protocol SUBCUT ACHS Lisinopril/Hydrochlorothiazide [Lisinopril-Hctz 20-25 mg Tab] 1 each PO DAILY - Follow Up or Referral - Forms/Instructions Exam - Constitutional Vitals: Period Temp Pulse Resp BP Sys/Mcconnell Pulse Ox Last 24 Hr 98.4 F-101.2 F 63-84 16-33 101-140/54-65 94-99 General appearance: no acute distress, other (trach connected to vent) - Respiratory Respiratory exam: Present: decreased breath sounds - Cardiovascular Cardiovascular exam: Present: regular rate and rhythm - GI/Abdominal GI/Abdominal exam: Present: normal bowel sounds - Extremities Exam Extremities exam: Present: normal inspection Discharge Results Procedures and tests throughout hospitalization: Pending Orders 08/06/16 08:33 Fungal Culture,Blood Routine 08/07/16 10:53 Cytology Request Routine 08/17/16 AFB Culture/Smears Routine Fungal Culture w/ Prep Routine 08/17/16 10:36 Blood Culture Stat 08/24/16 04:00 Magnesium Routine Phosphorous Routine Prealbumin Routine Labs on day of discharge: Labs from last 24 hours 08/21/16 08/21/16 08/21/16 05:34 04:00 04:00 WBC 7.9 RBC 2.71 L Hgb 8.3 L Hct 26.2 L MCV 96.7 MCH 31 MCHC 31.7 L RDW 13.9 Plt Count 199 MPV 11.2 Neut % (Auto) 75.6 H Lymph % (Auto) 9.9 L [place] % (Auto) 8.7 Eos % (Auto) 3.9 Baso % (Auto) 0.8 Neut # (Auto) 6.0 Lymph # (Auto) 0.8 L [place] # (Auto) 0.7 Eos # (Auto) 0.3 Baso # (Auto) 0.1 Immature Gran % 1.1 Nucleated RBC % 0.0 Immature Gran # 0.09 Nucleated RBCs # 0.00 ABG pH ABG pCO2 ABG pO2 ABG HCO3 ABG Total CO2 ABG O2 Saturation ABG Base Excess FiO2 Sodium 136 Potassium 4.9 Chloride 102 Carbon Dioxide 23 Anion Gap 15.9 H BUN 63 H D Creatinine 7.90 H GFR Calculation 10 BUN/Creatinine Ratio 7.00 Glucose 178 H POC Glucose 204 H Calculated Osmolality 293.0 Calcium 8.3 L Magnesium 2.4 B-Natriuretic Peptide 08/21/16 08/20/16 08/20/16 03:04 23:59 16:41 WBC RBC Hgb Hct MCV MCH MCHC RDW Plt Count MPV Neut % (Auto) Lymph % (Auto) [place] % (Auto) Eos % (Auto) Baso % (Auto) Neut # (Auto) Lymph # (Auto) [place] # (Auto) Eos # (Auto) Baso # (Auto) Immature Gran % Nucleated RBC % Immature Gran # Nucleated RBCs # ABG pH 7.464 H ABG pCO2 30.8 L ABG pO2 85.5 ABG HCO3 23.5 ABG Total CO2 20.3 L ABG O2 Saturation 96.9 ABG Base Excess -1.0 FiO2 50.00 Sodium Potassium Chloride Carbon Dioxide Anion Gap BUN Creatinine GFR Calculation BUN/Creatinine Ratio Glucose POC Glucose 176 H 114 H Calculated Osmolality Calcium Magnesium B-Natriuretic Peptide 08/20/16 08/20/16 12:16 10:03 WBC RBC Hgb Hct MCV MCH MCHC RDW Plt Count MPV Neut % (Auto) Lymph % (Auto) [place] % (Auto) Eos % (Auto) Baso % (Auto) Neut # (Auto) Lymph # (Auto) [place] # (Auto) Eos # (Auto) Baso # (Auto) Immature Gran % Nucleated RBC % Immature Gran # Nucleated RBCs # ABG pH ABG pCO2 ABG pO2 ABG HCO3 ABG Total CO2 ABG O2 Saturation ABG Base Excess FiO2 Sodium Potassium Chloride Carbon Dioxide Anion Gap BUN Creatinine GFR Calculation BUN/Creatinine Ratio Glucose POC Glucose 116 H Calculated Osmolality Calcium Magnesium B-Natriuretic Peptide 572 H Preliminary micro results at discharge 08/17/16 10:36 Blood Culture - Preliminary Blood No growth at 3 days 08/17/16 10:21 Blood Culture - Preliminary Blood No growth at 3 days 08/06/16 08:33 Fungal Culture - Preliminary Blood No Fungus isolated at 2 weeks DS: Provider Date of admission: 07/31/16 02:56 Primary care physician: . 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 thrombocytopenia Consulting Provider: Clem Coats 08/04/16 13:44 Consult to Physician [CONS] Routine Comment: AMS Consulting Provider: Joseph Castillo Consult to Specialist Group: Neurology When should Consulting Provider be notified: Now Person Notified: ASH Date Notified: 08/04/16 Time Notified: 14:26 08/07/16 10:19 Consult to Physician [CONS] Routine Comment: NEEDS VASYL PER OTUSESO Consulting Provider: Sandra David Consulting Provider Notified: Yes Consult to Specialist Group: Cardiology When should Consulting Provider be notified: Now Person Notified: ALETHA Date Notified: 08/07/16 Time Notified: 10:25 08/07/16 10:57 Consult to Physician [CONS] Routine Comment: Consulting Provider: Ric Callejas Consulting Provider Notified: Yes Consult to Specialist Group: Pulmonology When should Consulting Provider be notified: Now Person Notified: Date Notified: 08/07/16 Time Notified: 13:05 08/07/16 13:04 Consult to Pharmacy [CONS] Routine Reason for Pharmacy Consult: Dose/Manage Gentamicin 08/08/16 09:23 Consult to Physician [CONS] Routine Comment: temporary dialysis catheter Consulting Provider: Chemo Rob Consulting Provider Notified: Yes When should Consulting Provider be notified: Now Consult to Specialist Group: Surgery When should Consulting Provider be notified: Now Person Notified: Dr. Rob Date Notified: 08/08/16 Time Notified: 10:05 08/08/16 10:37 Consult to Dietitian [CONS] Routine Reason for Dietitian: TF-Initiate/Manage 08/12/16 15:56 Consult to Wound Care - [place] [CONS] Routine Reason for Wound Care: Wound Care Management Consult Comment: sacral decubitus 08/13/16 16:02 Consult to Physician [CONS] Routine Comment: plan for trach Consulting Provider: Leonard De La Cruz Consulting Provider Notified: Yes When should Consulting Provider be notified: In am Consult to Specialist Group: ENT Person Notified: LITO Date Notified: 08/14/16 Time Notified: 08:45 08/15/16 08:25 Consult to Occupational Therapy [CONS] Routine Reason for Occupational Therapy: Evaluate and Treat Start Therapy: Today PT [Consult to Physical Therapy] [CONS] Routine Reason for Physical Therapy: Evaluate and Treat Start Therapy: Today 08/17/16 15:06 Consult to Case Mgmt/Social Srvs [CONS] Routine Reason for Case Mgmt/Social Srvs: LTAC Consult Comment: L-TACH IN [place], WHEN GIL[place] W/ DR. CALLEJAS Discharging clinician: Zoya Ramos MD
--- NOTE | 2016-08-21 10:42 | Pulmonology Progress Note ---
Pulmonary - PN: Subj Interval history: This is a 51-year-old white male whom I saw in pulmonary consultation on 2016. Earlier that day he had experienced respiratory failure that required intubation mechanical ventilation and I was asked to see him in pulmonary consultation to manage his mechanical ventilation and to treat pulmonary problems. My impressions were. 1. Staph aureus sepsis. Etiology undetermined. Note the patient has a history of IV drug use. Look for SBE 2. Acute respiratory arrest. Etiology undetermined. Probably multifactorial. 3. Altered mental status 4. Renal failure 5. Anemia 6. Probable pyelonephritis. 7. See past history 08/08/2016. Today's chest x-ray shows small bilateral pleural effusions. ABGs on mechanical ventilation showed pH 7.335, PCO2 28, PO2 365 and a bicarb of 16.4. I am going to decrease the patient's FiO2 but leave him and a hyper ventilation state to help with his metabolic acidosis. Creatinine is 6.0 with a BUN of 83. Sodium is 146. Potassium 3.8. H&H is dropped to 7.3/22.0 white blood cell count is 13,100 with 85 segs 8 lymphs and 4 monocytes. Platelets are 243,000. Multiple blood cultures have been positive for staph aureus and nares cultures were positive for MRSA. 08/09/2016. Today's chest x-ray is stable. There are a few increased interstitial markings with mild associated atelectasis at both bases. On mechanical ventilation with an FiO2 of 50% pH is 7.386. PCO2 is 25.1. PO2 is 157 and bicarb is 17.5. Patient is on weaning protocol which will be accentuated today. Yesterday had dialysis catheters placed and he was on dialysis. Electrolytes are normal. Creatinine 6.6. BUN is 72. White blood cell count is dropped to 10,684% segs. H&H is 9.2/27.1. Platelets 222,000. Purulent drainage from the penis has not grown anything. Sputum shows showing no growth at 12 hours. RPR is nonreactive 08/10/2016. Today's chest x-ray shows a small amount of pleural effusions bilaterally. I do not see any definite infiltrates. Patient is not doing well on weaning trials. I have changed his CPAP to 5 a CPAP with a pressure support of 15. Today's ABGs on FiO2 50% mechanical ventilation shows a pH 7.41, PCO2 23 , PO2 of 123, bicarb 14.2. Creatinine remains elevated 7.80 with a BUN of 70. Sodium potassium and chloride are normal. Patient remains severely ill. Patient is on a lot of antibiotics. It is possible some of these could be consolidated. 08/11/2016. Chest x-ray is stable today patient is only a short time on CPAP yesterday and was noted to try to go longer. He had ultrasonics to and he was on dialysis. Ultrasound of the liver showed a right pleural effusion and small amount of ascites. There was gallbladder wall thickening most likely related to incomplete distention. ABGs are stable. There are no new positive cultures. This patient is only minimal right arousable 08/12/2016. This patient is not doing with his well with his weaning protocol. His chest x-ray today shows bibasilar atelectasis worse on the left as compared to the right. These are fairly new and progressive findings. Respiratory therapy is finding it hard to suction all of his secretions and these have become more thicker and more tenacious. It was elected to reevaluate this patient with fiberoptic bronchoscopy. See report. He had a tremendous amount of retained secretions and these were extremely tenacious and repeat completely occluded the suction channel of the scope. Hopefully after removal this will make his weaning process more efficacious. There are no new cultures. ABGs on mechanical ventilation FiO2 50% shows a pH of 7.48, PCO2 25, PO2 of 107 and a bicarb of 18. Electrolytes are normal. Creatinine is 5.90. Patient receives dialysis. CBC is stable. 08/14/2016. On 08/13/2016 talked with this patient's son by phone and told him that he needed a trach. He wanted to talk to his sister and she was also agreeable and the call back the patient's nurse Lesvia and gave permission to proceed with trach. Dr. Valle all will place a trach later today. We have discussed the case. This patient has had staph sepsis. Etiology is undetermined. There is a past history of IV drug abuse. He has not done well with his weaning trials. Yesterday 2 or 3 occasions she was able to do CPAP for 1 hour which was a big improvement. He clearly has an altered mental status that has not resolved as expected. He is for CT of the chest later on today. Patient has renal failure and is on dialysis. His family is from [place] and he will eventually require long-term acute care. Location of that is yet to be determined. director pharmacy services is on the case. Patient was evaluated with fiberoptic bronchoscopy on 08/12/2016. There are no positive cultures. He had a tremendous amount of retained sick secretions that were very tenacious and completely occluded the suction channel of the scope on multiple occasions. He may require repeat bronchoscopy in a few days. ABGs on mechanical ventilation FiO2 50% show a pH 7.49, PCO2 25, PO2 120, bicarb of 19. Electrolytes are normal. Creatinine 7.4. White count is 8176 segs 11 lymphs and 10 monos. H&H is stable at 8.6/25.7. After the patient's trach is placed today we will continue all protocols including weaning protocol physical therapy protocol deep venous thrombophlebitis protocol. 08/17/2016. This patient had a trach placed on 08/14/2016. He is not doing well with his weaning.Chest x-ray he has developed bibasilar atelectasis. I will evaluate this with fiberoptic bronchoscopy later today. ABGs on mechanical ventilation FiO2 50% shows a pH 7.37, PCO2 33.6, PO2 82.5 and a bicarb of 19.3. There are no new positive cultures. Sodium is 134. Potassium is 4.7. Creatinine is 9.8 with a BUN of 91. H&H stable 8.1/25.2. White count is 9678 segs 10 lymphs and 8 monocytes 08/18/2016. This patient was able to do 4 hours of CPAP yesterday which represents a big improvement. He is now at the point where he follows commands. director pharmacy services looking the possibility of long-term acute care near his home in [place]. His chest x-ray shows small bilateral pleural effusions but is otherwise normal. There are no new cultures. ABGs are stable. Electrolytes are normal. Creatinine is 11.2. As of gradual small decrease in H &H. Patient is stable and improved 08/19/2016. This patient's on stage IV to weaning protocol. He went 8 hours on CPAP 08/18/2016 and we hope to advance to stage V today. Chest x-ray is top normal all fluid. We need to watch this. His BNP is mildly elevated. Most recent bronchoscopy specimens are negative. ABGs on mechanical ventilation FiO2 50% shows a pH of 7.47, PCO2 of 28, PO2 of 94, bicarbonate 20.4. Electrolytes are normal. Creatinine remains elevated at 9.0 with a BUN of 85. H&H is 9.1/28.0. White count is 9676 segs 10 lymphs and 10 monos. Platelets are 202,000. Natruretic peptide is elevated at 375. 08/20/2016. Today's chest x-ray shows bilateral pleural effusions which are greater on the right as compared to the left. I think we are looking at pulmonary edema. Patient will have dialysis later on today and hopefully some fluid can be removed. Creatinine is 10.4. Electrolytes are normal. H&H is stable at 8.4/26.2. White count is 9500 with 79 segs 8 lymphs and 8 monos. Limits her 188,000. Patient is gradually becoming more alert. He is able to cooperate better. 08/21/2016. This patient did 15 hours on CPAP on 08/20/2016 this represents an improvement. Today's chest x-ray is better and that the right and left pleural effusions are smaller. ABGs are stable. Patient appears to be having some emotional problems. He gets very anxious and he has had some tearing up. I am going to try him on Tranxene 7.53 times a day on a as needed basis. Labs been reviewed. Medicines been reviewed. There are no new positive cultures. Physical exam. Vital signs. See below Chest. Loose large airway congestion Heart. Lateral PMI Abdomen. Rare bowel sounds Lower extremities. Nothing to suggest deep venous thrombophlebitis Neck. No masses and no meningismus. Neurologic.. Patient is awake. He can cooperate. Cranial nerves appear to be intact. Patient moves all 4 extremities The remainder the physical exam is negative Plan. 1. Mechanical ventilator weaning protocol 2. Physical therapy protocol while on mechanical ventilation 3. Deep venous thrombophlebitis prevention protocol 4. Proton pump inhibitor protocol 7. See orders. #8. See my note for 517. Watch for congestive heart failure. Continue daily lab, ABGs and chest 9. See my note for 09/19/2016. Bilateral pleural effusions. Most likely congestive heart failure. For dialysis today. Hopefully fluid can be removed. Exam (Progress Note) - Constitutional Vitals: Period Temp Pulse Resp BP Sys/Mcconnell Pulse Ox Last 24 Hr 98.4 F-101.5 F 63-86 16-34 101-141/55-67 94-100 Results - Labs CBC & BMP: 08/21/16 04:00 08/21/16 04:00
[2016-08-21] MEDS: CLORAZEPATE 7.5 MG TABLET PO PRN ×2 (11:08→20:44)
[2016-08-21] MEDS: FLUCONAZOLE INJ 200 MG in PREMIX 1 EACH IV SCH (12:08)
--- NOTE | 2016-08-21 15:40 | Nephrology Progress Note ---
Nephrology - PN: Subj Interval history: He remains on the ventilator. He is currently sedated with Diprovan . Blood pressure is stable Exam (PN)-Nephrology - Vital Signs Vital signs: Period Temp Pulse Resp BP Sys/Mcconnell Pulse Ox Last 24 Hr 98.5 F-101.5 F 61-86 17-34 101-141/48-85 94-100 Exam: ENT: Tracheostomy Cardiovascular: Regular rate and rhythm. No murmur rub or gallop Lungs: Clear Extremities: No edema - Lab 08/21/16 04:00 08/21/16 04:00 Most recent lab results ABG pH 7.464 (7.35-7.45) H 08/21/16 03:04 ABG pCO2 30.8 MM HG (35-48) L 08/21/16 03:04 ABG pO2 85.5 MM HG (80-95) 08/21/16 03:04 ABG HCO3 23.5 MMOL/L (20-26) 08/21/16 03:04 ABG O2 Saturation 96.9 % (95-100) 08/21/16 03:04 Calcium 8.3 MG/DL (8.5-10.1) L 08/21/16 04:00 Phosphorus 10.5 MG/DL (2.5-4.9) H 08/20/16 04:00 Magnesium 2.4 MG/DL (1.8-2.4) 08/21/16 04:00 Ur Total Protein 24 Hr 587 MG/24HR (0-149.1) H 08/10/16 16:40 Assessment and Plan (1) Acute renal failure Status: Acute Assessment and plan: 51-year-old man admitted with: * Acute renal failure. No improvement in renal function. Dialysis tomorrow * Ventilatory failure. Wean ventilator as tolerated * Sepsis. Continue antibiotics * Confusion. * Diabetes mellitus * Chronic back pain Current Visit: Yes (2) Altered mental status Status: Acute Current Visit: Yes (3) Fever Status: Acute Current Visit: Yes (4) Hyperglycemia due to type 2 diabetes mellitus Status: Chronic Current Visit: Yes (5) Hypotension Status: Acute Current Visit: Yes
[2016-08-22] MEDS: ALBUTEROL/IPRATROPIUM 3 ML NEB RESP TX SCH ×4 (00:37→19:16)
[2016-08-22] MEDS: PROPOFOL 1,000 MG/100 ML BOTTLE IV SCH ×3 (03:33→19:01)
[2016-08-22 03:57] LABS: Pt O2 Delivery Device Ventilator
[2016-08-22 03:58] LABS: ABG HCO3 19.9 MMOL/L (20-26); ABG PO2 95.1 MM HG (80-95); ABG TCO2 20.8 MMOL/L (23-27)
[2016-08-22] MEDS: CLORAZEPATE 7.5 MG TABLET PO PRN ×2 (04:36→12:39)
[2016-08-22] MEDS: MORPHINE 2 MG/1 ML SYRINGE IV PRN (04:42)
[2016-08-22] MEDS: INSULIN REGULAR 100 UNIT/ML SUBCUT SCH ×3 (06:01→18:47)
--- NOTE | 2016-08-22 07:25 | XRay Report ---
XR chest 1V portable Indication: Tracheostomy. Ventilatory support. Chest one view: Since yesterday, tracheostomy, NG tube, temporary dialysis catheter, cardiomegaly and hazy obscuration of the lung bases, worse on the right, are all stable. No new infiltrates are shown. Impression: No change. PROCEDURE INTERPRETED AT [facility] DEPARTMENT OF RADIOLOGY Final Report Signed by: Clem Gates M.D.
--- NOTE | 2016-08-22 08:37 | Dialysis Note ---
Dialysis Note - Dialysis Note Mr. Ball is seen at the beginning of his hemodialysis. He is tolerating it well he is awake and on a ventilator. His dialysis catheter IV port has been damaged and will need to swap at catheter out. We will plan to do it later on after dialysis is completed.
--- NOTE | 2016-08-22 09:25 | Pulmonology Progress Note ---
Pulmonary - PN: Subj Interval history: This is a 51-year-old white male whom I saw in pulmonary consultation on 2016. Earlier that day he had experienced respiratory failure that required intubation mechanical ventilation and I was asked to see him in pulmonary consultation to manage his mechanical ventilation and to treat pulmonary problems. My impressions were. 1. Staph aureus sepsis. Etiology undetermined. Note the patient has a history of IV drug use. Look for SBE 2. Acute respiratory arrest. Etiology undetermined. Probably multifactorial. 3. Altered mental status 4. Renal failure 5. Anemia 6. Probable pyelonephritis. 7. See past history 08/08/2016. Today's chest x-ray shows small bilateral pleural effusions. ABGs on mechanical ventilation showed pH 7.335, PCO2 28, PO2 365 and a bicarb of 16.4. I am going to decrease the patient's FiO2 but leave him and a hyper ventilation state to help with his metabolic acidosis. Creatinine is 6.0 with a BUN of 83. Sodium is 146. Potassium 3.8. H&H is dropped to 7.3/22.0 white blood cell count is 13,100 with 85 segs 8 lymphs and 4 monocytes. Platelets are 243,000. Multiple blood cultures have been positive for staph aureus and nares cultures were positive for MRSA. 08/09/2016. Today's chest x-ray is stable. There are a few increased interstitial markings with mild associated atelectasis at both bases. On mechanical ventilation with an FiO2 of 50% pH is 7.386. PCO2 is 25.1. PO2 is 157 and bicarb is 17.5. Patient is on weaning protocol which will be accentuated today. Yesterday had dialysis catheters placed and he was on dialysis. Electrolytes are normal. Creatinine 6.6. BUN is 72. White blood cell count is dropped to 10,684% segs. H&H is 9.2/27.1. Platelets 222,000. Purulent drainage from the penis has not grown anything. Sputum shows showing no growth at 12 hours. RPR is nonreactive 08/10/2016. Today's chest x-ray shows a small amount of pleural effusions bilaterally. I do not see any definite infiltrates. Patient is not doing well on weaning trials. I have changed his CPAP to 5 a CPAP with a pressure support of 15. Today's ABGs on FiO2 50% mechanical ventilation shows a pH 7.41, PCO2 23 , PO2 of 123, bicarb 14.2. Creatinine remains elevated 7.80 with a BUN of 70. Sodium potassium and chloride are normal. Patient remains severely ill. Patient is on a lot of antibiotics. It is possible some of these could be consolidated. 08/11/2016. Chest x-ray is stable today patient is only a short time on CPAP yesterday and was noted to try to go longer. He had ultrasonics to and he was on dialysis. Ultrasound of the liver showed a right pleural effusion and small amount of ascites. There was gallbladder wall thickening most likely related to incomplete distention. ABGs are stable. There are no new positive cultures. This patient is only minimal right arousable 08/12/2016. This patient is not doing with his well with his weaning protocol. His chest x-ray today shows bibasilar atelectasis worse on the left as compared to the right. These are fairly new and progressive findings. Respiratory therapy is finding it hard to suction all of his secretions and these have become more thicker and more tenacious. It was elected to reevaluate this patient with fiberoptic bronchoscopy. See report. He had a tremendous amount of retained secretions and these were extremely tenacious and repeat completely occluded the suction channel of the scope. Hopefully after removal this will make his weaning process more efficacious. There are no new cultures. ABGs on mechanical ventilation FiO2 50% shows a pH of 7.48, PCO2 25, PO2 of 107 and a bicarb of 18. Electrolytes are normal. Creatinine is 5.90. Patient receives dialysis. CBC is stable. 08/14/2016. On 08/13/2016 talked with this patient's son by phone and told him that he needed a trach. He wanted to talk to his sister and she was also agreeable and the call back the patient's nurse Lesvia and gave permission to proceed with trach. Dr. Valle all will place a trach later today. We have discussed the case. This patient has had staph sepsis. Etiology is undetermined. There is a past history of IV drug abuse. He has not done well with his weaning trials. Yesterday 2 or 3 occasions she was able to do CPAP for 1 hour which was a big improvement. He clearly has an altered mental status that has not resolved as expected. He is for CT of the chest later on today. Patient has renal failure and is on dialysis. His family is from [place] and he will eventually require long-term acute care. Location of that is yet to be determined. enrollment services dean is on the case. Patient was evaluated with fiberoptic bronchoscopy on 08/12/2016. There are no positive cultures. He had a tremendous amount of retained sick secretions that were very tenacious and completely occluded the suction channel of the scope on multiple occasions. He may require repeat bronchoscopy in a few days. ABGs on mechanical ventilation FiO2 50% show a pH 7.49, PCO2 25, PO2 120, bicarb of 19. Electrolytes are normal. Creatinine 7.4. White count is 8176 segs 11 lymphs and 10 monos. H&H is stable at 8.6/25.7. After the patient's trach is placed today we will continue all protocols including weaning protocol physical therapy protocol deep venous thrombophlebitis protocol. 08/17/2016. This patient had a trach placed on 08/14/2016. He is not doing well with his weaning.Chest x-ray he has developed bibasilar atelectasis. I will evaluate this with fiberoptic bronchoscopy later today. ABGs on mechanical ventilation FiO2 50% shows a pH 7.37, PCO2 33.6, PO2 82.5 and a bicarb of 19.3. There are no new positive cultures. Sodium is 134. Potassium is 4.7. Creatinine is 9.8 with a BUN of 91. H&H stable 8.1/25.2. White count is 9678 segs 10 lymphs and 8 monocytes 08/18/2016. This patient was able to do 4 hours of CPAP yesterday which represents a big improvement. He is now at the point where he follows commands. enrollment services dean looking the possibility of long-term acute care near his home in [place]. His chest x-ray shows small bilateral pleural effusions but is otherwise normal. There are no new cultures. ABGs are stable. Electrolytes are normal. Creatinine is 11.2. As of gradual small decrease in H &H. Patient is stable and improved 08/19/2016. This patient's on stage IV to weaning protocol. He went 8 hours on CPAP 08/18/2016 and we hope to advance to stage V today. Chest x-ray is top normal all fluid. We need to watch this. His BNP is mildly elevated. Most recent bronchoscopy specimens are negative. ABGs on mechanical ventilation FiO2 50% shows a pH of 7.47, PCO2 of 28, PO2 of 94, bicarbonate 20.4. Electrolytes are normal. Creatinine remains elevated at 9.0 with a BUN of 85. H&H is 9.1/28.0. White count is 9676 segs 10 lymphs and 10 monos. Platelets are 202,000. Natruretic peptide is elevated at 375. 08/20/2016. Today's chest x-ray shows bilateral pleural effusions which are greater on the right as compared to the left. I think we are looking at pulmonary edema. Patient will have dialysis later on today and hopefully some fluid can be removed. Creatinine is 10.4. Electrolytes are normal. H&H is stable at 8.4/26.2. White count is 9500 with 79 segs 8 lymphs and 8 monos. Limits her 188,000. Patient is gradually becoming more alert. He is able to cooperate better. 08/21/2016. This patient did 15 hours on CPAP on 08/20/2016 this represents an improvement. Today's chest x-ray is better and that the right and left pleural effusions are smaller. ABGs are stable. Patient appears to be having some emotional problems. He gets very anxious and he has had some tearing up. I am going to try him on Tranxene 7.53 times a day on a as needed basis. Labs been reviewed. Medicines been reviewed. There are no new positive cultures. 08/22/2016. Chest x-ray is slowly improving. Patient continues to have bilateral pleural effusions. He continues to progress on weaning protocol is also on physical therapy protocol. ABGs are stable. No other tests were available at the time of my rounds today. Tranxene was started on the patient yesterday and it worked well to help keep him calmer. Physical exam. Vital signs. See below Chest. Loose large airway congestion Heart. Lateral PMI Abdomen. Rare bowel sounds Lower extremities. Nothing to suggest deep venous thrombophlebitis Neck. No masses and no meningismus. Neurologic.. Patient is awake. He can cooperate. Cranial nerves appear to be intact. Patient moves all 4 extremities The remainder the physical exam is negative Plan. 1. Mechanical ventilator weaning protocol 2. Physical therapy protocol while on mechanical ventilation 3. Deep venous thrombophlebitis prevention protocol 4. Proton pump inhibitor protocol 7. See orders. #8. See my note for 517. Watch for congestive heart failure. Continue daily lab, ABGs and chest 9. See my note for 08/20/2016. Bilateral pleural effusions. Most likely congestive heart failure. For dialysis today. Hopefully fluid can be removed. 10. See my note 08/22/2016. Still bilateral pleural effusions most likely secondary to congestive heart failure Exam (Progress Note) - Constitutional Vitals: Period Temp Pulse Resp BP Sys/Mcconnell Pulse Ox Last 24 Hr 97.6 F-99.8 F 61-86 17-27 101-147/44-85 94-98 Results - Labs CBC & BMP: 08/21/16 04:00 08/21/16 04:00
[2016-08-22] MEDS: PANTOPRAZOLE 40 MG VIAL IV SCH (09:30)
[2016-08-22] MEDS: hydrALAZINE 25 MG TABLET PO SCH ×2 (09:30→20:36)
[2016-08-22] MEDS: CARVEDILOL 25 MG TABLET PO SCH ×2 (09:30→20:36)
[2016-08-22] MEDS: DESITIN 4OZ/NYSTATIN 15 GRAM MIXTURE PASTE TOP SCH ×2 (09:30→20:36)
[2016-08-22] MEDS: CLOTRIMAZOLE/BETAMETHASONE CREAM 15 GM TUBE TOP SCH ×3 (09:30→20:36)
[2016-08-22] MEDS: amLODIPine 5 MG TABLET PO SCH (09:30)
--- NOTE | 2016-08-22 11:07 | Hospitalist Progress Note ---
Assessment and Plan (1) MRSA bacteremia Status: Acute Assessment and plan: Patient is being treated. White count is now normal. Will reevaluate use of antibiotics in the coming 48 hours. Current Visit: Yes (2) Respiratory failure, chronic Status: Acute Assessment and plan: She has a permanent tracheostomy. Oxygenation is optimal seems to be dense dependent at this point. The initial cause of his respiratory failure is not made clear to me at this point. Informed came in with septic shock but as that is resolving to be as patient is difficult to be extubated. Patient remains in intensive care unit Current Visit: Yes Hospitalist: Subjective Interval history: Patient is seen and examined his on dialysis. He has a tracheostomy and not able to phonate. He cannot make any signs to communicate with me. Seems to be rather is content because he is crying. Exam - Constitutional Vitals: Period Temp Pulse Resp BP Sys/Mcconnell Pulse Ox Last 24 Hr 97.6 F-99.8 F 61-81 17-27 101-147/44-85 94-98 General appearance: over weight - Head Head exam: Present: normocephalic, atraumatic - Eye Eye exam: Present: EOMI Pupils: Present: NANY - ENT ENT exam: Present: other (Tracheostomy) - Neck Neck exam: Present: other (Tracheostomy) - Respiratory Respiratory exam: Present: clear to auscultation bilaterally, other (No wheezing no rales patient is on dialysis as I evaluated) - Cardiovascular Cardiovascular exam: Present: regular rate and rhythm - GI/Abdominal GI/Abdominal exam: Present: normal bowel sounds, soft, other (Nontender no guarding) - Extremities Exam Extremities exam: Present: other (No edema no cyanosis move extremities without limitation) - Neurological Exam Neurological exam: Present: other (Visit to do a complete neurological examination. Patient is partially sedated with Diprivan however is able to respond to simple commands) - Psychiatric Psychiatric exam: Present: other (Patient is very teary) - Skin Skin exam: Present: normal color, warm, dry Results - Labs CBC & BMP: 08/21/16 04:00 08/21/16 04:00 Lab Results: I have reviewed the past 24 hour labs
[2016-08-22] MEDS: INSULIN ASPART PROTAMINE/ASPART 70/30 100 UNIT/ML SUBCUT SCH (12:05)
[2016-08-22] MEDS: FLUCONAZOLE INJ 200 MG in PREMIX 1 EACH IV SCH (12:39)
--- NOTE | 2016-08-22 14:47 | Event Note ---
After sterile prep of the right neck and right jugular dialysis catheter. A catheter exchange was carried out over a wire. This was accomplished with no blood loss and local anesthesia. Patient tolerated procedure well. This was necessary due to the end of the distalmost catheter port having been removed inadvertently leaving the lumen open.
[2016-08-22] MEDS ORDERED: VANCOMYCIN INJ 500 MG in SODIUM CHLORIDE 0.9% 100 ML IV ONE (21:00)
[2016-08-23] MEDS: PROPOFOL 1,000 MG/100 ML BOTTLE IV SCH ×5 (00:21→20:55)
[2016-08-23] MEDS: INSULIN REGULAR 100 UNIT/ML SUBCUT SCH ×4 (00:58→17:48)
[2016-08-23] MEDS: ALBUTEROL/IPRATROPIUM 3 ML NEB RESP TX SCH ×4 (01:00→19:16)
[2016-08-23] MEDS: CLORAZEPATE 7.5 MG TABLET PO PRN (01:13)
[2016-08-23 03:43] LABS: ABG Base Excess -3.1 MMOL/L (-2.5-2.5); ABG HCO3 20.4 MMOL/L (20-26); ABG Oxygen Saturation 96.1 % (95-100); ABG PCO2 30.2 MM HG (35-48); ABG PH 7.447 (7.35-7.45); ABG PO2 84.2 MM HG (80-95); ABG TCO2 21.3 MMOL/L (23-27); Allen Test Positive; Pt O2 Delivery Device Ventilator
--- NOTE | 2016-08-23 09:07 | Nephrology Progress Note ---
Nephrology - PN: Subj Interval history: Mr. Ball is seen in follow-up of his renal failure. He dialyzed yesterday and following dialysis had he is dialysis catheter replaced over a wire. Blood gases this morning are acceptable with a PO2 of 84. Will order lab for tomorrow morning. He is sedated on the ventilator but does respond Exam (PN)-Nephrology - Vital Signs Vital signs: Period Temp Pulse Resp BP Sys/Mcconnell Pulse Ox Last 24 Hr 98.7 F-99.2 F 63-80 10-27 81-151/34-80 90-100 - Lab 08/21/16 04:00 08/21/16 04:00 Most recent lab results ABG pH 7.447 (7.35-7.45) 08/23/16 03:10 ABG pCO2 30.2 MM HG (35-48) L 08/23/16 03:10 ABG pO2 84.2 MM HG (80-95) 08/23/16 03:10 ABG HCO3 20.4 MMOL/L (20-26) 08/23/16 03:10 ABG O2 Saturation 96.1 % (95-100) 08/23/16 03:10 Calcium 8.3 MG/DL (8.5-10.1) L 08/21/16 04:00 Phosphorus 10.5 MG/DL (2.5-4.9) H 08/20/16 04:00 Magnesium 2.4 MG/DL (1.8-2.4) 08/21/16 04:00 Ur Total Protein 24 Hr 587 MG/24HR (0-149.1) H 08/10/16 16:40
--- NOTE | 2016-08-23 09:11 | Pulmonology Progress Note ---
Pulmonary - PN: Subj Interval history: This is a 51-year-old white male whom I saw in pulmonary consultation on 2016. Earlier that day he had experienced respiratory failure that required intubation mechanical ventilation and I was asked to see him in pulmonary consultation to manage his mechanical ventilation and to treat pulmonary problems. My impressions were. 1. Staph aureus sepsis. Etiology undetermined. Note the patient has a history of IV drug use. Look for SBE 2. Acute respiratory arrest. Etiology undetermined. Probably multifactorial. 3. Altered mental status 4. Renal failure 5. Anemia 6. Probable pyelonephritis. 7. See past history 08/08/2016. Today's chest x-ray shows small bilateral pleural effusions. ABGs on mechanical ventilation showed pH 7.335, PCO2 28, PO2 365 and a bicarb of 16.4. I am going to decrease the patient's FiO2 but leave him and a hyper ventilation state to help with his metabolic acidosis. Creatinine is 6.0 with a BUN of 83. Sodium is 146. Potassium 3.8. H&H is dropped to 7.3/22.0 white blood cell count is 13,100 with 85 segs 8 lymphs and 4 monocytes. Platelets are 243,000. Multiple blood cultures have been positive for staph aureus and nares cultures were positive for MRSA. 08/09/2016. Today's chest x-ray is stable. There are a few increased interstitial markings with mild associated atelectasis at both bases. On mechanical ventilation with an FiO2 of 50% pH is 7.386. PCO2 is 25.1. PO2 is 157 and bicarb is 17.5. Patient is on weaning protocol which will be accentuated today. Yesterday had dialysis catheters placed and he was on dialysis. Electrolytes are normal. Creatinine 6.6. BUN is 72. White blood cell count is dropped to 10,684% segs. H&H is 9.2/27.1. Platelets 222,000. Purulent drainage from the penis has not grown anything. Sputum shows showing no growth at 12 hours. RPR is nonreactive 08/10/2016. Today's chest x-ray shows a small amount of pleural effusions bilaterally. I do not see any definite infiltrates. Patient is not doing well on weaning trials. I have changed his CPAP to 5 a CPAP with a pressure support of 15. Today's ABGs on FiO2 50% mechanical ventilation shows a pH 7.41, PCO2 23 , PO2 of 123, bicarb 14.2. Creatinine remains elevated 7.80 with a BUN of 70. Sodium potassium and chloride are normal. Patient remains severely ill. Patient is on a lot of antibiotics. It is possible some of these could be consolidated. 08/11/2016. Chest x-ray is stable today patient is only a short time on CPAP yesterday and was noted to try to go longer. He had ultrasonics to and he was on dialysis. Ultrasound of the liver showed a right pleural effusion and small amount of ascites. There was gallbladder wall thickening most likely related to incomplete distention. ABGs are stable. There are no new positive cultures. This patient is only minimal right arousable 08/12/2016. This patient is not doing with his well with his weaning protocol. His chest x-ray today shows bibasilar atelectasis worse on the left as compared to the right. These are fairly new and progressive findings. Respiratory therapy is finding it hard to suction all of his secretions and these have become more thicker and more tenacious. It was elected to reevaluate this patient with fiberoptic bronchoscopy. See report. He had a tremendous amount of retained secretions and these were extremely tenacious and repeat completely occluded the suction channel of the scope. Hopefully after removal this will make his weaning process more efficacious. There are no new cultures. ABGs on mechanical ventilation FiO2 50% shows a pH of 7.48, PCO2 25, PO2 of 107 and a bicarb of 18. Electrolytes are normal. Creatinine is 5.90. Patient receives dialysis. CBC is stable. 08/14/2016. On 08/13/2016 talked with this patient's son by phone and told him that he needed a trach. He wanted to talk to his sister and she was also agreeable and the call back the patient's nurse Lesvia and gave permission to proceed with trach. Dr. Valle all will place a trach later today. We have discussed the case. This patient has had staph sepsis. Etiology is undetermined. There is a past history of IV drug abuse. He has not done well with his weaning trials. Yesterday 2 or 3 occasions she was able to do CPAP for 1 hour which was a big improvement. He clearly has an altered mental status that has not resolved as expected. He is for CT of the chest later on today. Patient has renal failure and is on dialysis. His family is from [place] and he will eventually require long-term acute care. Location of that is yet to be determined. [employer] is on the case. Patient was evaluated with fiberoptic bronchoscopy on 08/12/2016. There are no positive cultures. He had a tremendous amount of retained sick secretions that were very tenacious and completely occluded the suction channel of the scope on multiple occasions. He may require repeat bronchoscopy in a few days. ABGs on mechanical ventilation FiO2 50% show a pH 7.49, PCO2 25, PO2 120, bicarb of 19. Electrolytes are normal. Creatinine 7.4. White count is 8176 segs 11 lymphs and 10 monos. H&H is stable at 8.6/25.7. After the patient's trach is placed today we will continue all protocols including weaning protocol physical therapy protocol deep venous thrombophlebitis protocol. 08/17/2016. This patient had a trach placed on 08/14/2016. He is not doing well with his weaning.Chest x-ray he has developed bibasilar atelectasis. I will evaluate this with fiberoptic bronchoscopy later today. ABGs on mechanical ventilation FiO2 50% shows a pH 7.37, PCO2 33.6, PO2 82.5 and a bicarb of 19.3. There are no new positive cultures. Sodium is 134. Potassium is 4.7. Creatinine is 9.8 with a BUN of 91. H&H stable 8.1/25.2. White count is 9678 segs 10 lymphs and 8 monocytes 08/18/2016. This patient was able to do 4 hours of CPAP yesterday which represents a big improvement. He is now at the point where he follows commands. [employer] looking the possibility of long-term acute care near his home in [place]. His chest x-ray shows small bilateral pleural effusions but is otherwise normal. There are no new cultures. ABGs are stable. Electrolytes are normal. Creatinine is 11.2. As of gradual small decrease in H &H. Patient is stable and improved 08/19/2016. This patient's on stage IV to weaning protocol. He went 8 hours on CPAP 08/18/2016 and we hope to advance to stage V today. Chest x-ray is top normal all fluid. We need to watch this. His BNP is mildly elevated. Most recent bronchoscopy specimens are negative. ABGs on mechanical ventilation FiO2 50% shows a pH of 7.47, PCO2 of 28, PO2 of 94, bicarbonate 20.4. Electrolytes are normal. Creatinine remains elevated at 9.0 with a BUN of 85. H&H is 9.1/28.0. White count is 9676 segs 10 lymphs and 10 monos. Platelets are 202,000. Natruretic peptide is elevated at 375. 08/20/2016. Today's chest x-ray shows bilateral pleural effusions which are greater on the right as compared to the left. I think we are looking at pulmonary edema. Patient will have dialysis later on today and hopefully some fluid can be removed. Creatinine is 10.4. Electrolytes are normal. H&H is stable at 8.4/26.2. White count is 9500 with 79 segs 8 lymphs and 8 monos. Limits her 188,000. Patient is gradually becoming more alert. He is able to cooperate better. 08/21/2016. This patient did 15 hours on CPAP on 08/20/2016 this represents an improvement. Today's chest x-ray is better and that the right and left pleural effusions are smaller. ABGs are stable. Patient appears to be having some emotional problems. He gets very anxious and he has had some tearing up. I am going to try him on Tranxene 7.53 times a day on a as needed basis. Labs been reviewed. Medicines been reviewed. There are no new positive cultures. 08/22/2016. Chest x-ray is slowly improving. Patient continues to have bilateral pleural effusions. He continues to progress on weaning protocol is also on physical therapy protocol. ABGs are stable. No other tests were available at the time of my rounds today. Tranxene was started on the patient yesterday and it worked well to help keep him calmer. 08/23/2016. Chest x-ray is improving on a daily basis. Very small residual right pleural effusion. Central vasculature is still prominent but heart failure is improved. ABGs on mechanical ventilation and FiO2 of 50% shows a pH 7.45, PCO2 of 30, PO2 84 and a bicarb of 20 glucose is under good control. Patient seems to be doing well with Tranxene. Patient continues to do well with his weaning protocol in his physical therapy protocol. Plans are to transfer him to [place] tomorrow Physical exam. Vital signs. See below Chest. Loose large airway congestion Heart. Lateral PMI Abdomen. Rare bowel sounds Lower extremities. Nothing to suggest deep venous thrombophlebitis Neck. No masses and no meningismus. Neurologic.. Patient is awake. He can cooperate. Cranial nerves appear to be intact. Patient moves all 4 extremities The remainder the physical exam is negative Plan. 1. Mechanical ventilator weaning protocol 2. Physical therapy protocol while on mechanical ventilation 3. Deep venous thrombophlebitis prevention protocol 4. Proton pump inhibitor protocol 7. See orders. #8. See my note for 517. Watch for congestive heart failure. Continue daily lab, ABGs and chest 9. See my note for 08/20/2016. Bilateral pleural effusions. Most likely congestive heart failure. For dialysis today. Hopefully fluid can be removed. 10. See my note 08/22/2016. Still bilateral pleural effusions most likely secondary to congestive heart failure 11. See my note 08/23/2016. Pulmonary edema has nearly resolved. Continue present regimen. Probable transfer to [facility] tomorrow where the patient be closer to his family Exam (Progress Note) - Constitutional Vitals: Period Temp Pulse Resp BP Sys/Mcconnell Pulse Ox Last 24 Hr 98.7 F-99.2 F 63-80 10-27 81-151/34-80 90-100 Results - Labs CBC & BMP: 08/21/16 04:00 08/21/16 04:00
--- NOTE | 2016-08-23 09:15 | XRay Report ---
XR chest 1V portable Indication: Tracheostomy. Chest one view: Since yesterday, tracheostomy, NG tube, central line, borderline cardiomegaly and hazy obscuration of both lung bases is stable. This includes continued right basilar pneumonia. Impression: No change. PROCEDURE INTERPRETED AT [facility] DEPARTMENT OF RADIOLOGY Final Report Signed by: Clem Gates M.D.
[2016-08-23] MEDS: CARVEDILOL 25 MG TABLET PO SCH ×2 (09:44→20:54)
[2016-08-23] MEDS: amLODIPine 5 MG TABLET PO SCH (09:44)
[2016-08-23] MEDS: hydrALAZINE 25 MG TABLET PO SCH ×2 (09:44→20:54)
[2016-08-23] MEDS: PANTOPRAZOLE 40 MG VIAL IV SCH (09:45)
[2016-08-23] MEDS: CLOTRIMAZOLE/BETAMETHASONE CREAM 15 GM TUBE TOP SCH ×3 (09:45→20:55)
[2016-08-23] MEDS: DESITIN 4OZ/NYSTATIN 15 GRAM MIXTURE PASTE TOP SCH ×2 (09:45→20:55)
[2016-08-23] MEDS: INSULIN ASPART PROTAMINE/ASPART 70/30 100 UNIT/ML SUBCUT SCH (09:45)
--- NOTE | 2016-08-23 09:46 | Hospitalist Progress Note ---
Assessment and Plan (1) MRSA bacteremia Status: Acute Assessment and plan: Patient is being treated. White count is now normal. He had a VASYL on 10 August that did not reveal any vegetation. His bacteremia was not a continuous. Will reevaluate use of antibiotics in the coming 48 hours. Current Visit: Yes (2) Respiratory failure, chronic Status: Acute Assessment and plan: She has a permanent tracheostomy. Oxygenation is optimal seems to be dense dependent at this point. The initial cause of his respiratory failure is not made clear to me at this point. Informed came in with septic shock but as that is resolving to be as patient is difficult to be extubated. Patient remains in intensive care unit Current Visit: Yes Qualifiers: Respiratory failure complication: hypoxia and hypercapnia Qualified Code(s) : J96.11 - Chronic respiratory failure with hypoxia; J96.12 - Chronic respiratory failure with hypercapnia (3) Infective endocarditis Status: Acute Assessment and plan: This was a strong suspicion at the time of admission. Again as mentioned in the note patient did have MRSA bacteremia. Sitting history to this is not clear this patient had been transferred here from another hospital. He has not reviewed in the presence of clear vegetations clinical syndrome symptoms cannot exclude infective endocarditis caused by these aggressive pathogen. I would therefore recommend finish at least 4 weeks of IV antibiotics. Current Visit: Yes Hospitalist: Subjective Interval history: Patient has been seen and examined today he is sleeping being sedated with the present. I am informed that at times he becomes quite agitated and feisty. He needs some Ativan coming down. This gentleman is a protracted hospital stay admitted to the hospital with MRSA bacteremia and septic shock. Has been on antibiotics. He also came in with acute on chronic renal failure is now on dialysis. And is to send him to an LTAC hospital in [place]. He is ventilator dependent at this point. Besides septic shock he came in with acute respiratory failure. Exam - Constitutional Vitals: Period Temp Pulse Resp BP Sys/Mcconnell Pulse Ox Last 24 Hr 98.7 F-99.2 F 63-80 10-27 81-151/34-80 90-100 General appearance: over weight - Head Head exam: Present: normal inspection - Eye Pupils: Present: NANY - ENT ENT exam: Present: other (Tracheostomy present) - Neck Neck exam: Present: other (Acute stomach present) - Respiratory Respiratory exam: Present: clear to auscultation bilaterally - Cardiovascular Cardiovascular exam: Present: regular rate and rhythm - GI/Abdominal GI/Abdominal exam: Present: normal bowel sounds, soft - Extremities Exam Extremities exam: Present: normal inspection - Back Exam Back exam: Present: normal inspection - Neurological Exam Neurological exam: Present: other (Patient is sedated) - Psychiatric Psychiatric exam: Present: other (Patient is sedated) - Skin Skin exam: Present: normal color, warm, dry Results - Labs CBC & BMP: 08/21/16 04:00 08/21/16 04:00 Lab Results: I have reviewed the past 24 hour labs
[2016-08-23] MEDS: MORPHINE 2 MG/1 ML SYRINGE IV PRN (09:47)
[2016-08-23] MEDS: FLUCONAZOLE INJ 200 MG in PREMIX 1 EACH IV SCH (12:07)
[2016-08-23] MEDS: LORazepam 2 MG/1 ML VIAL IV PRN (14:40)
[2016-08-24] MEDS: ALBUTEROL/IPRATROPIUM 3 ML NEB RESP TX SCH ×3 (00:35→12:13)
[2016-08-24] MEDS: INSULIN REGULAR 100 UNIT/ML SUBCUT SCH ×3 (00:41→12:47)
[2016-08-24] MEDS: PROPOFOL 1,000 MG/100 ML BOTTLE IV SCH ×4 (02:20→15:38)
[2016-08-24 04:09] LABS: Pt O2 Delivery Device Ventilator
[2016-08-24 04:12] LABS: ABG Base Excess -6.9 MMOL/L (-2.5-2.5); ABG HCO3 18.7 MMOL/L (20-26); ABG Oxygen Saturation 94.5 % (95-100); ABG PCO2 32.9 MM HG (35-48); ABG PH 7.346 (7.35-7.45); ABG PO2 78.1 MM HG (80-95); ABG TCO2 16.8 MMOL/L (23-27)
[2016-08-24 06:54] LABS: Basophils % 0.4 % (0.0-0.8); Eosinophils # 0.5 10*3/uL (0.0-0.87); Eosinophils % 6.5 % (0.00-10.9); Hematocrit 26.3 VOL% (42.0-52.0); Hemoglobin 8.3 GM/DL (14.0-18.0); Immature Granulocytes % 1.8 %; Immature Granulocytes Absolute 0.15 #; Lymphocytes # 0.8 10*3/uL (1.4-4.0); Lymphocytes % 9.5 % (21.2-54.2); Mean Corpuscular HGB Conc 31.6 GM/DL (32-36); Mean Corpuscular Hemoglobin 30 PG (27-34); Mean Corpuscular Volume 95.6 FL (87-102); Mean Platelet Volume 10.6 FL (9.6-12.0); Monocytes # 0.6 10*3/uL (0.11-0.8); Monocytes % 6.7 % (1.7-12.7); Neutrophils # 6.3 10*3/uL (1.4-7.4); Neutrophils % 75.1 % (38.7-73.9); Platelet Count 234 T/CUMM (130-400); Red Blood Count 2.75 MC/CUMM (3.8-5.5); Red Cell Distribution Width 13.2 % (9.3-17.3); White Blood Count 8.3 T/CUMM (4-12)
[2016-08-24 07:19] LABS: Calcium 8.1 MG/DL (8.5-10.1); Magnesium 2.8 MG/DL (1.8-2.4); Osmolality,Calculated 296.4 MOS/KG (273-304); Potassium 5.7 MMOL/L (3.5-5.1)
--- NOTE | 2016-08-24 07:20 | XRay Report ---
Referring Physician: Salvador Bustamante Exam: XR chest 1V portable Date: August 24, 2016 at 3:08 AM Reason: Ventilation, tracheostomy Comparison: Chest one view portable August 23, 2016 Findings: A tracheostomy catheter, right IJ catheter and feeding tube are again in place. The cardiac silhouette is again enlarged. There are hazy opacities within the right mid and lower lung zones, in the left perihilar region and within the left lower lung zone. This could represent pulmonary edema and/or pneumonia with atelectasis. No pneumothorax is identified, but there is mild right pleural fluid and likely mild left pleural fluid. The osseous structures appear stable. Impression: There is slight increased opacification of both lungs and possible increased pleural fluid bilaterally. PROCEDURE INTERPRETED AT [facility] DEPARTMENT OF RADIOLOGY Final Report Signed by: Dr. Clarence Patrick
--- NOTE | 2016-08-24 08:23 | Hospitalist Progress Note ---
Assessment and Plan (1) MRSA bacteremia Status: Acute Assessment and plan: Patient is being treated. White count is now normal. He had a VASYL on 10 August that did not reveal any vegetation. His bacteremia was not a continuous. Will reevaluate use of antibiotics in the coming 48 hours. Current Visit: Yes (2) Respiratory failure, chronic Status: Acute Assessment and plan: She has a permanent tracheostomy. Oxygenation is optimal seems to be dense dependent at this point. The initial cause of his respiratory failure is not made clear to me at this point. Informed came in with septic shock but as that is resolving to be as patient is difficult to be extubated. Patient remains in intensive care unit Current Visit: Yes Qualifiers: Respiratory failure complication: hypoxia and hypercapnia Qualified Code(s) : J96.11 - Chronic respiratory failure with hypoxia; J96.12 - Chronic respiratory failure with hypercapnia (3) Infective endocarditis Status: Acute Assessment and plan: This was a strong suspicion at the time of admission. Again as mentioned in the note patient did have MRSA bacteremia. Sitting history to this is not clear this patient had been transferred here from another hospital. He has not reviewed in the presence of clear vegetations clinical syndrome symptoms cannot exclude infective endocarditis caused by these aggressive pathogen. I would therefore recommend finish at least 4 weeks of IV antibiotics. Current Visit: Yes Hospitalist: Subjective Interval history: Patient has been seen and examined; a 51-year-old gentleman who is been in the hospital admitted here on 31 July in septic shock with methicillin-resistant staph aureus bacteremia thought to have endocarditis given in the history of IV drug use. Patient also was in acute renal failure and since then has been on dialysis. And was intubated and failed extubation he now has a tracheostomy. Noticed that he has been fed through the NG tube will 6 speech therapy consultation today to evaluate swallow possible. His marginal cognitive status has been in the way of this assessment. He can follow simple commands to me like opening eyes and squeezing my fingers moving his feet. Is not totally oriented to time and place. I strongly believe that at this point if he fails swallow study then a percutaneous gastrostomy tube should be considered. When I took over the service on Wednesday there was a talk of him going to [facility] [place]. I have contacted the office of case management this morning and left a message for them to call me. Like to initiate discharge proceedings at this point. Informed family is aware of this plan to transfer that they will pay the co-pay for transportation of $250 of the patient transferred to specialty [facility] in [place]. Choice of [place] is because family is there. Apart from the positive blood cultures at admission subsequent blood cultures were negative. A VASYL done on 10 August was negative for christian SBE or ANGE. Clinical picture and the patient's preceding social history suggests possibility of endovascular infection therefore the patient will be treated for at least 6 weeks with IV antibiotics to cover the MRSA. Most recent common in his respiratory status his chest x-ray shows some improvement however still has significant Aa gradient; ABG from this morning FiO2 50% he has a pH of 7.346 PCO2 of 32.9 PO2 of 78 base 18.7 his proliferative bicarb was 18 (thus a matching base gradient) sodium of 133 potassium 5.7 chloride 99 bicarb of 18 BUN of 91 creatinine of 10.5 (this did get dialysis Wednesday). CBC is white count of 8.3 hemoglobin 8.3 hematocrit 26.3 platelet count of 234,000 Exam - Constitutional Vitals: Period Temp Pulse Resp BP Sys/Mcconnell Pulse Ox Last 24 Hr 97.8 F-98.1 F 54-89 16-44 80-140/38-80 92-99 General appearance: over weight - Head Head exam: Present: normal inspection - Eye Eye exam: Present: other (Unable to assess) Pupils: Present: NANY - ENT ENT exam: Present: normal exam - Neck Neck exam: Present: normal inspection, other (tracheostomy) - Respiratory Respiratory exam: Present: clear to auscultation bilaterally - Cardiovascular Cardiovascular exam: Present: regular rate and rhythm - GI/Abdominal GI/Abdominal exam: Present: normal bowel sounds, soft - Extremities Exam Extremities exam: Present: normal inspection - Back Exam Back exam: Present: normal inspection - Psychiatric Psychiatric exam: Present: other (Patient is partially sedated) - Skin Skin exam: Present: normal color, warm, dry Results - Labs CBC & BMP: 08/24/16 06:39 08/24/16 06:39 Lab Results: I have reviewed the past 24 hour labs
--- NOTE | 2016-08-24 08:28 | Discharge Summary ---
<Ronnell Benitez - Last Filed: 08/24/16 08:29> Diagnosis - Discharge Diagnosis (1) MRSA bacteremia Status: Acute (2) Respiratory failure, chronic Status: Acute (3) Infective endocarditis Status: Acute Discharge Plan - Discharge Data Disposition: Disch/Xfer to Group Director Experience Hos Condition at Discharge: Stable Discharge Diet: other (Tube feedings) Activity: other (Bedside physical therapy and occupational therapy when ready) Hygiene: other (Bedside bath) Weight Bearing at Discharge: non-weight bearing - Discharge Medications New Clotrimazole/Betameth Cream [Lotrisone Cream] 1 applic TOP TID applic Heparin Inj 2,000 unit IV .FOR DIALYSIS vial Morphine Inj 2 mg IV Q4H PRN #0 syringe PRN Reason: Pain Severe (8-10) amLODIPine [Norvasc] 10 mg PO DAILY tablet Acetaminophen Tab [Tylenol Tab] 650 mg PO Q6H PRN #0 tablet PRN Reason: Fever, Headache, Mild Pain Albuterol Neb [Proventil Neb] 2.5 mg RESP TX RT Q1H PRN #0 PRN Reason: Shortness Of Breath/Wheezing Albuterol/Ipratropium Neb [Duoneb] 3 ml RESP TX RT Q6H Carvedilol [Coreg] 25 mg PO BID tablet Dextrose 50% [D50] 25 gm IV PRN PRN #0 vial PRN Reason: Hypoglycemia with IV access Fluconazole Inj [Diflucan Inj] 200 mg IV Q24H Glucagon 1 mg IM PRN PRN #0 vial PRN Reason: Hypoglycemia w/o IV access Insulin Aspart Prot/Asp 70/30 [NovoLOG Mix 70/30] 30 unit SUBCUT AC BREAKFAST unit Insulin Regular [HumuLIN R] See Protocol SUBCUT Q6HR unit Magnesium Sulf Moy [Magnesium Sulfate Inj] 4 gm IV .PER PROTOCOL PRN #0 PRN Reason: Per Protocol Magnesium Sulf Moy [Magnesium Sulfate Inj] 2 gm IV .PER PROTOCOL PRN #0 PRN Reason: Per Protocol Ondansetron Inj [Zofran Inj] 4 mg IV Q4H PRN #0 vial PRN Reason: Nausea Pantoprazole Inj [Protonix Inj] 40 mg IV DAILY vial Vancomycin Inj 500 mg IV PRN PRN #0 vial PRN Reason: PHARMACY MANAGING Ziprasidone Inj [Geodon Inj] 20 mg IM Q8H PRN #0 vial PRN Reason: Agitation hydrALAZINE TAB [Apresoline Tab] 25 mg PO BID tablet LORazepam INJ [Ativan Inj] 1 mg IV Q4H PRN #0 vial PRN Reason: Agitation Discontinued Insulin Aspart Prot/Asp 70/30 [NovoLOG Mix 70/30] 40 unit SUBCUT BID Insulin Aspart [NovoLOG] See Protocol SUBCUT ACHS Lisinopril/Hydrochlorothiazide [Lisinopril-Hctz 20-25 mg Tab] 1 each PO DAILY - Follow Up or Referral - Forms/Instructions Exam - Constitutional Vitals: Period Temp Pulse Resp BP Sys/Mcconnell Pulse Ox Last 24 Hr 97.8 F-98.1 F 54-89 16-44 80-140/38-80 92-99 General appearance: over weight - Head Head exam: Present: normal inspection - Eye Pupils: Present: NANY - ENT ENT exam: Present: other (Tracheostomy in place) - Neck Neck exam: Present: other (Tracheostomy in place) - Respiratory Respiratory exam: Present: clear to auscultation bilaterally - Cardiovascular Cardiovascular exam: Present: regular rate and rhythm - GI/Abdominal GI/Abdominal exam: Present: normal bowel sounds, soft - Extremities Exam Extremities exam: Present: normal inspection - Back Exam Back exam: Present: normal inspection - Neurological Exam Neurological exam: Present: other (Patient is partially sedated) - Psychiatric Psychiatric exam: Present: other (Patient is partially sedated) - Skin Skin exam: Present: normal color, warm, dry Discharge Results Procedures and tests throughout hospitalization: Pending Orders 08/06/16 08:33 Fungal Culture,Blood Routine 08/07/16 10:53 Cytology Request Routine 08/17/16 AFB Culture/Smears Routine Fungal Culture w/ Prep Routine 08/24/16 00:10 MRSA Surveillence, Inf Control Labs on day of discharge: Labs from last 24 hours 08/24/16 08/24/16 08/24/16 06:39 06:39 06:39 WBC RBC Hgb Hct MCV MCH MCHC RDW Plt Count MPV Neut % (Auto) Lymph % (Auto) [place] % (Auto) Eos % (Auto) Baso % (Auto) Neut # (Auto) Lymph # (Auto) [place] # (Auto) Eos # (Auto) Baso # (Auto) Immature Gran % Nucleated RBC % Immature Gran # Nucleated RBCs # ABG pH ABG pCO2 ABG pO2 ABG HCO3 ABG Total CO2 ABG O2 Saturation ABG Base Excess FiO2 Sodium 133 L Potassium 5.7 H Chloride 99 Carbon Dioxide 18 L Anion Gap 21.7 H BUN 91 H Creatinine 10.50 H GFR Calculation 7 BUN/Creatinine Ratio 8.00 Glucose 154 H POC Glucose Calculated Osmolality 296.4 Calcium 8.1 L Phosphorus 10.4 H Magnesium 2.8 H Prealbumin 16.8 L 08/24/16 08/24/16 08/24/16 06:39 06:00 03:45 WBC 8.3 RBC 2.75 L Hgb 8.3 L Hct 26.3 L MCV 95.6 MCH 30 MCHC 31.6 L RDW 13.2 Plt Count 234 MPV 10.6 Neut % (Auto) 75.1 H Lymph % (Auto) 9.5 L [place] % (Auto) 6.7 Eos % (Auto) 6.5 Baso % (Auto) 0.4 Neut # (Auto) 6.3 Lymph # (Auto) 0.8 L [place] # (Auto) 0.6 Eos # (Auto) 0.5 Baso # (Auto) 0.0 Immature Gran % 1.8 Nucleated RBC % 0.0 Immature Gran # 0.15 Nucleated RBCs # 0.00 ABG pH 7.346 L ABG pCO2 32.9 L ABG pO2 78.1 L ABG HCO3 18.7 L ABG Total CO2 16.8 L ABG O2 Saturation 94.5 L ABG Base Excess -6.9 L FiO2 50.00 Sodium Potassium Chloride Carbon Dioxide Anion Gap BUN Creatinine GFR Calculation BUN/Creatinine Ratio Glucose POC Glucose 153 H Calculated Osmolality Calcium Phosphorus Magnesium Prealbumin 08/23/16 08/23/16 08/23/16 23:43 17:39 11:09 WBC RBC Hgb Hct MCV MCH MCHC RDW Plt Count MPV Neut % (Auto) Lymph % (Auto) [place] % (Auto) Eos % (Auto) Baso % (Auto) Neut # (Auto) Lymph # (Auto) [place] # (Auto) Eos # (Auto) Baso # (Auto) Immature Gran % Nucleated RBC % Immature Gran # Nucleated RBCs # ABG pH ABG pCO2 ABG pO2 ABG HCO3 ABG Total CO2 ABG O2 Saturation ABG Base Excess FiO2 Sodium Potassium Chloride Carbon Dioxide Anion Gap BUN Creatinine GFR Calculation BUN/Creatinine Ratio Glucose POC Glucose 179 H 108 H 199 H Calculated Osmolality Calcium Phosphorus Magnesium Prealbumin Preliminary micro results at discharge 08/06/16 08:33 Fungal Culture - Preliminary Blood No Fungus isolated at 2 weeks DS: Provider Date of admission: 07/31/16 02:56 Primary care physician: . No PCP Attending physician on admission: Elias Thakur MD Consults: 07/31/16 03:43 Consult to Pharmacy [CONS] Routine Reason for Pharmacy Consult: Adjust Meds Renal Funct 08/01/16 16:40 Consult to Pharmacy [CONS] Routine Reason for Pharmacy Consult: Dose/Manage Vancomycin 08/01/16 18:17 Consult to Pharmacy [CONS] Routine Reason for Pharmacy Consult: Dose/Manage Vancomycin 08/02/16 09:43 Consult to Physician [CONS] Routine Comment: Hematology senior information security consultant evaluate thrombocytopenia Consulting Provider: Clem Coats 08/04/16 13:44 Consult to Physician [CONS] Routine Comment: AMS Consulting Provider: Joseph Castillo Consult to Specialist Group: Neurology When should Consulting Provider be notified: Now Person Notified: ASH Date Notified: 08/04/16 Time Notified: 14:26 08/07/16 10:19 Consult to Physician [CONS] Routine Comment: NEEDS VASYL PER OTUSESO Consulting Provider: Sandra David Consulting Provider Notified: Yes Consult to Specialist Group: Cardiology When should Consulting Provider be notified: Now Person Notified: ALETHA Date Notified: 08/07/16 Time Notified: 10:25 08/07/16 10:57 Consult to Physician [CONS] Routine Comment: Consulting Provider: Ric Callejas Consulting Provider Notified: Yes Consult to Specialist Group: Pulmonology When should Consulting Provider be notified: Now Person Notified: Date Notified: 08/07/16 Time Notified: 13:05 08/07/16 13:04 Consult to Pharmacy [CONS] Routine Reason for Pharmacy Consult: Dose/Manage Gentamicin 08/08/16 09:23 Consult to Physician [CONS] Routine Comment: temporary dialysis catheter Consulting Provider: Chemo Rob Consulting Provider Notified: Yes When should Consulting Provider be notified: Now Consult to Specialist Group: Surgery When should Consulting Provider be notified: Now Person Notified: Dr. Rob Date Notified: 08/08/16 Time Notified: 10:05 08/08/16 10:37 Consult to Dietitian [CONS] Routine Reason for Dietitian: TF-Initiate/Manage 08/12/16 15:56 Consult to Wound Care - North [CONS] Routine Reason for Wound Care: Wound Care Management Consult Comment: sacral decubitus 08/13/16 16:02 Consult to Physician [CONS] Routine Comment: plan for trach Consulting Provider: Leonard De La Cruz Consulting Provider Notified: Yes When should Consulting Provider be notified: In am Consult to Specialist Group: ENT Person Notified: LITO Date Notified: 08/14/16 Time Notified: 08:45 08/15/16 08:25 Consult to Occupational Therapy [CONS] Routine Reason for Occupational Therapy: Evaluate and Treat Start Therapy: Today PT [Consult to Physical Therapy] [CONS] Routine Reason for Physical Therapy: Evaluate and Treat Start Therapy: Today 08/17/16 15:06 Consult to Case Mgmt/Social Srvs [CONS] Routine Reason for Case Mgmt/Social Srvs: LTAC Consult Comment: L-TACH IN [place], WHEN GILSON W/ DR. CALLEJAS Discharging clinician: Ronnell Benitez MD <Elissa Galvin - Last Filed: 08/24/16 09:59> Hospital Course - Hospital Course Hospital Course: Mr. Ball is a 51 year old male with past medical history significant for chronic back pain,arthritis, diabetes, diabetic retinopathy and elevation of liver enzymes who transferred from another facility for further evaluation of fever, confusion and was admitted to the unit for management of sepsis.He was started on IVF,broad spectrum antibiotics,blood cultures were drawn. His ESR and C reactive protein were elevated.He was noted to have ARF, nephrotoxics were held. Blood cultures came back to be positive for MRSA, he was treated with IV vancomycin. Echo showed mild concentric left ventricular hypertrophy, grade 1 diastolic dysfunction with impaired relaxation overall EF of 60%.No evidence infective endocarditis.CT head showed no acute changes, Lumbar spine showed no acute fracture. Ammonia level was up so he got some lactulose.His plateletes were low at 160, Hematology saw and they did not think that the patient has TTP.He was stable and was transferred to the floor. Patient remained confused and he was still spiking temp despite on IV vanc and Zosyn so he was switched to Ampicillin, Rocephin, Acyclovir and to continue with vanc -Meningits protocol.MRI of the brain reveals no acute abnormalities. Neurology saw in consultation. Blood cultures reveals MRSA. A spinal tap reveals WBC count of 39 with 65% neutrophils, glucose 54, total protein 40, RBC less than 1. Gram stain negative, meningitis antigen panel is negative.MRI Lumbar: No acute fracture or obvious abscess. Patient remained confused, got combative and continued to spike temp, blood cultures x3 were positive for MRSA. He was transferred to the unit. Gentamicin was added for presumed diagnosed of infective endocarditis.Patient had a history of being a drug user and an alcoholic. He also received some multivitamins. CT chest showed mild left pleural effusion, moderate right pleural fluid, right fluid is partially loculated. Scattered opacities in both lungs concerning for atelectasis, pneumonia to r/o neoplastic process. IR did a thoracentesis and 600cc of fluid was drained.Pleural fluid-no growth. Patient's overall conditioned worsened and he was subsequently intubated and started on pressors.His renal failure worsened and he became anuric and was started on hemodialysis. He had multiple blood transfusions.Patient produced some greenish fluid from the genitals and cultures came back negative.VASYL showed no clear evidence of valvular vegetation. It showed mitral regurgitation, aortic sclerosis without stenosis, ASCVD of descending aorta.Per modified Manrique Criteria:Patient has met the following criteria for infective endocarditis:Major-Blood cultures positive for MRSA x3 and Persistently positive blood cultures. Minor Criteria Fever greater than 100.4 and a History of drug user. Patient had some petechiae on his left knee but [place] lesions, osler's nodes or marcano spots were not seen.His urine grew yeast and IV diflucan was added.Because there were no organisms related to gentamicin and Herpes PCR was negative in the CSF, gentamicin and acyclovir were discontinued due to their high nephrotoxicity effect. Blood for fungal studies was negative.C- reactive protein improving from 15.9 to 13.2.Rheumatoid factor-<15.Hepatitis C Ab-positive.ESR-118.Liver USS- right pleural effusion,small ascites, gall bladder thickening most likely related to incomplete distention. Liver enzymes are unremarkable. Patient will need more workup as outpatient. He had an exchange of his right non -tunneled hemodialysis catheter on 08/20/2016 without difficulty. Patient's overall condition slowly improved and his antibiotics were de-escalated. He was not doing well with CPAP trials so he eventually had a tracheostomy tube placed.But remains ventilator dependent. His mental status improved. He gets emotional and cry each time we try to communicate with him. he was started on Traxene which seems to help with his emotions. He is currently stable, his vitals are fine and he is ready to be transferred to LTAC for continuation of care in [place]. - Time spent with patient Time with patient DS: Greater than 30 minutes (45 minutes spent on discharge)
[2016-08-24] MEDS: CLOTRIMAZOLE/BETAMETHASONE CREAM 15 GM TUBE TOP SCH ×2 (09:09→15:37)
[2016-08-24] MEDS: INSULIN ASPART PROTAMINE/ASPART 70/30 100 UNIT/ML SUBCUT SCH (09:09)
[2016-08-24] MEDS: amLODIPine 5 MG TABLET PO SCH (09:09)
[2016-08-24] MEDS: CARVEDILOL 25 MG TABLET PO SCH (09:09)
[2016-08-24] MEDS: DESITIN 4OZ/NYSTATIN 15 GRAM MIXTURE PASTE TOP SCH (09:10)
[2016-08-24] MEDS: PANTOPRAZOLE 40 MG VIAL IV SCH (09:10)
[2016-08-24] MEDS: LORazepam 2 MG/1 ML VIAL IV PRN ×2 (09:10→15:37)
[2016-08-24] MEDS: hydrALAZINE 25 MG TABLET PO SCH (09:47)
--- NOTE | 2016-08-24 10:06 | Pulmonology Progress Note ---
Pulmonary - PN: Subj Interval history: This is a 51-year-old white male whom I saw in pulmonary consultation on 2016. Earlier that day he had experienced respiratory failure that required intubation mechanical ventilation and I was asked to see him in pulmonary consultation to manage his mechanical ventilation and to treat pulmonary problems. My impressions were. 1. Staph aureus sepsis. Etiology undetermined. Note the patient has a history of IV drug use. Look for SBE 2. Acute respiratory arrest. Etiology undetermined. Probably multifactorial. 3. Altered mental status 4. Renal failure 5. Anemia 6. Probable pyelonephritis. 7. See past history 08/08/2016. Today's chest x-ray shows small bilateral pleural effusions. ABGs on mechanical ventilation showed pH 7.335, PCO2 28, PO2 365 and a bicarb of 16.4. I am going to decrease the patient's FiO2 but leave him and a hyper ventilation state to help with his metabolic acidosis. Creatinine is 6.0 with a BUN of 83. Sodium is 146. Potassium 3.8. H&H is dropped to 7.3/22.0 white blood cell count is 13,100 with 85 segs 8 lymphs and 4 monocytes. Platelets are 243,000. Multiple blood cultures have been positive for staph aureus and nares cultures were positive for MRSA. 08/09/2016. Today's chest x-ray is stable. There are a few increased interstitial markings with mild associated atelectasis at both bases. On mechanical ventilation with an FiO2 of 50% pH is 7.386. PCO2 is 25.1. PO2 is 157 and bicarb is 17.5. Patient is on weaning protocol which will be accentuated today. Yesterday had dialysis catheters placed and he was on dialysis. Electrolytes are normal. Creatinine 6.6. BUN is 72. White blood cell count is dropped to 10,684% segs. H&H is 9.2/27.1. Platelets 222,000. Purulent drainage from the penis has not grown anything. Sputum shows showing no growth at 12 hours. RPR is nonreactive 08/10/2016. Today's chest x-ray shows a small amount of pleural effusions bilaterally. I do not see any definite infiltrates. Patient is not doing well on weaning trials. I have changed his CPAP to 5 a CPAP with a pressure support of 15. Today's ABGs on FiO2 50% mechanical ventilation shows a pH 7.41, PCO2 23 , PO2 of 123, bicarb 14.2. Creatinine remains elevated 7.80 with a BUN of 70. Sodium potassium and chloride are normal. Patient remains severely ill. Patient is on a lot of antibiotics. It is possible some of these could be consolidated. 08/11/2016. Chest x-ray is stable today patient is only a short time on CPAP yesterday and was noted to try to go longer. He had ultrasonics to and he was on dialysis. Ultrasound of the liver showed a right pleural effusion and small amount of ascites. There was gallbladder wall thickening most likely related to incomplete distention. ABGs are stable. There are no new positive cultures. This patient is only minimal right arousable 08/12/2016. This patient is not doing with his well with his weaning protocol. His chest x-ray today shows bibasilar atelectasis worse on the left as compared to the right. These are fairly new and progressive findings. Respiratory therapy is finding it hard to suction all of his secretions and these have become more thicker and more tenacious. It was elected to reevaluate this patient with fiberoptic bronchoscopy. See report. He had a tremendous amount of retained secretions and these were extremely tenacious and repeat completely occluded the suction channel of the scope. Hopefully after removal this will make his weaning process more efficacious. There are no new cultures. ABGs on mechanical ventilation FiO2 50% shows a pH of 7.48, PCO2 25, PO2 of 107 and a bicarb of 18. Electrolytes are normal. Creatinine is 5.90. Patient receives dialysis. CBC is stable. 08/14/2016. On 08/13/2016 talked with this patient's son by phone and told him that he needed a trach. He wanted to talk to his sister and she was also agreeable and the call back the patient's nurse Lesvia and gave permission to proceed with trach. Dr. Valle all will place a trach later today. We have discussed the case. This patient has had staph sepsis. Etiology is undetermined. There is a past history of IV drug abuse. He has not done well with his weaning trials. Yesterday 2 or 3 occasions she was able to do CPAP for 1 hour which was a big improvement. He clearly has an altered mental status that has not resolved as expected. He is for CT of the chest later on today. Patient has renal failure and is on dialysis. His family is from [place] and he will eventually require long-term acute care. Location of that is yet to be determined. volunteer services assistant is on the case. Patient was evaluated with fiberoptic bronchoscopy on 08/12/2016. There are no positive cultures. He had a tremendous amount of retained sick secretions that were very tenacious and completely occluded the suction channel of the scope on multiple occasions. He may require repeat bronchoscopy in a few days. ABGs on mechanical ventilation FiO2 50% show a pH 7.49, PCO2 25, PO2 120, bicarb of 19. Electrolytes are normal. Creatinine 7.4. White count is 8176 segs 11 lymphs and 10 monos. H&H is stable at 8.6/25.7. After the patient's trach is placed today we will continue all protocols including weaning protocol physical therapy protocol deep venous thrombophlebitis protocol. 08/17/2016. This patient had a trach placed on 08/14/2016. He is not doing well with his weaning.Chest x-ray he has developed bibasilar atelectasis. I will evaluate this with fiberoptic bronchoscopy later today. ABGs on mechanical ventilation FiO2 50% shows a pH 7.37, PCO2 33.6, PO2 82.5 and a bicarb of 19.3. There are no new positive cultures. Sodium is 134. Potassium is 4.7. Creatinine is 9.8 with a BUN of 91. H&H stable 8.1/25.2. White count is 9678 segs 10 lymphs and 8 monocytes 08/18/2016. This patient was able to do 4 hours of CPAP yesterday which represents a big improvement. He is now at the point where he follows commands. volunteer services assistant looking the possibility of long-term acute care near his home in [place]. His chest x-ray shows small bilateral pleural effusions but is otherwise normal. There are no new cultures. ABGs are stable. Electrolytes are normal. Creatinine is 11.2. As of gradual small decrease in H &H. Patient is stable and improved 08/19/2016. This patient's on stage IV to weaning protocol. He went 8 hours on CPAP 08/18/2016 and we hope to advance to stage V today. Chest x-ray is top normal all fluid. We need to watch this. His BNP is mildly elevated. Most recent bronchoscopy specimens are negative. ABGs on mechanical ventilation FiO2 50% shows a pH of 7.47, PCO2 of 28, PO2 of 94, bicarbonate 20.4. Electrolytes are normal. Creatinine remains elevated at 9.0 with a BUN of 85. H&H is 9.1/28.0. White count is 9676 segs 10 lymphs and 10 monos. Platelets are 202,000. Natruretic peptide is elevated at 375. 08/20/2016. Today's chest x-ray shows bilateral pleural effusions which are greater on the right as compared to the left. I think we are looking at pulmonary edema. Patient will have dialysis later on today and hopefully some fluid can be removed. Creatinine is 10.4. Electrolytes are normal. H&H is stable at 8.4/26.2. White count is 9500 with 79 segs 8 lymphs and 8 monos. Limits her 188,000. Patient is gradually becoming more alert. He is able to cooperate better. 08/21/2016. This patient did 15 hours on CPAP on 08/20/2016 this represents an improvement. Today's chest x-ray is better and that the right and left pleural effusions are smaller. ABGs are stable. Patient appears to be having some emotional problems. He gets very anxious and he has had some tearing up. I am going to try him on Tranxene 7.53 times a day on a as needed basis. Labs been reviewed. Medicines been reviewed. There are no new positive cultures. 08/22/2016. Chest x-ray is slowly improving. Patient continues to have bilateral pleural effusions. He continues to progress on weaning protocol is also on physical therapy protocol. ABGs are stable. No other tests were available at the time of my rounds today. Tranxene was started on the patient yesterday and it worked well to help keep him calmer. 08/23/2016. Chest x-ray is improving on a daily basis. Very small residual right pleural effusion. Central vasculature is still prominent but heart failure is improved. ABGs on mechanical ventilation and FiO2 of 50% shows a pH 7.45, PCO2 of 30, PO2 84 and a bicarb of 20 glucose is under good control. Patient seems to be doing well with Tranxene. Patient continues to do well with his weaning protocol in his physical therapy protocol. Plans are to transfer him to [place] tomorrow 08/24/2016.This patient's had a stable night. His anxiety is been a little higher than usual. His chest x-ray shows small bilateral pleural effusions. He has previously had congestive heart failure. ABGs on FiO2 of 50% and mechanical ventilator show a pH of 7.346. PCO2 of 33. PO2 of 78.1 a bicarb of 18.7. Patient's done close to 18 hours of CPAP per day. He continues to have an NG tube in place. There are no new cultures. His last bronchoscopy specimens grew Tamera albicans. H&H is low but stable at 8.3/26.3. White count is 8300 with 75 segs 9.5 lymphs. Sodium is low at 133. Potassium 5.7. Creatinine is 10.5 with a BUN of 91. Patient is for possible transfer to long- term acute care near [place] which is where his family lives. Physical exam. Vital signs. See below Chest. Loose large airway congestion Heart. Lateral PMI Abdomen. Rare bowel sounds Lower extremities. Nothing to suggest deep venous thrombophlebitis Neck. No masses and no meningismus. Neurologic.. Patient is awake. He can cooperate. Cranial nerves appear to be intact. Patient moves all 4 extremities The remainder the physical exam is negative Plan. 1. Mechanical ventilator weaning protocol 2. Physical therapy protocol while on mechanical ventilation 3. Deep venous thrombophlebitis prevention protocol 4. Proton pump inhibitor protocol 9. See my note for 08/20/2016. Bilateral pleural effusions. Most likely congestive heart failure. For dialysis today. Hopefully fluid can be removed. 10. See my note 08/22/2016. Still bilateral pleural effusions most likely secondary to congestive heart failure 11. See my note 08/23/2016. Pulmonary edema has nearly resolved. Continue present regimen. Probable transfer to [facility] tomorrow where the patient be closer to his family Exam (Progress Note) - Constitutional Vitals: Period Temp Pulse Resp BP Sys/Mcconnell Pulse Ox Last 24 Hr 97.8 F-98.1 F 54-89 16-44 80-140/38-80 92-99 Results - Labs CBC & BMP: 08/24/16 06:39 08/24/16 06:39
--- NOTE | 2016-08-24 10:47 | Nephrology Progress Note ---
Nephrology - PN: Subj Interval history: He remains on the ventilator. He is still oliguric. Blood pressure stable Exam (PN)-Nephrology - Vital Signs Vital signs: Period Temp Pulse Resp BP Sys/Mcconnell Pulse Ox Last 24 Hr 97.8 F-99.1 F 54-89 16-44 80-140/38-80 90-99 Exam: Gen.: Easily arousable ENT: Pupils equal round reactive to light. Neck: Tracheostomy Cardiovascular: Regular rate and rhythm. No murmur rub or gallop Lungs: Clear Abdomen: Soft. Nontender. Positive bowel sounds. No organomegaly Extremities: Trace edema - Lab 08/24/16 06:39 08/24/16 06:39 Most recent lab results ABG pH 7.346 (7.35-7.45) L 08/24/16 03:45 ABG pCO2 32.9 MM HG (35-48) L 08/24/16 03:45 ABG pO2 78.1 MM HG (80-95) L 08/24/16 03:45 ABG HCO3 18.7 MMOL/L (20-26) L 08/24/16 03:45 ABG O2 Saturation 94.5 % (95-100) L 08/24/16 03:45 Calcium 8.1 MG/DL (8.5-10.1) L 08/24/16 06:39 Phosphorus 10.4 MG/DL (2.5-4.9) H 08/24/16 06:39 Magnesium 2.8 MG/DL (1.8-2.4) H 08/24/16 06:39 Ur Total Protein 24 Hr 587 MG/24HR (0-149.1) H 08/10/16 16:40 Assessment and Plan (1) Acute renal failure Status: Acute Assessment and plan: 51-year-old man admitted with: * Acute renal failure. Dialysis tomorrow * Ventilatory failure. Wean ventilator as tolerated * Sepsis. Continue antibiotics * Confusion. * Diabetes mellitus * Chronic back pain Current Visit: Yes (2) Altered mental status Status: Acute Current Visit: Yes (3) Fever Status: Acute Current Visit: Yes (4) Hyperglycemia due to type 2 diabetes mellitus Status: Chronic Current Visit: Yes (5) Hypotension Status: Acute Current Visit: Yes
[2016-08-24 17:41] VITALS: BP 105/57
== END 2016-08-24 16:24 | DRG 4 ==
LOC: N.ED 22:57 → N.ICU 07-31 02:56 → SUATTDRO 07-31 02:56 → N.ICU 07-31 03:50 → N.2E 07-31 18:06 → N.ICU 08-05 19:24
PROVIDERS: ADMIT Internal Medicine; ATTEND Internal Medicine Infectious Disease
PROC: IRTHORA (2016-08-07 14:41)